=== PATIENT | female | born 1950 ===

== ENCOUNTER 2017-07-12 11:35 | Inpatient (IN) | payer MEDICARE, MEDICAID ==
[2017-07-12 11:55] VITALS: BMI 24.0
--- NOTE | 2017-07-12 11:55 | ED PDOC ---
Arrival/HPI - General Chief Complaint: Psychiatric Evaluation Time Seen by Provider: 07/12/17 11:42 Historian: Family (sister), Healthcare Administrator (staff member) - History of Present Illness Narrative History of Present Illness (Text): 07/12/17 11:53 Pt p/w with catatonic behavior since 4 days ago per pt's sister; pt with similiar behavior in the past when she was in ; pt was committed to psych institution in ~ 2 months ago and she was committed to psych institution ~ few years ago ? [place]; per sister, pt's daily functional activity has been decreasing since 4 days ago, and over the last 1 day has not eating a meal , pt has also been wetting herself and requiring her sister to help her, bath her; NO medical complaints were noted by sister; no pain, no sob, no vomiting, no urinary/bowel changes, no diarrhea, no bleeding; pt was noted to have been hearing a women's voice a few days ago, but pt did not say what the voice says; pt is here for further eval; pt's without other complaints. Time/Duration: < week (4 days ago) Symptom Onset: Sudden Symptom Course: Worsening Severity Level: Severe Activities at Onset: Rest Context: Home Past Medical History - Provider Review Nursing Documentation Reviewed: Yes - Travel History Have you recently traveled outside [place] w/in the past 3 mons?: Yes - Past History Past History: No Previous - Infectious Disease Hx of Infectious Diseases: None - Cardiac Hx Hyperlipemia: Yes Hx Hypertension: Yes - Neurological Hx Alzheimer's Disease: Yes - Endocrine/Metabolic Hx Diabetes Mellitus Type 2: Yes - Psychiatric Hx Psychophysiologic Disorder: Yes Hx Hallucinations: Yes Hx Schizophrenia: Yes Family/Social History - Physician Review Nursing Documentation Reviewed: Yes Family/Social History: No Known Family HX Smoking Status: Never Smoked Hx Alcohol Use: No Hx Substance Use: No Hx Substance Use Treatment: No Allergies/Home Meds Allergies/Adverse Reactions: Allergies No Known Allergies Allergy (Verified 07/12/17 11:55) Home Medications: Home Meds Medication Instructions Recorded Confirmed Atorvastatin [Lipitor] 20 mg PO DAILY 07/12/17 07/12/17 Enalapril Maleate [Vasotec] 2.5 mg PO DAILY 07/12/17 07/12/17 Ergocalciferol (Vitamin D2) 50,000 unit PO QWK 07/12/17 07/12/17 [Vitamin D2] Escitalopram [Lexapro] 20 mg PO DAILY 07/12/17 07/12/17 Insulin Lispro [Humalog (Insulin 10 units SC TID 07/12/17 07/12/17 Lispro)] Sitagliptin Phos/Metformin HCl 1 each PO BID 07/12/17 07/12/17 [Janumet 50-1,000 mg Tablet] Review of Systems - Review of Systems Constitutional: Normal Eyes: Normal ENT: Normal Respiratory: Normal Cardiovascular: Normal Gastrointestinal: Normal Genitourinary Female: Normal Musculoskeletal: Normal Skin: Normal Neurological: Normal Endocrine: Normal Hemo/Lymphatic: Normal Psychiatric: Other ([place]) Physical Exam - Physical Exam Physical Exam Limitations: Altered Mental Status Vital Signs Reviewed: Yes Vital Signs Temp Pulse Resp BP Pulse Ox 07/12/17 13:39 93 H 16 139/88 98 07/12/17 11:50 99.0 F 107 H 22 132/83 99 Temperature: Afebrile Blood Pressure: Normal Pulse: Tachycardic Respiratory Rate: Normal Appearance: Positive for: Well-Appearing, Other (comfortable appearing, resting in bed, appearing alert/awake, NAD, cooperative, catatonic state) Pain Distress: None Mental Status: Positive for: other (pt is in a cataonic state, non-responsive, non-verbal, but awake and staring/blinking) Finger Stick Blood Glucose: 188 - Systems Exam Head: Present: Atraumatic, Normocephalic Pupils: Present: PERRL, Other (no nystagmus, sclera anicteric, no photophobia) Extroacular Muscles: Present: EOMI Conjunctiva: Present: Normal Ears: Present: Normal Mouth: Present: Moist Mucous Membranes, Normal Teeth, Other (no drooling/stridor , midline tongue) Pharnyx: Present: Normal Nose (External): Present: Atraumatic Nose (Internal): Present: Normal Inspection Neck: Present: Normal Range of Motion, Trachea Midline, Other (no step off, no gross deformities noted). No: MIDLINE TENDERNESS Respiratory/Chest: Present: Clear to Auscultation, Good Air Exchange, Other ( CTA b/l, no w/r/r, no tachypenia, no accessory muscle use noted) Cardiovascular: Present: Regular Rate and Rhythm, Normal S1, S2. No: Murmurs Abdomen: Present: Normal Bowel Sounds, Other (well nourished female, no focal tenderness, no masses/rebound/guarding/rigidity, no steinberg's sign, no mcburney' s point tenderness) Back: Present: Normal Inspection, Other (no gross deformities noted). No: Midline Tenderness Upper Extremity: Present: Normal Inspection, NORMAL PULSES, Neurovascularly Intact Lower Extremity: Present: Normal Inspection, NORMAL PULSES, Neurovascularly Intact Neurological: Present: GCS=15, Other (no facial asymmetries noted, no tongue deviations noted) Skin: Present: Warm, Normal Color, Other (cap refill < 1sec, no ulcerations, no petechiae, no rashes noted) Psychiatric: Present: Alert, Other (catatonic state) Medical Decision Making ED Course and Treatment: 07/12/17 11:54 Impression: AMS, catatonia, psych behavior i have consider all the differential diagnosis regarding pt's chief medical complaints/clinical findings, including but are not limited to: AMS, psych evaluation, catatonia A/P: AMS, catatonia, psych behavior - labs - iv - ct - xray - ekg - ua - uds - observe, supportive care 07/12/17 13:[address] Coley, medical service PCP saira, whom has been made aware of patient's medical presentation and agrees with ED mgt/txt rendered. agrees with medical admission, and to consult psych as well. 07/12/2017 13:[address] IMPRESSION: No acute findings. Dictator: Lopez Collier MD 07/12/17 13:36 pt remained in catatonic state pt is not in any medical distress sister whos her guardian is at her bedside, and is made aware of pt's medical results/findings agrees with admission 07/12/17 14:49 Re-evaluation Time: 12:55 Reassessment Condition: Improving,but remains with symptoms - Lab Interpretations Lab Results: 07/12/17 12:15 07/12/17 12:15 Lab Results 07/12/17 12:30: Urine Opiates Screen Negative, Urine Methadone Screen Negative, Ur Barbiturates Screen Negative, Ur Phencyclidine Scrn Negative, Ur Amphetamines Screen Negative, U Benzodiazepines Scrn Negative, U Oth Cocaine Metabols Negative, U Cannabinoids Screen Negative 07/12/17 12:30: Urine Color Yellow, Urine Appearance Clear, Urine pH 7.0, Ur Specific [place] 1.020, Urine Protein Trace H, Urine Glucose (UA) Negative, Urine Ketones Trace H, Urine Blood Negative, Urine Nitrate Negative, Urine Bilirubin Negative, Urine Urobilinogen 0.2, Ur Leukocyte Esterase Negative, Urine RBC 0 - 2, Urine WBC 1 - 3, Ur Epithelial Cells 4 - 5, Amorphous Sediment Small, Urine Bacteria Many, Fine Granular Casts 0 - 2, Urine Other Fiber 07/12/17 12:15: Alcohol, Quantitative < 10 07/12/17 12:15: Salicylates < 1 L, Acetaminophen < 10.0 L 07/12/17 12:15: Sodium 121 L, Potassium 4.7, Chloride 88 L, Carbon Dioxide 15 L , Anion Gap 22 H, BUN 14, Creatinine 0.7, Est GFR ( Amer) > 60, Est GFR ( Non-Af Amer) > 60, Random Glucose 217 H, Calcium 9.3, Total Bilirubin 1.6 H, AST 35, ALT 18, Alkaline Phosphatase 78, Total Protein 7.4, Albumin 4.1, Globulin 3.4, Albumin/Globulin Ratio 1.2 07/12/17 12:15: WBC 12.9 H, RBC 4.18, Hgb 12.3, Hct 35.3 L, MCV 84.4, MCH 29.4, MCHC 34.8, RDW 12.8, Plt Count 340, MPV 10.7, Gran % 85.8 H, Lymph % (Auto) 8.4 L, [place] % (Auto) 5.5, Eos % (Auto) 0.2 L, Baso % (Auto) 0.1, Gran # 11.07 H, Lymph # (Auto) 1.1 L, [place] # (Auto) 0.7 H, Eos # (Auto) 0.0, Baso # (Auto) 0.01 07/12/17 11:49: POC Glucose (mg/dL) 188 H I have reviewed the lab results: Yes Interpretation: Abnormal lab values (decr NA, elevated FS) - RAD Interpretation Narrative RAD Interpretations (Text): 07/12/17 13:23 PROCEDURE: CT HEAD WITHOUT CONTRAST. HISTORY: AMS, psych eval COMPARISON: None available. TECHNIQUE: Axial computed tomography images were obtained through the head/brain without intravenous contrast. Radiation dose: Total exam DLP = 870 mGy-cm. This CT exam was performed using one or more of the following dose reduction techniques: Automated exposure control, adjustment of the mA and/or kV according to patient size, and/or use of iterative reconstruction technique. FINDINGS: HEMORRHAGE: No intracranial hemorrhage. BRAIN: No mass effect or edema. No atrophy or chronic microvascular ischemic changes. VENTRICLES: Unremarkable. No hydrocephalus. CALVARIUM: Unremarkable. PARANASAL SINUSES: Unremarkable as visualized. No significant inflammatory changes. MASTOID AIR CELLS: Unremarkable as visualized. No inflammatory changes. OTHER FINDINGS: None. IMPRESSION: No acute findings 07/12/17 14:48 HISTORY: AMS, psych eval COMPARISON: No prior. FINDINGS: LUNGS: No active pulmonary disease. PLEURA: No significant pleural effusion identified, no pneumothorax apparent. CARDIOVASCULAR: Normal. OSSEOUS STRUCTURES: No significant abnormalities. VISUALIZED UPPER ABDOMEN: Normal. OTHER FINDINGS: None. IMPRESSION: No active disease. Radiology Orders: 07/12/17 11:55 HEAD W/O CONTRAST [CT] Stat 07/12/17 11:56 CHEST PORTABLE [RAD] Stat Umbrella Repairer: Radiologist - EKG Interpretation EKG Interpretation (Text): 07/12/17 13:04 NSR at 90 bpm, normal axis, no ectopy, inverted P wave V1-2, no st changes, ABNL EKG; no old ekg to compare with Interpreted by ED Physician: Yes Type: 12 lead EKG Comparison: No previous EKG avail. - Medication Orders Current Medication Orders: Sodium Chloride (Sodium Chloride 0.9%) 1,000 mls @ 100 mls/hr IV .Q10H MINGO Last Admin: 07/12/17 12:27 Dose: 100 mls/hr eMAR Start Stop Document 07/12/17 12:27 HI (Rec: 07/12/17 12:28 HI [id number]) Intravenous Solution Start Date 07/12/17 Start Time 12:28 Disposition/Present on Arrival - Present on Arrival Any Indicators Present on Arrival: No History of DVT/PE: No History of Uncontrolled Diabetes: No Urinary Catheter: No History of Decub. Ulcer: No - Disposition Have Diagnosis and Disposition been Completed?: Yes Diagnosis: Altered mental status, unspecified, Hyponatremia, Hyperglycemia, Catatonic disorder due to known physiological condition Disposition: HOSPITALIZED Disposition Time: 13:39 Patient Plan: Admission Patient Problems: Current Active Problems Problem Status Onset Altered mental status, unspecified Acute Hyponatremia Acute Hyperglycemia Acute Catatonic disorder due to known physiological condition Acute Condition: STABLE Referrals: Shaik Charles MD [Primary Care Provider] - Follow up with primary Forms: [employer] (Yemeni)
[2017-07-12] MEDS ORDERED: Sodium Chloride 0.9% 1,000 ML IV SCH (12:00)
[2017-07-12 12:47] LABS: BASO # 0.01 K/mm3 (0.0-2.0); BASO % 0.1 % (0.0-3.0); EOS % 0.2 % (1.5-5.0); GRAN # 11.07 (1.4-6.5); GRAN % 85.8 % (50.0-68.0); HEMOGLOBIN 12.3 g/dL (12.0-16.0); LYMPH # 1.1 (1.2-3.4); LYMPH % 8.4 % (22.0-35.0); MEAN CELL VOLUME 84.4 fl (80.0-105.0); MEAN CORPUSCULAR HEMOGLOBIN 29.4 pg (25.0-35.0); MEAN CORPUSCULAR HGB CONC 34.8 g/dl (31.0-37.0); MEAN PLATELET VOLUME 10.7 fl (7.0-11.0); MONO # 0.7 (0.1-0.6); MONO % 5.5 % (1.0-6.0); RBC 4.18 10^6/uL (3.5-6.1); RED CELL DISTRIBUTION WIDTH 12.8 % (11.5-14.5); WHITE BLOOD COUNT 12.9 10^3/ul (4.5-11.0)
[2017-07-12 12:49] LABS: URINE BILIRUBIN NEGATIVE (NEGATIVE); URINE BLOOD NEGATIVE (NEGATIVE); URINE GLUCOSE (UA) NEGATIVE (NEGATIVE); URINE LEUKOCYTE ESTERASE NEGATIVE Leu/uL (NEGATIVE); URINE NITRATE NEGATIVE (NEGATIVE); URINE PROTEIN TRACE mg/dL (<30 mg/dL); URINE UROBILINOGEN 0.2 E.U./dL (<1 E.U./dL)
[2017-07-12 12:52] LABS: URINE APPEARANCE CLEAR (CLEAR); URINE COLOR YELLOW (YELLOW)
[2017-07-12 12:53] LABS: ACETAMINOPHEN < 10.0 ug/ml (10.0-20.0); SALICYLATE < 1 mg/dL (2.0-20.0)
[2017-07-12 12:55] LABS: ALB/GLOB RATIO 1.2 (1.1-1.8); ALBUMIN 4.1 g/dL (3.0-4.8); ALT/SGPT 18 U/L (7-56); AST/SGOT 35 U/L (14-36); BLOOD UREA NITROGEN 14 mg/dL (7-21); CALCIUM 9.3 mg/dL (8.4-10.5); GFR AFRICAN-AMERICAN > 60; GFR NON-AFRICAN AMERICAN > 60
[2017-07-12 12:58] LABS: URINE BACTERIA MANY (NEG); URINE RBC 0 - 2 /hpf (0-2)
[2017-07-12 12:59] LABS: URINE AMORPHOUS SEDIMENT SMALL; URINE FINE GRANULAR CAST 0 - 2 /hpf (0-2)
[2017-07-12 13:12] LABS: BARBITURATES, UR NEGATIVE (NEGATIVE); BENZODIAZEPINES, UR NEGATIVE (NEGATIVE); OPIATES, UR NEGATIVE (NEGATIVE); PHENCYCLIDINE, UR NEGATIVE (NEGATIVE)
--- NOTE | 2017-07-12 13:22 | CT ---
PROCEDURE: CT HEAD WITHOUT CONTRAST. HISTORY: AMS, psych eval COMPARISON: None available. TECHNIQUE: Axial computed tomography images were obtained through the head/brain without intravenous contrast. Radiation dose: Total exam DLP = 870 mGy-cm. This CT exam was performed using one or more of the following dose reduction techniques: Automated exposure control, adjustment of the mA and/or kV according to patient size, and/or use of iterative reconstruction technique. FINDINGS: HEMORRHAGE: No intracranial hemorrhage. BRAIN: No mass effect or edema. No atrophy or chronic microvascular ischemic changes. VENTRICLES: Unremarkable. No hydrocephalus. CALVARIUM: Unremarkable. PARANASAL SINUSES: Unremarkable as visualized. No significant inflammatory changes. MASTOID AIR CELLS: Unremarkable as visualized. No inflammatory changes. OTHER FINDINGS: None. IMPRESSION: No acute findings
--- NOTE | 2017-07-12 14:24 | RAD ---
HISTORY: AMS, psych eval COMPARISON: No prior. FINDINGS: LUNGS: No active pulmonary disease. PLEURA: No significant pleural effusion identified, no pneumothorax apparent. CARDIOVASCULAR: Normal. OSSEOUS STRUCTURES: No significant abnormalities. VISUALIZED UPPER ABDOMEN: Normal. OTHER FINDINGS: None. IMPRESSION: No active disease.
[2017-07-12] MEDS ORDERED: ENALAPRIL MALEATE 2.5 MG PO SCH (16:00)
[2017-07-12] MEDS: Insulin Lispro (humaLOG) MIX 75/25(10 ml) SC SCH (17:16)
[2017-07-12] MEDS: Sodium Chloride 3% 500 ML IV SCH (20:03)
[2017-07-12 20:51] LABS: HDL CHOLESTEROL 80 mg/dL (29-60)
[2017-07-12 21:06] LABS: LDL CHOLESTEROL < 30 mg/dL (0-129)
[2017-07-12] MEDS: Insulin Lispro (humaLOG) MEDIUM Coverage SC SCH (22:45)
[2017-07-12] MEDS: Dextrose 5%/0.9% NS 1,000 ML IV SCH (23:58)
--- NOTE | 2017-07-13 02:42 | HP ---
HISTORY OF PRESENT ILLNESS: Patient is 66 years old with significant psych history, accompanied by her sister, who states that for last few days she is acting strange. She was not herself. According to sister, she was in Psych unit as a public two months ago. She had similar episode a couple of years ago when she was admitted in hospital also. No history of nausea or vomiting. No history of diarrhea. No history of cough or congestion. No fever. No chills. No history of fall. PAST MEDICAL HISTORY: She has significant past medical history of: 1. Hyperlipidemia. 2. Hypertension. 3. History of depression. 4. insulin-dependent diabetes. 5. Early dementia. ALLERGIES: SHE IS NOT ALLERGIC TO ANY MEDICATIONS. MEDICATIONS AT HOME: She is on insulin, Humalog. She is on Janumet twice a day, Lipitor 20 mg daily, enalapril 2.5 mg daily, Lexapro 20 mg daily, vitamin D. SOCIAL HISTORY: She has no history of smoking, drinking of alcohol. REVIEW OF SYSTEMS: Confusion, disoriented. She reported her sister at home that she was hearing voices, but patient currently is not communicative, nonverbal. PHYSICAL EXAMINATION: VITAL SIGNS: She is afebrile, pulse 107, respirations 22, blood pressure 139/88. LUNGS: Bilateral good airflow. No rhonchi or crackle. HEART: S1, S2 audible. ABDOMEN: Soft, nontender. No rebound. No guarding. NEUROLOGIC: She is awake and alert, but not communicative. LABORATORY EXAMINATION: WBC is 12.9, hemoglobin 12.3, hematocrit 35.3, platelet of 340. Chemistry: Sodium 121, potassium 4.7, chloride 88, CO2 of 15, BUN 14, creatinine 0.7, blood sugar of 217, total bili 1.6. Urine tox is negative. Urinalysis is unremarkable. She had an x-ray of the chest done that is unremarkable. CT scan of the head has no acute findings. ASSESSMENT: 1. Altered mental status. 2. History of schizophrenia. 3. Hyponatremia. 4. History of hypertension. 5. Insulin-dependent diabetes. PLAN: We will start patient on IV saline. Monitor her blood sugar, started on 10 mL of hypertonic saline. Patient needs to be admitted in telemetry. Psychiatry consult by Dr. Sade Shaffer has been requested. We will resume her usual medications. Jayla Coley MD
[2017-07-13 07:12] LABS: BASO # 0.01 K/mm3 (0.0-2.0); BASO % 0.1 % (0.0-3.0); EOS % 0.4 % (1.5-5.0); GRAN # 7.06 (1.4-6.5); GRAN % 76.3 % (50.0-68.0); HEMOGLOBIN 12.7 g/dL (12.0-16.0); LYMPH # 1.4 (1.2-3.4); LYMPH % 15.4 % (22.0-35.0); MEAN CELL VOLUME 83.4 fl (80.0-105.0); MEAN CORPUSCULAR HEMOGLOBIN 29.3 pg (25.0-35.0); MEAN CORPUSCULAR HGB CONC 35.2 g/dl (31.0-37.0); MEAN PLATELET VOLUME 10.5 fl (7.0-11.0); MONO # 0.7 (0.1-0.6); MONO % 7.8 % (1.0-6.0); RBC 4.33 10^6/uL (3.5-6.1); RED CELL DISTRIBUTION WIDTH 12.8 % (11.5-14.5); WHITE BLOOD COUNT 9.3 10^3/ul (4.5-11.0)
[2017-07-13 07:24] LABS: ALB/GLOB RATIO 1.1 (1.1-1.8); ALBUMIN 3.7 g/dL (3.0-4.8); ALT/SGPT 26 U/L (7-56); AST/SGOT 23 U/L (14-36); BLOOD UREA NITROGEN 10 mg/dL (7-21); CALCIUM 8.8 mg/dL (8.4-10.5); GFR AFRICAN-AMERICAN > 60; GFR NON-AFRICAN AMERICAN > 60
[2017-07-13 07:35] LABS: FREE T4 1.63 ng/dL (0.78-2.19)
[2017-07-13] MEDS: Insulin Lispro (humaLOG) MEDIUM Coverage SC SCH ×4 (08:38→21:27)
[2017-07-13] MEDS: Dextrose 5%/0.9% NS 1,000 ML IV SCH ×2 (08:39→19:56)
[2017-07-13] MEDS: Insulin Lispro (humaLOG) MIX 75/25(10 ml) SC SCH ×2 (09:17→16:26)
--- NOTE | 2017-07-13 09:36 | CARD ---
APPROVED REPORT EKG Measurement Heart [id number] <Conclusion> Normal sinus rhythm Possible Left atrial enlargement Poor R Progression V1-V2.
--- NOTE | 2017-07-13 15:38 | PN ---
DATE: SUBJECTIVE: Patient is 66 years old, seen and examined. Patient is still in catatonic state. She does not communicate. She is staring, but not answering any questions. PHYSICAL EXAMINATION: VITAL SIGNS: She is afebrile, pulse 70, respirations 20, blood pressure 123/81. LUNGS: Bilateral good airflow. No rhonchi or crackle. HEART: S1, S2 audible. ABDOMEN: Soft, nontender. No rebound. No guarding. NEUROLOGIC: Patient is awake and alert, but not communicative. Does not cooperate to have any motor or sensory check done. LABORATORY DATA: Sodium 126, potassium 4.0, chloride 95, CO2 of 22, BUN 10, creatinine 0.6, blood sugar of 128. Total bili 1.8. Urinalysis is unremarkable. Urine tox is negative. ASSESSMENT: 1. Altered mental status. 2. Catatonic state. 3. Hyponatremia, unknown. 4. History of schizophrenia. 5. Hypertension. 6. Hyperlipidemia. 7. Non-insulin dependent diabetes. PLAN: Currently patient is n.p.o. She is not cooperative to have swallow eval done. We will continue her on IV fluids and monitor her blood sugar. She is on hypertonic saline, we will continue that. We will follow up her CBC and follow up CMP in a.m. Awaiting psychiatric input. Jayla Coley MD
[2017-07-13] MEDS: Sodium Chloride 3% 500 ML IV SCH (16:15)
[2017-07-14] MEDS: Dextrose 5%/0.9% NS 1,000 ML IV SCH ×2 (06:32→11:51)
[2017-07-14] MEDS: Insulin Lispro (humaLOG) MIX 75/25(10 ml) SC SCH ×2 (08:26→18:00)
[2017-07-14 08:27] LABS: ALB/GLOB RATIO 1.1 (1.1-1.8); ALBUMIN 3.8 g/dL (3.0-4.8); ALT/SGPT 15 U/L (7-56); AST/SGOT 23 U/L (14-36); BLOOD UREA NITROGEN 8 mg/dL (7-21); CALCIUM 8.9 mg/dL (8.4-10.5); GFR AFRICAN-AMERICAN > 60; GFR NON-AFRICAN AMERICAN > 60; URIC ACID 1.9 mg/dL (2.5-6.2)
[2017-07-14] MEDS: Insulin Lispro (humaLOG) MEDIUM Coverage SC SCH ×4 (08:28→21:43)
--- NOTE | 2017-07-14 12:24 | PN ---
DATE: SUBJECTIVE: The patient is 66 years old, seen and examined. Seems to be more responsive today. She is trying to have eye contact. She is still not verbal. PHYSICAL EXAMINATION: VITAL SIGNS: She is afebrile, pulse 89, respirations 18, blood pressure 126/86. LUNGS: Bilateral fair airflow. No rhonchi or crackle. HEART: S1 and S2 audible. ABDOMEN: Soft. Nontender. No rebound. No guarding. NEUROLOGIC: She is awake and alert, but not communicative. EXTREMITIES: Bilateral leg, no edema. LABORATORY DATA: Blood cultures are negative. X-ray of the chest is unremarkable. ASSESSMENT: 1. Altered mental status. 2. Hyponatremia. 3. Catatonic state. 4. History of schizophrenia. PLAN: I will cut down her IV fluid. We will monitor the blood sugar. Continue hypertonic saline for another 24 hours, we will discontinue in the a.m. Since the patient's oral intake is better, we will discontinue IV fluid. According to operations associate, she ate 75% of her food. We will request for physical therapy evaluation and TCU consult. Jayla Coley MD
[2017-07-14] MEDS: Sodium Chloride 3% 500 ML IV SCH (18:02)
--- NOTE | 2017-07-14 20:48 | CON ---
DATE: HISTORY OF PRESENT ILLNESS: The patient is a 66-year-old female with a psychiatric history of depression and anxiety and catatonic behavior requiring admissions in the past, who is being followed by Psychiatry on the medical floor for catatonic behavior. I reviewed ER reports, which indicated the patient had similar behaviors in the past while she was in the [facility]. Apparently, she was admitted to psychiatric institutions at [facility] approximately 2 months ago. She is currently being prescribed Lexapro 10 mg daily, Ativan 0.5 mg q. 6 p.r.n. and Risperdal 0.25 mg at bedtime p.r.n., which she received one dose last night. Recent notes indicated the patient continues to be catatonic with a very flat affect and generally if she is to speak regardless it being in Japanese or in Latvian. I did meet with the patient at bedside this morning and again she refused to interact with me despite much encouragement. She would not answer questions regarding months, year, current circumstances, location, her mood or any concerns, she just stares at me a blankly. She will not answer whether she is in any distress or not, though does not appear to be in any distress. Her affect is flat and she is demonstrating prominent negative symptoms. Although she is not responding to internal stimulation, she does look internally preoccupied. I cannot rule out delusions. I cannot rule out paranoia as patient will not verbally communicate or interact with me in other manner. Vital signs and lab work were reviewed by this provider. PSYCHIATRIC MEDICATIONS: Include as mentioned above, Ativan 0.5 mg IV q.6 p.r.n., Risperdal 0.25 mg p.o. at bedtime and Lexapro 10 mg daily. IMPRESSION: Catatonic schizophrenia, rule out schizoaffective disorder, with depression, rule out major depressive disorder with psychotic features likely anxiety component. RECOMMENDATIONS: The patient is demonstrating prominent negative symptoms at this time. It is unclear about the etiology, however, generally when patients present with catatonia, we start Ativan or standing Ativan and a secondary antipsychotic such as Abilify will also help with negative symptoms. Risperdal's formulation is very close to Haldol and is less effective for negative symptoms than Abilify. We will discontinue risperidone for this purpose. In addition, I do not know if Lexapro has been an effective medication for patient; however, I would prefer to start medication that will activate such as Prozac for patient due to her profoundness of her symptoms. However, I will hold on making any additional changes and concentrate on only starting Ativan and Abilify at this time, so as not to confuse her medication regimen and possible responses to it. Psychiatry will continue to follow up with her tomorrow on 07/15/2017 to monitor her mental status and tolerance and reaction to the medications. Bbuba Tripp MD
[2017-07-15] MEDS: Insulin Lispro (humaLOG) MEDIUM Coverage SC SCH ×4 (08:30→21:48)
[2017-07-15] MEDS: Dextrose 5%/0.9% NS 1,000 ML IV SCH (09:47)
[2017-07-15] MEDS: Insulin Lispro (humaLOG) MIX 75/25(10 ml) SC SCH ×2 (10:23→17:08)
--- NOTE | 2017-07-15 15:28 | PN ---
DATE: SUBJECTIVE: The patient is 66 years old, seen and examined. She seems to be more alert, more communicative, able to converse now. PHYSICAL EXAMINATION: VITAL SIGNS: She is afebrile, pulse 81, respirations 20, blood pressure 116/74. LUNGS: Bilateral fair airflow. No rhonchi or crackle. HEART: S1 and S2 audible. ABDOMEN: Soft. Nontender. No rebound. No guarding. NEUROLOGIC: The patient is awake and alert, able to communicate. LABORATORY DATA: Blood sugar is 176. ASSESSMENT: 1. Symptomatic hyponatremia. 2. Status post catatonic state. 3. Mild dementia. 4. History of [id number]-[id number] diabetes. 5. Questionable history of schizophrenia. PLAN: The patient has been started on Abilify, lorazepam as needed. We will monitor blood sugar. Discontinue hypertonic saline and IV fluid since the patient's oral intake is better. Jayla Coley MD
--- NOTE | 2017-07-15 23:10 | CON ---
DATE: HISTORY OF PRESENT ILLNESS: Patient female with a psychiatric history of depression, anxiety and catatonic behaviors, who was required psychiatric admissions in the past. She is being followed by Psychiatry in the medical floor for catatonic behavior. I met with the patient at bedside yesterday as well as this morning. I modified patient's medication regimen so that she will continue taking Lexapro and Ativan 0.5 mg to be given in the a.m. and bedtime. Risperdal 0.25 mg was changed to Abilify 5 mg to aid with negative symptoms. As noted above I met with patient at bedside this morning and she does appear to be more spontaneous and responsive as well as engaged during our interactions. I used a speak and translate lou successfully during my communication with her to aid with manage translation. Patient indicates that she noticed she is in the hospital. She cannot provide the current month or year. However does indicate that she is depressed and anxious; however, denies that she is thinking about or wants to hurt herself. Patient asks for our help in treating her symptoms. Patient appears to understand when I reviewed her medications and what their indications are, with her at bedside this morning and she continues to agree to take them. She denies having any side effects from the medications thus far. Patient denies having hallucinations and she cannot really explain why she has been not overly communicative. Most of our communication is done in simple phrases and yes or no responses. She does stare at me blankly at times, but I do elicit consistent responses from her regarding her mood and willingness for psychiatric intervention to help with her symptoms. and preoccupied, and she is not responding to internal stimuli. I cannot rule out paranoia either. Insight and judgement is improving, has shown some improvement overnight. Vital signs and lab work reviewed by this provider. PSYCHIATRIC MEDICATIONS: Include Abilify 5 mg daily, patient received one dose yesterday, one dose today. Lexapro 10 mg daily, patient received one dose yesterday and one dose today. Ativan 0.5 mg p.o. a.m. and bedtime, patient received 2 doses yesterday and one dose this morning and Ativan 0.5 mg IV q.6 p.r.n. IMPRESSION: Catatonic schizophrenia, rule out schizoaffective disorder depressed type, rule out major depressive disorder with psychotic features. Patient also likely has a prominent anxiety component. RECOMMENDATIONS: 1. Will continue Lexapro 10 mg daily for depression as well as Abilify 5 mg daily for patient's prominent negative symptoms. Abilify will also help with patient's depression and augment Lexapro in this regard. 2. We will increase Ativan to 0.5 mg a.m. and 1 mg at bedtime. This will continue to help with her catatonia as well as help with patient's complaints of insomnia last night. 3. Psychiatry will continue to follow up with patient on a daily basis, specifically Psychiatry will see patient on Sunday07/16/2017. Bubba Tripp MD
[2017-07-16] MEDS: Insulin Lispro (humaLOG) MEDIUM Coverage SC SCH ×3 (08:00→22:02)
[2017-07-16] MEDS: Insulin Lispro (humaLOG) MIX 75/25(10 ml) SC SCH ×2 (08:00→16:59)
--- NOTE | 2017-07-16 08:30 | CON ---
DATE: 07/13/2017 PRESENTATION: The patient is a 66-year-old female, seen at bedside. She is unresponsive except for moving her eyes. Evidently, she has been catatonic for a couple of days. In review of the nurses' note, the documentation from the emergency room and speaking with the nurses, the patient has not been eating and there is some concern that she may not be able to swallow, so they are doing a swallow test on her, for any medication ordered has to be via another route or liquid if she is able to do that once the test is done. As the patient is absolutely unable to give any history, I called her sister whose name is Bailey Delvalle with whom the patient lives. Evidently, the patient primarily at this time wants to live in the [place]; however, she has gotten depressed or sick and is unable to live on her own, so she is staying with her sister. In speaking with her sister, Bailey, the patient has been healthy for most of her life. 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 Never and has no children and was able to live independently. She in the last 2 years has had difficulties. Two years ago, she was diagnosed while in the [facility] [place] with having Alzheimer's as well as schizophrenia. She has no history of suicide attempts, psychiatric contact, psychiatric medication up until that point. She comes to the hospital at this time, just on Lexapro psychiatrically and she is not on any medication for the Alzheimer's. Evidently, under normal circumstances, the patient can live on her own and take care of herself; at this time, she is not, and her sister indicates that she is having a lot of issues with taking care of her. The patient does appear to have confusion. She looks around the apartment for people who are not there. She sundowns, meaning she has difficulty in the evening and sometimes she is up all night wandering around the apartment and she has been here for about 6 months at this time, but getting sick was over the last 2 months. There is no family history of any psychiatric disorders. Her mom at 57 of a pulmonary emboli. Father is 87 and still alive. She has 2 brothers who in their 60s and one brother, who is 85 years old, who is still alive. The patient's sister, Bailey only speaks Montenegrin, so I utilized a psychiatric nurse historical interpreter to speak with the sister. However, she indicates that the patient, Paula is able to speak Hungarian and is fluent in both Montenegrin and Hungarian, but she is not sure when she is this state whether or not she actually understands Hungarian, so I will notify the nursing staff of this. The patient's current vital signs include a temperature of 98.9, pulse rate of 84, blood pressure of 128/80, respiratory rate of 20 and O2 sat of 98%. Laboratory results include as of yesterday white blood cell count of 12.9. Today, it is down to 9.3. Her last glucose level at 11:12 today was 128. MENTAL STATUS EXAM: Unable to be performed. The patient is nonverbal at this point in time. Collateral was collected from sister. DIAGNOSTIC IMPRESSION: Dementia with behavioral changes; mood disorder, unspecified; rule out psychotic disorder, unspecified. PLAN: The patient is nonverbal and is not physically moving at this time. She requires total care and is not responsive verbally. Collateral has been collected from her sister, Bailey Delvalle. Her phone number is [phone]. She is only Montenegrin speaking. The patient does have an IV line in. I put in an order for lorazepam 0.5 mg IV push q. 6 hours as needed for anxiety, Risperdal liquid 0.25 mg one at bedtime. She is on Lexapro 20 mg daily. Due to the fact that Lexapro can cause hyponatremia, I decreased it to 10 mg today in case that is having an effect on the hyponatremia she came in with. We will continue to follow this patient psychiatrically. Dr. Tripp will see and assess the patient in the morning. Thank you for the consult. Echo Juarez APN Sade Shaffer MD G[facility]
--- NOTE | 2017-07-16 15:16 | CON ---
DATE: 07/16/2017 NEUROLOGY CONSULTATION CHIEF COMPLAINT: Catatonia. HISTORY OF PRESENT ILLNESS: This is a 66-year-old woman with history of hypertension, hyperlipidemia, depression, and schizophrenia, who came into the hospital because according to the sister, she was feeling generalized weakness and was very catatonic and found to have hyponatremia, which was symptomatic and Psychiatry had seen the patient for catatonia and recommended to continue on Lexapro for depression as well as Abilify 5 mg for prominent negative symptoms and Ativan 1 mg for underlying catatonic state, which she is being managed by Psychiatry. Her sodium is much better today, initially it was 121, today it is corrected slowly to 130. No acute events overnight. She is sitting up, following simple commands, and is more responsive and communicative today. PAST MEDICAL HISTORY: History of mild dementia, questionable schizophrenic, diabetes, hypertension, dyslipidemia. REVIEW OF SYSTEMS: A 14-point review of systems is negative except per the HPI. FAMILY HISTORY: Noncontributory. ALLERGIES: NO KNOWN DRUG ALLERGIES. MEDICATIONS: Reviewed by nurse per reconciliation sheet. LABORATORY DATA: Sodium 130, potassium 4.5, chloride 99, carbon dioxide 19. BUN of 8, creatinine of 0.6. Random glucose 176. PHYSICAL EXAMINATION: VITAL SIGNS: Temperature 98.4, pulse rate 95, blood pressure 116/75, respiratory rate of 20, oxygen saturation 94% by nasal cannula. GENERAL: The patient is sitting up in the chair, in no acute distress, very flat affect, answers simple questions. HEENT: Head is atraumatic, normocephalic. PERRLA. Extraocular muscles intact. NECK: Supple. No JVD, no adenopathy noted. LUNGS: Clear to auscultation. No adventitious sounds. HEART: S1 and S2. Normal rate and rhythm. No murmurs, rubs, or gallops. ABDOMEN: Soft, nontender, nondistended. Bowel sounds are present. EXTREMITIES: No clubbing. No cyanosis. Peripheral pulses 2+ felt bilaterally. NEUROLOGIC: The patient has a very flat affect. Poor attention span and slow thought process. She responds in short phrases. Stares blankly at times, but elicits consistent responses regarding her mood and willingness. Insight and judgement are improving from seen. Cranial nerves II through XII are intact. Motor exam: Slightly increased tone throughout. Moves all extremities equally. Sensory exam: Light touch, pinprick, proprioception, and vibration intact. DTRs are 2+ throughout and 1 at ankles. Coordination: [id number]-[id number] intact. Gait is deferred for now. 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 At this time, recommend: 1. Monitor electrolytes and correct accordingly. 2. Keep blood pressures between 120s and 130s systolic and diastolic 70s and 80s. 3. Continue with Lexapro 10 mg and Abilify 5 mg for depression. In addition, Ativan 1 mg p.o. at bedtime for insomnia as well as anxiety as well as catatonia. 4. Continue with psychiatric evaluation. Thank you for this consult. William Gardner MD
[2017-07-16 16:19] LABS: COMPLEMENT C4 31.5 mg/dL (14.0-44.0)
[2017-07-16 17:23] LABS: ALB/GLOB RATIO 1.1 (1.1-1.8); ALBUMIN 4.1 g/dL (3.0-4.8); ALT/SGPT 36 U/L (7-56); AST/SGOT 57 U/L (14-36); BLOOD UREA NITROGEN 16 mg/dL (7-21); CALCIUM 9.5 mg/dL (8.4-10.5); GFR AFRICAN-AMERICAN > 60; GFR NON-AFRICAN AMERICAN > 60
--- NOTE | 2017-07-16 18:56 | PN ---
DATE: 07/16/2017 She is being seen today for a followup consultation. PRESENTATION: The patient is a 66-year-old female, seen at bedside. She is sitting up and she is attentive. The patient was admitted to hospital on 07/12/2017, for being catatonic and withdrawn with a psych history. She was admitted medically due to hyponatremia and hypoglycemia. Consultation was ordered for evaluation of catatonia, questioning whether or not she has bipolar disorder. When I initially saw her on Sunday, she was completely other than being able to look at me nonresponsive. I had called her sister for followup information, collateral information, and she had indicated that the patient had some psychiatric problems, but really had had nothing major going on until about 2 years ago she was hospitalized into the [facility] and diagnosed with Alzheimer's and schizophrenia at that time. She was discharged on Lexapro and has been on that since. Her sister had noticed in the past couple of weeks her decompensating. She seemed to be seeing people who were not in apartment. She does sundown rather badly. Sometime, she is up all night with confusion. Today, the patient is sitting up. She stares intently and takes a long time to process, so her appearance is somewhat bizarre. Her sister had told me that she was fluent in both Albanian and Portuguese; however, with whatever mental processes are going on, she is more comfortable in Portuguese. So I used the Portuguese language in order to communicate with the patient and she indicated that her thoughts are clearing and that she is feeling better, but she would feel she needs more psychiatric treatment and is willing to sign into the psychiatric unit, which we will consider once she is medically cleared. The patient denies any current symptoms and is cooperative with the nursing staff. According to nurses' notes, there was an instance this morning of her trying to climb out of bed. The patient indicates me that she had had to go to the bathroom, so I am not quite certain if there was a communication issue or what exactly went on, but the patient is oriented to generally time, place, and person at this point in time. Her latest glucose level, which was at 11:19 this morning was 252. Her white blood cell count is 9.3 today. It has been 12.9 on 07/12/2017, and the patient's urine culture was negative. MENTAL STATUS EXAM: The patient is alert. She is oriented to person and place. Time is difficult because she has been here few days and many times it is difficult for the patients to differentiate exactly what today's date is or the exact date after being in the hospital a few days. Her speech rate and volume are halting very concrete and simplistic. She appears to have a lot of difficulty in processing questions. Her mood is blunted. Her affect is constricted. She denies being suicidal or homicidal. She denies the presence of hallucinations, delusions, or paranoia. Her concentration and focus are poor. Her memory both short and long-term are difficult to assess right now. Her appetite she states is okay and she indicates that she is sleeping at night. DIAGNOSES: Major depression with psychotic features, dementia unspecified. PLAN: The patient denies being suicidal or homicidal, appears in no imminent danger of hurting herself or others. However, she continues to feel depressed and is willing to sign herself into the psychiatric unit for further treatment of her depression. Once she is medically evaluated, we can see how that will work. This will be discussed with Dr. Shaffer. Psychiatry will continue to follow. Thank you for the consult. Echo Juarez APN MTDRamón
--- NOTE | 2017-07-16 21:27 | PN ---
DATE: SUBJECTIVE: The patient is a 66-year-old seen and examined, sitting in chair. Seemed to be more verbal today. Denies any chest pain or shortness of breath. Eating and tolerating. PHYSICAL EXAMINATION: VITAL SIGNS: She has temperature of 99.7, pulse 109, respirations 20, blood pressure 123/85. HEENT: She has butterfly rash on her face with erythema on upper nose, cheeks and forehead that was not obvious on yesterday's exam. Otherwise, head and neck exam is unremarkable. LUNGS: Bilateral fair airflow. No rhonchi or crackle. HEART: S1, S2 audible. ABDOMEN: Soft, nontender. No rebound, no guarding. NEUROLOGIC: She is awake, alert, oriented, able to communicate. LABORATORY DATA: Her ESR is 46. Her chemistry; sodium 127, potassium 4.1, chloride 89, CO2 26, BUN 16, creatinine 0.7. Blood sugar of 224. Complement level is low. Lupus workup has been sent. ASSESSMENT: 1. Hyponatremia. 2. Mild dementia. 3. Hypertension. 4. Dru-[id number]-[id number] diabetes. PLAN: The patient was on hypotonic saline. The patient's sodium was corrected up to 130s since this IV saline, and hypertonic saline was discontinued, her sodium number has dropped. The patient needs further workup including autoimmune workup and to rule out syndrome of inappropriate antidiuretic hormone secretion. Her uric acid level is low. We will get Nephrology input. I have ordered for urine sodium levels. Once the workup is available, we will make further plan. Disposition plan should be to transfer to Psych unit. Jayla Coley MD
[2017-07-17 07:38] LABS: ALBUMIN 3.7 g/dL (3.0-4.8); ALT/SGPT 33 U/L (7-56); AST/SGOT 33 U/L (14-36); BLOOD UREA NITROGEN 16 mg/dL (7-21); CALCIUM 9.5 mg/dL (8.4-10.5); GFR AFRICAN-AMERICAN > 60; GFR NON-AFRICAN AMERICAN > 60
[2017-07-17] MEDS: Insulin Lispro (humaLOG) MEDIUM Coverage SC SCH ×3 (07:42→17:19)
[2017-07-17] MEDS: Insulin Lispro (humaLOG) MIX 75/25(10 ml) SC SCH ×2 (07:44→17:18)
[2017-07-17 08:14] VITALS: RESP 20
[2017-07-17 11:24] LABS: PH,URINE 6.5 (4.7-8.0); URINE BILIRUBIN NEGATIVE (NEGATIVE); URINE BLOOD NEGATIVE (NEGATIVE); URINE GLUCOSE (UA) >=1000 mg/dL (NEGATIVE); URINE LEUKOCYTE ESTERASE NEGATIVE Leu/uL (NEGATIVE); URINE NITRATE NEGATIVE (NEGATIVE); URINE PROTEIN NEGATIVE mg/dL (<30 mg/dL)
[2017-07-17 11:27] LABS: URINE APPEARANCE CLEAR (CLEAR); URINE COLOR YELLOW (YELLOW)
--- NOTE | 2017-07-17 13:58 | PN ---
DATE: SUBJECTIVE: The patient is 66 years old, seen and examined. More awake, alert, oriented, and able to communicate. Not in any distress. Eating and tolerating. OBJECTIVE: VITAL SIGNS: She is afebrile, pulse 96, respirations 20, blood pressure 124/87. LUNGS: Bilateral good airflow. No rhonchi or crackle. HEART: S1 and S2 audible. ABDOMEN: Soft, nontender. No rebound, no guarding. NEUROLOGICAL: The patient is awake and alert, and able to communicate. LABORATORY DATA: Sodium 127, potassium 4.5, chloride 94, CO2 of 25. BUN 16 and creatinine 0.7. Blood sugar of 223. ASSESSMENT: 1. Hyponatremia, probable syndrome of inappropriate antidiuretic hormone. 2. Fxx-glvhgti-njttqvsgj diabetes. 3. Status post catatonia and altered mental status. 4. History of schizophrenia in the past, was not on any medication. PLAN: The patient is currently on Abilify. She is on insulin 50 units before breakfast and dinner, and metformin. Awaiting Nephrology evaluation and then, she can be transferred to psych unit. Jayla Coley MD
--- NOTE | 2017-07-17 14:56 | CP.PCM.CON ---
History of Present Illness - History of Present Illness History of Present Illness: Initial Nephrology Consultation: Assessment: Stable Hyponatremia euvolemic DDx include polydipisa, SIADH due to psych meds, schizophrenia HTN, DM AMS likely due to her psych condition Plan Hypertension control with meds as ordered. Patient on ACEI, will continue with it Monitor Input/Output, daily weights and sodium level Check urine analysis, spot protein/creatinine and albumin/creatinine ratio agree with checking urine Na and urine osmol will also check DNA ab along with JADA oral fluid restriction to 1000 mL/day no need for hypertonic saline at this time. avoid correction in serum na >6-8 meq/24 hr psychiatry and Neuro following she can be transferred to psych unit from renal perspective and followed there Dose meds/antibiotics for normal GFR. Glycemic control Further work up/management as per primary team Thanks for allowing me to participate in care of your patient. Will follow patient with you. Please call if any Qs Dr Huy Walker Office: [phone] Chief Complaint; Unable reason for consult: hyponatremia HPI: Pt is a 66 F with hx of diabetes Mellitus, hypertension, depression, schizophrenia presented with complaints of change in behaviour and catatonia state. she has been managed for hyponatremia with hypertonic saline initially and Na improved from 121 to 130. since she is off saline, Na decreasing again. renal consult for hyponatremia pt unable to provide much hx. ROS: pt unable to provide much hx due to her psych condition. she is not much communicative Physical Examination: General Appearance: Comfortable, in no acute respiratory distress, co-operative . Vitals reviewed and noted as below Head; Atraumatic, normocephalic ENT: no ulcers no thrush. Tongue is midline. Oropharynx: no rash or ulcers. EYES: Pupils are equal, round and reactive to light accommodation. Eye muscles and extraocular movement intact. Sclera is anicteric. Neck; supple no lymphadenopathy, no thyromegaly or bruit Lungs: Normal respiratory rate/effort. Breath sounds bilateral equal and clear Heart: Normal rate. s1s2 normal. No rub or gallop. Extremities: no edema. No varicose veins Neurological: Patient is alert, awake. No focal deficit. Strength bilateral appropriate and equal Skin: Warm and dry. Normal turgor. facial malar rash. Palpitation: Normal elasticity for age Abdomen: Abdomen is soft. Bowel sounds +. There is no abdominal tenderness, no guarding/rigidity no organomegaly Psych: lack insight and has flat affect/mood MSK: no joint tenderness or swelling. Digits and nails normal, no deformity : kidney or bladder not palpable Labs/imaging reviewed. Past medical history, past surgical history, family history, social history, allergy reviewed and noted as below Family hx: no hx of CKD. Rest non-contributory work up: UA initially trace protein and no blood normal complements urine Na 54 TGL 74 TSH 1.0 uric acid 1.9 Past Patient History - Infectious Disease Hx of Infectious Diseases: None - Past Social History Smoking Status: Never Smoked - CARDIAC Hx Hypercholesterolemia: Yes Hx Hypertension: Yes - PULMONARY Hx Respiratory Disorders: No - NEUROLOGICAL Hx Neurological Disorder: Yes Hx Alzheimer's Disease: Yes - HEENT Hx HEENT Problems: No - RENAL Hx Chronic Kidney Disease: No - ENDOCRINE/METABOLIC Hx Diabetes Mellitus Type 1: Yes - HEMATOLOGICAL/ONCOLOGICAL Hx Blood Disorders: No - INTEGUMENTARY Hx Dermatological Problems: No - MUSCULOSKELETAL/RHEUMATOLOGICAL Hx Musculoskeletal Disorders: No Hx Falls: No - GASTROINTESTINAL Hx Gastrointestinal Disorders: No - GENITOURINARY/GYNECOLOGICAL Hx Genitourinary Disorders: No - PSYCHIATRIC Hx Psychophysiologic Disorder: Yes Hx Hallucinations: Yes Hx Schizophrenia: Yes - SURGICAL HISTORY Hx Surgeries: (has old incision on lower mid-abdomen and LLQ) Meds Allergies/Adverse Reactions: Allergies Allergy/AdvReac Type Severity Reaction Status Date / Time No Known Allergies Allergy Verified 07/12/17 11:55 - Medications Medications: Current Medications Aripiprazole (Abilify) 2.5 mg PO AMHS [facility] Last Admin: 07/17/17 09:53 Dose: Not Given Insulin Human Lispro (Humalog Med) 0 units SC ACHS [facility] PRN Reason: Protocol Last Admin: 07/17/17 07:42 Dose: 3 units Insulin Lispro Protam/Lispro Human (Humalog Mix 75/25) 15 units SC ACBD [facility] Last Admin: 07/17/17 07:44 Dose: 15 unit Lisinopril (Zestril) 2.5 mg PO DAILY [facility] Last Admin: 07/17/17 09:32 Dose: 2.5 mg Lorazepam (Ativan) 0.5 mg IVP Q6H PRN; Protocol PRN Reason: Anxiety Lorazepam (Ativan) 1 mg PO HS [facility] PRN Reason: Protocol Last Admin: 07/16/17 21:05 Dose: 1 mg Lorazepam (Ativan) 0.5 mg PO BID MINGO PRN Reason: Protocol Last Admin: 07/17/17 09:53 Dose: Not Given Metformin HCl (Glucophage) 500 mg PO BID MINGO Results - Vital Signs Recent Vital Signs: Last Vital Signs Temp 98.3 F 07/17/17 07:30 Pulse 100 H 07/17/17 09:32 Resp 20 07/17/17 07:30 BP 124/87 07/17/17 09:32 Pulse Ox 96 07/17/17 07:30 - Labs Result Diagrams: 07/13/17 06:00 07/17/17 06:15 Labs: Laboratory Results - last 24 hr 07/16/17 07/16/17 07/16/17 11:19 12:20 12:20 ESR 46 H Sodium Potassium Chloride Carbon Dioxide Anion Gap BUN Creatinine Est GFR ( Amer) Est GFR (Non-Af Amer) POC Glucose (mg/dL) 252 H Random Glucose Calcium Total Bilirubin AST ALT Alkaline Phosphatase C-React Prot High Sens > 15.00 H Total Protein Albumin Globulin Albumin/Globulin Ratio Ur Random Sodium Complement C3 126.0 Complement C4 31.5 07/16/17 07/16/17 07/16/17 16:08 16:58 20:58 ESR Sodium 127 L Potassium 4.1 Chloride 89 L Carbon Dioxide 26 Anion Gap 16 BUN 16 Creatinine 0.7 Est GFR ( Amer) > 60 Est GFR (Non-Af Amer) > 60 POC Glucose (mg/dL) 206 H 249 H Random Glucose 224 H Calcium 9.5 Total Bilirubin 1.1 AST 57 H D ALT 36 Alkaline Phosphatase 86 C-React Prot High Sens Total Protein 7.8 Albumin 4.1 Globulin 3.7 Albumin/Globulin Ratio 1.1 Ur Random Sodium Complement C3 Complement C4 07/17/17 07/17/17 07/17/17 06:15 07:16 09:50 ESR Sodium 127 L Potassium 4.5 Chloride 94 L Carbon Dioxide 25 Anion Gap 14 BUN 16 Creatinine 0.7 Est GFR ( Amer) > 60 Est GFR (Non-Af Amer) > 60 POC Glucose (mg/dL) 223 H Random Glucose 207 H Calcium 9.5 Total Bilirubin 1.0 AST 33 ALT 33 Alkaline Phosphatase 80 C-React Prot High Sens Total Protein 7.3 Albumin 3.7 Globulin 3.6 Albumin/Globulin Ratio 1.0 L Ur Random Sodium 54 Complement C3 Complement C4
[2017-07-17 17:16] VITALS: BP 131/82; PULSE 106; TEMP 98.4; O2SAT 100
[2017-07-17 17:48] LABS: OSMOLALITY,URINE 566 mosm/kg (300-1000)
--- NOTE | 2017-07-17 18:09 | PN ---
DATE: 07/17/2017 She is being seen today for a followup consultation. PRESENTATION: Patient is a 66-year-old female, seen at bedside. She was originally admitted to the hospital on 07/12/2017, for altered mental status, unspecified; hyponatremia, hyperglycemia, and catatonia. Psychiatric consult was ordered due to AMS, catatonia, and bipolar disorder. Patient is sitting at bedside today. She still continues to be attentive and to attend the conversation, which she has a hard time processing and responding. Indicates that she is feeling okay. She is cooperative with taking her medications and unit procedures, and she continues to be willing to sign into the psychiatric unit. I had been notified yesterday afternoon that she was medically cleared and then evidently her blood work had showed that she was hyponatremic with increased glucose, so the medical clearance was rescinded. Patient does not require a one-to-one. There have been no behavioral issues with her. She does have periods of confusion, but evidently is cooperative. She is not combative or climbing out of bed. VITAL SIGNS: Current vital signs include a temperature of 98.3, pulse rate of 96, blood pressure 144/77, respiratory rate 20, and O2 sat of 96% on room air. MENTAL STATUS EXAM: Patient is alert. She is oriented x2. Her eye contact is good. Her behavior is cooperative. Her speech rate and volume are halting. It seems it takes her a long time to process the answer, responds in very few words. She denies being suicidal or homicidal. Denies the presence of hallucinations, delusions, or paranoia. She does indicate that she is depressed when questioned. Her focus and concentration appear to be poor. Her memory both short and photograph mounter are difficult to assess. Her appetite is adequate and she appears to be sleeping at night. DIAGNOSTIC IMPRESSION: Dementia without behavioral disturbance, rule out mood disorder secondary to dementia. PLAN: Patient denies being suicidal or homicidal and does not appear in any imminent danger of hurting herself or others. Patient continues to be voluntary. She would like to come to the psychiatric unit once she is medically cleared. She does not feel stable enough psychiatrically to go home. Her current medications which have been changed again today are Abilify which was 5 mg once a day is 2.5 mg, one in the morning and one at night; Ativan at 0.5 mg q. 6 hours p.r.n. anxiety. She is routinely getting lorazepam 1 mg at bedtime and 0.5 mg one p.o. b.i.d. The Lexapro was discontinued due to the fact that it can cause some hyponatremia and as patient is suffering from this it seems appropriate. Psychiatry will continue to follow and assess this patient on a daily basis. Thank you for the consult. ARSH Garcia MD MTDRamón
== END 2017-07-17 17:45 | DRG 644 ==
LOC: ED 11:35 → ERH 15:21 → 3RSO 20:49 → 5RNO 07-15 15:54
PROVIDERS: ADMIT Internal Medicine; ATTEND Internal Medicine
DX: E22.2 Syndrome of inappropriate secretion of antidiuretic hormone (principal); F20.2 Catatonic schizophrenia; F32.3 Major depressive disorder, single episode, severe with psychotic features; E11.65 Type 2 diabetes mellitus with hyperglycemia; G30.9 Alzheimer's disease, unspecified; F02.80 Dementia in other diseases classified elsewhere, unspecified severity, without behavioral disturbance, psychotic disturbance, mood disturbance, and anxiety; E78.5 Hyperlipidemia, unspecified; I10 Essential (primary) hypertension; G47.00 Insomnia, unspecified; F41.9 Anxiety disorder, unspecified

== ENCOUNTER 2017-07-17 17:45 | Inpatient (IN) | payer MEDICARE, MEDICAID ==
--- NOTE | 2017-07-17 18:38 | PCM.BM ---
<Phong Carnes - Last Filed: 07/17/17 18:35> Treatment Plan Problems - Problems identified on initial assessmt SELFCARE DEFICIT Date Initiated: 07/17/17 Time Initiated: 18:36 Assessment reference: HP, NA, Other Status: Active MEDICATION NONADHERENCE Date Initiated: 07/17/17 Time Initiated: 18:36 Assessment reference: HP, NA, Other Status: Active SOCIAL ISOLATION Date Initiated: 07/17/17 Time Initiated: 18:36 Assessment reference: HP, NA, Other Status: Active Treatment assets and liabiliti Patient Assests: adapts well, cooperative, good support system, negotiates basic needs Patient Liabilities: live alone, language/speech - Milieu Protocol Maintain good personal hygiene: daily Encourage regular showers, daily Remind patient to perform daily oral care, daily Assist patient to perform ADL's Maintain personal safety: daily Educate patient to report safety concerns to staff, daily Monitor environment for contraband/sharps Medication safety: Monitor for expected outcome, potential side effects: daily, Assess barriers to learning: daily, Assess readiness for medication education: daily Discharge/Continuing Care - Education Needs Education Needs: Patient Medication, Patient Diagnosis/Disease Process, Patient Coping Skills, Patient Community resources, Patient Activities of Daily Living, Patient Health Practices/Safety, Patient Personal Hygiene/Grooming - Discharge Discharge Criteria: Tolerates medication w/o severe side effects, Free of agitation, Normal sleep pattern, Ability to care for self <Echo Juarez - Last Filed: 07/18/17 07:36> - 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 Status: Acute Interventions: Psychoeducation Psychopharmacology/adjustment of medications as needed/ monitoring possible side effects Evaluate pt on daily basis Compliance with medications and follow up appointments Suicide and homicide risk assessment and prevention Relapse prevention Reduction of symptoms Improve functional status Family involvement As outpatient: cognitive behavioral therapy 07/18/17 07:37 <Ariel Dent - Last Filed: 07/18/17 09:42> Treatment Plan Problems - Problems identified on initial assessmt MEDICATION NONADHERENCE Date resolved: 07/18/17 SOCIAL ISOLATION Priority: 3 Altered Thought Process Date Initiated: 07/18/17 Time Initiated: 09:42 Assessment reference: BECKY Status: Active Priority: 2 Ineffective Coping Date Initiated: 03/07/18 Time Initiated: 09:42 Status: Active Priority: 1 Treatment assets and liabiliti Patient Assests: ADL independent Patient Liabilities: medical problems, imparied memory, language/speech - Milieu Protocol Maintain good personal hygiene: daily Encourage regular showers, daily Remind patient to perform daily oral care, daily Assist patient to perform ADL's Conduct patient checks and document Observation sheet: Q15 minutes Maintain personal safety: every shift Educate patient to report safety concerns to staff, every shift Monitor environment for contraband/sharps Medication safety: Monitor for expected outcome, potential side effects: every shift, Assess barriers to learning: every shift, Assess readiness for medication education: every shift Discharge/Continuing Care - Education Needs Education Needs: Patient Medication, Patient Diagnosis/Disease Process, Patient Coping Skills - Discharge Discharge Criteria: Tolerates medication w/o severe side effects, Normal sleep pattern, Ability to care for self, Reduction of target symptoms Discharge to:: Home <Madelin Lopez - Last Filed: 07/18/17 13:44> Family Contact Family involvement: Family/SO is involved Family contact: Patient agrees to contact Family contact name: Bailey Delvalle([phone]) sister Family contacted how many times per week?: 2 <Rosario Galeas - Last Filed: 07/19/17 16:27>
[2017-07-17] MEDS: Insulin Lispro (humaLOG) MEDIUM Coverage SC SCH (21:42)
[2017-07-18] MEDS ORDERED: Magnesium Hydroxide Susp 30 ml UD PO PRN (01:02)
[2017-07-18] MEDS ORDERED: Alum-Mag Hydrox-Simethicone Susp (30 mL) PO PRN (01:02)
[2017-07-18 08:25] LABS: GLUCOSE,FASTING 216 mg/dL (65-110); HDL CHOLESTEROL 58 mg/dL (29-60)
[2017-07-18 08:36] LABS: LDL CHOLESTEROL 45 mg/dL (0-129)
[2017-07-18 08:43] LABS: FREE T4 1.36 ng/dL (0.78-2.19)
--- NOTE | 2017-07-18 08:49 | PCM.PSYCH ---
Initial Psychiatric Evaluation - Initial Psychiatric Evaluation Type of Admission: Voluntary Legal Status: Capacity Chief Complaint (in patient's own words): "I need more help" Patient's Reaction to Hospitalization: Patient is a 66 year old female who was admitted to [facility] [place] altered mental status, hyponatremia, hyperglycemia, and catatonia. She was followed on the medical floor by Psychiatry until medically cleared. Admitted voluntarily. History of Present Illness and Precipitating Events: Patient is a 66 year old female who has never been and has no children. She has been living with her sister prior to admission. Patient stares intently and has great difficulty processing information when asked questions. She is a poor historian but not uncooperative. She is no longer catatonic, is able to ambulate independently. History is obtained primarily from her sister. Patient evidently has had no psychiatric problems and has lived independently up until the last 2 years. She had some sort of a "breakdown" similar to her current presentation and was admitted to the hospital in the [facility]. She was diagnosed with schizophrenia and dementia and discharged on Lexapro. She has been unable to live alone since and has been staying with her sister who says she had been getting worse about 2 months Patient prior to admission and was getting confused in the evening sometimes staying up all night or seeing people that were not there. She stopped eating and became catatonic. Patient medically has HTN, and DM. Patient has no history of drug or alcohol abuse according to sister. Patient has no legal issues, no access to guns. Family history for mental illness is denied. Social and Developmental History: Patient grew up in the [facility], it is not clear when she came here or why. Mother at 57 of a pulmonary embolism and father is 87 and still alive. There were 8 siblings with 2 still alive other than the patient. 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 Current Medications: Active Medications Generic Name Dose Route Start Last Admin Trade Name Freq PRN Reason Stop Dose Admin Acetaminophen 650 mg 07/18/17 01:02 Tylenol 325mg Tab PO Q4H PRN Pain, Mild (1-3) Al Hydrox/Mg Hydrox/Simethicone 30 ml 07/18/17 01:02 Maalox Plus 30 Ml PO DAILY PRN Upset Stomach Aripiprazole 2.5 mg 07/17/17 22:00 07/17/17 21:42 Abilify PO 2.5 mg AMHS MINGO Administration Insulin Human Lispro 0 units 07/17/17 22:00 07/17/17 21:42 Humalog Med SC Not Given ACHS MINGO Protocol Insulin Lispro Protam/Lispro Human 15 units 07/18/17 07:30 Humalog Mix 75/25 SC ACBD MINGO Lisinopril 2.5 mg 07/18/17 08:00 Zestril PO DAILY MINGO Lorazepam 0.5 mg 07/18/17 16:00 Ativan PO BID MINGO Protocol Lorazepam 1 mg 07/17/17 22:00 07/17/17 21:42 Ativan PO 1 mg HS MINGO Administration Protocol Magnesium Hydroxide 30 ml 07/18/17 01:02 Milk Of Magnesia PO DAILY PRN Constipation Metformin HCl 500 mg 07/18/17 08:00 Glucophage PO BID [facility] Past Psychiatric History - Past Psychiatric History Previous Treatment History: Inpatient Prior Psychiatric Treatment: Once 2 years ago in [facility] History of Abuse: Unknown History of ETOH/Drug Use: Denied History of Family Illness: Denied Pertinent Medical Hx (Current Medical&Sleep Prob, Allergies): Allergies Allergy/AdvReac Type Severity Reaction Status Date / Time No Known Allergies Allergy Verified 07/18/17 01:02 Atorvastatin [Lipitor] 20 mg PO DAILY 07/12/17 Enalapril Maleate [Vasotec] 2.5 mg PO DAILY 07/12/17 Ergocalciferol (Vitamin D2) [Vitamin D2] 50,000 unit PO QWK 07/12/17 Escitalopram [Lexapro] 20 mg PO DAILY 07/12/17 Insulin Lispro [Humalog (Insulin Lispro)] 10 units SC TID 07/12/17 Sitagliptin Phos/Metformin HCl [Janumet 50-1,000 mg Tablet] 1 each PO BID Review of Systems - Review of Systems Systems not reviewed;Unavailable: Language Barrier - EENT Eyes: As Per HPI Ears: As Per HPI Nose/Mouth/Throat: As Per HPI - Breasts Breasts: As Per HPI - Cardiovascular Cardiovascular: As Per HPI - Respiratory Respiratory: As Per HPI - Gastrointestinal Gastrointestinal: As Per HPI - Genitourinary Genitourinary: As Per HPI - Reproductive: Female Reproductive:Female: As Per HPI - Menstruation Menstruation: As Per HPI - Musculoskeletal Musculoskeletal: As Par HPI - Integumentary Integumentary: As Per HPI - Neurological Neurological: As Per HPI - Psychiatric Psychiatric: As Per HPI - Endocrine Endocrine: As Per HPI - Hematologic/Lymphatic Hematologic: As Per HPI Mental Status Examination - Personal Presentation Personal Presentation: Looks stated age - Affect Affect: Flat - Motor Activity Motor Activity: Psychomotor Retardation - Reliability in Providing Information Reliability in Providing Information: Poor, due to altered mood, Poor, due to cognitve impairment - Speech Additional comments: Slow, concrete, simplistic responses - Mood Mood: Depressed - Formal Thought Process Additional comments: Thought processes are slow, thought blocking - Hallucinations/Delusions Additional comments: Denies hallucinations or delusions, evidently at home was seeing people that are not there. - Obsessions/Compulsions Obsessions: No Compulsions: No - Cognitive Functions Orientation: Person, Place, Situation Sensorium: Alert Attention/Concentration: Attentive Abstract Thinking: [place] Estimate of Intelligence: Average - Risk Risk: Diminished functioning - Strength & Assets Inventory Strength & Assets Inventory: Family support, Employment history - Limitations Limitations: Decreased memory, recent DSM 5 DX - DSM 5 DSM 5 Diagnosis: Dementia with depressed mood - Recommended/Plan of Treatment Treatment Recommendations and Plan of Treatment: Milieu/structure/supportive therapy Medical consult appreciated, see medical team note for more detailed info consultation for discharge plan and social issues Med management Family involvement Follow up on labs Will monitor closely evaluation for d/c planning Pt was educated about risk/benefits and alternatives of medications, coping strategies (safety plan, suicide prevention), relapse prevention, importance of follow up with psychiatrist and therapist, stay away from drugs/alcohol/smoking Medication Rational: Abilify 2.5mg BID for altered sensorium Ativan 0.5mg AM and Ativan 1mg HS for anxiety Lexapro discontinued as it can contribute to hyponatremia, will avoid medications that can also contribute to this. Projected ELOS: 07/23/2017 Prognosis: Fair Discharge Plan and Discharge Criteria: Patient will no longer be depressed, patient will be stable with an appropriate discharge plan - Smoking Cessation Smoking Cessation Initiated: No Reason for not providing: Patient not a smoker
[2017-07-18] MEDS: Insulin Lispro (humaLOG) MEDIUM Coverage SC SCH ×4 (09:17→21:25)
[2017-07-18] MEDS: Insulin Lispro (humaLOG) MIX 75/25(10 ml) SC SCH ×2 (09:18→17:17)
[2017-07-18 11:30] LABS: BLOOD UREA NITROGEN 18 mg/dL (7-21); CALCIUM 9.4 mg/dL (8.4-10.5); GFR AFRICAN-AMERICAN > 60; GFR NON-AFRICAN AMERICAN > 60
--- NOTE | 2017-07-18 12:06 | CP.PCM.CON ---
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 Patient on ACEI, will continue with it. hold if BP <110/50 If serum Na <130 despite fluid restriction then will consider treatment with tolvaptan. Today Na 133 hence will continue with oral fluid restriction to 1000 mL/day no need for hypertonic saline at this time. avoid correction in serum Na >6-8 meq/24 hr Dose meds/antibiotics for normal GFR. Glycemic control Further work up/management as per primary team Thanks for allowing me to participate in care of your patient. Will follow patient with you. Please call if any Qs. d/w team Dr Huy Walker Office: [phone] Chief Complaint; Unable reason for consult: hyponatremia HPI: Pt is a 66 F with hx of diabetes Mellitus, hypertension, depression, schizophrenia presented with complaints of change in behaviour and catatonia state. she has been managed for hyponatremia with hypertonic saline initially and Na improved from 121 to 130. since she was off saline, Na started decreasing again. renal consult for hyponatremia pt unable to provide much hx. ROS: pt unable to provide much hx due to her psych condition. she is not much communicative Physical Examination: General Appearance: Comfortable, in no acute respiratory distress, co-operative . Vitals reviewed and noted as below Head; Atraumatic, normocephalic ENT: no ulcers no thrush. Tongue is midline. Oropharynx: no rash or ulcers. EYES: Pupils are equal, round and reactive to light accommodation. Eye muscles and extraocular movement intact. Sclera is anicteric. Neck; supple no lymphadenopathy, no thyromegaly or bruit Lungs: Normal respiratory rate/effort. Breath sounds bilateral equal and clear Heart: Normal rate. s1s2 normal. No rub or gallop. Extremities: no edema. No varicose veins Neurological: Patient is alert, awake. No focal deficit. Strength bilateral appropriate and equal Skin: Warm and dry. Normal turgor. facial malar rash. Palpitation: Normal elasticity for age Abdomen: Abdomen is soft. Bowel sounds +. There is no abdominal tenderness, no guarding/rigidity no organomegaly Psych: lack insight and has flat affect/mood MSK: no joint tenderness or swelling. Digits and nails normal, no deformity : kidney or bladder not palpable Labs/imaging reviewed. Past medical history, past surgical history, family history, social history, allergy reviewed and noted as below Family hx: no hx of CKD. Rest non-contributory work up: UA initially trace protein and no blood normal complements, JADA neg urine Na 54 urine osmol 566 urine pro/cr 143 mg/gr and microalbumin neg TGL 74 TSH 1.0 uric acid 1.9 Past Patient History - Infectious Disease Hx of Infectious Diseases: None - Past Social History Smoking Status: Never Smoked Past Patient History - Infectious Disease Hx of Infectious Diseases: None - Past Social History Smoking Status: Never Smoked - CARDIAC Hx Hypercholesterolemia: Yes Hx Hypertension: Yes - PULMONARY Hx Respiratory Disorders: No - NEUROLOGICAL Hx Neurological Disorder: Yes Hx Alzheimer's Disease: Yes - HEENT Hx HEENT Problems: No - RENAL Hx Chronic Kidney Disease: No - ENDOCRINE/METABOLIC Hx Diabetes Mellitus Type 1: Yes - HEMATOLOGICAL/ONCOLOGICAL Hx Blood Disorders: No - INTEGUMENTARY Hx Dermatological Problems: No - MUSCULOSKELETAL/RHEUMATOLOGICAL Hx Musculoskeletal Disorders: No Hx Falls: No - GASTROINTESTINAL Hx Gastrointestinal Disorders: No - GENITOURINARY/GYNECOLOGICAL Hx Genitourinary Disorders: No - PSYCHIATRIC Hx Substance Use: No - SURGICAL HISTORY Hx Surgeries: (has old incision on lower mid-abdomen and LLQ) - ANESTHESIA Hx Anesthesia: No Meds Allergies/Adverse Reactions: Allergies Allergy/AdvReac Type Severity Reaction Status Date / Time No Known Allergies Allergy Verified 07/18/17 01:02 - Medications Medications: Current Medications Acetaminophen (Tylenol 325mg Tab) 650 mg PO Q4H PRN PRN Reason: Pain, Mild (1-3) Al Hydrox/Mg Hydrox/Simethicone (Maalox Plus 30 Ml) 30 ml PO DAILY PRN PRN Reason: Upset Stomach Aripiprazole (Abilify) 2.5 mg PO AMHS MINGO Last Admin: 07/18/17 09:14 Dose: 2.5 mg Insulin Human Lispro (Humalog Med) 0 units SC ACHS MINGO PRN Reason: Protocol Last Admin: 07/18/17 09:17 Dose: 1 units Insulin Lispro Protam/Lispro Human (Humalog Mix 75/25) 15 units SC [facility] Last Admin: 07/18/17 09:18 Dose: 15 u Lisinopril (Zestril) 2.5 mg PO DAILY MINGO Lorazepam (Ativan) 0.5 mg PO BID MINGO PRN Reason: Protocol Lorazepam (Ativan) 1 mg PO HS MINGO PRN Reason: Protocol Last Admin: 07/17/17 21:42 Dose: 1 mg Magnesium Hydroxide (Milk Of Magnesia) 30 ml PO DAILY PRN PRN Reason: Constipation Metformin HCl (Glucophage) 500 mg PO BID MINGO Last Admin: 07/18/17 09:16 Dose: 500 mg Results - Vital Signs Recent Vital Signs: Last Vital Signs Temp 98.7 F 07/18/17 07:25 Pulse 95 H 07/18/17 09:14 Resp 20 07/18/17 07:25 BP 97/65 L 07/18/17 09:14 Pulse Ox - Labs Result Diagrams: 07/18/17 11:00 Labs: Laboratory Results - last 24 hr 07/17/17 07/18/17 07/18/17 21:24 06:30 06:30 Sodium Potassium Chloride Carbon Dioxide Anion Gap BUN Creatinine Est GFR ( Amer) Est GFR (Non-Af Amer) POC Glucose (mg/dL) 218 H Random Glucose Fasting Glucose 216 H Calcium Triglycerides 72 Cholesterol 123 L LDL Cholesterol Direct 45 HDL Cholesterol 58 Free T4 1.36 TSH 3rd Generation 0.49 07/18/17 07/18/17 07/18/17 07:32 11:00 11:35 Sodium 133 Potassium 4.8 Chloride 101 Carbon Dioxide 18 L Anion Gap 18 BUN 18 Creatinine 0.7 Est GFR ( Amer) > 60 Est GFR (Non-Af Amer) > 60 POC Glucose (mg/dL) 199 H 299 H Random Glucose 222 H Fasting Glucose Calcium 9.4 Triglycerides Cholesterol LDL Cholesterol Direct HDL Cholesterol Free T4 TSH 3rd Generation
--- NOTE | 2017-07-18 18:14 | CON ---
DATE: HISTORY OF PRESENT ILLNESS: Patient is 66 years old, who was initially admitted on acute care following catatonic state. According to the family, she has been increasingly forgetful and family noticed altered mental status. She was brought to the emergency room and found to have sodium of 121. She was treated with hypertonic saline and IV saline. She was evaluated by psychiatrist and was transferred to Psych unit for management and readjustment of psych medications. PAST MEDICAL HISTORY: Significant for: 1. Hypertension. 2. Jvn-izdghpr-xaaclboap diabetes. 3. Hyperlipidemia. ALLERGIES: SHE IS NOT ALLERGIC TO ANY MEDICATION. MEDICATIONS AT HOME: She is on Humalog and she is taking Janumet twice a day, Lipitor 20 mg daily, enalapril 2.5 mg daily, Lexapro 20 mg daily. SOCIAL HISTORY: She has no history of smoking, drinking, or alcohol use. REVIEW OF SYSTEMS: Patient is not very communicative. She stares and does not answer questions. PHYSICAL EXAMINATION: GENERAL: She is awake and alert. Not very communicative. Answers with yes and no. VITAL SIGNS: She is afebrile, pulse 95, respirations 20, blood pressure 97/65. LUNGS: Bilateral fair airflow. No rhonchi or crackle. HEART: S1 and S2 audible. ABDOMEN: Soft, nontender. No rebound. No guarding. NEUROLOGICAL: She is awake and alert and not very communicative. SKIN: She has butterfly rash; however, initial skin test was negative. LABORATORY DATA: Blood sugar 199, triglyceride 72, total cholesterol 123, LDL is 45, TSH is 0.49. ASSESSMENT: 1. Status post altered mental status. 2. Hyponatremia. 3. Questionable history of schizophrenia. 4. Noninsulin-dependent diabetes. 5. Hypertension. PLAN: We will continue patient on current medication and order for CMP for a.m. Jayla Coley MD
[2017-07-19 08:15] LABS: ALBUMIN 3.5 g/dL (3.0-4.8); ALT/SGPT 33 U/L (7-56); AST/SGOT 21 U/L (14-36); BLOOD UREA NITROGEN 17 mg/dL (7-21); CALCIUM 9.2 mg/dL (8.4-10.5); GFR AFRICAN-AMERICAN > 60; GFR NON-AFRICAN AMERICAN > 60
[2017-07-19] MEDS: Insulin Lispro (humaLOG) MEDIUM Coverage SC SCH ×4 (08:51→21:06)
[2017-07-19] MEDS: Insulin Lispro (humaLOG) MIX 75/25(10 ml) SC SCH ×2 (08:54→17:14)
--- NOTE | 2017-07-19 13:59 | CP.PCM.PN ---
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 Today Na 133 hence will continue with oral fluid restriction to 1000 mL/day no need for hypertonic saline at this time. avoid correction in serum Na >6-8 meq/24 hr Dose meds/antibiotics for normal GFR. Glycemic control Further work up/management as per primary team Thanks for allowing me to participate in care of your patient. Will follow patient with you. Please call if any Qs. Dr Huy Walker Office: [phone] Chief Complaint; Unable reason for consult: hyponatremia HPI: Pt is a 66 F with hx of diabetes Mellitus, hypertension, depression, schizophrenia presented with complaints of change in behaviour and catatonia state. she has been managed for hyponatremia with hypertonic saline initially and Na improved from 121 to 130. since she was off saline, Na started decreasing again. renal consult for hyponatremia pt unable to provide much hx. ROS: pt unable to provide much hx due to her psych condition. she is not much communicative Physical Examination: General Appearance: Comfortable, in no acute respiratory distress, co-operative . Vitals reviewed and noted as below Head; Atraumatic, normocephalic ENT: no ulcers no thrush. Tongue is midline. Oropharynx: no rash or ulcers. EYES: Pupils are equal, round and reactive to light accommodation. Eye muscles and extraocular movement intact. Sclera is anicteric. Neck; supple no lymphadenopathy, no thyromegaly or bruit Lungs: Normal respiratory rate/effort. Breath sounds bilateral equal and clear Heart: Normal rate. s1s2 normal. No rub or gallop. Extremities: no edema. No varicose veins Neurological: Patient is alert, awake. No focal deficit. Strength bilateral appropriate and equal Skin: Warm and dry. Normal turgor. facial malar rash. Palpitation: Normal elasticity for age Abdomen: Abdomen is soft. Bowel sounds +. There is no abdominal tenderness, no guarding/rigidity no organomegaly Psych: lack insight and has flat affect/mood MSK: no joint tenderness or swelling. Digits and nails normal, no deformity : kidney or bladder not palpable Labs/imaging reviewed. Past medical history, past surgical history, family history, social history, allergy reviewed and noted as below Family hx: no hx of CKD. Rest non-contributory work up: UA initially trace protein and no blood normal complements, JADA neg urine Na 54 urine osmol 566 urine pro/cr 143 mg/gr and microalbumin neg TGL 74 TSH 1.0 uric acid 1.9 Objective - Vital Signs/Intake and Output Vital Signs (last 24 hours): Temp Pulse Resp BP Pulse Ox 98.2 F 84 20 99/70 L 07/19/17 07:04 07/19/17 08:56 07/19/17 07:04 07/19/17 08:56 - Medications Medications: Current Medications Acetaminophen (Tylenol 325mg Tab) 650 mg PO Q4H PRN PRN Reason: Pain, Mild (1-3) Al Hydrox/Mg Hydrox/Simethicone (Maalox Plus 30 Ml) 30 ml PO DAILY PRN PRN Reason: Upset Stomach Insulin Human Lispro (Humalog Med) 0 units SC ACHS MINGO PRN Reason: Protocol Last Admin: 07/19/17 08:51 Dose: 1 units Insulin Lispro Protam/Lispro Human (Humalog Mix 75/25) 15 units SC ACBD MINGO Last Admin: 07/19/17 08:54 Dose: 15 u Lorazepam (Ativan) 1 mg PO HS MINGO PRN Reason: Protocol Last Admin: 07/18/17 21:33 Dose: 1 mg Lorazepam (Ativan) 0.5 mg PO BID MINGO PRN Reason: Protocol Magnesium Hydroxide (Milk Of Magnesia) 30 ml PO DAILY PRN PRN Reason: Constipation Metformin HCl (Glucophage) 500 mg PO BID MINGO Last Admin: 07/19/17 08:51 Dose: 500 mg Quetiapine Fumarate (Seroquel) 50 mg PO HS MINGO PRN Reason: Protocol - Labs Labs: 07/19/17 07:00
--- NOTE | 2017-07-19 14:52 | PCM.PYCHPN ---
Psychiatric Progress Note - Psychiatric Progress Note Patient seen today, length of contact: 30 minutes Patient Chief Complaint: "I feel better" Problems Identified/Issues Discussed: Suicide/ homicide prevention, past psychiatric h/o, current psychiatric symptoms , medical problems, risk/benefits and alternatives of medications, medications compliance, coping strategies, substance abuse h/o, relapse prevention, importance of follow up with psychiatrist and therapist, discharge plan. Medical Problems: electrolytes disbalance catatonia Rule out Parkinson's Diagnostic Results: 07/19/17 07:00 Lab Results 07/19/17 11:54: POC Glucose (mg/dL) 232 H 07/19/17 07:15: POC Glucose (mg/dL) 170 H 07/19/17 07:00: Sodium 133, Potassium 4.5, Chloride 100, Carbon Dioxide 25, Anion Gap 13, BUN 17, Creatinine 0.7, Est GFR ( Amer) > 60, Est GFR (Non- Af Amer) > 60, Random Glucose 175 H, Calcium 9.2, Total Bilirubin 0.5, AST 21, ALT 33, Alkaline Phosphatase 68, Total Protein 6.8, Albumin 3.5, Globulin 3.4, Albumin/Globulin Ratio 1.0 L 07/18/17 21:20: POC Glucose (mg/dL) 243 H 07/18/17 16:13: POC Glucose (mg/dL) 145 H 07/18/17 11:35: POC Glucose (mg/dL) 299 H 07/18/17 11:00: Sodium 133, Potassium 4.8, Chloride 101, Carbon Dioxide 18 L, Anion Gap 18, BUN 18, Creatinine 0.7, Est GFR ( Amer) > 60, Est GFR (Non- Af Amer) > 60, Random Glucose 222 H, Calcium 9.4 07/18/17 07:32: POC Glucose (mg/dL) 199 H 07/18/17 06:30: RPR Nonreactive 07/18/17 06:30: Free T4 1.36, TSH 3rd Generation 0.49 07/18/17 06:30: Fasting Glucose 216 H, Triglycerides 72, Cholesterol 123 L, LDL Cholesterol Direct 45, HDL Cholesterol 58 07/17/17 21:24: POC Glucose (mg/dL) 218 H Vital Signs Temp Pulse Resp BP 07/19/17 08:56 84 99/70 L 07/19/17 07:04 98.2 F 84 20 99/70 L 07/18/17 16:00 112 H 112/81 07/18/17 09:14 95 H 97/65 L 07/18/17 07:25 98.7 F 95 H 20 97/65 L DSM 5 Symptoms Update: As per ASSISTANT ELEMENTARY TEACHER assessment: Patient is a 66 year old female who has never been and has no children. 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 patient was followed up by nephrology, medical team Patient was seen today at the treatment team meeting, patient presented with catatonia, no facial expression, patient observed to have resting Tremor in her left upper extremities, patient has "equilibrate rigidity in the upper extremities, ambulates with a slow shuffling gait. Neurology team was contacted , patient will be seen by neurology team tomorrow to rule out Parkinson dementia. Patient also has facial rash, a lot of peeling on the face, as per staff it is getting better. Patient was cleared by medical team, will consider to call for follow-up to rule out autoimmune disease. patient might benefit from discontinuing Abilify, Seroquel was offered then started, risk, benefits, alternatives discussed with the patient. As per staff patient is compliant with the medications, quiet, no behavioral issues. Impression: As per history questionable schizophrenia Catatonia is improving, catatonia most likely related to the medical condition Rule out Parkinson's Medication Change: Yes (Abilify discontinued, Seroquel started 50 mg at the nighttime) Medical Record Reviewed: Yes Consults ordered or reviewed: medical consult will be considered Nephrology consult appreciated neurology team will follow-up on this patient tomorrow, was contacted Mental Status Examination - Cognitive Function Orientation: Person, Place, Situation Memory: Intact Attention: Poor Concentration: Poor Association: Loose Fund of Knowledge: Poor - Mood Mood: Depressed - Affect Affect: Flat - Speech Speech: Appropriate (nderproductive, low volume,) - Formal Thought Process Formal Thought Process: Other (organized thought) - Suicidal Ideation Suicidal Ideation: No - Homicidal Ideation Homicidal Ideation: No Goal/Treatment Plan - Goal/Treatment Plan Need for Continued Stay: Remain at risks for inpatient hospitalization, Severe depression anxiety, Discharge may exacerbated symptoms, Severe functional impairment Progress Toward Problem(s) and Goals/Treatment Plan: Milieu/structure/supportive therapy Medical consult f needed consultation for discharge plan and social issues Med management Abilify was discontinued Seroquel 50 mg at the nighttime for disorganized thoughts and most stabilization ativan 0.5 mg twice a day and 1 mg at the nighttime for catatonia Nephrology to will follow-up on the patient neurology team will follow-up on the patient Family involvement Follow up on labs Will monitor closely Pt was educated about risk/benefits and alternatives of medications, coping strategies (safety plan, suicide prevention), relapse prevention, importance of follow up with psychiatrist and therapist, stay away from drugs/alcohol/smoking Estimated Date of D/C: 07/26/17 (we'll monitor closely)
--- NOTE | 2017-07-19 19:23 | CON ---
DATE: 07/19/2017 NEUROLOGY CONSULTATION CHIEF COMPLAINT: Evaluate for parkinsonism. 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 At that time since she has been on Abilify, she likely had more of parkinsonism type features, where she slow, tremulous as well as rigidity and very shuffling of gait with stooped posture, therefore Abilify has now been stopped. I was called to evaluate. She still answers very simple commands, very withdrawn and has very poor attention and slow thought process, stares blankly at times. PAST MEDICAL HISTORY: Mild dementia, questionable schizophrenia, diabetes, hypertension, dyslipidemia. REVIEW OF SYSTEMS: A 14-point review of systems is negative except per the HPI. FAMILY HISTORY: Noncontributory. SOCIAL HISTORY: No illicit drug use, smoking or ETOH abuse. MEDICATIONS: Reviewed by nurse per reconciliation sheet. LABORATORY DATA: Sodium 132, potassium 4.5, chloride 100, carbon dioxide 25, BUN 17, creatinine 0.7. Random glucose 175. PHYSICAL EXAMINATION: GENERAL: The patient is sitting up in the chair with a masklike facies, very withdrawn. VITAL SIGNS: Temperature of 98.2, pulse rate 84, blood pressure is 99/70, respiratory rate 20. HEENT: Head is atraumatic and normocephalic. PERRLA. Extraocular muscles intact. NECK: Supple. No JVD, no adenopathy noted. LUNGS: Clear to auscultation. No adventitious sounds. HEART: S1, S2. Normal rate and rhythm. No murmurs, rubs or gallops. ABDOMEN: Soft, nontender, and nondistended. Bowel sounds present. EXTREMITIES: No clubbing, no cyanosis. Peripheral pulses 2+ felt bilaterally. NEUROLOGIC: Patient has a very flat affect. Poor attention span and slow thought process. She responds in short phrases. Stares blankly at times, but elicits consistent responses with her mood. Cranial nerves II through XII are intact. Motor: Slightly increased tone throughout, mild cogwheeling, otherwise moves all extremities equally. Very minimal tremor seen mostly when the hand is outstretched, not really pin-rolling. Sensory: Light touch, pinprick, proprioception, and vibration intact. DTRs are 2+ throughout and 1 at both ankles. Coordination and gait deferred for now. ASSESSMENT AND PLAN: This is a 66-year-old woman with history of dementia most likely more of [id number] cognitive impairment, questionable schizophrenia, depression, anxiety, diabetes, hypertension, dyslipidemia, who was recently admitted to the hospital for hyponatremia, which were related to her mental status causing her to be catatonic and is in Psychiatry unit for depression, catatonic schizophrenia, was started on Abilify, which eventually lead to developing more of a parkinsonism type presentation. At this time recommend 1. Hold off Abilify completely and await 2 weeks to see if parkinsonism symptoms resolve, also hyponatremia can cause parkinsonism type of effect as well . 2. We will recommend to wait for 2 weeks until the symptoms start to improve. If not, then we will consider Sinemet 25/100 p.o. b.i.d. 3. Continue with Lexapro for now for depression and continue with Ativan p.r.n. for insomnia and anxiety and continue present psychiatric management. Thank you for this consult. William Gardner MD
--- NOTE | 2017-07-19 22:21 | PN ---
DATE: SUBJECTIVE: The patient is 66-year-old, seen and examined, sitting in chair, seems to be comfortable. Not very communicative. PHYSICAL EXAMINATION: VITAL SIGNS: She is afebrile. Pulse 84, respirations 20, blood pressure 99/70. LUNGS: Bilateral good airflow. No rhonchi or crackle. HEART: S1 and S2 audible. ABDOMEN: Soft, nontender. No rebound. No guarding. NEUROLOGIC: She is awake and alert, answers simple question, but not very communicative. LABORATORY DATA: Sodium 133, potassium 4.5, chloride 100, CO2 of 25, BUN 17, creatinine 0.7, blood sugar of 211. test is negative. ASSESSMENT: 1. Hyponatremia that has resolved. 2. Insulin dependant diabetes. 3. History of hypertension. 4. Status post altered mental status and state of catatonia. Sill the patient is very communicative. PLAN: She is on metformin 500 mg twice a day, we will continue that. We will continue insulin coverage and encourage physical therapy. Psych medications will be adjusted by psychiatrist. Jayla Coley MD
[2017-07-20] MEDS: Insulin Lispro (humaLOG) MEDIUM Coverage SC SCH ×4 (08:01→21:13)
[2017-07-20] MEDS: Insulin Lispro (humaLOG) MIX 75/25(10 ml) SC SCH ×2 (08:03→16:26)
--- NOTE | 2017-07-20 10:22 | PCM.PYCHPN ---
Psychiatric Progress Note - Psychiatric Progress Note Patient seen today, length of contact: 25 minutes Patient Chief Complaint: depressed Problems Identified/Issues Discussed: I reviewed recent notes on the psychiatric unit. Patient is a 66 year old female who was diagnosed with dementia and schizophrenia during her first psychiatric admission two years ago. She was initially admitted and stabilized on the medical side for catatonia, and transferred to psychiatry for continued treatment of depression and disorganization. Patient has been improving only a little on the unit. She is more responsive and spontaneous during our interaction than last weekend. Patient understands Romanian however tapper supervisor, Emma was utilized to ensure optimal communication today. Patient is oriented only to , she believes that it is 1984 and that she is currently in a basement. Patient doesn't know the circumstances of this hospitalization and doesn't recognize me from our interview last weekend. Consistently however, patient endorses depression every time I interview her. She describes anhedonia, poor energy and motivation. Sleep has improved with Seroquel 50 mg at night. Patient reports that she is more hopeful than hopeless. She doesn't want to . Patient has notable negative symptoms. She demonstrates apathy and unemotional responses. There appears to be some difficulty in receptive comprehension. Speech is delayed and reduced in content. Staff notes also confirm that patient is seclusive, withdrawn with no interaction with peers. Patient is preoccupied but not responding to internal stimuli. Patient denies perceptual disturbance. There were no major behavioral issues overnight. Diagnostic Results: R/O schizophrenia R/O Severe depression with catatonia Anxiety Disorder NOS R/O contribution of Pseudo-dementia Catatonia is improving slowly, possibly related to the medical condition (rule out Parkinson's) Medication Change: Yes (Prozac 10 mg po AM started for depression and anxiety) Medical Record Reviewed: Yes Mental Status Examination - Cognitive Function Orientation: Person, Place, Situation Memory: Intact Attention: Poor Concentration: Poor Association: Loose Fund of Knowledge: Poor - Mood Mood: Depressed, Anxious - Affect Affect: Blunted, Flat, Other (apathetic, withdrawn) - Speech Speech: Appropriate (nderproductive, low volume,) - Formal Thought Process Formal Thought Process: Other ( Patient is very poorly oriented) - Suicidal Ideation Suicidal Ideation: No - Homicidal Ideation Homicidal Ideation: No Goal/Treatment Plan - Goal/Treatment Plan Need for Continued Stay: Remain at risks for inpatient hospitalization, Severe depression anxiety, Discharge may exacerbated symptoms, Severe functional impairment Progress Toward Problem(s) and Goals/Treatment Plan: * Group, milieu and supportive tx * Seroquel 50 mg po HS for disorganized thoughts and mood stabilization * ativan 0.5 mg twice a day and 1 mg at the nighttime for catatonia * Prozac 10 mg po qAM for depression. I reviewed indications, dosing, therapeutic latency with patient at bedside on 07/20/17 with help of Serbian Interpretor, Emma. * Appreciate f/u by Nephrology, Dr. Walker on 07/19/17 * Awaiting neurology evaluation for Parkinson * No new floor labs thus far * Vitals reviewed and noted below: 07/19/17 07/20/17 16:00 07:01 Temperature 97.6 F Pulse Rate 114 H 49 L Respiratory 20 Rate Blood Pressure 104/67 113/79 Estimated Date of D/C: 07/26/17 (we'll monitor closely)
--- NOTE | 2017-07-20 15:21 | CP.PCM.PN ---
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 Na 133 hence will continue with oral fluid restriction to 1000 mL/day no need for hypertonic saline at this time. avoid correction in serum Na >6-8 meq/24 hr consider age appropriate cancer screening as outpt Dose meds/antibiotics for normal GFR. Glycemic control Further work up/management as per primary team Thanks for allowing me to participate in care of your patient. Will follow her further on as needed basis. Please call if any Qs. Dr Hyu Walker Office: [phone] Chief Complaint; Unable reason for consult: hyponatremia HPI: Pt is a 66 F with hx of diabetes Mellitus, hypertension, depression, schizophrenia presented with complaints of change in behaviour and catatonia state. she has been managed for hyponatremia with hypertonic saline initially and Na improved from 121 to 130. since she was off saline, Na started decreasing again. renal consult for hyponatremia pt unable to provide much hx. ROS: pt unable to provide much hx due to her psych condition. she is not much communicative Physical Examination: General Appearance: Comfortable, in no acute respiratory distress, co-operative . Vitals reviewed and noted as below Head; Atraumatic, normocephalic ENT: no ulcers no thrush. Tongue is midline. Oropharynx: no rash or ulcers. EYES: Pupils are equal, round and reactive to light accommodation. Eye muscles and extraocular movement intact. Sclera is anicteric. Neck; supple no lymphadenopathy, no thyromegaly or bruit Lungs: Normal respiratory rate/effort. Breath sounds bilateral equal and clear Heart: Normal rate. s1s2 normal. No rub or gallop. Extremities: no edema. No varicose veins Neurological: Patient is alert, awake. No focal deficit. Strength bilateral appropriate and equal Skin: Warm and dry. Normal turgor. facial malar rash. Palpitation: Normal elasticity for age Abdomen: Abdomen is soft. Bowel sounds +. There is no abdominal tenderness, no guarding/rigidity no organomegaly Psych: lack insight and has flat affect/mood MSK: no joint tenderness or swelling. Digits and nails normal, no deformity : kidney or bladder not palpable Labs/imaging reviewed. Past medical history, past surgical history, family history, social history, allergy reviewed and noted as below Family hx: no hx of CKD. Rest non-contributory work up: UA initially trace protein and no blood normal complements, JADA neg urine Na 54 urine osmol 566 urine pro/cr 143 mg/gr and microalbumin neg TGL 74 TSH 1.0 uric acid 1.9 Objective - Vital Signs/Intake and Output Vital Signs (last 24 hours): Temp Pulse Resp BP Pulse Ox 97.6 F 49 L 20 113/79 07/20/17 07:01 07/20/17 07:01 07/20/17 07:01 07/20/17 07:01 - Medications Medications: Current Medications Acetaminophen (Tylenol 325mg Tab) 650 mg PO Q4H PRN PRN Reason: Pain, Mild (1-3) Al Hydrox/Mg Hydrox/Simethicone (Maalox Plus 30 Ml) 30 ml PO DAILY PRN PRN Reason: Upset Stomach Fluoxetine HCl (Prozac) 10 mg PO DAILY [facility] Last Admin: 07/20/17 10:47 Dose: 10 mg Insulin Human Lispro (Humalog Med) 0 units SC ACHS [facility] PRN Reason: Protocol Last Admin: 07/20/17 12:44 Dose: 1 units Insulin Lispro Protam/Lispro Human (Humalog Mix 75/25) 15 units SC ACBD [facility] Last Admin: 07/20/17 08:03 Dose: 15 u Lorazepam (Ativan) 1 mg PO HS [facility] PRN Reason: Protocol Last Admin: 07/19/17 21:17 Dose: 1 mg Lorazepam (Ativan) 0.5 mg PO BID [facility] PRN Reason: Protocol Last Admin: 07/20/17 08:20 Dose: 0.5 mg Magnesium Hydroxide (Milk Of Magnesia) 30 ml PO DAILY PRN PRN Reason: Constipation Metformin HCl (Glucophage) 500 mg PO BID [facility] Last Admin: 07/20/17 08:20 Dose: 500 mg Quetiapine Fumarate (Seroquel) 50 mg PO HS [facility] PRN Reason: Protocol Last Admin: 07/19/17 21:17 Dose: 50 mg - Labs Labs: 07/19/17 07:00
[2017-07-21] MEDS: Insulin Lispro (humaLOG) MEDIUM Coverage SC SCH ×4 (08:46→21:26)
[2017-07-21] MEDS: Insulin Lispro (humaLOG) MIX 75/25(10 ml) SC SCH ×2 (08:47→17:09)
--- NOTE | 2017-07-21 09:32 | PCM.PYCHPN ---
Psychiatric Progress Note - Psychiatric Progress Note Patient seen today, length of contact: 25 minutes Patient Chief Complaint: depressed Problems Identified/Issues Discussed: I reviewed recent notes on the psychiatric unit. Patient is a 66 year old female who was diagnosed with dementia and schizophrenia during her first psychiatric admission two years ago. She was initially admitted and stabilized on the medical side for catatonia, and transferred to psychiatry for continued treatment of depression and disorganization. She is being monitored by neurology due to Parkinsonism symptoms. These may be secondary to prior administration of Abilify and/or hyponatremia. Patient has a superficial understanding about the circumstances of this hospitalization and has shown minimal improvement on unit. She is a little more responsive and spontaneous during our interaction than last weekend but still demonstrates notable negative symptoms. Patient is disengaged during our interviews and responses are apathetic and unemotional. There also appears to be some difficulty in receptive comprehension. Speech is delayed and reduced in content. Staff notes also confirm that patient is seclusive, withdrawn with no interaction with peers. Patient is preoccupied but not responding to internal stimuli. Patient denies perceptual disturbance. Patient continues to be depressed and tolerated first dose of Prozac yesterday. Patient flatly reports that she is more hopeful than hopeless and denies wanting to . Sleep has improved with Seroquel 50 mg and there were no major behavioral issues overnight Diagnostic Results: R/O schizophrenia R/O Severe depression with catatonia Anxiety Disorder NOS R/O contribution of Pseudo-dementia Catatonia is improving slowly, possibly related to the medical condition (rule out Parkinson's) Medication Change: Yes (Prozac increased to 20 mg AM) Medical Record Reviewed: Yes Mental Status Examination - Cognitive Function Orientation: Person, Place, Situation Memory: Intact Attention: Poor Concentration: Poor Association: Loose Fund of Knowledge: Poor - Mood Mood: Depressed, Anxious - Affect Affect: Blunted, Flat, Other (apathetic, withdrawn) - Speech Speech: Appropriate (nderproductive, low volume,) - Formal Thought Process Formal Thought Process: Other ( Patient is poorly oriented) - Suicidal Ideation Suicidal Ideation: No - Homicidal Ideation Homicidal Ideation: No Goal/Treatment Plan - Goal/Treatment Plan Need for Continued Stay: Remain at risks for inpatient hospitalization, Severe depression anxiety, Discharge may exacerbated symptoms, Severe functional impairment Progress Toward Problem(s) and Goals/Treatment Plan: * Group, milieu and supportive tx * Seroquel 50 mg po HS for disorganized thoughts and mood stabilization * ativan 0.5 mg twice a day and 1 mg at the nighttime for catatonia * Prozac increased to 20 mg po qAM for depression and anxiety. I reviewed indications, dosing, therapeutic latency with patient at bedside on 07/20/17 with help of [place] Bottom Maker, Emma. * Appreciate f/u by Nephrology, Dr. Walker on 07/19/17 * Appreciate f/u by Neurology, Dr. Gardner on 07/19/17~Parkinsonism symptoms may be secondary to abilify and/or hyponatremia. Plan to hold off on abilify and monitor for 2 weeks. If symptoms do not improve, consider Sinemet. * No new floor labs thus far * Vitals reviewed and noted below: 07/21/17 06:51 Temperature 97.6 F Pulse Rate 105 H Respiratory 18 Rate Blood Pressure 107/71 Estimated Date of D/C: 07/26/17 (we'll monitor closely)
[2017-07-22] MEDS: Insulin Lispro (humaLOG) MIX 75/25(10 ml) SC SCH ×2 (08:04→17:14)
[2017-07-22] MEDS: Insulin Lispro (humaLOG) MEDIUM Coverage SC SCH ×4 (08:05→22:00)
--- NOTE | 2017-07-22 11:05 | PCM.PYCHPN ---
Psychiatric Progress Note - Psychiatric Progress Note Patient seen today, length of contact: 25 minutes Patient Chief Complaint: depressed Problems Identified/Issues Discussed: I reviewed recent notes on the psychiatric unit. Patient is a 66 year old female who was diagnosed with dementia and schizophrenia during her first psychiatric admission two years ago. She was initially admitted and stabilized on the medical side for catatonia, and transferred to psychiatry for continued treatment of depression and disorganization. She is being monitored by neurology due to Parkinsonism symptoms. These may be secondary to prior administration of Abilify and/or hyponatremia. Patient has a superficial understanding about the circumstances of this hospitalization and has been improving only a little on the unit. She is more responsive and spontaneous during our interaction than last weekend but still demonstrates negative symptoms. Patient is disengaged during our interviews and responses are apathetic and unemotional. There also appears to be some difficulty in receptive comprehension even with the use of translating services. Speech is delayed and reduced in content. Staff notes indicate that patient has been visible on the unit and attends groups. Appears to enjoy watching tv. Patient isn't very interactive with peers however slovenian is her primary language. Patient is preoccupied but not responding to internal stimuli. Patient denies perceptual disturbance Patient continues to be depressed and tolerated increased dose of Prozac yesterday. Patient flatly reports that she is hopeful and that she doesn't want to . Sleep has improved with Seroquel 50 mg and there were no major behavioral issues overnight Diagnostic Results: R/O schizophrenia R/O Severe depression with catatonia Anxiety Disorder NOS R/O contribution of Pseudo-dementia Catatonia is improving slowly, possibly related to the medical condition (rule out Parkinson's) Medication Change: Yes (Prozac increased to 20 mg AM) Medical Record Reviewed: Yes Mental Status Examination - Cognitive Function Orientation: Person, Place, Situation Memory: Intact Attention: Poor Concentration: Poor Association: Loose Fund of Knowledge: Poor - Mood Mood: Depressed, Anxious - Affect Affect: Blunted, Flat, Other (apathetic, withdrawn) - Speech Speech: Appropriate (nderproductive, low volume,) - Formal Thought Process Formal Thought Process: Other ( Patient is poorly oriented) - Suicidal Ideation Suicidal Ideation: No - Homicidal Ideation Homicidal Ideation: No Goal/Treatment Plan - Goal/Treatment Plan Need for Continued Stay: Remain at risks for inpatient hospitalization, Severe depression anxiety, Discharge may exacerbated symptoms, Severe functional impairment Progress Toward Problem(s) and Goals/Treatment Plan: * Group, milieu and supportive tx * Seroquel 50 mg po HS for disorganized thoughts and mood stabilization * ativan 0.5 mg twice a day and 1 mg at the nighttime for catatonia * Prozac increased to 20 mg po qAM for depression and anxiety. I reviewed indications, dosing, therapeutic latency with patient at bedside on 07/20/17 with help of [employer] Logger, Emma. * Appreciate f/u by Nephrology, Dr. Walker on 07/19/17 * Appreciate f/u by Neurology, Dr. Gardner on 07/19/17~Parkinsonism symptoms may be secondary to abilify and/or hyponatremia. Plan to hold off on abilify and monitor for 2 weeks. If symptoms do not improve, consider Sinemet. * No new floor labs thus far * Vitals reviewed and noted below: 07/22/17 07:00 Temperature 98.0 F Pulse Rate 92 H Respiratory 20 Rate Blood Pressure 106/65 Estimated Date of D/C: 07/26/17 (we'll monitor closely)
[2017-07-23] MEDS: Insulin Lispro (humaLOG) MEDIUM Coverage SC SCH ×4 (08:09→21:34)
--- NOTE | 2017-07-23 08:19 | PN ---
The patient is 66 years old, seen and examined, sitting, and just seems to be comfortable, answers very briefly when asked any question in Azeri. PHYSICAL EXAMINATION: VITAL SIGNS: She is afebrile, pulse 49, respirations 20, blood pressure 113/79. LUNGS: Bilateral good air flow. No rhonchi or crackles. HEART: S1 and S2 audible. ABDOMEN: Soft and nontender. No rebound. No guarding. NEUROLOGIC: She is awake and alert, able to communicate. SKIN: She has significant facial rash with some desquamation of the skin. LABORATORY DATA: Blood sugars 188. ASSESSMENT: 1. Status post altered mental status. 2. Questionable catatonia. 3. Questionable Parkinson's. 4. Wyk-fmbsblj-ptrqpohdr diabetes. 5. Hyponatremia, that has resolved. 6. Mild dementia. 7. History of depression and questionable schizophrenia. PLAN: We will continue on current medication. Neuro input noted and appreciated. Recommendation is to hold Abilify and watch her behavior to see if her symptoms of Parkinson's appear, then she might be treated with Sinemet. Jayla Coley MD
[2017-07-23 08:30] LABS: BLOOD UREA NITROGEN 20 mg/dL (7-21); CALCIUM 9.7 mg/dL (8.4-10.5); GFR AFRICAN-AMERICAN > 60; GFR NON-AFRICAN AMERICAN > 60
[2017-07-23] MEDS: Insulin Lispro (humaLOG) MIX 75/25(10 ml) SC SCH ×2 (08:39→17:11)
--- NOTE | 2017-07-23 11:48 | PCM.PYCHPN ---
Psychiatric Progress Note - Psychiatric Progress Note Patient seen today, length of contact: 25 minutes Patient Chief Complaint: a little better Problems Identified/Issues Discussed: I reviewed recent notes on the psychiatric unit. Patient is a 66 year old female who was diagnosed with dementia and schizophrenia during her first psychiatric admission two years ago. She was initially admitted and stabilized on the medical side for catatonia, and transferred to psychiatry for continued treatment of depression and disorganization. She is being monitored by neurology due to Parkinsonism symptoms. These may be secondary to prior administration of Abilify and/or hyponatremia. Patient understands Togolese however rose grower, Emma was utilized to ensure optimal communication again today. Patient has a superficial understanding about the circumstances of this hospitalization and has been improving a little on the unit. She is more responsive and spontaneous during our interaction than last weekend but still demonstrates negative symptoms. Patient is disengaged during our interviews and responses are apathetic and unemotional. I commented on this observation with patient today and patient responded that she is usually not very expressive when she communicates. There also appears to be some improvement in receptive comprehension in Togolese and when using Burkinan translating services. Speech is a little more spontaneous though still reduced in content. Patient is not very talkative. Staff notes indicate that patient has been visible on the unit and attends groups. Appears to enjoy watching tv. Patient still isn't very interactive with peers however nauruan is her primary language. Noticed by staff to appear brighter on the unit recently. Patient herself indicated some improvement in mood and energy, perhaps secondary to recent start of Prozac which can be activating. Sleep remains improved with Seroquel 50 mg and there were no major behavioral issues overnight Diagnostic Results: R/O schizophrenia R/O Severe depression with catatonia Anxiety Disorder NOS R/O contribution of Pseudo-dementia Catatonia is improving slowly, possibly related to the medical condition (rule out Parkinson's) Medication Change: Yes (Prozac increased to 20 mg AM) Medical Record Reviewed: Yes Mental Status Examination - Cognitive Function Orientation: Person, Place, Situation Memory: Intact Attention: Poor Concentration: Poor Association: Loose Fund of Knowledge: Poor - Mood Mood: Depressed (better), Anxious - Affect Affect: Blunted, Flat, Other (apathetic, withdrawn) - Speech Speech: Appropriate (nderproductive, low volume,) - Formal Thought Process Formal Thought Process: Other ( she is preoccupied but a little more organized) - Suicidal Ideation Suicidal Ideation: No - Homicidal Ideation Homicidal Ideation: No Goal/Treatment Plan - Goal/Treatment Plan Need for Continued Stay: Remain at risks for inpatient hospitalization, Severe depression anxiety, Discharge may exacerbated symptoms, Severe functional impairment Progress Toward Problem(s) and Goals/Treatment Plan: * Group, milieu and supportive tx * Seroquel 50 mg po HS for disorganized thoughts and mood stabilization * ativan 0.5 mg twice a day and 1 mg at the nighttime for catatonia * Prozac 20 mg po qAM for depression and anxiety. I reviewed indications, dosing , therapeutic latency with patient at bedside on 07/20/17 with help of Fur Stretcher, Emma. * Appreciate f/u by Nephrology, Dr. Walker on 07/19/17 * Appreciate f/u by Neurology, Dr. Gardner on 07/19/17~Parkinsonism symptoms may be secondary to abilify and/or hyponatremia. Plan to hold off on abilify and monitor for 2 weeks. If symptoms do not improve, consider Sinemet. * New floor labs today: 07/23/17 07/23/17 07:22 07:45 Sodium 135 Potassium 4.4 Chloride 102 Carbon Dioxide 24 Anion Gap 14 BUN 20 Creatinine 0.7 Est GFR (Non-Af Amer) > 60 POC Glucose (mg/dL) 131 H Random Glucose 155 H Calcium 9.7 * Vitals reviewed and noted below: 07/23/17 07:46 Temperature 98.0 F Pulse Rate 91 H Respiratory 20 Rate Blood Pressure 94/61 L Estimated Date of D/C: 07/26/17 (we'll monitor closely)
--- NOTE | 2017-07-23 14:54 | CP.PCM.PN ---
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 Na 133 hence will continue with oral fluid restriction to 1000 mL/day no need for hypertonic saline at this time. avoid correction in serum Na >6-8 meq/24 hr consider age appropriate cancer screening as outpt Dose meds/antibiotics for normal GFR. Glycemic control Further work up/management as per primary team Thanks for allowing me to participate in care of your patient. Will sign off and follow her further on as needed basis. Please call if any Qs. d/w team Dr Huy Walker Office: [phone] Chief Complaint; Unable reason for consult: hyponatremia HPI: Pt is a 66 F with hx of diabetes Mellitus, hypertension, depression, schizophrenia presented with complaints of change in behaviour and catatonia state. she has been managed for hyponatremia with hypertonic saline initially and Na improved from 121 to 130. since she was off saline, Na started decreasing again. renal consult for hyponatremia ROS: pt is not much communicative. denies CP/SOB Physical Examination: General Appearance: Comfortable, in no acute respiratory distress, co-operative . Vitals reviewed and noted as below Head; Atraumatic, normocephalic ENT: no ulcers no thrush. Tongue is midline. Oropharynx: no rash or ulcers. EYES: Pupils are equal, round and reactive to light accommodation. Eye muscles and extraocular movement intact. Sclera is anicteric. Neck; supple no lymphadenopathy, no thyromegaly or bruit Lungs: Normal respiratory rate/effort. Breath sounds bilateral equal and clear Heart: Normal rate. s1s2 normal. No rub or gallop. Extremities: no edema. No varicose veins Neurological: Patient is alert, awake. No focal deficit. Strength bilateral appropriate and equal Skin: Warm and dry. Normal turgor. facial malar rash improved. Palpitation: Normal elasticity for age Abdomen: Abdomen is soft. Bowel sounds +. There is no abdominal tenderness, no guarding/rigidity no organomegaly Psych: lack insight and has flat affect/mood MSK: no joint tenderness or swelling. Digits and nails normal, no deformity : kidney or bladder not palpable Labs/imaging reviewed. Past medical history, past surgical history, family history, social history, allergy reviewed and noted as below Family hx: no hx of CKD. Rest non-contributory work up: UA initially trace protein and no blood normal complements, JADA neg urine Na 54 urine osmol 566 urine pro/cr 143 mg/gr and microalbumin neg TGL 74 TSH 1.0 uric acid 1.9 Objective - Vital Signs/Intake and Output Vital Signs (last 24 hours): Temp Pulse Resp BP Pulse Ox 98.0 F 91 H 20 94/61 L 07/23/17 07:46 07/23/17 07:46 07/23/17 07:46 07/23/17 07:46 - Medications Medications: Current Medications Acetaminophen (Tylenol 325mg Tab) 650 mg PO Q4H PRN PRN Reason: Pain, Mild (1-3) Al Hydrox/Mg Hydrox/Simethicone (Maalox Plus 30 Ml) 30 ml PO DAILY PRN PRN Reason: Upset Stomach Fluoxetine HCl (Prozac) 20 mg PO DAILY [facility] Last Admin: 07/23/17 08:38 Dose: 20 mg Insulin Human Lispro (Humalog Med) 0 units SC ACHS [facility] PRN Reason: Protocol Last Admin: 07/23/17 12:13 Dose: 3 units Insulin Lispro Protam/Lispro Human (Humalog Mix 75/25) 15 units SC ACBD [facility] Last Admin: 07/23/17 08:39 Dose: 15 u Lorazepam (Ativan) 1 mg PO HS [facility] PRN Reason: Protocol Last Admin: 07/22/17 21:34 Dose: 1 mg Lorazepam (Ativan) 0.5 mg PO BID [facility] PRN Reason: Protocol Last Admin: 07/23/17 08:38 Dose: 0.5 mg Magnesium Hydroxide (Milk Of Magnesia) 30 ml PO DAILY PRN PRN Reason: Constipation Metformin HCl (Glucophage) 500 mg PO BID [facility] Last Admin: 07/23/17 08:38 Dose: 500 mg Quetiapine Fumarate (Seroquel) 50 mg PO HS [facility] PRN Reason: Protocol Last Admin: 07/22/17 21:34 Dose: 50 mg - Labs Labs: 07/23/17 07:45
--- NOTE | 2017-07-24 00:41 | PN ---
DATE: SUBJECTIVE: Patient is 66 years old, seen and examined. Doing well. Still not very communicative. OBJECTIVE: VITAL SIGNS: She is afebrile, pulse 91, respirations 20, blood pressure 94/61. LUNGS: Bilateral fair airflow. No rhonchi or crackle. HEART: S1 and S2 audible. ABDOMEN: Soft, nontender. No rebound, no guarding. NEUROLOGICAL: Patient is awake and alert, able to communicate. EXTREMITIES: No leg edema. LABORATORY EXAM: Her sodium is 135, potassium 4.4, chloride 102, CO2 of 24. BUN 20, creatinine 0.7. Blood sugar of 184. ASSESSMENT: 1. Status post altered mental status. 2. Questionable catatonia. 3. Mild dementia. 4. Status post hyponatremia. 5. [id number] diabetes. PLAN: At this point, patient is on metformin. We will monitor blood sugar. She is getting insulin 50 units before breakfast and dinner. She is on Prozac. Psych medication will be adjusted by the psychiatrist. Jayla Coley MD
[2017-07-24] MEDS: Insulin Lispro (humaLOG) MEDIUM Coverage SC SCH ×4 (08:30→22:28)
[2017-07-24] MEDS: Insulin Lispro (humaLOG) MIX 75/25(10 ml) SC SCH ×2 (08:31→17:23)
--- NOTE | 2017-07-24 15:25 | PCM.PYCHPN ---
Psychiatric Progress Note - Psychiatric Progress Note Patient seen today, length of contact: 30min Patient Chief Complaint: "I feel okay" Problems Identified/Issues Discussed: Suicide/ homicide prevention, past psychiatric h/o, current psychiatric symptoms , medical problems, risk/benefits and alternatives of medications, medications compliance, coping strategies, substance abuse h/o, relapse prevention, importance of follow up with psychiatrist and therapist, discharge plan. Medical Problems: electrolytes disbalance catatonia Rule out Parkinson's Diagnostic Results: 07/19/17 07:00 Lab Results 07/19/17 11:54: POC Glucose (mg/dL) 232 H 07/19/17 07:15: POC Glucose (mg/dL) 170 H 07/19/17 07:00: Sodium 133, Potassium 4.5, Chloride 100, Carbon Dioxide 25, Anion Gap 13, BUN 17, Creatinine 0.7, Est GFR ( Amer) > 60, Est GFR (Non- Af Amer) > 60, Random Glucose 175 H, Calcium 9.2, Total Bilirubin 0.5, AST 21, ALT 33, Alkaline Phosphatase 68, Total Protein 6.8, Albumin 3.5, Globulin 3.4, Albumin/Globulin Ratio 1.0 L 07/18/17 21:20: POC Glucose (mg/dL) 243 H 07/18/17 16:13: POC Glucose (mg/dL) 145 H 07/18/17 11:35: POC Glucose (mg/dL) 299 H 07/18/17 11:00: Sodium 133, Potassium 4.8, Chloride 101, Carbon Dioxide 18 L, Anion Gap 18, BUN 18, Creatinine 0.7, Est GFR ( Amer) > 60, Est GFR (Non- Af Amer) > 60, Random Glucose 222 H, Calcium 9.4 07/18/17 07:32: POC Glucose (mg/dL) 199 H 07/18/17 06:30: RPR Nonreactive 07/18/17 06:30: Free T4 1.36, TSH 3rd Generation 0.49 07/18/17 06:30: Fasting Glucose 216 H, Triglycerides 72, Cholesterol 123 L, LDL Cholesterol Direct 45, HDL Cholesterol 58 07/17/17 21:24: POC Glucose (mg/dL) 218 H Vital Signs Temp Pulse Resp BP 07/19/17 08:56 84 99/70 L 07/19/17 07:04 98.2 F 84 20 99/70 L 07/18/17 16:00 112 H 112/81 07/18/17 09:14 95 H 97/65 L 07/18/17 07:25 98.7 F 95 H 20 97/65 L Temp Pulse Resp BP Pulse Ox 98.1 F 110 H 19 113/69 07/24/17 07:04 07/24/17 07:04 07/24/17 07:04 07/24/17 07:04 Laboratory Results - last 24 hr 07/23/17 07/23/17 07/24/17 16:11 21:04 07:45 POC Glucose (mg/dL) 184 H 154 H 152 H 07/24/17 11:25 POC Glucose (mg/dL) 209 H DSM 5 Symptoms Update: Patient is a 66 year old female who has never been and has no children. 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 patient was followed up by nephrology, medical team as well as neurology teams. electrolyte disbalance improved, mental status improving slowly. pt was seen and examined, today, pt presented with improved personal hygiene, was calm and cooperative. agreed to increase medications. parkinson's symptoms improved. Patient also has facial rash,which seems to be improved. patient tolerated Seroquel well, no rigidity, no cogwheel rigidity observed, pt was more spontaneous in regards of speech. risk, benefits, alternatives discussed with the patient. As per staff patient is compliant with the medications, quiet, no behavioral issues. pt tolerated meds well, no side effects observed or reported. Impression: As per history questionable schizophrenia Catatonia is improving, catatonia most likely related to the medical condition Rule out Parkinson's Medication Change: Yes (prozac increased and seroquel increased) Medical Record Reviewed: Yes Consults ordered or reviewed: medical consult will be considered Nephrology consult appreciated neurology team evaluated pt, consult appreciated, neurology team agreed with treatment plan Mental Status Examination - Cognitive Function Orientation: Person, Place, Situation Memory: Intact Attention: Poor (some improvement) Concentration: Poor (some improvement) Association: Loose Fund of Knowledge: Poor - Mood Mood: Depressed (better), Anxious - Affect Affect: Blunted, Flat, Other (apathetic, withdrawn) - Speech Speech: Appropriate (nderproductive, low volume,) - Formal Thought Process Formal Thought Process: Other ( she is preoccupied but a little more organized) - Suicidal Ideation Suicidal Ideation: No - Homicidal Ideation Homicidal Ideation: No Goal/Treatment Plan - Goal/Treatment Plan Need for Continued Stay: Remain at risks for inpatient hospitalization, Severe depression anxiety, Discharge may exacerbated symptoms, Severe functional impairment Progress Toward Problem(s) and Goals/Treatment Plan: Milieu/structure/supportive therapy Medical consult f needed consultation for discharge plan and social issues Med management Abilify was discontinued prozac 30mg po daily for depression and anxiety Seroquel 75 mg at the nighttime for disorganized thoughts and most stabilization ativan 1mg po tid for catatonia Nephrology to will follow-up on the patient neurology team will follow-up on the patient Family involvement Follow up on labs Will monitor closely Pt was educated about risk/benefits and alternatives of medications, coping strategies (safety plan, suicide prevention), relapse prevention, importance of follow up with psychiatrist and therapist, stay away from drugs/alcohol/smoking Estimated Date of D/C: 07/26/17 (we'll monitor closely)
[2017-07-24] MEDS: Hydrocortisone 1% Cream (30 GM) TOP SCH (17:30)
--- NOTE | 2017-07-24 19:59 | PN ---
DATE: SUBJECTIVE: The patient is 66 years old. Seems to be doing a little better, eating and tolerating. PHYSICAL EXAMINATION: VITAL SIGNS: Patient is afebrile, pulse 55, respirations 20, blood pressure 120/80. LUNGS: Bilateral breath sounds. No rhonchi or crackles. HEART: S1, S2 audible. ABDOMEN: Soft, nontender. No rebound, no guarding. NEUROLOGIC: Patient is awake, alert, oriented, able to communicate. LABORATORY DATA: Blood sugar is 274 in the evening and 209 in the morning, calcium is 152. ASSESSMENT: 1. Status post hypernatremia. 2. Altered mental status that has improved. 3. Facial rash, but screening test for lupus is negative. 4. Fra-jzxckzp-qvpvpjqrr diabetes. PLAN: I will increase her insulin coverage from 15 units to 20 before breakfast and dinner. Currently she is on Seroquel and Prozac. Psych medication is being adjusted by psychiatrist. Jayla Coley MD
[2017-07-25 07:43] VITALS: RESP 20
[2017-07-25] MEDS: Hydrocortisone 1% Cream (30 GM) TOP SCH ×2 (08:26→17:23)
[2017-07-25] MEDS: Insulin Lispro (humaLOG) MEDIUM Coverage SC SCH ×4 (08:31→22:40)
[2017-07-25] MEDS: Insulin Lispro (humaLOG) MIX 75/25(10 ml) SC SCH ×2 (08:32→17:24)
--- NOTE | 2017-07-25 11:16 | PCM.BM ---
Treatment Plan Problems - Problems identified on initial assessmt SELFCARE DEFICIT Date Initiated: 07/17/17 (able to take care of herself independently) Time Initiated: 18:36 Date resolved: 07/25/17 Assessment reference: HP, NA, Other Status: Active MEDICATION NONADHERENCE Date Initiated: 07/17/17 Time Initiated: 18:36 Date resolved: 07/18/17 Assessment reference: HP, NA, Other Status: Active SOCIAL ISOLATION Date Initiated: 07/17/17 (attend groups,remain quiet and socializes selectively) Time Initiated: 18:36 Assessment reference: HP, NA, Other Status: Active Priority: 3 Altered Thought Process Date Initiated: 07/18/17 (some thought blocking ,some improvement observed) Time Initiated: 09:42 Assessment reference: NA Status: Active Priority: 2 Ineffective Coping Date Initiated: 07/18/17 (needs more positive encouragement ,slightly improving) Time Initiated: 09:42 Status: Active Priority: 1 Treatment assets and liabiliti Patient Assests: ADL independent Patient Liabilities: medical problems, imparied memory, language/speech - Milieu Protocol Maintain good personal hygiene: daily Encourage regular showers, daily Remind patient to perform daily oral care, daily Assist patient to perform ADL's Conduct patient checks and document Observation sheet: Q15 minutes Maintain personal safety: every shift Educate patient to report safety concerns to staff, every shift Monitor environment for contraband/sharps Medication safety: Monitor for expected outcome, potential side effects: every shift, Assess barriers to learning: every shift, Assess readiness for medication education: every shift Milieu Narrative: Milieu/structure/supportive therapy Medical consult f needed consultation for discharge plan and social issues Med management Abilify was discontinued prozac 30mg po daily for depression and anxiety Seroquel 75 mg at the nighttime for disorganized thoughts and most stabilization ativan 1mg po tid for catatonia Nephrology to will follow-up on the patient neurology team will follow-up on the patient Family involvement Follow up on labs Will monitor closely Pt was educated about risk/benefits and alternatives of medications, coping strategies (safety plan, suicide prevention), relapse prevention, importance of follow up with psychiatrist and therapist, stay away from drugs/alcohol/smoking Family Contact Family involvement: Family/SO is involved Family contact: Patient agrees to contact Family contact name: Bailey Delvalle([phone]) sister Family contacted how many times per week?: 2 Discharge/Continuing Care - Education Needs Education Needs: Patient Medication, Patient Diagnosis/Disease Process, Patient Coping Skills, Patient Community resources, Patient Activities of Daily Living, Patient Health Practices/Safety, Patient Personal Hygiene/Grooming - Discharge Discharge Criteria: Tolerates medication w/o severe side effects, Normal sleep pattern, Ability to care for self, Reduction of target symptoms Discharge to:: Home - Treatment Team Participation Patient/Family/SO Statement: Milieu/structure/supportive therapy Medical consult f needed consultation for discharge plan and social issues Med management Abilify was discontinued prozac 30mg po daily for depression and anxiety Seroquel 75 mg at the nighttime for disorganized thoughts and most stabilization ativan 1mg po tid for catatonia Nephrology to will follow-up on the patient neurology team will follow-up on the patient Family involvement Follow up on labs Will monitor closely Pt was educated about risk/benefits and alternatives of medications, coping strategies (safety plan, suicide prevention), relapse prevention, importance of follow up with psychiatrist and therapist, stay away from drugs/alcohol/smoking Treatment Plan Review - Problem SELFCARE DEFICIT Time Initiated: 18:36 MEDICATION NONADHERENCE Time Initiated: 18:36 SOCIAL ISOLATION Time Initiated: 18:36 Altered Thought Process Time Initiated: :42 Ineffective Coping Time Initiated: :42
--- NOTE | 2017-07-25 14:44 | PCM.PYCHPN ---
Psychiatric Progress Note - Psychiatric Progress Note Patient seen today, length of contact: 30min Patient Chief Complaint: "I feel better, I am not hearing voices, last time was two days ago" Problems Identified/Issues Discussed: Suicide/ homicide prevention, past psychiatric h/o, current psychiatric symptoms , medical problems, risk/benefits and alternatives of medications, medications compliance, coping strategies, substance abuse h/o, relapse prevention, importance of follow up with psychiatrist and therapist, discharge plan. Medical Problems: electrolytes disbalance catatonia Rule out Parkinson's Diagnostic Results: 07/19/17 07:00 Lab Results 07/19/17 11:54: POC Glucose (mg/dL) 232 H 07/19/17 07:15: POC Glucose (mg/dL) 170 H 07/19/17 07:00: Sodium 133, Potassium 4.5, Chloride 100, Carbon Dioxide 25, Anion Gap 13, BUN 17, Creatinine 0.7, Est GFR ( Amer) > 60, Est GFR (Non- Af Amer) > 60, Random Glucose 175 H, Calcium 9.2, Total Bilirubin 0.5, AST 21, ALT 33, Alkaline Phosphatase 68, Total Protein 6.8, Albumin 3.5, Globulin 3.4, Albumin/Globulin Ratio 1.0 L 07/18/17 21:20: POC Glucose (mg/dL) 243 H 07/18/17 16:13: POC Glucose (mg/dL) 145 H 07/18/17 11:35: POC Glucose (mg/dL) 299 H 07/18/17 11:00: Sodium 133, Potassium 4.8, Chloride 101, Carbon Dioxide 18 L, Anion Gap 18, BUN 18, Creatinine 0.7, Est GFR ( Amer) > 60, Est GFR (Non- Af Amer) > 60, Random Glucose 222 H, Calcium 9.4 07/18/17 07:32: POC Glucose (mg/dL) 199 H 07/18/17 06:30: RPR Nonreactive 07/18/17 06:30: Free T4 1.36, TSH 3rd Generation 0.49 07/18/17 06:30: Fasting Glucose 216 H, Triglycerides 72, Cholesterol 123 L, LDL Cholesterol Direct 45, HDL Cholesterol 58 07/17/17 21:24: POC Glucose (mg/dL) 218 H Vital Signs Temp Pulse Resp BP 07/19/17 08:56 84 99/70 L 07/19/17 07:04 98.2 F 84 20 99/70 L 07/18/17 16:00 112 H 112/81 07/18/17 09:14 95 H 97/65 L 07/18/17 07:25 98.7 F 95 H 20 97/65 L Temp Pulse Resp BP Pulse Ox 98.1 F 110 H 19 113/69 07/24/17 07:04 07/24/17 07:04 07/24/17 07:04 07/24/17 07:04 Laboratory Results - last 24 hr 07/23/17 07/23/17 07/24/17 16:11 21:04 07:45 POC Glucose (mg/dL) 184 H 154 H 152 H 07/24/17 11:25 POC Glucose (mg/dL) 209 H DSM 5 Symptoms Update: Patient is a 66 year old female who has never been and has no children. 1 previous psychiatric admission about few years back when patient was diagnosed with dementia as well as schizophrenia?, patient was initially admitted to the medical side for evaluation of catatonia, change in mental status, which was most likely related to medical issues, patient was seen by advanced nurse practitioner as a method consultant, patient was stabilized on the medical side, was transferred to the psychiatric inpatient unit uneventfully, please see initial consultation note for more detailed information. patient was seen today at the treatment team meeting. hygiene is much better, pt is more spontaneous, speech is more productive, but still pt obviously has some psychomotor retardation. 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 pt said before coming to the hospital she was hearing voices male and female, derogatory, command type, pt felt she needed to obey them, pt was educated that she needs to ignore them and never obey any voices even good ones, pt verbalized understanding. pt said last time she heard voices was two days ago, pt reported that she feels "much better", pt still has some cognitive problems, memory and concentration problems. As per staff patient is compliant with the medications, quiet, no behavioral issues. pt tolerated meds well, no side effects observed or reported. rigidity is much better, pt still has shuffling gait. Impression: As per history questionable schizophrenia Catatonia is improving, catatonia most likely related to the medical condition Rule out Parkinson's Medication Change: Yes (prozac increased and seroquel increased) Medical Record Reviewed: Yes Consults ordered or reviewed: medical consult will be considered Nephrology consult appreciated neurology team evaluated pt, consult appreciated, neurology team agreed with treatment plan Mental Status Examination - Cognitive Function Orientation: Person, Place, Situation Memory: Intact Attention: Poor (some improvement) Concentration: Poor (some improvement) Association: Loose Fund of Knowledge: Poor - Mood Mood: Depressed (better), Anxious - Affect Affect: Blunted, Flat, Other (apathetic, withdrawn) - Speech Speech: Appropriate (nderproductive, low volume,) - Formal Thought Process Formal Thought Process: Other (voices) - Suicidal Ideation Suicidal Ideation: No - Homicidal Ideation Homicidal Ideation: No Goal/Treatment Plan - Goal/Treatment Plan Need for Continued Stay: Remain at risks for inpatient hospitalization, Severe depression anxiety, Discharge may exacerbated symptoms, Severe functional impairment Progress Toward Problem(s) and Goals/Treatment Plan: Milieu/structure/supportive therapy Medical consult f needed consultation for discharge plan and social issues Med management Abilify was discontinued prozac 40mg po daily for depression and anxiety Seroquel 100 mg at the nighttime for disorganized thoughts and most stabilization ativan 1mg po tid for catatonia Nephrology to will follow-up on the patient neurology team will follow-up on the patient Family involvement Follow up on labs Will monitor closely Pt was educated about risk/benefits and alternatives of medications, coping strategies (safety plan, suicide prevention), relapse prevention, importance of follow up with psychiatrist and therapist, stay away from drugs/alcohol/smoking Estimated Date of D/C: 07/26/17 (we'll monitor closely)
--- NOTE | 2017-07-25 20:34 | PN ---
DATE: SUBJECTIVE: The patient is 66 years old, seen and examined, lying in bed, seems to be comfortable, more interactive. Facial rash seems to be improving. PHYSICAL EXAMINATION VITAL SIGNS: She is afebrile, pulse 83, respirations 20, blood pressure 103/65. LUNGS: Bilateral good airflow. No rhonchi or crackle. HEART: S1 and S2 audible. ABDOMEN: Soft, nontender. No rebound, no guarding. NEUROLOGICAL: The patient is awake, alert, oriented, communicative. LABORATORY DATA: Blood sugar is 144 at 4 o'clock, 118 at lunchtime. ASSESSMENT: 1. Status post hyponatremia. 2. Status post altered mental status. 3. [id number] diabetes. 4. Hypertension. 5. History of depression. PLAN: So, I had a discussion with the nurse because of the patient's handshake, it is difficult for her to inject insulin. I will try oral hypoglycemic. We will start her on glimepiride, metformin and start her on Januvia and discontinue insulin and monitor blood sugars. Jayla Coley MD
[2017-07-26] MEDS: Insulin Lispro (humaLOG) MEDIUM Coverage SC SCH ×4 (09:30→21:21)
[2017-07-26] MEDS: Hydrocortisone 1% Cream (30 GM) TOP SCH ×2 (09:52→18:10)
--- NOTE | 2017-07-26 14:55 | PCM.PYCHPN ---
Psychiatric Progress Note - Psychiatric Progress Note Patient seen today, length of contact: 30min Patient Chief Complaint: "I feel better Problems Identified/Issues Discussed: Suicide/ homicide prevention, past psychiatric h/o, current psychiatric symptoms , medical problems, risk/benefits and alternatives of medications, medications compliance, coping strategies, substance abuse h/o, relapse prevention, importance of follow up with psychiatrist and therapist, discharge plan. Medical Problems: electrolytes disbalance catatonia Rule out Parkinson's Diagnostic Results: 07/19/17 07:00 Lab Results 07/19/17 11:54: POC Glucose (mg/dL) 232 H 07/19/17 07:15: POC Glucose (mg/dL) 170 H 07/19/17 07:00: Sodium 133, Potassium 4.5, Chloride 100, Carbon Dioxide 25, Anion Gap 13, BUN 17, Creatinine 0.7, Est GFR ( Amer) > 60, Est GFR (Non- Af Amer) > 60, Random Glucose 175 H, Calcium 9.2, Total Bilirubin 0.5, AST 21, ALT 33, Alkaline Phosphatase 68, Total Protein 6.8, Albumin 3.5, Globulin 3.4, Albumin/Globulin Ratio 1.0 L 07/18/17 21:20: POC Glucose (mg/dL) 243 H 07/18/17 16:13: POC Glucose (mg/dL) 145 H 07/18/17 11:35: POC Glucose (mg/dL) 299 H 07/18/17 11:00: Sodium 133, Potassium 4.8, Chloride 101, Carbon Dioxide 18 L, Anion Gap 18, BUN 18, Creatinine 0.7, Est GFR ( Amer) > 60, Est GFR (Non- Af Amer) > 60, Random Glucose 222 H, Calcium 9.4 07/18/17 07:32: POC Glucose (mg/dL) 199 H 07/18/17 06:30: RPR Nonreactive 07/18/17 06:30: Free T4 1.36, TSH 3rd Generation 0.49 07/18/17 06:30: Fasting Glucose 216 H, Triglycerides 72, Cholesterol 123 L, LDL Cholesterol Direct 45, HDL Cholesterol 58 07/17/17 21:24: POC Glucose (mg/dL) 218 H Vital Signs Temp Pulse Resp BP 07/19/17 08:56 84 99/70 L 07/19/17 07:04 98.2 F 84 20 99/70 L 07/18/17 16:00 112 H 112/81 07/18/17 09:14 95 H 97/65 L 07/18/17 07:25 98.7 F 95 H 20 97/65 L Temp Pulse Resp BP Pulse Ox 98.1 F 110 H 19 113/69 07/24/17 07:04 07/24/17 07:04 07/24/17 07:04 07/24/17 07:04 Laboratory Results - last 24 hr 07/23/17 07/23/17 07/24/17 16:11 21:04 07:45 POC Glucose (mg/dL) 184 H 154 H 152 H 07/24/17 11:25 POC Glucose (mg/dL) 209 H Temp Pulse Resp BP Pulse Ox 98.0 F 89 20 90/60 L 07/26/17 07:29 07/26/17 07:29 07/26/17 07:29 07/26/17 07:29 Laboratory Results - last 24 hr 07/25/17 07/25/17 07/26/17 16:07 21:06 07:24 POC Glucose (mg/dL) 144 H 182 H 139 H 07/26/17 11:25 POC Glucose (mg/dL) 263 H DSM 5 Symptoms Update: Patient is a 66 year old female who has never been and has no children. 1 previous psychiatric admission about few years back when patient was diagnosed with dementia as well as schizophrenia?, patient was initially admitted to the medical side for evaluation of catatonia, change in mental status, which was most likely related to medical issues, patient was seen by advanced nurse practitioner as a weight loss consultant, patient was stabilized on the medical side, was transferred to the psychiatric inpatient unit uneventfully, please see initial consultation note for more detailed information. patient was seen today in her room, pt appeared better, pt has more reactive affect, was able to communicate in Vietnamese. hygiene is much better, pt is more spontaneous, speech is more productive, but still pt obviously has some psychomotor retardation. psychosis better, catatonia improving As per staff patient is compliant with the medications, quiet, no behavioral issues. no side effects of meds observed or reported, AIMS 0, no EPS, pt has UE tremor ( not new r/o parkinson) pt tolerated meds well, no side effects observed or reported. rigidity is much better, pt still has shuffling gait. Impression: As per history questionable schizophrenia Catatonia is improving, catatonia most likely related to the medical condition Rule out Parkinson's Medication Change: No (prozac increased and seroquel increased yesterday) Medical Record Reviewed: Yes Consults ordered or reviewed: medical consult will be considered Nephrology consult appreciated neurology team evaluated pt, consult appreciated, neurology team agreed with treatment plan Mental Status Examination - Cognitive Function Orientation: Person, Place, Situation Memory: Intact Attention: Poor (some improvement) Concentration: Poor (some improvement) Association: Loose Fund of Knowledge: Poor - Mood Mood: Depressed (better), Anxious - Affect Affect: Blunted, Flat, Other (apathetic, withdrawn) - Speech Speech: Appropriate (nderproductive, low volume,) - Formal Thought Process Formal Thought Process: Other (voices) - Suicidal Ideation Suicidal Ideation: No - Homicidal Ideation Homicidal Ideation: No Goal/Treatment Plan - Goal/Treatment Plan Need for Continued Stay: Remain at risks for inpatient hospitalization, Severe depression anxiety, Discharge may exacerbated symptoms, Severe functional impairment Progress Toward Problem(s) and Goals/Treatment Plan: Milieu/structure/supportive therapy Medical consult f needed consultation for discharge plan and social issues Med management Abilify was discontinued prozac 40mg po daily for depression and anxiety Seroquel 100 mg at the nighttime for disorganized thoughts and mood stabilization ativan 1mg po tid for catatonia Nephrology to will follow-up on the patient neurology team will follow-up on the patient Family involvement Follow up on labs Will monitor closely Pt was educated about risk/benefits and alternatives of medications, coping strategies (safety plan, suicide prevention), relapse prevention, importance of follow up with psychiatrist and therapist, stay away from drugs/alcohol/smoking Estimated Date of D/C: 07/27/17 (we'll monitor closely)
--- NOTE | 2017-07-26 17:17 | PN ---
DATE: SUBJECTIVE: The patient is 66 years old, seen and examined. Still very quiet, does not talk much. PHYSICAL EXAMINATION: VITAL SIGNS: She is afebrile, pulse 89, respirations 20, blood pressure 119/60. LUNGS: Bilateral good airflow. No rhonchi or crackle. HEART: S1 and S2 audible. ABDOMEN: Soft. Nontender. No rebound. No guarding. NEUROLOGIC: The patient is awake and alert, able to communicate. LABORATORY EXAM: In the afternoon, the patient's blood sugar dropped. ASSESSMENT: 1. Status post altered mental status. 2. Hypertension. 3. History of depression. PLAN: I will cut down Januvia to 50 daily. We will continue on glimepiride, continue on metformin and monitor her blood sugar closely. Jayla Coley MD
[2017-07-27] MEDS: Insulin Lispro (humaLOG) MEDIUM Coverage SC SCH ×4 (08:43→21:25)
[2017-07-27] MEDS: Hydrocortisone 1% Cream (30 GM) TOP SCH ×2 (10:44→16:56)
--- NOTE | 2017-07-27 14:26 | PN ---
DATE: SUBJECTIVE: The patient is 66 years old, seen and examined. Seems to be more alert, more communicative; however, there is language barrier. Her facial rash has improved. PHYSICAL EXAMINATION: VITAL SIGNS: She is afebrile, pulse 98, respirations 20, blood pressure 89/62. LUNGS: Bilateral good airflow. No rhonchi or crackle. HEART: S1 and S2 audible. ABDOMEN: Soft. Nontender. No rebound. No guarding. NEUROLOGIC: The patient is awake, alert, oriented, able to communicate. LABORATORY EXAM: Her blood sugar morning was 142, afternoon is 193. ASSESSMENT: 1. Status post hyponatremia. 2. [id number] diabetes. 3. History of depression. 4. Status post altered mental status. 5. Dementia. PLAN: I spread out her Amaryl to 2 mg before breakfast and dinner. We will continue her on Glucophage. Monitor her blood sugar. Jayla Coley MD
--- NOTE | 2017-07-27 16:59 | PCM.PYCHPN ---
Psychiatric Progress Note - Psychiatric Progress Note Patient seen today, length of contact: 30min Patient Chief Complaint: "I feel better Problems Identified/Issues Discussed: Suicide/ homicide prevention, past psychiatric h/o, current psychiatric symptoms , medical problems, risk/benefits and alternatives of medications, medications compliance, coping strategies, substance abuse h/o, relapse prevention, importance of follow up with psychiatrist and therapist, discharge plan. Medical Problems: electrolytes disbalance catatonia Rule out Parkinson's Diagnostic Results: 07/19/17 07:00 Lab Results 07/19/17 11:54: POC Glucose (mg/dL) 232 H 07/19/17 07:15: POC Glucose (mg/dL) 170 H 07/19/17 07:00: Sodium 133, Potassium 4.5, Chloride 100, Carbon Dioxide 25, Anion Gap 13, BUN 17, Creatinine 0.7, Est GFR ( Amer) > 60, Est GFR (Non- Af Amer) > 60, Random Glucose 175 H, Calcium 9.2, Total Bilirubin 0.5, AST 21, ALT 33, Alkaline Phosphatase 68, Total Protein 6.8, Albumin 3.5, Globulin 3.4, Albumin/Globulin Ratio 1.0 L 07/18/17 21:20: POC Glucose (mg/dL) 243 H 07/18/17 16:13: POC Glucose (mg/dL) 145 H 07/18/17 11:35: POC Glucose (mg/dL) 299 H 07/18/17 11:00: Sodium 133, Potassium 4.8, Chloride 101, Carbon Dioxide 18 L, Anion Gap 18, BUN 18, Creatinine 0.7, Est GFR ( Amer) > 60, Est GFR (Non- Af Amer) > 60, Random Glucose 222 H, Calcium 9.4 07/18/17 07:32: POC Glucose (mg/dL) 199 H 07/18/17 06:30: RPR Nonreactive 07/18/17 06:30: Free T4 1.36, TSH 3rd Generation 0.49 07/18/17 06:30: Fasting Glucose 216 H, Triglycerides 72, Cholesterol 123 L, LDL Cholesterol Direct 45, HDL Cholesterol 58 07/17/17 21:24: POC Glucose (mg/dL) 218 H Vital Signs Temp Pulse Resp BP 07/19/17 08:56 84 99/70 L 07/19/17 07:04 98.2 F 84 20 99/70 L 07/18/17 16:00 112 H 112/81 07/18/17 09:14 95 H 97/65 L 07/18/17 07:25 98.7 F 95 H 20 97/65 L Temp Pulse Resp BP Pulse Ox 98.1 F 110 H 19 113/69 07/24/17 07:04 07/24/17 07:04 07/24/17 07:04 07/24/17 07:04 Laboratory Results - last 24 hr 07/23/17 07/23/17 07/24/17 16:11 21:04 07:45 POC Glucose (mg/dL) 184 H 154 H 152 H 07/24/17 11:25 POC Glucose (mg/dL) 209 H Temp Pulse Resp BP Pulse Ox 98.0 F 89 20 90/60 L 07/26/17 07:29 07/26/17 07:29 07/26/17 07:29 07/26/17 07:29 Laboratory Results - last 24 hr 07/25/17 07/25/17 07/26/17 16:07 21:06 07:24 POC Glucose (mg/dL) 144 H 182 H 139 H 07/26/17 11:25 POC Glucose (mg/dL) 263 H DSM 5 Symptoms Update: Patient is a 66 year old female who has never been and has no children. 1 previous psychiatric admission about few years back when patient was diagnosed with dementia as well as schizophrenia?, patient was initially admitted to the medical side for evaluation of catatonia, change in mental status, which was most likely related to medical issues, patient was seen by advanced nurse practitioner as a sap ppm consultant, patient was stabilized on the medical side, was transferred to the psychiatric inpatient unit uneventfully, please see initial consultation note for more detailed information. patient was seen at the dinning area, pt appeared better, pt has more reactive affect, was able to communicate in Spanish. hygiene is much better, pt is more spontaneous, speech is more productive, but still pt obviously has some psychomotor retardation. psychosis better, catatonia improving. as per sister who was contacted by JAYDEN, pt is not at her baseline even pt is improving. pt denied voices, h/o hearing voices, negative, derogatory. As per staff patient is compliant with the medications, quiet, no behavioral issues. no side effects of meds observed or reported, AIMS 0, no EPS, pt has UE tremor ( not new r/o parkinson) pt tolerated meds well, no side effects observed or reported. rigidity is much better, pt still has shuffling gait. Impression: As per history questionable schizophrenia Catatonia is improving, catatonia most likely related to the medical condition Rule out Parkinson's Medication Change: No (pt is aged female, might be sensitive to high dose of meds) Medical Record Reviewed: Yes Consults ordered or reviewed: medical consult will be considered Nephrology consult appreciated neurology team evaluated pt, consult appreciated, neurology team agreed with treatment plan Mental Status Examination - Cognitive Function Orientation: Person, Place, Situation Memory: Intact Attention: Poor (some improvement) Concentration: Poor (some improvement) Association: Loose (improvement) Fund of Knowledge: Poor (improvement) - Mood Mood: Depressed (better), Anxious - Affect Affect: Blunted, Flat, Other (apathetic, withdrawn) - Speech Speech: Appropriate (nderproductive, low volume,) - Formal Thought Process Formal Thought Process: Other (voices) - Suicidal Ideation Suicidal Ideation: No - Homicidal Ideation Homicidal Ideation: No Goal/Treatment Plan - Goal/Treatment Plan Need for Continued Stay: Remain at risks for inpatient hospitalization, Severe depression anxiety, Discharge may exacerbated symptoms, Severe functional impairment Progress Toward Problem(s) and Goals/Treatment Plan: Milieu/structure/supportive therapy Medical consult f needed consultation for discharge plan and social issues Med management Abilify was discontinued prozac 40mg po daily for depression and anxiety Seroquel 100 mg at the nighttime for disorganized thoughts and mood stabilization ativan 1mg po tid for catatonia Nephrology to will follow-up on the patient neurology team will follow-up on the patient Family involvement Follow up on labs Will monitor closely Pt was educated about risk/benefits and alternatives of medications, coping strategies (safety plan, suicide prevention), relapse prevention, importance of follow up with psychiatrist and therapist, stay away from drugs/alcohol/smoking Estimated Date of D/C: 07/30/17 (as per family pt is not at baseline)
[2017-07-28] MEDS: Insulin Lispro (humaLOG) MEDIUM Coverage SC SCH ×4 (08:52→21:23)
[2017-07-28] MEDS: Hydrocortisone 1% Cream (30 GM) TOP SCH ×2 (08:55→16:52)
--- NOTE | 2017-07-28 11:44 | PCM.PYCHPN ---
Psychiatric Progress Note - Psychiatric Progress Note Patient seen today, length of contact: 25 min Patient Chief Complaint: a little better Problems Identified/Issues Discussed: I reviewed recent notes on the psychiatric unit. Patient is a 66 year old female who was diagnosed with dementia and schizophrenia during her first psychiatric admission two years ago. She was initially admitted and stabilized on the medical side for catatonia, and transferred to psychiatry for continued treatment of depression and disorganization. She was seen by neurology for Parkinsonism symptoms. Patient understands [employer] however college director, Emma was utilized to ensure optimal communication again today. Patient is alert and oriented to month, year and location. She has a superficial understanding about the circumstances of this hospitalization and has been improving on the unit. She is more responsive and speech is more spontaneous though still reduced in content. Her focus and engagement are better. Reactivity shows a little improvement. There also appears to be notable improvement in receptive comprehension and expression in [employer]. Patient denies any new discomfort or pain. Tolerating medications and she slept well last night. Staff notes indicate that patient has been visible on the unit and smiling a little more. She is interacting a little more and still appears to enjoy watching tv. There were no behavioral issues overnight. Diagnostic Results: R/O schizophrenia R/O Severe depression with catatonia Anxiety Disorder NOS R/O contribution of Pseudo-dementia Medication Change: No (pt is aged female, might be sensitive to high dose of meds) Medical Record Reviewed: Yes Mental Status Examination - Cognitive Function Orientation: Person, Place, Situation Memory: Intact Attention: Poor (some improvement) Concentration: Poor (some improvement) Association: Loose (improvement) Fund of Knowledge: Poor (improvement) - Mood Mood: Depressed (better), Anxious - Affect Affect: Blunted, Flat, Other ( a little more reactive) - Speech Speech: Appropriate ( underproductive, more spontaneous) - Formal Thought Process Formal Thought Process: Other (voices) - Suicidal Ideation Suicidal Ideation: No - Homicidal Ideation Homicidal Ideation: No Goal/Treatment Plan - Goal/Treatment Plan Need for Continued Stay: Remain at risks for inpatient hospitalization, Severe depression anxiety, Discharge may exacerbated symptoms, Severe functional impairment Progress Toward Problem(s) and Goals/Treatment Plan: * Group, milieu and supportive tx * Seroquel 100 mg po HS for disorganized thoughts and mood stabilization * ativan 1 mg TID for anxiety * Prozac 40 mg po qAM for depression and anxiety. I reviewed indications, dosing , therapeutic latency with patient at bedside on 07/20/17 with help of [employer] Supervisor, Emma. * No new floor labs today * Vitals reviewed and noted below: 07/28/17 07:37 Temperature 97.9 F Pulse Rate 96 H Respiratory 20 Rate Blood Pressure 99/63 L Estimated Date of D/C: 07/30/17 (as per family pt is not at baseline)
[2017-07-29] MEDS: Insulin Lispro (humaLOG) MEDIUM Coverage SC SCH ×4 (08:55→22:31)
[2017-07-29] MEDS: Hydrocortisone 1% Cream (30 GM) TOP SCH ×2 (08:57→15:55)
--- NOTE | 2017-07-29 10:45 | PCM.PYCHPN ---
Psychiatric Progress Note - Psychiatric Progress Note Patient seen today, length of contact: 25 min Patient Chief Complaint: a little better Problems Identified/Issues Discussed: I reviewed recent notes on the psychiatric unit. Patient is a 66 year old female who was diagnosed with dementia and schizophrenia during her first psychiatric admission two years ago. She was initially admitted and stabilized on the medical side for catatonia, and transferred to psychiatry for continued treatment of depression and disorganization. She was seen by neurology last week for possible diagnosis of Parkinson's. Patient is alert and oriented to month, year and location. She has a superficial understanding about the circumstances of this hospitalization and has been improving on the unit. She is more responsive and speech is more spontaneous though still reduced in content. Her focus and engagement are better. Reactivity shows a little improvement. There also appears to be notable improvement in receptive comprehension and expression in Chinese. Without prompting, she is also socializing with [place]i- speaking staff members. Patient denies any new discomfort or pain. Tolerating medications and she slept well again last night. Staff notes indicate that patient has been visible on the unit and smiling a little more. She is interacting a little more and still appears to enjoy watching tv. There were no behavioral issues over the weekend. Diagnostic Results: R/O schizophrenia R/O Severe depression with catatonia Anxiety Disorder NOS R/O contribution of Pseudo-dementia Medication Change: No (pt is aged female, might be sensitive to high dose of meds) Medical Record Reviewed: Yes Mental Status Examination - Cognitive Function Orientation: Person, Place, Situation Memory: Intact Attention: Poor (some improvement) Concentration: Poor (some improvement) Association: Loose (improvement) Fund of Knowledge: Poor (improvement) - Mood Mood: Depressed (better), Anxious - Affect Affect: Blunted, Flat (improving), Other ( a little more reactive and related) - Speech Speech: Appropriate ( underproductive, more spontaneous) - Formal Thought Process Formal Thought Process: Other (denies) - Suicidal Ideation Suicidal Ideation: No - Homicidal Ideation Homicidal Ideation: No Goal/Treatment Plan - Goal/Treatment Plan Need for Continued Stay: Remain at risks for inpatient hospitalization, Severe depression anxiety, Discharge may exacerbated symptoms, Severe functional impairment Progress Toward Problem(s) and Goals/Treatment Plan: * Group, milieu and supportive tx * Seroquel 100 mg po HS for disorganized thoughts and mood stabilization * ativan 1 mg TID for anxiety * Prozac 40 mg po qAM for depression and anxiety. I reviewed indications, dosing , therapeutic latency with patient at bedside on 07/20/17 with help of Staff Scientist, Emma. * No new floor labs over the weekend * Vitals reviewed and noted below: 07/29/17 07:22 Temperature 97.7 F Pulse Rate 110 H Respiratory 20 Rate Blood Pressure 106/64 Estimated Date of D/C: 07/30/17 (as per family pt is not at baseline)
[2017-07-30] MEDS: Insulin Lispro (humaLOG) MEDIUM Coverage SC SCH ×4 (08:17→21:24)
[2017-07-30] MEDS: Hydrocortisone 1% Cream (30 GM) TOP SCH ×2 (12:29→17:50)
--- NOTE | 2017-07-30 15:43 | PCM.PYCHPN ---
Psychiatric Progress Note - Psychiatric Progress Note Patient seen today, length of contact: 25 min Patient Chief Complaint: "I feel much better" Problems Identified/Issues Discussed: Suicide/ homicide prevention, past psychiatric h/o, current psychiatric symptoms , medical problems, risk/benefits and alternatives of medications, medications compliance, coping strategies, substance abuse h/o, relapse prevention, importance of follow up with psychiatrist and therapist, discharge plan. Medical Problems: electrolytes disbalance catatonia Rule out Parkinson's Diagnostic Results: 07/19/17 07:00 Lab Results 07/19/17 11:54: POC Glucose (mg/dL) 232 H 07/19/17 07:15: POC Glucose (mg/dL) 170 H 07/19/17 07:00: Sodium 133, Potassium 4.5, Chloride 100, Carbon Dioxide 25, Anion Gap 13, BUN 17, Creatinine 0.7, Est GFR ( Amer) > 60, Est GFR (Non- Af Amer) > 60, Random Glucose 175 H, Calcium 9.2, Total Bilirubin 0.5, AST 21, ALT 33, Alkaline Phosphatase 68, Total Protein 6.8, Albumin 3.5, Globulin 3.4, Albumin/Globulin Ratio 1.0 L 07/18/17 21:20: POC Glucose (mg/dL) 243 H 07/18/17 16:13: POC Glucose (mg/dL) 145 H 07/18/17 11:35: POC Glucose (mg/dL) 299 H 07/18/17 11:00: Sodium 133, Potassium 4.8, Chloride 101, Carbon Dioxide 18 L, Anion Gap 18, BUN 18, Creatinine 0.7, Est GFR ( Amer) > 60, Est GFR (Non- Af Amer) > 60, Random Glucose 222 H, Calcium 9.4 07/18/17 07:32: POC Glucose (mg/dL) 199 H 07/18/17 06:30: RPR Nonreactive 07/18/17 06:30: Free T4 1.36, TSH 3rd Generation 0.49 07/18/17 06:30: Fasting Glucose 216 H, Triglycerides 72, Cholesterol 123 L, LDL Cholesterol Direct 45, HDL Cholesterol 58 07/17/17 21:24: POC Glucose (mg/dL) 218 H Vital Signs Temp Pulse Resp BP 07/19/17 08:56 84 99/70 L 07/19/17 07:04 98.2 F 84 20 99/70 L 07/18/17 16:00 112 H 112/81 07/18/17 09:14 95 H 97/65 L 07/18/17 07:25 98.7 F 95 H 20 97/65 L Temp Pulse Resp BP Pulse Ox 98.1 F 110 H 19 113/69 07/24/17 07:04 07/24/17 07:04 07/24/17 07:04 07/24/17 07:04 Laboratory Results - last 24 hr 07/23/17 07/23/17 07/24/17 16:11 21:04 07:45 POC Glucose (mg/dL) 184 H 154 H 152 H 07/24/17 11:25 POC Glucose (mg/dL) 209 H Temp Pulse Resp BP Pulse Ox 98.0 F 89 20 90/60 L 07/26/17 07:29 07/26/17 07:29 07/26/17 07:29 07/26/17 07:29 Laboratory Results - last 24 hr 07/25/17 07/25/17 07/26/17 16:07 21:06 07:24 POC Glucose (mg/dL) 144 H 182 H 139 H 07/26/17 11:25 POC Glucose (mg/dL) 263 H Laboratory Results - last 24 hr 07/29/17 07/29/17 07/30/17 16:49 22:08 07:45 POC Glucose (mg/dL) 186 H 222 H 142 H 07/30/17 11:45 POC Glucose (mg/dL) 150 H DSM 5 Symptoms Update: Patient is a 66 year old female who has never been and has no children. 1 previous psychiatric admission about few years back when patient was diagnosed with dementia as well as schizophrenia?, patient was initially admitted to the medical side for evaluation of catatonia, change in mental status, which was most likely related to medical issues, patient was seen by advanced nurse practitioner as a healthcare consultant, patient was stabilized on the medical side, was transferred to the psychiatric inpatient unit uneventfully, please see initial consultation note for more detailed information. patient was seen at the dinning area, pt appeared better, pt has more reactive affect, was able to communicate in Serbian. hygiene is much better, pt is more spontaneous, speech is more productive, but still pt obviously has some psychomotor retardation. psychosis better, catatonia improving. as per sister who was contacted by , family was in agreement with d/c plan, will take pt back home tomorrow. pt denied voices, h/o hearing voices, negative, derogatory. As per staff patient is compliant with the medications, quiet, no behavioral issues. no side effects of meds observed or reported, AIMS 0, no EPS, pt has UE tremor ( not new r/o parkinson) pt tolerated meds well, no side effects observed or reported. rigidity is much better, pt still has shuffling gait. Impression: As per history questionable schizophrenia Catatonia is improving, catatonia most likely related to the medical condition Rule out Parkinson's Medication Change: No Medical Record Reviewed: Yes Consults ordered or reviewed: medical consult will be considered Nephrology consult appreciated neurology team evaluated pt, consult appreciated, neurology team agreed with treatment plan Mental Status Examination - Cognitive Function Orientation: Person, Place, Situation Memory: Intact Attention: Poor (improvement) Concentration: Poor (improvementimpro) Association: Loose (improvement) Fund of Knowledge: Poor (improvement') - Mood Mood: Depressed (better), Anxious - Affect Affect: Blunted, Flat (improving), Other ( a little more reactive and related) - Speech Speech: Appropriate ( underproductive, more spontaneous) - Formal Thought Process Formal Thought Process: Other (denies) - Suicidal Ideation Suicidal Ideation: No - Homicidal Ideation Homicidal Ideation: No Goal/Treatment Plan - Goal/Treatment Plan Need for Continued Stay: Remain at risks for inpatient hospitalization, Severe depression anxiety, Discharge may exacerbated symptoms, Severe functional impairment Progress Toward Problem(s) and Goals/Treatment Plan: Milieu/structure/supportive therapy Medical consult f needed consultation for discharge plan and social issues Med management Abilify was discontinued prozac 40mg po daily for depression and anxiety Seroquel 100 mg at the nighttime for disorganized thoughts and mood stabilization ativan 1mg po tid for catatonia Nephrology to will follow-up on the patient neurology team will follow-up on the patient Family involvement Follow up on labs Will monitor closely Pt was educated about risk/benefits and alternatives of medications, coping strategies (safety plan, suicide prevention), relapse prevention, importance of follow up with psychiatrist and therapist, stay away from drugs/alcohol/smoking Estimated Date of D/C: 07/31/17 (as per family pt is not at baseline)
[2017-07-31 07:34] VITALS: BP 112/76; PULSE 93; TEMP 97.9
[2017-07-31] MEDS: Insulin Lispro (humaLOG) MEDIUM Coverage SC SCH ×2 (08:34→12:43)
[2017-07-31] MEDS: Hydrocortisone 1% Cream (30 GM) TOP SCH (08:55)
--- NOTE | 2017-07-31 16:12 | PCM.PYCHDC ---
Mental Status Examination - Mental Status Examination Orientation: Person, Place, Situation, Time Memory: Impaired (but improved significantly) Mood: Neutral Affect: Constricted (but reactive and mood congruent) Speech: Appropriate Attention: WNL (improved) Concentration: WNL (improved) Association: WNL Fund of Knowledge: WNL Formal Thought Process: No Impairment Description of patient's judgement and insight: Pt has improved insight into mental and medical illness, pt was compliant with medications and unit rules and regulations, pt was going to groups, was calm, cooperative, socially appropriate, no behavioral incidents, no agitation, no aggression. Psychotic Thoughts and Behaviors: Pt denied v/a/t hallucinations, denied paranoid ideations, pt does not appear to be psychotic, and thought process is goal directed. Suicidal Ideation: No Current Homicidal Ideation?: No Plan: pt adamantly denied thoughts of harming self or others denied intent or plan. Discharge Summary - Discharge Note Reason for Hospitalization: patient was transferred from the medical side for evaluation of psychotic symptoms, catatonia, depressive symptoms Psychiatric History (includes Medical, Family, Personal Hx): espiratory history patient was diagnosed with schizophrenia Laboratory Data: Abnormal Lab Results 07/30/17 07/30/17 07/31/17 16:14 21:21 07:34 POC Glucose (mg/dL) 85 212 H 143 H 07/31/17 11:00 POC Glucose (mg/dL) 223 H 07/23/17 07:45 Lab Results 07/31/17 11:00: POC Glucose (mg/dL) 223 H 07/31/17 07:34: POC Glucose (mg/dL) 143 H 07/30/17 21:21: POC Glucose (mg/dL) 212 H 07/30/17 16:14: POC Glucose (mg/dL) 85 07/30/17 11:45: POC Glucose (mg/dL) 150 H 07/30/17 07:45: POC Glucose (mg/dL) 142 H 07/29/17 22:08: POC Glucose (mg/dL) 222 H 07/29/17 16:49: POC Glucose (mg/dL) 186 H 07/29/17 11:39: POC Glucose (mg/dL) 109 07/29/17 07:39: POC Glucose (mg/dL) 157 H 07/28/17 21:06: POC Glucose (mg/dL) 172 H 07/28/17 16:50: POC Glucose (mg/dL) 150 H 07/28/17 11:32: POC Glucose (mg/dL) 289 H 07/28/17 07:25: POC Glucose (mg/dL) 170 H 07/27/17 21:12: POC Glucose (mg/dL) 166 H 07/27/17 16:30: POC Glucose (mg/dL) 207 H 07/27/17 11:22: POC Glucose (mg/dL) 193 H 07/27/17 07:27: POC Glucose (mg/dL) 142 H 07/26/17 21:08: POC Glucose (mg/dL) 150 H 07/26/17 18:59: POC Glucose (mg/dL) 135 H 07/26/17 18:04: POC Glucose (mg/dL) 56 L 07/26/17 17:04: POC Glucose (mg/dL) 64 L 07/26/17 16:14: POC Glucose (mg/dL) 57 L 07/26/17 11:25: POC Glucose (mg/dL) 263 H 07/26/17 07:24: POC Glucose (mg/dL) 139 H 07/25/17 21:06: POC Glucose (mg/dL) 182 H 07/25/17 16:07: POC Glucose (mg/dL) 144 H 07/25/17 11:13: POC Glucose (mg/dL) 118 H 07/25/17 07:21: POC Glucose (mg/dL) 171 H 07/24/17 21:28: POC Glucose (mg/dL) 148 H 07/24/17 16:31: POC Glucose (mg/dL) 274 H 07/24/17 11:25: POC Glucose (mg/dL) 209 H 07/24/17 07:45: POC Glucose (mg/dL) 152 H 07/23/17 21:04: POC Glucose (mg/dL) 154 H 07/23/17 16:11: POC Glucose (mg/dL) 184 H 07/23/17 11:10: POC Glucose (mg/dL) 225 H 07/23/17 07:45: Sodium 135, Potassium 4.4, Chloride 102, Carbon Dioxide 24, Anion Gap 14, BUN 20, Creatinine 0.7, Est GFR ( Amer) > 60, Est GFR (Non- Af Amer) > 60, Random Glucose 155 H, Calcium 9.7 07/23/17 07:22: POC Glucose (mg/dL) 131 H 07/22/17 21:49: POC Glucose (mg/dL) 177 H 07/22/17 16:48: POC Glucose (mg/dL) 116 H 07/22/17 11:50: POC Glucose (mg/dL) 182 H 07/22/17 07:15: POC Glucose (mg/dL) 165 H 07/21/17 21:03: POC Glucose (mg/dL) 181 H 07/21/17 16:30: POC Glucose (mg/dL) 203 H 07/21/17 11:18: POC Glucose (mg/dL) 218 H 07/21/17 07:32: POC Glucose (mg/dL) 205 H 07/20/17 21:07: POC Glucose (mg/dL) 196 H 07/20/17 16:12: POC Glucose (mg/dL) 184 H 07/20/17 11:21: POC Glucose (mg/dL) 188 H 07/20/17 07:20: POC Glucose (mg/dL) 187 H 07/19/17 21:04: POC Glucose (mg/dL) 136 H 07/19/17 16:06: POC Glucose (mg/dL) 211 H 07/19/17 11:54: POC Glucose (mg/dL) 232 H 07/19/17 07:15: POC Glucose (mg/dL) 170 H 07/19/17 07:00: Sodium 133, Potassium 4.5, Chloride 100, Carbon Dioxide 25, Anion Gap 13, BUN 17, Creatinine 0.7, Est GFR ( Amer) > 60, Est GFR (Non- Af Amer) > 60, Random Glucose 175 H, Calcium 9.2, Total Bilirubin 0.5, AST 21, ALT 33, Alkaline Phosphatase 68, Total Protein 6.8, Albumin 3.5, Globulin 3.4, Albumin/Globulin Ratio 1.0 L 07/18/17 21:20: POC Glucose (mg/dL) 243 H 07/18/17 16:13: POC Glucose (mg/dL) 145 H 07/18/17 11:35: POC Glucose (mg/dL) 299 H 07/18/17 11:00: Sodium 133, Potassium 4.8, Chloride 101, Carbon Dioxide 18 L, Anion Gap 18, BUN 18, Creatinine 0.7, Est GFR ( Amer) > 60, Est GFR (Non- Af Amer) > 60, Random Glucose 222 H, Calcium 9.4 07/18/17 07:32: POC Glucose (mg/dL) 199 H 07/18/17 06:30: RPR Nonreactive 07/18/17 06:30: Free T4 1.36, TSH 3rd Generation 0.49 07/18/17 06:30: Fasting Glucose 216 H, Triglycerides 72, Cholesterol 123 L, LDL Cholesterol Direct 45, HDL Cholesterol 58 07/17/17 21:24: POC Glucose (mg/dL) 218 H Vital Signs Temp Pulse Resp BP 07/31/17 07:33 97.9 F 93 H 20 112/76 07/30/17 07:00 98.2 F 84 20 108/72 07/29/17 07:22 97.7 F 110 H 20 106/64 07/28/17 16:30 94 H 114/79 07/28/17 07:37 97.9 F 96 H 20 99/63 L 07/27/17 16:46 97 H 124/86 07/27/17 07:45 98.1 F 98 H 20 89/62 L 07/26/17 16:30 100 H 119/84 07/26/17 07:29 98.0 F 89 20 90/60 L 07/25/17 16:30 83 103/65 07/25/17 07:43 97.9 F 81 20 97/68 L 07/24/17 16:30 105 H 129/90 07/24/17 07:04 98.1 F 110 H 19 113/69 07/23/17 16:30 55 L 120/80 07/23/17 07:46 98.0 F 91 H 20 94/61 L 07/22/17 16:50 99 H 125/86 07/22/17 07:00 98.0 F 92 H 20 106/65 07/21/17 16:55 133 H 124/89 07/21/17 06:51 97.6 F 105 H 18 107/71 07/20/17 15:00 89 113/81 07/20/17 07:01 97.6 F 49 L 20 113/79 03/08/18 16:00 114 H 104/67 03/08/18 08:56 84 99/70 L 07/19/17 07:04 98.2 F 84 20 99/70 L 07/18/17 16:00 112 H 112/81 07/18/17 09:14 95 H 97/65 L 07/18/17 07:25 98.7 F 95 H 20 97/65 L Consultations:: List each consultation separately and include: 1. Reason for request. 2. Findings. 3. Follow-up Consultations: medical consult will be considered Nephrology consult appreciated neurology team evaluated pt, consult appreciated, neurology team agreed with treatment plan please see notes for more detailed information Summary of Hospital Course include:: 1. Description of specific treatment plan utilized for patients during their course of treatmen. 2. Summarize the time- course for resolution of acute symptoms and/or regressed behaviors. 3. Describe issues identified and worked on during hospitalization. 4. Describe medication utilized. 5. Describe medical problems identified and treated. 6. Reassessment of suicide risk Summary of Hospital Course: Patient is a 66 year old female who has never been and has no children. 1 previous psychiatric admission about few years back when patient was diagnosed with dementia as well as schizophrenia?, patient was initially admitted to the medical side for evaluation of catatonia, change in mental status, which was most likely related to medical issues, patient was seen by advanced nurse practitioner as a integration consultant, patient was stabilized on the medical side, was transferred to the psychiatric inpatient unit uneventfully, please see initial consultation note for more detailed information. at the time of admission pt presented to be in catatonic stage, was moving slowly, was not able to express herself, later on during that admission patient reported that she was hearing voices, and was feeling paranoid. This symptoms could be related to the fact that patient was in delirium stage IV multiple medical issues as well as patient has history of schizophrenia patient was followed up by nephrology, medical team as well as neurology teams. electrolyte disbalance improved, mental status as well. pt presented with improved personal hygiene, was calm and cooperative. parkinson's symptoms improved. Patient also has facial rash,which completely disappeared. patient tolerated Seroquel well, no rigidity, no cogwheel rigidity observed, pt was more spontaneous in regards of speech. Patient was stabilized on the following set all of the medications: prozac 40mg po daily for depression and anxiety Seroquel 100 mg at the nighttime for disorganized thoughts and mood stabilization ativan 1mg po tid for catatonia pt was tried on abilify, but pt was not tolerating it well, pt had tremor. As per staff patient is compliant with the medications, quiet, no behavioral issues. pt tolerated meds well, no side effects observed or reported. aims 0, no EPS. Over the course of this hospitalization pt was attending groups, pt also had medication management, had therapeutic milieu. Overall pt improved significantly, pt's affect became brighter, pt was less depressed, has realistic future oriented plans, pt also does not appear to be psychotic, or anxious, pt was socially appropriate, no behavioral issues, pts insight improved as well and soon pt deemed to be ready for discharge. At the time of the discharge pt denied been depressed, denied thoughts of harming self or others, denied psychotic symptoms, and pt does not appeared to be psychotic, denied been anxious, pt is not in imminent danger to self or others, will be following up at outpatient program at [facility] on August 03, 2017 at 10am for intake appointment. information about follow up appointment, time and address provided to the pt, it is patient responsibility to follow up with outpatient clinic, PMD as well as specialists ( see SW note for more detailed information). In case pt will need to obtain results of studies pending at discharge pt was provided with contact information of Psychiatric Inpatient unit [phone] as well as Medical Record Department [phone]. pt is not smoking, not using drugs. 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 information about follow up appointment, time and address provided to the pt, it is patient responsibility to follow up with outpatient clinic, PMD as well as specialists ( see SW note for more detailed information). In case pt will need to obtain results of studies pending at discharge pt was provided with contact information of Psychiatric Inpatient unit [phone] as well as Medical Record Department [phone]. pt is not smoking, not using drugs. pt needs to be followed up by neurologist as outpatient pt was provided with prescriptions for all of medications (please see medication reconciliation form) Pt was educated about safety plan in case of worsening of symptoms or in case of suicidal or homicidal ideation call 911 or go to the nearest ER, also was educated to take meds as prescribed and stay away from drugs, pt verbalized understanding Prescriptions/Medication Reconciliation: Atorvastatin [Lipitor] 20 mg PO DAILY #7 tab Fluoxetine HCl [Prozac] 40 mg PO DAILY #14 capsule Glimepiride [amaRYL] 2 mg PO ACBD #14 tab LORazepam [Ativan] 1 mg PO TID #45 tab metFORMIN [glucOPHAGE] 500 mg PO BID #14 tab Quetiapine Fumarate [Seroquel] 100 mg PO HS #14 tab SITagliptin [Januvia] 50 mg PO DAILY #7 tab - Smoking Cessation Smoking Cessation Medication prescribed: No Reason for not providing: pt denies smoking - Antipsychotic Medications Pt discharged on 2 or more routine antipsychotic medications: No
--- NOTE | 2017-08-01 03:06 | PN ---
DATE: SUBJECTIVE: The patient is 66 years old, seen and examined. Seems to be doing well. Eating and tolerating. Blood sugar is running well on oral hypoglycemic. PHYSICAL EXAMINATION: GENERAL: She is awake and alert, communicative. VITAL SIGNS: She is afebrile, pulse 93, respirations 20, blood pressure 112/76. LUNGS: Bilateral good airflow. No rhonchi or crackle. HEART: S1 and S2 audible. ABDOMEN: Soft. Nontender. No rebound. No guarding. NEUROLOGIC: She is awake, alert, oriented, communicative. LABORATORY EXAMINATION: Blood sugar is 223. ASSESSMENT: 1. Status post catatonia. 2. Hyponatremia, resolved. 3. Mgx-hxkyzvv-mhfrufaoa diabetes. 4. Hypertension. 5. History of depression. PLAN: The patient is being discharged home on Janumet twice a day, enalapril 2.5 daily, glimepiride 2 mg twice a day and atorvastatin 20 mg daily and psychiatrist will adjust psych medication. Jayla Coley MD
== END 2017-07-31 15:23 | disposition home or self-care (01) | DRG 885 ==
LOC: PSYC 17:45 → 5RNO 07-30 17:09 → PSYC 07-30 17:11
PROVIDERS: ADMIT Psychiatry & Neurology Psychiatry; ATTEND Psychiatry & Neurology Psychiatry
DX: F20.2 Catatonic schizophrenia (principal); E22.2 Syndrome of inappropriate secretion of antidiuretic hormone; E11.9 Type 2 diabetes mellitus without complications; G30.9 Alzheimer's disease, unspecified; F02.80 Dementia in other diseases classified elsewhere, unspecified severity, without behavioral disturbance, psychotic disturbance, mood disturbance, and anxiety; F06.1 Catatonic disorder due to known physiological condition; I10 Essential (primary) hypertension; R21 Rash and other nonspecific skin eruption; E78.5 Hyperlipidemia, unspecified; F41.9 Anxiety disorder, unspecified; F32.9 Major depressive disorder, single episode, unspecified; Z79.4 Long term (current) use of insulin

== ENCOUNTER 2017-10-19 21:23 | Inpatient (IN) | payer MEDICARE, OTHER ==
[2017-10-19 21:23] VITALS: BMI 24.0
--- NOTE | 2017-10-19 22:01 | ED PDOC ---
Arrival/HPI - General Chief Complaint: Psychiatric Evaluation Time Seen by Provider: 10/19/17 21:29 Historian: Patient, EMS - History of Present Illness Narrative History of Present Illness (Text): 10/19/17 22:04 A 66 year old female, whose past medical history includes asthma, HTN, Hypercholesterolemia, Depression and Schizophrenia, is brought into the emergency department via EMS for complaints of auditory hallucination. Patient' s HPI/ROS limited due to patient's limited response. Patient answers to some questions. PMD: Dr. Holguin Time/Duration: Prior to Arrival Symptom Onset: Sudden Symptom Course: Unchanged Activities at Onset: Rest, Light Context: Home Past Medical History - Provider Review Nursing Documentation Reviewed: Yes - Past History Past History: No Previous - Infectious Disease Hx of Infectious Diseases: None - Cardiac Hx Hypertension: Yes - Pulmonary Hx Respiratory Disorders: Yes - Neurological Hx Neurological Disorder: No - HEENT Hx HEENT Disorder: No - Renal Hx Renal Disorder: No - Endocrine/Metabolic Hx Diabetes Mellitus Type 1: Yes - Hematological/Oncological Hx Blood Disorders: No - Integumentary Hx Dermatological Disorder: No - Musculoskeletal/Rheumatological Hx Musculoskeletal Disorders: No Hx Falls: No - Gastrointestinal Hx Gastrointestinal Disorders: No - Genitourinary/Gynecological Hx Genitourinary Disorders: No - Psychiatric Hx Depression: Yes Hx Schizophrenia: Yes Hx Substance Use: No - Surgical History Other/Comment: colonoscopy - Anesthesia Hx Anesthesia: No Family/Social History - Physician Review Nursing Documentation Reviewed: Yes Family/Social History: No Known Family HX Smoking Status: Never Smoked Hx Alcohol Use: No Hx Substance Use: No Hx Substance Use Treatment: No Allergies/Home Meds Allergies/Adverse Reactions: Allergies No Known Allergies Allergy (Verified 07/18/17 01:02) Home Medications: Home Meds Medication Instructions Recorded Confirmed Cholecalciferol (Vitamin D3) 1 tab PO DAILY 07/01/15 10/19/17 [Vitamin D3] Enalapril Maleate 2.5 mg PO DAILY 07/01/15 10/19/17 Escitalopram [Lexapro] 20 mg PO DAILY 07/01/15 10/19/17 GlipiZIDE [Glucotrol] 5 mg PO BID 07/01/15 10/19/17 Olanzapine [Zyprexa] 20 mg PO HS 07/01/15 10/19/17 Rivaroxaban [Xarelto] 20 mg PO DAILY 07/01/15 10/19/17 Rosuvastatin Calcium [Crestor] 10 mg PO DAILY 07/01/15 10/19/17 Sennosides/Docusate Sodium [Senna 1 tab PO DAILY 07/01/15 10/19/17 Laxative Tablet] metFORMIN [glucOPHAGE] 500 mg PO BID 07/01/15 10/19/17 Ergocalciferol (Vitamin D2) 50,000 unit PO QWK 07/12/17 10/19/17 [Vitamin D2] Insulin Lispro [Humalog (Insulin 10 units SC TID 07/12/17 10/19/17 Lispro)] Sitagliptin Phos/Metformin HCl 1 each PO BID 07/12/17 10/19/17 [Janumet 50-1,000 mg Tablet] Review of Systems - Physician Review All systems were reviewed & negative as marked: Yes - Review of Systems Constitutional: absent: Fevers, Night Sweats Respiratory: absent: SOB, Cough Cardiovascular: absent: Chest Pain, SHIELDS Gastrointestinal: absent: Abdominal Pain, Diarrhea, Nausea, Vomiting Genitourinary Female: absent: Urine Output Changes Musculoskeletal: absent: Back Pain, Neck Pain Neurological: absent: Headache, Dizziness Psychiatric: Other (Auditory Hallucination) Physical Exam Vital Signs Reviewed: Yes Vital Signs Temp Pulse Resp BP Pulse Ox 10/20/17 09:38 98 F 85 19 123/65 99 10/20/17 07:24 99.1 F 75 20 120/72 98 10/20/17 05:23 82 16 121/74 99 10/20/17 03:23 88 16 124/78 99 10/20/17 01:23 82 16 126/76 100 10/19/17 23:23 86 18 136/74 99 10/19/17 21:23 99.1 F 98 H 18 129/78 97 Temperature: Afebrile Blood Pressure: Normal Pulse: Tachycardic Respiratory Rate: Normal Appearance: Positive for: Non-Toxic, Comfortable Pain Distress: None Mental Status: Positive for: Alert and Oriented X 3 - Systems Exam Head: Present: Atraumatic, Normocephalic Pupils: Present: PERRL Extroacular Muscles: Present: EOMI Conjunctiva: Present: Normal Mouth: Present: Moist Mucous Membranes Neck: Present: Normal Range of Motion Respiratory/Chest: Present: Clear to Auscultation, Good Air Exchange. No: Respiratory Distress, Accessory Muscle Use Cardiovascular: Present: Regular Rate and Rhythm, Normal S1, S2. No: Murmurs Abdomen: No: Tenderness, Distention, Peritoneal Signs Back: Present: Normal Inspection Upper Extremity: Present: Normal Inspection. No: Cyanosis, Edema Lower Extremity: Present: Normal Inspection. No: Edema Neurological: Present: GCS=15, CN II-XII Intact, Speech Normal Skin: Present: Warm, Dry, Normal Color. No: Rashes Psychiatric: Present: Alert, Oriented x 3, Normal Insight, Normal Concentration , Other (Patient appears to have paranoid behavior) Medical Decision Making ED Course and Treatment: 10/19/17 22:09 Impression: A 66 year old female is brought into the emergency department via EMS for a complaint of auditory hallucination. Plan: -- Urinalysis -- Labs -- Reassess and disposition Progress Notes: 10/20/17 03:26: Patient has been evaluated by PES. Awaiting [id number]-[id number] evaluation in the morning. 10/20/17 04:20: Patient was evaluated by PES. Pending evaluation by Dr. Hector 10/20/17 06:51 endorsed to day shift pending face to face, and Urinalysis results - Lab Interpretations Lab Results: 10/19/17 23:16 10/19/17 23:16 Lab Results 10/20/17 08:30: Urine Opiates Screen Negative, Urine Methadone Screen Negative, Ur Barbiturates Screen Negative, Ur Phencyclidine Scrn Negative, Ur Amphetamines Screen Negative, U Benzodiazepines Scrn Negative, U Oth Cocaine Metabols Negative, U Cannabinoids Screen Negative 10/20/17 08:30: Urine Color Light yellow, Urine Appearance Clear, Urine pH 6.0, Ur Specific [place] 1.015, Urine Protein Negative, Urine Glucose (UA) >=1000, Urine Ketones Negative, Urine Blood Negative, Urine Nitrate Negative, Urine Bilirubin Negative, Urine Urobilinogen 0.2, Ur Leukocyte Esterase Negative 10/20/17 07:42: POC Glucose (mg/dL) 249 H 10/20/17 03:37: POC Glucose (mg/dL) 223 H 10/19/17 23:16: Alcohol, Quantitative < 10 10/19/17 23:16: Salicylates < 1 L, Acetaminophen < 10.0 L 10/19/17 23:16: Sodium 131 L, Potassium 4.6, Chloride 93 L, Carbon Dioxide 25, Anion Gap 17, BUN 17, Creatinine 0.7, Est GFR ( Amer) > 60, Est GFR (Non- Af Amer) > 60, Random Glucose 444 H* D, Calcium 9.1, Magnesium 2.0, Total Bilirubin 0.9, AST 18, ALT 20, Alkaline Phosphatase 72, Total Protein 7.2, Albumin 3.8, Globulin 3.4, Albumin/Globulin Ratio 1.1 10/19/17 23:16: WBC 7.7, RBC 4.44, Hgb 12.9, Hct 36.3, MCV 81.8, MCH 29.1, MCHC 35.5, RDW 13.5, Plt Count 331, MPV 10.1, Gran % 60.8, Lymph % (Auto) 32.4, Page % (Auto) 6.1 H, Eos % (Auto) 0.4 L, Baso % (Auto) 0.3, Gran # 4.71, Lymph # ( Auto) 2.5, Page # (Auto) 0.5, Eos # (Auto) 0.0, Baso # (Auto) 0.02 I have reviewed the lab results: Yes - Medication Orders Current Medication Orders: Fluoxetine HCl (Prozac) 20 mg PO DAILY MINGO Insulin Human Lispro (Humalog) 10 units SC AC MINGO Lorazepam (Ativan) 1 mg PO AMHS MINGO PRN Reason: Protocol Quetiapine Fumarate (Seroquel) 50 mg PO HS MINGO PRN Reason: Protocol Discontinued Medications Insulin Human Regular (Humulin R) 5 units SC STAT STA Stop: 10/19/17 23:45 Last Admin: 10/20/17 00:31 Dose: 5 units MAR Blood Glucose Document 10/20/17 00:31 TITA (Rec: 10/20/17 00:33 TITA [id number]) Blood Glucose Finger Stick Blood Glucose (70-120) 444 Subcutaneous Administrations Document 10/20/17 00:31 TITA (Rec: 10/20/17 00:33 TITA [id number]) Injection Site MAR Injection Site Left Arm Charges for Administration # of Subcutaneous Administrations 1 - Scribe Statement The provider has reviewed the documentation as recorded by the Edmundo Caban Provider Scribe Attestation: All medical record entries made by the Scribe were at my direction and personally dictated by me. I have reviewed the chart and agree that the record accurately reflects my personal performance of the history, physical exam, medical decision making, and the department course for this patient. I have also personally directed, reviewed, and agree with the discharge instructions and disposition. Disposition/Present on Arrival - Present on Arrival Any Indicators Present on Arrival: No History of DVT/PE: No History of Uncontrolled Diabetes: No Urinary Catheter: No History of Decub. Ulcer: No History Surgical Site Infection Following: None - Disposition Have Diagnosis and Disposition been Completed?: Yes Diagnosis: Schizophrenia, Medical clearance for psychiatric admission Disposition: HOSPITALIZED Disposition Time: 07:00 Patient Problems: Current Active Problems Problem Status Onset Medical clearance for psychiatric admission Acute Schizophrenia Acute Condition: STABLE
[2017-10-19 23:30] LABS: BASO # 0.02 K/mm3 (0.0-2.0); BASO % 0.3 % (0.0-3.0); EOS % 0.4 % (1.5-5.0); GRAN # 4.71 (1.4-6.5); GRAN % 60.8 % (50.0-68.0); HEMOGLOBIN 12.9 g/dL (12.0-16.0); LYMPH # 2.5 (1.2-3.4); LYMPH % 32.4 % (22.0-35.0); MEAN CELL VOLUME 81.8 fl (80.0-105.0); MEAN CORPUSCULAR HEMOGLOBIN 29.1 pg (25.0-35.0); MEAN CORPUSCULAR HGB CONC 35.5 g/dl (31.0-37.0); MEAN PLATELET VOLUME 10.1 fl (7.0-11.0); MONO # 0.5 (0.1-0.6); MONO % 6.1 % (1.0-6.0); RBC 4.44 10^6/uL (3.5-6.1); RED CELL DISTRIBUTION WIDTH 13.5 % (11.5-14.5); WHITE BLOOD COUNT 7.7 10^3/ul (4.5-11.0)
[2017-10-19 23:31] LABS: ACETAMINOPHEN < 10.0 ug/ml (10.0-20.0); SALICYLATE < 1 mg/dL (2.0-20.0)
[2017-10-19 23:43] LABS: ALB/GLOB RATIO 1.1 (1.1-1.8); ALBUMIN 3.8 g/dL (3.0-4.8); ALT/SGPT 20 U/L (7-56); AST/SGOT 18 U/L (14-36); BLOOD UREA NITROGEN 17 mg/dL (7-21); CALCIUM 9.1 mg/dL (8.4-10.5); GFR AFRICAN-AMERICAN > 60; GFR NON-AFRICAN AMERICAN > 60
[2017-10-19] MEDS ORDERED: Insulin Regular 1 UNITS/0.01 ML ML SC STA (23:44)
--- NOTE | 2017-10-20 07:16 | ED PDOC ---
Physical Exam - Physical Exam Narrative Physical Exam (Text): General: alert/awake, pt is not speaking much, resting in bed, + comfortable, cooperative; NAD Head: NC/AT EYE: PERRLA, EOMI, sclera anicteric, no nystagmus, no photophobia Facial: WNL Oral: uvula/tongue are midline, no exudate/lesions, no drooling/stridor, no dysphonia; intact dentitions NECK: intact ROM, no midline tenderness, no nuchal rigidity, no meningeal signs ; no step off Chest: CTA b/l, no w/r/r; no tachypenia, no accessory muscle use noted Chest Wall: no crepitus, no lesions, no gross deformities, no focal tenderness Cardiac: +S1, +S2, no m/r/r, no tachycardia Abdominal: +BS, soft/nd/nt, well nourished patient; no masses/rebound/guarding/ rigidity; no steinberg's sign, no mcburney's point tenderness Extremities: intact ROM, strength 5/5 grossly intact in all limbs, neurovasc intact b/l; + ambulatory; reflex +2/2 BACK: no step off, no midline tenderness, NO crepitus, no gross deformities noted; Intact ROM SKIN: cap refill < 1 sec, no ulcerations, no petechiae, no rashes NEURO: CNII-XII WNL, no facial asymmetries Psych: flat/near catatonic affect Vital Signs Reviewed: Yes Vital Signs Temp Pulse Resp BP Pulse Ox 10/20/17 07:24 99.1 F 75 20 120/72 98 10/20/17 05:23 82 16 121/74 99 10/20/17 03:23 88 16 124/78 99 10/20/17 01:23 82 16 126/76 100 10/19/17 23:23 86 18 136/74 99 10/19/17 21:23 99.1 F 98 H 18 129/78 97 Temperature: Afebrile Blood Pressure: Normal Pulse: Regular Respiratory Rate: Normal Appearance: Positive for: Well-Appearing, Non-Toxic, Uncomfortable Pain Distress: None Finger Stick Blood Glucose: 444 - Systems Exam Head: Present: Atraumatic, Normocephalic Pupils: Present: PERRL Extroacular Muscles: Present: EOMI Conjunctiva: Present: Normal Mouth: Present: Moist Mucous Membranes Neck: Present: Normal Range of Motion Respiratory/Chest: Present: Clear to Auscultation, Good Air Exchange. No: Respiratory Distress, Accessory Muscle Use Cardiovascular: Present: Regular Rate and Rhythm, Normal S1, S2. No: Murmurs Abdomen: No: Tenderness, Distention, Peritoneal Signs Back: Present: Normal Inspection Upper Extremity: Present: Normal Inspection. No: Cyanosis, Edema Lower Extremity: Present: Normal Inspection. No: Edema Neurological: Present: GCS=15, CN II-XII Intact, Speech Normal Skin: Present: Warm, Dry, Normal Color. No: Rashes Psychiatric: Present: Alert, Other (paranoid behavior) Medical Decision Making ED Course and Treatment: 10/20/17 07:17 Impression: 66 year old female presents to the Emergency department for auditory hallucination. Plan: -- Psych evaluation -- Reassess and disposition Progress Notes: 10/20/17 07:10 Case endorsed to me by Dr. Beltran, pt is cleared and awaiting/pending psychiatric evaluation and final disposition. pt was MEDICALLY CLEARED FOR PSYCH eval by previous attending overnight Pt is currently resting in bed, stable, and has no complaints vital signs remained stable 10/20/17 0800 pt is awaiting PES/crisis re-evaluation 10/20/17 09:28 PES/crisis counselor is at bedside, evaluated patient, offered patient for admission; pt is agreeable to stay admitted here at [facility] pt will be admitted to psych pt is made aware of her medical results agrees with admission Re-evaluation Time: 09:00 Reassessment Condition: Unchanged - Lab Interpretations Lab Results: 10/19/17 23:16 10/19/17 23:16 Lab Results 10/20/17 08:30: Urine Opiates Screen Negative, Urine Methadone Screen Negative, Ur Barbiturates Screen Negative, Ur Phencyclidine Scrn Negative, Ur Amphetamines Screen Negative, U Benzodiazepines Scrn Negative, U Oth Cocaine Metabols Negative, U Cannabinoids Screen Negative 10/20/17 08:30: Urine Color Light yellow, Urine Appearance Clear, Urine pH 6.0, Ur Specific [place] 1.015, Urine Protein Negative, Urine Glucose (UA) >=1000, Urine Ketones Negative, Urine Blood Negative, Urine Nitrate Negative, Urine Bilirubin Negative, Urine Urobilinogen 0.2, Ur Leukocyte Esterase Negative 10/20/17 07:42: POC Glucose (mg/dL) 249 H 10/20/17 03:37: POC Glucose (mg/dL) 223 H 10/19/17 23:16: Alcohol, Quantitative < 10 10/19/17 23:16: Salicylates < 1 L, Acetaminophen < 10.0 L 10/19/17 23:16: Sodium 131 L, Potassium 4.6, Chloride 93 L, Carbon Dioxide 25, Anion Gap 17, BUN 17, Creatinine 0.7, Est GFR ( Amer) > 60, Est GFR (Non- Af Amer) > 60, Random Glucose 444 H* D, Calcium 9.1, Magnesium 2.0, Total Bilirubin 0.9, AST 18, ALT 20, Alkaline Phosphatase 72, Total Protein 7.2, Albumin 3.8, Globulin 3.4, Albumin/Globulin Ratio 1.1 10/19/17 23:16: WBC 7.7, RBC 4.44, Hgb 12.9, Hct 36.3, MCV 81.8, MCH 29.1, MCHC 35.5, RDW 13.5, Plt Count 331, MPV 10.1, Gran % 60.8, Lymph % (Auto) 32.4, [place] % (Auto) 6.1 H, Eos % (Auto) 0.4 L, Baso % (Auto) 0.3, Gran # 4.71, Lymph # ( Auto) 2.5, [place] # (Auto) 0.5, Eos # (Auto) 0.0, Baso # (Auto) 0.02 I have reviewed the lab results: Yes Interpretation: Abnormal lab values (elevated GLUC) - Medication Orders Current Medication Orders: Discontinued Medications Insulin Human Regular (Humulin R) 5 units SC STAT STA Stop: 10/19/17 23:45 Last Admin: 10/20/17 00:31 Dose: 5 units MAR Blood Glucose Document 10/20/17 00:31 TITA (Rec: 10/20/17 00:33 TITA [id number]) Blood Glucose Finger Stick Blood Glucose (70-120) 444 Subcutaneous Administrations Document 10/20/17 00:31 TITA (Rec: 10/20/17 00:33 TITA [id number]) Injection Site MAR Injection Site Left Arm Charges for Administration # of Subcutaneous Administrations 1 - Scribe Statement The provider has reviewed the documentation as recorded by the Scribe Katarina Her. All medical record entries made by the Scribe were at my direction and personally dictated by me. I have reviewed the chart and agree that the record accurately reflects my personal performance of the history, physical exam, medical decision making, and the department course for this patient. I have also personally directed, reviewed, and agree with the discharge instructions and disposition. Disposition/Present on Arrival - Present on Arrival Any Indicators Present on Arrival: No History of DVT/PE: No History of Uncontrolled Diabetes: No Urinary Catheter: No History of Decub. Ulcer: No History Surgical Site Infection Following: None - Disposition Have Diagnosis and Disposition been Completed?: Yes Diagnosis: Schizophrenia, Medical clearance for psychiatric admission Disposition: HOSPITALIZED Disposition Time: 09:30 Patient Plan: Admission Condition: STABLE Print Language: BULGARIAN Forms: [employer] (Thai)
[2017-10-20 08:48] LABS: URINE BILIRUBIN NEGATIVE (NEGATIVE); URINE BLOOD NEGATIVE (NEGATIVE); URINE GLUCOSE (UA) >=1000 mg/dL (NEGATIVE); URINE LEUKOCYTE ESTERASE NEGATIVE Leu/uL (NEGATIVE); URINE PROTEIN NEGATIVE mg/dL (<30 mg/dL); URINE UROBILINOGEN 0.2 E.U./dL (<1 E.U./dL)
[2017-10-20 08:50] LABS: URINE APPEARANCE CLEAR (CLEAR); URINE COLOR LIGHT YELLOW (YELLOW)
[2017-10-20 09:15] LABS: BARBITURATES, UR NEGATIVE (NEGATIVE); BENZODIAZEPINES, UR NEGATIVE (NEGATIVE); OPIATES, UR NEGATIVE (NEGATIVE); PHENCYCLIDINE, UR NEGATIVE (NEGATIVE)
[2017-10-20] MEDS ORDERED: Insulin Lispro 1 UNITS/0.01 ML SC STA (21:29)
[2017-10-20 22:22] LABS: BLOOD UREA NITROGEN 24 mg/dL (7-21); CALCIUM 9.6 mg/dL (8.4-10.5); GFR AFRICAN-AMERICAN > 60; GFR NON-AFRICAN AMERICAN > 60
--- NOTE | 2017-10-21 05:42 | PCM.BM ---
<Siva Martinez - Last Filed: 10/21/17 05:39> Treatment Plan Problems - Problems identified on initial assessmt Impaired Communication Date Initiated: 10/20/17 Time Initiated: :30 Assessment reference: NA Status: Active Priority: 1 Altered Thought Process Date Initiated: 10/20/17 Time Initiated: :30 Assessment reference: NA Status: Active Priority: 2 Ineffectve Coping Date Initiated: 10/20/17 Time Initiated: :30 Assessment reference: NA Status: Active Priority: 3 Treatment assets and liabiliti Patient Assests: ADL independent Patient Liabilities: imparied memory - Milieu Protocol Maintain good personal hygiene: daily Encourage regular showers, every shift Remind patient to perform daily oral care, every shift Assist patient to perform ADL's Maintain personal safety: every shift Educate patient to report safety concerns to staff, every shift Monitor environment for contraband/sharps Medication safety: Monitor for expected outcome, potential side effects: every shift, Assess barriers to learning: every shift, Assess readiness for medication education: every shift Milieu Narrative: * group, milieu and supportive tx * Prozac for depression and anxiety * Ativan 1 mg TID for anxiety/catatonia * Seroquel 100 mg HS for disorganization * Awaiting medical consult * Vitals reviewed and noted below: ER LABS AND STUDIES 10/20/17 11:06 EKG: NSR at 75 bpm, normal axis, no ectopy, qs in leads V1-2, inverted T In leads V1, no st changes, ABNL EKG; unchanged compare with old ekg 07/201710/20/17 08:30: Urine Opiates Screen Negative, Urine Methadone Screen Negative, Ur Barbiturates Screen Negative, Ur Phencyclidine Scrn Negative, Ur Amphetamines Screen Negative, U Benzodiazepines Scrn Negative, U Oth Cocaine Metabols Negative, U Cannabinoids Screen Negative 10/20/17 08:30: Urine Color Light yellow, Urine Appearance Clear, Urine pH 6.0, Ur Specific [place] 1.015, Urine Protein Negative, Urine Glucose (UA) >=1000, Urine Ketones Negative, Urine Blood Negative, Urine Nitrate Negative, Urine Bilirubin Negative, Urine Urobilinogen 0.2, Ur Leukocyte Esterase Negative 10/20/17 07:42: POC Glucose (mg/dL) 249 H 10/20/17 03:37: POC Glucose (mg/dL) 223 H 10/19/17 23:16: Alcohol, Quantitative < 10 10/19/17 23:16: Salicylates < 1 L, Acetaminophen < 10.0 L 10/19/17 23:16: Sodium 131 L, Potassium 4.6, Chloride 93 L, Carbon Dioxide 25, Anion Gap 17, BUN 17, Creatinine 0.7, Est GFR ( Amer) > 60, Est GFR (Non- Af Amer) > 60, Random Glucose 444 H* D, Calcium 9.1, Magnesium 2.0, Total Bilirubin 0.9, AST 18, ALT 20, Alkaline Phosphatase 72, Total Protein 7.2, Albumin 3.8, Globulin 3.4, Albumin/Globulin Ratio 1.1 10/19/17 23:16: WBC 7.7, RBC 4.44, Hgb 12.9, Hct 36.3, MCV 81.8, MCH 29.1, MCHC 35.5, RDW 13.5, Plt Count 331, MPV 10.1, Gran % 60.8, Lymph % (Auto) 32.4, [place] % (Auto) 6.1 H, Eos % (Auto) 0.4 L, Baso % (Auto) 0.3, Gran # 4.71, Lymph # ( Auto) 2.5, [place] # (Auto) 0.5, Eos # (Auto) 0.0, Baso # (Auto) 0.02 Discharge/Continuing Care - Education Needs Education Needs: Patient Medication, Patient Diagnosis/Disease Process, Patient Coping Skills, Patient Anger Management skills, Patient Placement options, Patient Community resources, Patient Activities of Daily Living, Patient Pain, Patient Nutrition, Patient Uses of Medical Equipment, Patient Health Practices/ Safety, Patient Personal Hygiene/Grooming, Patient Aftercare Safety Plan - Discharge Discharge Criteria: Tolerates medication w/o severe side effects, Free of agitation - Treatment Team Participation Patient/Family/SO Statement: * group, milieu and supportive tx * Prozac for depression and anxiety * Ativan 1 mg TID for anxiety/catatonia * Seroquel 100 mg HS for disorganization * Awaiting medical consult * Vitals reviewed and noted below: ER LABS AND STUDIES 10/20/17 11:06 EKG: NSR at 75 bpm, normal axis, no ectopy, qs in leads V1-2, inverted T In leads V1, no st changes, ABNL EKG; unchanged compare with old ekg 07/201710/20/17 08:30: Urine Opiates Screen Negative, Urine Methadone Screen Negative, Ur Barbiturates Screen Negative, Ur Phencyclidine Scrn Negative, Ur Amphetamines Screen Negative, U Benzodiazepines Scrn Negative, U Oth Cocaine Metabols Negative, U Cannabinoids Screen Negative 10/20/17 08:30: Urine Color Light yellow, Urine Appearance Clear, Urine pH 6.0, Ur Specific [place] 1.015, Urine Protein Negative, Urine Glucose (UA) >=1000, Urine Ketones Negative, Urine Blood Negative, Urine Nitrate Negative, Urine Bilirubin Negative, Urine Urobilinogen 0.2, Ur Leukocyte Esterase Negative 10/20/17 07:42: POC Glucose (mg/dL) 249 H 10/20/17 03:37: POC Glucose (mg/dL) 223 H 10/19/17 23:16: Alcohol, Quantitative < 10 10/19/17 23:16: Salicylates < 1 L, Acetaminophen < 10.0 L 10/19/17 23:16: Sodium 131 L, Potassium 4.6, Chloride 93 L, Carbon Dioxide 25, Anion Gap 17, BUN 17, Creatinine 0.7, Est GFR ( Amer) > 60, Est GFR (Non- Af Amer) > 60, Random Glucose 444 H* D, Calcium 9.1, Magnesium 2.0, Total Bilirubin 0.9, AST 18, ALT 20, Alkaline Phosphatase 72, Total Protein 7.2, Albumin 3.8, Globulin 3.4, Albumin/Globulin Ratio 1.1 10/19/17 23:16: WBC 7.7, RBC 4.44, Hgb 12.9, Hct 36.3, MCV 81.8, MCH 29.1, MCHC 35.5, RDW 13.5, Plt Count 331, MPV 10.1, Gran % 60.8, Lymph % (Auto) 32.4, [place] % (Auto) 6.1 H, Eos % (Auto) 0.4 L, Baso % (Auto) 0.3, Gran # 4.71, Lymph # ( Auto) 2.5, [place] # (Auto) 0.5, Eos # (Auto) 0.0, Baso # (Auto) 0.02 <Bubba Tripp - Last Filed: 10/21/17 16:18> - Diagnosis (1) Schizoaffective disorder Status: Acute Interventions: group, milieu and supportive tx Prozac for depression and anxiety Ativan 1 mg TID for anxiety/catatonia Seroquel 100 mg HS for disorganization 10/21/17 16:19 <Madelin Lopez - Last Filed: 10/22/17 17:13> Family Contact Family involvement: Family/SO is involved Family contact: Patient agrees to contact Family contact name: Bailey Delvalle(sister) Family contacted how many times per week?: 2
[2017-10-21] MEDS: Insulin Lispro 1 UNITS/0.01 ML SC SCH ×3 (09:03→16:59)
--- NOTE | 2017-10-21 10:28 | CARD ---
APPROVED REPORT EKG Measurement Heart [id number] <Conclusion> Normal sinus rhythm Septal infarct, old No change
--- NOTE | 2017-10-21 16:18 | PCM.PSYCH ---
Initial Psychiatric Evaluation - Initial Psychiatric Evaluation Type of Admission: Voluntary Legal Status: Capacity History of Present Illness and Precipitating Events: Patient is a 66 year old single female with history of one prior admission to 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 It is difficult to have a meaningful interview because of her negative symptoms. These symptoms include speech latency, thought blocking and receptive delay in comprehension. Patient presented with similar symptoms during her admission in July 2017. At that time her catatonia was considered to be secondary to delirium however this doesn't appear to be contributing factor at this time (though she still needs to be seen by medicine consult). Thus far she has been good behavior control though obviously withdrawn, disengaged and internally preoccupied on the unit. I agree with staff assessment that patient selectively responds to some questions. These responses are very brief, inconsistent and not credible. For example, patient indicates that she has been compliant with medications and denies any mood or psychotic symptoms. However, yesterday patient endorsed depression while in the ER and told staff that she was not taking her medications prior to admission. Regardless she has consistently denied having any having any thoughts to harm herself or others. She is agreeable to current treatment plan of restarting discharge medications and has been compliant with medications thus far PSYCHIATRIC HISTORY Patient was stabilized on the following set of medications during her admission to [facility] in July 2017: Prozac 40mg po daily for depression and anxiety Seroquel 100 mg po HS for disorganized thoughts and mood stabilization Ativan 1mg po tid for catatonia Patient reported during our interview that her medication regimen was not changed after her discharge from this unit. Of note: *pt was tried on abilify, but pt was not tolerating it well due to tremor. *pt has also taken lexapro in the past, with unclear benefit. Patient was scheduled to f/u at [facility] on August 03, 2017. It is unclear if patient showed up to this intake. Prior records indicate the patient has no history of suicide attempts. SOCIAL HISTORY Born and raised in [facility]. Single and never . Patient has no children. Patient resides with her sister Bailey Delvalle (though patient indicated her preference to return to the [place]). Patients sister provided collateral during patients prior admission. 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 Her overall functioning declined in the last few years and she was diagnosed with dementia and schizophrenia while in the [place] x 2 years ago. Current Medications: Active Medications Generic Name Dose Route Start Last Admin Trade Name Freq PRN Reason Stop Dose Admin Fluoxetine HCl 20 mg 10/21/17 08:00 Prozac PO DAILY MINGO Insulin Human Lispro 10 units 10/21/17 07:30 Humalog SC AC MINGO Lorazepam 1 mg 10/20/17 22:00 10/20/17 21:54 Ativan PO 1 mg AMHS MINGO Administration Protocol Quetiapine Fumarate 50 mg 10/20/17 22:00 10/20/17 21:55 Seroquel PO 50 mg HS MINGO Administration Protocol Past Psychiatric History - Past Psychiatric History Pertinent Medical Hx (Current Medical&Sleep Prob, Allergies): Allergies Allergy/AdvReac Type Severity Reaction Status Date / Time No Known Allergies Allergy Verified 07/18/17 01:02 Cholecalciferol (Vitamin D3) [Vitamin D3] 1 tab PO DAILY 07/01/15 Enalapril Maleate 2.5 mg PO DAILY 07/01/15 Escitalopram [Lexapro] 20 mg PO DAILY 07/01/15 GlipiZIDE [Glucotrol] 5 mg PO BID 07/01/15 Olanzapine [Zyprexa] 20 mg PO HS 07/01/15 Rivaroxaban [Xarelto] 20 mg PO DAILY 07/01/15 Rosuvastatin Calcium [Crestor] 10 mg PO DAILY 07/01/15 Sennosides/Docusate Sodium [Senna Laxative Tablet] 1 tab PO DAILY 07/01/15 metFORMIN [glucOPHAGE] 500 mg PO BID 07/01/15 LORazepam [Ativan] 0.5 mg PO Q8H PRN #0 tab 07/04/15 Ergocalciferol (Vitamin D2) [Vitamin D2] 50,000 unit PO QWK 07/12/17 Insulin Lispro [Humalog (Insulin Lispro)] 10 units SC TID 07/12/17 Sitagliptin Phos/Metformin HCl [Janumet 50-1,000 mg Tablet] 1 each PO BID Atorvastatin [Lipitor] 20 mg PO DAILY #7 tab 07/30/17 Fluoxetine HCl [Prozac] 40 mg PO DAILY #14 capsule 07/30/17 Glimepiride [amaRYL] 2 mg PO ACBD #14 tab 07/30/17 Quetiapine Fumarate [Seroquel] 100 mg PO HS #14 tab 07/30/17 metFORMIN [glucOPHAGE] 500 mg PO BID #14 tab 07/30/17 Mental Status Examination - Personal Presentation Personal Presentation: Looks stated age - Affect Affect: Constricted, Blunted, Other (catatonic) - Motor Activity Motor Activity: Calm - Reliability in Providing Information Reliability in Providing Information: Poor, due to alteration in thoughts - Speech Speech: Disorganized - Mood Mood: Depressed, Anxious - Formal Thought Process Formal Thought Process: Hallucinations, Loosening of associations - Obsessions/Compulsions Obsessions: No Compulsions: No - Cognitive Functions Orientation: Person Sensorium: Other (preoccupied, unfocused) Attention/Concentration: Easily distracted Estimate of Intelligence: Average Judgement: Imparied, as evidence by: Poor judgement, Imparied, as evidence by: Lack of insight into illness Memory: Recent impaired, as evidence by: Inability to recall events of the day, Remote impaired as evidenced by: Inability to recall sig life events - Risk Risk: Diminished functioning DSM 5 DX - DSM 5 DSM 5 Diagnosis: Schizoaffective disorder with catatonia Anxiety NOS - Recommended/Plan of Treatment Treatment Recommendations and Plan of Treatment: * group, milieu and supportive tx * Prozac 40 mg po daily for depression and anxiety * Ativan 1 mg BID & HS for anxiety/catatonia * Seroquel 100 mg HS for disorganization * Awaiting medical consult * Vitals reviewed and noted below: Selected Entries 10/20/17 10/20/17 10/21/17 12:25 16:30 07:23 Temperature 98 F 97.8 F Pulse Rate 85 110 H 110 H Respiratory 19 19 Rate Blood Pressure 125/82 138/96 H 131/82 ER LABS AND STUDIES 10/20/17 11:06 EKG: NSR at 75 bpm, normal axis, no ectopy, qs in leads V1-2, inverted T In leads V1, no st changes, ABNL EKG; unchanged compare with old ekg 07/201710/20/17 08:30: Urine Opiates Screen Negative, Urine Methadone Screen Negative, Ur Barbiturates Screen Negative, Ur Phencyclidine Scrn Negative, Ur Amphetamines Screen Negative, U Benzodiazepines Scrn Negative, U Oth Cocaine Metabols Negative, U Cannabinoids Screen Negative 10/20/17 08:30: Urine Color Light yellow, Urine Appearance Clear, Urine pH 6.0, Ur Specific [place] 1.015, Urine Protein Negative, Urine Glucose (UA) >=1000, Urine Ketones Negative, Urine Blood Negative, Urine Nitrate Negative, Urine Bilirubin Negative, Urine Urobilinogen 0.2, Ur Leukocyte Esterase Negative 10/20/17 07:42: POC Glucose (mg/dL) 249 H 10/20/17 03:37: POC Glucose (mg/dL) 223 H 10/19/17 23:16: Alcohol, Quantitative < 10 10/19/17 23:16: Salicylates < 1 L, Acetaminophen < 10.0 L 10/19/17 23:16: Sodium 131 L, Potassium 4.6, Chloride 93 L, Carbon Dioxide 25, Anion Gap 17, BUN 17, Creatinine 0.7, Est GFR ( Amer) > 60, Est GFR (Non- Af Amer) > 60, Random Glucose 444 H* D, Calcium 9.1, Magnesium 2.0, Total Bilirubin 0.9, AST 18, ALT 20, Alkaline Phosphatase 72, Total Protein 7.2, Albumin 3.8, Globulin 3.4, Albumin/Globulin Ratio 1.1 10/19/17 23:16: WBC 7.7, RBC 4.44, Hgb 12.9, Hct 36.3, MCV 81.8, MCH 29.1, MCHC 35.5, RDW 13.5, Plt Count 331, MPV 10.1, Gran % 60.8, Lymph % (Auto) 32.4, [place] % (Auto) 6.1 H, Eos % (Auto) 0.4 L, Baso % (Auto) 0.3, Gran # 4.71, Lymph # ( Auto) 2.5, [place] # (Auto) 0.5, Eos # (Auto) 0.0, Baso # (Auto) 0.02
[2017-10-21] MEDS: Insulin Detemir 100 units/ml Vial (Levemir) SC SCH (22:00)
--- NOTE | 2017-10-21 22:57 | CON ---
DATE: 10/21/2017 HISTORY OF PRESENT ILLNESS: The patient is 66 years old, known to me from previous admission. The patient was admitted because of a change in her behavior. The patient is not a good historian. Does not answer much questions. Apparently, was brought by the family because of change in her behavior. PAST MEDICAL HISTORY: She carries a diagnosis of paranoid schizophrenia; however, she has history of, 1. History of hypertension. 2. Hyperlipidemia. 3. Gll-vlgroxr-bgrvhzqxq diabetes. 4. History of depression and dementia. ALLERGIES: SHE IS NOT ALLERGIC TO ANY MEDICATION. MEDICATIONS AT HOME: She is on metformin 500 twice a day. She is on Janumet, Crestor 10 mg daily, Xarelto because of previous stroke as per family. She is on Seroquel 100 mg at bedtime, Zyprexa 20 mg at bedtime, lorazepam 0.5 every 8. She is on insulin 10 units before each meal, glipizide 5 mg twice a day and Prozac 40 mg daily, Lexapro 20 mg daily, enalapril 2.5 daily and atorvastatin 20 mg daily. SOCIAL HISTORY: She lives with her family. No history is available that she was a smoker or drink alcohol. PHYSICAL EXAMINATION: GENERAL: She is awake and alert. Does not talk much. Ambulatory. VITAL SIGNS: She is afebrile, pulse 110, respirations 19, blood pressure 131/82. LUNGS: Bilateral good airflow. No rhonchi or crackle. HEART: S1 and S2 audible. ABDOMEN: Soft. Nontender. No rebound. No guarding. NEUROLOGICAL: The patient is awake and alert, able to communicate, but not very informative. I cannot have meaningful conversation with her. LABORATORY EXAM: WBC 7.7, hemoglobin 12.9, hematocrit 36, platelet 331. Chemistry: Sodium 131, potassium 5.1, chloride 95, CO2 of 21, BUN 24, creatinine 0.9. Blood sugar of 569 on admission, followup 300 today. Urine is unremarkable. Urine tox is negative. ASSESSMENT: 1. Paranoid schizophrenia. 2. History of hypertension. 3. History of cerebrovascular accident in the past. 4. Dementia. 5. Fae-mmythhg-pynlhzpxl diabetes. PLAN: We will start the patient on fingerstick. We will monitor her blood sugar. Start her on oral hypoglycemic. Thanks for consult. We will follow up with you. Jayla Coley MD
[2017-10-22] MEDS: Insulin Lispro 1 UNITS/0.01 ML SC SCH ×2 (08:31→12:49)
--- NOTE | 2017-10-22 16:54 | PCM.PYCHPN ---
Psychiatric Progress Note - Psychiatric Progress Note Patient seen today, length of contact: 30 minutes Patient Chief Complaint: "I was hearing male and female voice" Problems Identified/Issues Discussed: Suicide/ homicide prevention, past psychiatric h/o, current psychiatric symptoms , medical problems, risk/benefits and alternatives of medications, medications compliance, coping strategies, substance abuse h/o, relapse prevention, importance of follow up with psychiatrist and therapist, discharge plan. Medical Problems: Parkinson's disease diabetes Diagnostic Results: 10/19/17 23:16 10/20/17 21:53 Lab Results 10/22/17 16:03: POC Glucose (mg/dL) 224 H 10/22/17 12:44: POC Glucose (mg/dL) 155 H 10/22/17 07:42: POC Glucose (mg/dL) 182 H 10/21/17 21:49: POC Glucose (mg/dL) 247 H 10/21/17 16:41: POC Glucose (mg/dL) 300 H 10/21/17 11:05: POC Glucose (mg/dL) 309 H 10/21/17 07:20: POC Glucose (mg/dL) 251 H 10/21/17 02:07: POC Glucose (mg/dL) 270 H 10/21/17 00:02: POC Glucose (mg/dL) 357 H 10/20/17 21:53: Sodium 131 L, Potassium 5.1 H, Chloride 95 L, Carbon Dioxide 21 , Anion Gap 20, BUN 24 H, Creatinine 0.9, Est GFR ( Amer) > 60, Est GFR ( Non-Af Amer) > 60, Random Glucose 569 H* D, Calcium 9.6 10/20/17 21:11: POC Glucose (mg/dL) 420 H* 10/20/17 16:26: POC Glucose (mg/dL) 333 H 10/20/17 12:19: POC Glucose (mg/dL) 260 H 10/20/17 08:30: Urine Opiates Screen Negative, Urine Methadone Screen Negative, Ur Barbiturates Screen Negative, Ur Phencyclidine Scrn Negative, Ur Amphetamines Screen Negative, U Benzodiazepines Scrn Negative, U Oth Cocaine Metabols Negative, U Cannabinoids Screen Negative 10/20/17 08:30: Urine Color Light yellow, Urine Appearance Clear, Urine pH 6.0, Ur Specific [place] 1.015, Urine Protein Negative, Urine Glucose (UA) >=1000, Urine Ketones Negative, Urine Blood Negative, Urine Nitrate Negative, Urine Bilirubin Negative, Urine Urobilinogen 0.2, Ur Leukocyte Esterase Negative 10/20/17 07:42: POC Glucose (mg/dL) 249 H 10/20/17 03:37: POC Glucose (mg/dL) 223 H 10/19/17 23:16: Alcohol, Quantitative < 10 10/19/17 23:16: Salicylates < 1 L, Acetaminophen < 10.0 L 10/19/17 23:16: Sodium 131 L, Potassium 4.6, Chloride 93 L, Carbon Dioxide 25, Anion Gap 17, BUN 17, Creatinine 0.7, Est GFR ( Amer) > 60, Est GFR (Non- Af Amer) > 60, Random Glucose 444 H* D, Calcium 9.1, Magnesium 2.0, Total Bilirubin 0.9, AST 18, ALT 20, Alkaline Phosphatase 72, Total Protein 7.2, Albumin 3.8, Globulin 3.4, Albumin/Globulin Ratio 1.1 10/19/17 23:16: WBC 7.7, RBC 4.44, Hgb 12.9, Hct 36.3, MCV 81.8, MCH 29.1, MCHC 35.5, RDW 13.5, Plt Count 331, MPV 10.1, Gran % 60.8, Lymph % (Auto) 32.4, [place] % (Auto) 6.1 H, Eos % (Auto) 0.4 L, Baso % (Auto) 0.3, Gran # 4.71, Lymph # ( Auto) 2.5, [place] # (Auto) 0.5, Eos # (Auto) 0.0, Baso # (Auto) 0.02 Vital Signs Temp Pulse Resp BP Pulse Ox 10/22/17 16:22 135 H 127/80 10/22/17 06:46 97.5 F L 90 20 132/92 H 10/21/17 16:30 115 H 127/86 10/21/17 07:23 97.8 F 110 H 19 131/82 10/20/17 16:30 110 H 138/96 H 10/20/17 12:25 98 F 85 19 125/82 98 10/20/17 09:38 98 F 85 19 123/65 99 10/20/17 07:24 99.1 F 75 20 120/72 98 10/20/17 05:23 82 16 121/74 99 10/20/17 03:23 88 16 124/78 99 10/20/17 01:23 82 16 126/76 100 10/19/17 23:23 86 18 136/74 99 10/19/17 21:23 99.1 F 98 H 18 129/78 97 DSM 5 Symptoms Update: Patient is a 66 year old single female with history of one prior admission to [facility] in July 2017 where she was given the diagnosis of Schizophrenia spectrum disorder with psychotic disorder type NOS as well as 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 These symptoms include speech latency, thought blocking and receptive delay in comprehension. as per nursing and 's report pt has been good behavior control though obviously withdrawn, disengaged and internally preoccupied on the unit. I agree with staff assessment that patient selectively responds to some questions. at ED patient endorsed depression while in the ER and told staff that she was not taking her medications prior to admission. pt also was confused, when was asked to sign tx plan pt put numbers but not her signature Of note: *pt was tried on abilify, but pt was not tolerating it well due to tremor. *pt has also taken lexapro in the past, with unclear benefit. Patient was scheduled to f/u at [facility] on August 03, 2017. It is unclear if patient showed up to this intake. Prior records indicate the patient has no history of suicide attempts. Impression: r/o schizophrenia Medication Change: Yes (resumed meds, lexapro d/c) Medical Record Reviewed: Yes Consults ordered or reviewed: medical consult appreciated Mental Status Examination - Cognitive Function Orientation: Person Memory: Impaired Attention: Poor Concentration: Poor Association: Loose Fund of Knowledge: Poor - Mood Mood: Depressed, Anxious - Affect Affect: Constricted, Blunted, Other (catatonic) - Formal Thought Process Formal Thought Process: Hallucinations, Loosening of associations Psychotic Thoughts and Behaviors: pt also was confused, when was asked to sign tx plan pt put numbers but not her signature - Suicidal Ideation Suicidal Ideation: No - Homicidal Ideation Homicidal Ideation: No Goal/Treatment Plan - Goal/Treatment Plan Need for Continued Stay: Remain at risks for inpatient hospitalization, Severe depression anxiety, Discharge may exacerbated symptoms, Failed transitioning, Severe functional impairment Progress Toward Problem(s) and Goals/Treatment Plan: Milieu/structure/supportive therapy Medical consult appreciated, see medical team note for more detailed info SW consultation for discharge plan and social issues Med management prozac and seroquel resumed Family involvement Follow up on labs Will monitor closely Pt was educated about risk/benefits and alternatives of medications, coping strategies (safety plan, suicide prevention), relapse prevention, importance of follow up with psychiatrist and therapist, stay away from drugs/alcohol/smoking Estimated Date of D/C: 11/02/17
--- NOTE | 2017-10-22 20:31 | PN ---
DATE: 10/22/2017 SUBJECTIVE: The patient is a 66-year-old, who is ambulatory, was admitted because of altered behavior. Eating well. No nausea, vomiting or diarrhea. PHYSICAL EXAMINATION: VITAL SIGNS: She is afebrile, pulse 90, respirations 20, blood pressure 132/92. LUNGS: Bilateral fair airflow. No rhonchi or crackle. HEART: S1, S2 audible. ABDOMEN: Soft, nontender. No rebound. No guarding. NEUROLOGICAL: Patient is awake, alert, oriented, communicative, ambulatory. ASSESSMENT: 1. Mcj-pumyycf-uispfcpli diabetes. 2. History of psychotic behavior. 3. Hypertension. 4. Hyperlipidemia. PLAN: Currently patient is on her blood sugar seems to be improving. We will continue her on metformin 500 twice a day. She is on Levemir 25 units at bedtime and we will continue to monitor blood sugar and adjust her medication. Jayla Coley MD
[2017-10-22] MEDS: Insulin Detemir 100 units/ml Vial (Levemir) SC SCH (22:15)
--- NOTE | 2017-10-23 16:22 | PN ---
DATE: 10/23/2017 SUBJECTIVE: The patient is 66 years old, ambulatory, communicative, does not talk much though, eating fair. OBJECTIVE: VITAL SIGNS: She is afebrile, pulse 105, respirations 20, and blood pressure 105/72. LUNGS: Bilateral fair airflow. No rhonchi or crackle. HEART: S1 and S2 audible. ABDOMEN: Soft, nontender. No rebound. No guarding. NEUROLOGIC: She is awake and alert, ambulatory. LABORATORY DATA: Blood sugar is 144, 213. ASSESSMENT: 1. Non-insulin dependent diabetes. 2. History of psychosis. 3. Hyperlipidemia. 4. History of cerebrovascular accident in the past, currently on anticoagulant. PLAN: Currently, the patient is on glimepiride. She is on metformin. She is on Levemir 25 units at bedtime. I will add Januvia to improve her sugar control. Jayla Coley MD
--- NOTE | 2017-10-23 16:27 | PCM.PYCHPN ---
Psychiatric Progress Note - Psychiatric Progress Note Patient seen today, length of contact: 30 minutes Patient Chief Complaint: "I was hearing male and female voice" Problems Identified/Issues Discussed: Suicide/ homicide prevention, past psychiatric h/o, current psychiatric symptoms , medical problems, risk/benefits and alternatives of medications, medications compliance, coping strategies, substance abuse h/o, relapse prevention, importance of follow up with psychiatrist and therapist, discharge plan. Medical Problems: Parkinson's disease diabetes Diagnostic Results: 10/19/17 23:16 10/20/17 21:53 Lab Results 10/22/17 16:03: POC Glucose (mg/dL) 224 H 10/22/17 12:44: POC Glucose (mg/dL) 155 H 10/22/17 07:42: POC Glucose (mg/dL) 182 H 10/21/17 21:49: POC Glucose (mg/dL) 247 H 10/21/17 16:41: POC Glucose (mg/dL) 300 H 10/21/17 11:05: POC Glucose (mg/dL) 309 H 10/21/17 07:20: POC Glucose (mg/dL) 251 H 10/21/17 02:07: POC Glucose (mg/dL) 270 H 10/21/17 00:02: POC Glucose (mg/dL) 357 H 10/20/17 21:53: Sodium 131 L, Potassium 5.1 H, Chloride 95 L, Carbon Dioxide 21 , Anion Gap 20, BUN 24 H, Creatinine 0.9, Est GFR ( Amer) > 60, Est GFR ( Non-Af Amer) > 60, Random Glucose 569 H* D, Calcium 9.6 10/20/17 21:11: POC Glucose (mg/dL) 420 H* 10/20/17 16:26: POC Glucose (mg/dL) 333 H 10/20/17 12:19: POC Glucose (mg/dL) 260 H 10/20/17 08:30: Urine Opiates Screen Negative, Urine Methadone Screen Negative, Ur Barbiturates Screen Negative, Ur Phencyclidine Scrn Negative, Ur Amphetamines Screen Negative, U Benzodiazepines Scrn Negative, U Oth Cocaine Metabols Negative, U Cannabinoids Screen Negative 10/20/17 08:30: Urine Color Light yellow, Urine Appearance Clear, Urine pH 6.0, Ur Specific [place] 1.015, Urine Protein Negative, Urine Glucose (UA) >=1000, Urine Ketones Negative, Urine Blood Negative, Urine Nitrate Negative, Urine Bilirubin Negative, Urine Urobilinogen 0.2, Ur Leukocyte Esterase Negative 10/20/17 07:42: POC Glucose (mg/dL) 249 H 10/20/17 03:37: POC Glucose (mg/dL) 223 H 10/19/17 23:16: Alcohol, Quantitative < 10 10/19/17 23:16: Salicylates < 1 L, Acetaminophen < 10.0 L 10/19/17 23:16: Sodium 131 L, Potassium 4.6, Chloride 93 L, Carbon Dioxide 25, Anion Gap 17, BUN 17, Creatinine 0.7, Est GFR ( Amer) > 60, Est GFR (Non- Af Amer) > 60, Random Glucose 444 H* D, Calcium 9.1, Magnesium 2.0, Total Bilirubin 0.9, AST 18, ALT 20, Alkaline Phosphatase 72, Total Protein 7.2, Albumin 3.8, Globulin 3.4, Albumin/Globulin Ratio 1.1 10/19/17 23:16: WBC 7.7, RBC 4.44, Hgb 12.9, Hct 36.3, MCV 81.8, MCH 29.1, MCHC 35.5, RDW 13.5, Plt Count 331, MPV 10.1, Gran % 60.8, Lymph % (Auto) 32.4, [place] % (Auto) 6.1 H, Eos % (Auto) 0.4 L, Baso % (Auto) 0.3, Gran # 4.71, Lymph # ( Auto) 2.5, [place] # (Auto) 0.5, Eos # (Auto) 0.0, Baso # (Auto) 0.02 Vital Signs Temp Pulse Resp BP Pulse Ox 10/22/17 16:22 135 H 127/80 10/22/17 06:46 97.5 F L 90 20 132/92 H 10/21/17 16:30 115 H 127/86 10/21/17 07:23 97.8 F 110 H 19 131/82 10/20/17 16:30 110 H 138/96 H 10/20/17 12:25 98 F 85 19 125/82 98 10/20/17 09:38 98 F 85 19 123/65 99 10/20/17 07:24 99.1 F 75 20 120/72 98 10/20/17 05:23 82 16 121/74 99 10/20/17 03:23 88 16 124/78 99 10/20/17 01:23 82 16 126/76 100 10/19/17 23:23 86 18 136/74 99 10/19/17 21:23 99.1 F 98 H 18 129/78 97 DSM 5 Symptoms Update: Patient is a 66 year old single female with history of one prior admission to 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 These symptoms include speech latency, thought blocking and receptive delay in comprehension. patient reported that she hears voices female and male and there are "negative." as per pharmacy report pt was not taking psychotropic meds. [facility] seroquel was prescribed on July 2017 as per nursing report pt has been good behavior control though obviously withdrawn, disengaged and internally preoccupied on the unit. I agree with staff assessment that patient selectively responds to some questions. pt has UE tremor, no rigidity. so far patient tolerates medications well, no side effects observed or reported , aims 0, no EPS. Impression: r/o schizophrenia Medication Change: Yes (ativan increased) Medical Record Reviewed: Yes Mental Status Examination - Cognitive Function Orientation: Person Memory: Impaired Attention: Poor Concentration: Poor Association: Loose Fund of Knowledge: Poor - Mood Mood: Depressed, Anxious - Affect Affect: Constricted, Blunted, Other (catatonic) - Formal Thought Process Formal Thought Process: Hallucinations, Loosening of associations Psychotic Thoughts and Behaviors: pt also was confused, when was asked to sign tx plan pt put numbers but not her signature - Suicidal Ideation Suicidal Ideation: No - Homicidal Ideation Homicidal Ideation: No Goal/Treatment Plan - Goal/Treatment Plan Need for Continued Stay: Remain at risks for inpatient hospitalization, Severe depression anxiety, Discharge may exacerbated symptoms, Failed transitioning, Severe functional impairment Progress Toward Problem(s) and Goals/Treatment Plan: Milieu/structure/supportive therapy Medical consult appreciated, see medical team note for more detailed info SW consultation for discharge plan and social issues Med management prozac and seroquel resumed ativan increased 1mg po bid and 2mg hs for catatonia Family involvement Follow up on labs Will monitor closely Pt was educated about risk/benefits and alternatives of medications, coping strategies (safety plan, suicide prevention), relapse prevention, importance of follow up with psychiatrist and therapist, stay away from drugs/alcohol/smoking Estimated Date of D/C: 11/02/17
[2017-10-23] MEDS: Insulin Detemir 100 units/ml Vial (Levemir) SC SCH (22:16)
--- NOTE | 2017-10-24 16:14 | PCM.PYCHPN ---
Psychiatric Progress Note - Psychiatric Progress Note Patient seen today, length of contact: 30 minutes Patient Chief Complaint: "I am better" Problems Identified/Issues Discussed: Suicide/ homicide prevention, past psychiatric h/o, current psychiatric symptoms , medical problems, risk/benefits and alternatives of medications, medications compliance, coping strategies, substance abuse h/o, relapse prevention, importance of follow up with psychiatrist and therapist, discharge plan. Medical Problems: Parkinson's disease diabetes Diagnostic Results: 10/19/17 23:16 10/20/17 21:53 Lab Results 10/22/17 16:03: POC Glucose (mg/dL) 224 H 10/22/17 12:44: POC Glucose (mg/dL) 155 H 10/22/17 07:42: POC Glucose (mg/dL) 182 H 10/21/17 21:49: POC Glucose (mg/dL) 247 H 10/21/17 16:41: POC Glucose (mg/dL) 300 H 10/21/17 11:05: POC Glucose (mg/dL) 309 H 10/21/17 07:20: POC Glucose (mg/dL) 251 H 10/21/17 02:07: POC Glucose (mg/dL) 270 H 10/21/17 00:02: POC Glucose (mg/dL) 357 H 10/20/17 21:53: Sodium 131 L, Potassium 5.1 H, Chloride 95 L, Carbon Dioxide 21 , Anion Gap 20, BUN 24 H, Creatinine 0.9, Est GFR ( Amer) > 60, Est GFR ( Non-Af Amer) > 60, Random Glucose 569 H* D, Calcium 9.6 10/20/17 21:11: POC Glucose (mg/dL) 420 H* 10/20/17 16:26: POC Glucose (mg/dL) 333 H 10/20/17 12:19: POC Glucose (mg/dL) 260 H 10/20/17 08:30: Urine Opiates Screen Negative, Urine Methadone Screen Negative, Ur Barbiturates Screen Negative, Ur Phencyclidine Scrn Negative, Ur Amphetamines Screen Negative, U Benzodiazepines Scrn Negative, U Oth Cocaine Metabols Negative, U Cannabinoids Screen Negative 10/20/17 08:30: Urine Color Light yellow, Urine Appearance Clear, Urine pH 6.0, Ur Specific [place] 1.015, Urine Protein Negative, Urine Glucose (UA) >=1000, Urine Ketones Negative, Urine Blood Negative, Urine Nitrate Negative, Urine Bilirubin Negative, Urine Urobilinogen 0.2, Ur Leukocyte Esterase Negative 10/20/17 07:42: POC Glucose (mg/dL) 249 H 10/20/17 03:37: POC Glucose (mg/dL) 223 H 10/19/17 23:16: Alcohol, Quantitative < 10 10/19/17 23:16: Salicylates < 1 L, Acetaminophen < 10.0 L 10/19/17 23:16: Sodium 131 L, Potassium 4.6, Chloride 93 L, Carbon Dioxide 25, Anion Gap 17, BUN 17, Creatinine 0.7, Est GFR ( Amer) > 60, Est GFR (Non- Af Amer) > 60, Random Glucose 444 H* D, Calcium 9.1, Magnesium 2.0, Total Bilirubin 0.9, AST 18, ALT 20, Alkaline Phosphatase 72, Total Protein 7.2, Albumin 3.8, Globulin 3.4, Albumin/Globulin Ratio 1.1 10/19/17 23:16: WBC 7.7, RBC 4.44, Hgb 12.9, Hct 36.3, MCV 81.8, MCH 29.1, MCHC 35.5, RDW 13.5, Plt Count 331, MPV 10.1, Gran % 60.8, Lymph % (Auto) 32.4, [place] % (Auto) 6.1 H, Eos % (Auto) 0.4 L, Baso % (Auto) 0.3, Gran # 4.71, Lymph # ( Auto) 2.5, [place] # (Auto) 0.5, Eos # (Auto) 0.0, Baso # (Auto) 0.02 Vital Signs Temp Pulse Resp BP Pulse Ox 10/22/17 16:22 135 H 127/80 10/22/17 06:46 97.5 F L 90 20 132/92 H 10/21/17 16:30 115 H 127/86 10/21/17 07:23 97.8 F 110 H 19 131/82 10/20/17 16:30 110 H 138/96 H 10/20/17 12:25 98 F 85 19 125/82 98 10/20/17 09:38 98 F 85 19 123/65 99 10/20/17 07:24 99.1 F 75 20 120/72 98 10/20/17 05:23 82 16 121/74 99 10/20/17 03:23 88 16 124/78 99 10/20/17 01:23 82 16 126/76 100 10/19/17 23:23 86 18 136/74 99 10/19/17 21:23 99.1 F 98 H 18 129/78 97 DSM 5 Symptoms Update: Patient is a 66 year old single female with history of one prior admission to [facility] in July 2017 where she was given the diagnosis of Schizophrenia spectrum disorder with psychotic disorder type NOS as well as 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 pt said that she was not taking medications because she "run short, it was no pills left", speech latency, thought blocking and receptive delay in comprehension. patient reported that she hears voices female and male earlier today. as per pharmacy report pt was not taking psychotropic meds. [facility] pharmacy seroquel was prescribed on July 2017 as per nursing report pt has been good behavior control though obviously withdrawn, disengaged and internally preoccupied on the unit. pt has UE tremor, no rigidity. so far patient tolerates medications well, no side effects observed or reported , aims 0, no EPS. Impression: r/o schizophrenia Medication Change: Yes (ativan increased) Medical Record Reviewed: Yes Mental Status Examination - Cognitive Function Orientation: Person Memory: Impaired Attention: Poor Concentration: Poor Association: Loose Fund of Knowledge: Poor - Mood Mood: Depressed, Anxious - Affect Affect: Constricted, Blunted, Other (catatonic) - Formal Thought Process Formal Thought Process: Hallucinations, Loosening of associations Psychotic Thoughts and Behaviors: pt also was confused, when was asked to sign tx plan pt put numbers but not her signature - Suicidal Ideation Suicidal Ideation: No - Homicidal Ideation Homicidal Ideation: No Goal/Treatment Plan - Goal/Treatment Plan Need for Continued Stay: Remain at risks for inpatient hospitalization, Severe depression anxiety, Discharge may exacerbated symptoms, Failed transitioning, Severe functional impairment Progress Toward Problem(s) and Goals/Treatment Plan: Milieu/structure/supportive therapy Medical consult appreciated, see medical team note for more detailed info SW consultation for discharge plan and social issues Med management prozac 40mg po daily for depression and anxiety seroquel 200mg po hs for psychosis ativan increased 1mg po bid and 2mg hs for catatonia Family involvement Follow up on labs Will monitor closely Pt was educated about risk/benefits and alternatives of medications, coping strategies (safety plan, suicide prevention), relapse prevention, importance of follow up with psychiatrist and therapist, stay away from drugs/alcohol/smoking Estimated Date of D/C: 11/02/17
[2017-10-24] MEDS: Insulin Detemir 100 units/ml Vial (Levemir) SC SCH (22:31)
--- NOTE | 2017-10-25 02:21 | PN ---
DATE: 10/24/2017 SUBJECTIVE: Patient is 66 years old, seen and examined. Ambulatory, not very communicative. Upon asking questions, stared back and answering minimally. PHYSICAL EXAMINATION: VITAL SIGNS: She is afebrile, pulse 86, respirations 19, blood pressure 114/74. LUNGS: Bilateral fair airflow. No rhonchi or crackle. HEART: S1 and S2 audible. ABDOMEN: Soft and nontender. No rebound. No guarding. NEUROLOGIC: She is awake and alert, ambulatory. LABORATORY EXAM: Blood sugar is 159. ASSESSMENT: 1. Nif-dxulpvc-vzzcqjgzy diabetes. 2. Anxiety disorder with psychotic feature. 3. Hyperlipidemia. 4. History of depression. PLAN: At this point, patient's blood sugar seems to be fairly controlled. We will continue on Amaryl twice a day. She is on metformin 500 twice a day and Januvia 100 daily. We will monitor blood sugar closely. Jayla Coley MD
[2017-10-25 16:19] LABS: BASO # 0.02 K/mm3 (0.0-2.0); BASO % 0.2 % (0.0-3.0); EOS # 0.1 (0.0-0.7); EOS % 1.7 % (1.5-5.0); GRAN # 5.1 (1.4-6.5); GRAN % 63.8 % (50.0-68.0); HEMOGLOBIN 14.3 g/dL (12.0-16.0); LYMPH # 2.3 (1.2-3.4); LYMPH % 28.8 % (22.0-35.0); MEAN CELL VOLUME 85.4 fl (80.0-105.0); MEAN CORPUSCULAR HEMOGLOBIN 29.4 pg (25.0-35.0); MEAN CORPUSCULAR HGB CONC 34.5 g/dl (31.0-37.0); MEAN PLATELET VOLUME 10.4 fl (7.0-11.0); MONO # 0.4 (0.1-0.6); MONO % 5.5 % (1.0-6.0); RBC 4.86 10^6/uL (3.5-6.1)
[2017-10-25 16:45] LABS: ALB/GLOB RATIO 1.2 (1.1-1.8); ALBUMIN 4.4 g/dL (3.0-4.8); ALT/SGPT 27 U/L (7-56); AST/SGOT 28 U/L (14-36); B-TYPE NATRIURETIC PEPTIDE 13.1 pg/mL (0-450); BLOOD UREA NITROGEN 21 mg/dL (7-21); CALCIUM 9.4 mg/dL (8.4-10.5); GFR AFRICAN-AMERICAN > 60; GFR NON-AFRICAN AMERICAN > 60; HDL CHOLESTEROL 69 mg/dL (29-60); LDL CHOLESTEROL 30 mg/dL (0-129); URIC ACID 4.7 mg/dL (2.5-6.2)
--- NOTE | 2017-10-25 16:51 | PCM.PYCHPN ---
Psychiatric Progress Note - Psychiatric Progress Note Patient seen today, length of contact: 30 minutes Patient Chief Complaint: "...." pt was starring at this news writer. Problems Identified/Issues Discussed: Suicide/ homicide prevention, past psychiatric h/o, current psychiatric symptoms , medical problems, risk/benefits and alternatives of medications, medications compliance, coping strategies, substance abuse h/o, relapse prevention, importance of follow up with psychiatrist and therapist, discharge plan. Medical Problems: Parkinson's disease diabetes Diagnostic Results: 10/19/17 23:16 10/20/17 21:53 Lab Results 10/22/17 16:03: POC Glucose (mg/dL) 224 H 10/22/17 12:44: POC Glucose (mg/dL) 155 H 10/22/17 07:42: POC Glucose (mg/dL) 182 H 10/21/17 21:49: POC Glucose (mg/dL) 247 H 10/21/17 16:41: POC Glucose (mg/dL) 300 H 10/21/17 11:05: POC Glucose (mg/dL) 309 H 10/21/17 07:20: POC Glucose (mg/dL) 251 H 10/21/17 02:07: POC Glucose (mg/dL) 270 H 10/21/17 00:02: POC Glucose (mg/dL) 357 H 10/20/17 21:53: Sodium 131 L, Potassium 5.1 H, Chloride 95 L, Carbon Dioxide 21 , Anion Gap 20, BUN 24 H, Creatinine 0.9, Est GFR ( Amer) > 60, Est GFR ( Non-Af Amer) > 60, Random Glucose 569 H* D, Calcium 9.6 10/20/17 21:11: POC Glucose (mg/dL) 420 H* 10/20/17 16:26: POC Glucose (mg/dL) 333 H 10/20/17 12:19: POC Glucose (mg/dL) 260 H 10/20/17 08:30: Urine Opiates Screen Negative, Urine Methadone Screen Negative, Ur Barbiturates Screen Negative, Ur Phencyclidine Scrn Negative, Ur Amphetamines Screen Negative, U Benzodiazepines Scrn Negative, U Oth Cocaine Metabols Negative, U Cannabinoids Screen Negative 10/20/17 08:30: Urine Color Light yellow, Urine Appearance Clear, Urine pH 6.0, Ur Specific [place] 1.015, Urine Protein Negative, Urine Glucose (UA) >=1000, Urine Ketones Negative, Urine Blood Negative, Urine Nitrate Negative, Urine Bilirubin Negative, Urine Urobilinogen 0.2, Ur Leukocyte Esterase Negative 10/20/17 07:42: POC Glucose (mg/dL) 249 H 10/20/17 03:37: POC Glucose (mg/dL) 223 H 10/19/17 23:16: Alcohol, Quantitative < 10 10/19/17 23:16: Salicylates < 1 L, Acetaminophen < 10.0 L 10/19/17 23:16: Sodium 131 L, Potassium 4.6, Chloride 93 L, Carbon Dioxide 25, Anion Gap 17, BUN 17, Creatinine 0.7, Est GFR ( Amer) > 60, Est GFR (Non- Af Amer) > 60, Random Glucose 444 H* D, Calcium 9.1, Magnesium 2.0, Total Bilirubin 0.9, AST 18, ALT 20, Alkaline Phosphatase 72, Total Protein 7.2, Albumin 3.8, Globulin 3.4, Albumin/Globulin Ratio 1.1 10/19/17 23:16: WBC 7.7, RBC 4.44, Hgb 12.9, Hct 36.3, MCV 81.8, MCH 29.1, MCHC 35.5, RDW 13.5, Plt Count 331, MPV 10.1, Gran % 60.8, Lymph % (Auto) 32.4, [place] % (Auto) 6.1 H, Eos % (Auto) 0.4 L, Baso % (Auto) 0.3, Gran # 4.71, Lymph # ( Auto) 2.5, [place] # (Auto) 0.5, Eos # (Auto) 0.0, Baso # (Auto) 0.02 Vital Signs Temp Pulse Resp BP Pulse Ox 10/22/17 16:22 135 H 127/80 10/22/17 06:46 97.5 F L 90 20 132/92 H 10/21/17 16:30 115 H 127/86 10/21/17 07:23 97.8 F 110 H 19 131/82 10/20/17 16:30 110 H 138/96 H 10/20/17 12:25 98 F 85 19 125/82 98 10/20/17 09:38 98 F 85 19 123/65 99 06/09/18 07:24 99.1 F 75 20 120/72 98 10/20/17 05:23 82 16 121/74 99 10/20/17 03:23 88 16 124/78 99 10/20/17 01:23 82 16 126/76 100 10/19/17 23:23 86 18 136/74 99 10/19/17 21:23 99.1 F 98 H 18 129/78 97 DSM 5 Symptoms Update: Patient is a 66 year old single female with history of one prior admission to [facility] in July 2017 where she was given the diagnosis of Schizophrenia spectrum disorder with psychotic disorder type NOS as well as 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 labs repeated, pt had electrolytes abnormality, CKD, travel accommodation inspector was contacted. pt still disorganized, psychotic, said that she hears voices, pt had difficulties to express herself. as per nursing report pt has been good behavior control though obviously withdrawn, disengaged and internally preoccupied on the unit. pt has UE tremor, no rigidity. pt wonders in the unit, at times going to other pt's rooms, needs constant redirection. so far patient tolerates medications well, no side effects observed or reported , aims 0, no EPS. Impression: r/o schizophrenia Medication Change: Yes (ativan increased, seroquel increased) Medical Record Reviewed: Yes Mental Status Examination - Cognitive Function Orientation: Person Memory: Impaired Attention: Poor Concentration: Poor Association: Loose Fund of Knowledge: Poor - Mood Mood: Depressed, Anxious - Affect Affect: Constricted, Blunted, Other (catatonic) - Formal Thought Process Formal Thought Process: Hallucinations, Loosening of associations Psychotic Thoughts and Behaviors: pt also was confused, when was asked to sign tx plan pt put numbers but not her signature - Suicidal Ideation Suicidal Ideation: No - Homicidal Ideation Homicidal Ideation: No Goal/Treatment Plan - Goal/Treatment Plan Need for Continued Stay: Remain at risks for inpatient hospitalization, Severe depression anxiety, Discharge may exacerbated symptoms, Failed transitioning, Severe functional impairment Progress Toward Problem(s) and Goals/Treatment Plan: Milieu/structure/supportive therapy Medical consult appreciated, see medical team note for more detailed info SW consultation for discharge plan and social issues Med management prozac 40mg po daily for depression and anxiety seroquel 200mg po hs for psychosis ativan increased 2mg po bid and 2mg hs for catatonia nephrology consult was called Family involvement Follow up on labs Will monitor closely Pt was educated about risk/benefits and alternatives of medications, coping strategies (safety plan, suicide prevention), relapse prevention, importance of follow up with psychiatrist and therapist, stay away from drugs/alcohol/smoking Estimated Date of D/C: 11/02/17
--- NOTE | 2017-10-25 20:41 | PN ---
DATE: 10/25/2017 SUBJECTIVE: Patient is 66 years old, seen and examined, sitting in chair, seems to be comfortable. Does not offer much complaints. Eating and tolerating, ambulating. PHYSICAL EXAMINATION: VITAL SIGNS: She is afebrile. Pulse 96, respirations 20, blood pressure 117/78. LUNGS: Bilateral fair airflow. No rhonchi or crackle. HEART: S1 and S2 audible. ABDOMEN: Soft and nontender. No rebound. No guarding. NEUROLOGIC: She is awake, alert, oriented. Not very much communicative, stares back when question is asked. Answers by "yes" or "no". LABORATORY DATA: WBC is 8, hemoglobin 14, hematocrit 41, platelets of 345. Chemistry: Sodium 137, potassium 4.6, chloride 99, CO2 26, BUN 21, creatinine 0.8, blood sugar of 199. Urinalysis is unremarkable. Urine tox is negative. ASSESSMENT: 1. Non-insulin dependant diabetes. 2. History of depression with history of schizophrenia. 3. Anxiety disorder. 4. Hyperlipidemia. PLAN: At this point, blood sugar is running decent. We will continue current regimen. We will follow up in a.m. Jayla Coley MD
[2017-10-25] MEDS: Insulin Detemir 100 units/ml Vial (Levemir) SC SCH (22:27)
--- NOTE | 2017-10-26 15:38 | CP.PCM.CON ---
History of Present Illness - History of Present Illness History of Present Illness: Nephrology Consultation note: Assessment: Stable Hyponatremia likely due to hyperglycemia which has resolved now HTN, uncontrolled DM with hyperglycemia AMS/catatonia likely due to her psych condition Plan BP was tightly control with meds as ordered, no proteinuria or albuminuria hence stopped ACEI, can resume it if BP >140/90 persistently glycemic control as per medical team hyponatremai resolved Dose meds/antibiotics for normal GFR. Glycemic control Further work up/management as per primary team Thanks for allowing me to participate in care of your patient. Will sign off and follow her further on as needed basis. Please call if any Qs. d/w team Dr Huy Walker Office: [phone] Chief Complaint; Unable reason for consult: hyponatremia HPI: Pt is a 66 F with hx of diabetes Mellitus, hypertension, depression, schizophrenia presented with complaints of change in behaviour and catatonia state. renal consult for hyponatremia. pt unable to provide much hx. she had hyponatremia during previous admission which was likely SIADH due to psych meds , schizophrenia ROS: pt is not much communicative. denies CP/SOB Physical Examination: General Appearance: Comfortable, in no acute respiratory distress, co-operative . Vitals reviewed and noted as below Head; Atraumatic, normocephalic ENT: no ulcers no thrush. Tongue is midline. Oropharynx: no rash or ulcers. EYES: Pupils are equal, round and reactive to light accommodation. Eye muscles and extraocular movement intact. Sclera is anicteric. Neck; supple no lymphadenopathy, no thyromegaly or bruit Lungs: Normal respiratory rate/effort. Breath sounds bilateral equal and clear Heart: Normal rate. s1s2 normal. No rub or gallop. Extremities: no edema. No varicose veins Neurological: Patient is alert, awake. very slow to respond. Skin: Warm and dry. Normal turgor. facial malar rash +. Palpitation: Normal elasticity for age Abdomen: Abdomen is soft. Bowel sounds +. There is no abdominal tenderness, no guarding/rigidity no organomegaly Psych: lack insight and has flat affect/mood MSK: no joint tenderness or swelling. Digits and nails normal, no deformity : kidney or bladder not palpable Labs/imaging reviewed. Past medical history, past surgical history, family history, social history, allergy reviewed and noted as below Family hx: no hx of CKD. Rest non-contributory work up:normal complements, JADA neg TSH, cortisol WNL. Past Patient History - Infectious Disease Hx of Infectious Diseases: None - Past Social History Smoking Status: Never Smoked - CARDIAC Hx Hypertension: Yes - PULMONARY Hx Respiratory Disorders: Yes - NEUROLOGICAL Hx Neurological Disorder: No - HEENT Hx HEENT Problems: No - RENAL Hx Chronic Kidney Disease: No - ENDOCRINE/METABOLIC Hx Diabetes Mellitus Type 1: Yes - HEMATOLOGICAL/ONCOLOGICAL Hx Blood Disorders: No - INTEGUMENTARY Hx Dermatological Problems: No - MUSCULOSKELETAL/RHEUMATOLOGICAL Hx Musculoskeletal Disorders: No Hx Falls: No - GASTROINTESTINAL Hx Gastrointestinal Disorders: No - GENITOURINARY/GYNECOLOGICAL Hx Genitourinary Disorders: No - PSYCHIATRIC Hx Substance Use: No - SURGICAL HISTORY Other/Comment: colonoscopy - ANESTHESIA Hx Anesthesia: No Meds Allergies/Adverse Reactions: Allergies Allergy/AdvReac Type Severity Reaction Status Date / Time No Known Allergies Allergy Verified 07/18/17 01:02 - Medications Medications: Current Medications Atorvastatin Calcium (Lipitor) 20 mg PO DAILY [facility] Last Admin: 10/26/17 09:04 Dose: 20 mg Fluoxetine HCl (Prozac) 40 mg PO DAILY [facility] Last Admin: 10/26/17 09:03 Dose: 40 mg Glimepiride (Amaryl) 2 mg PO ACBD [facility] Last Admin: 10/26/17 09:04 Dose: 2 mg Insulin Detemir (Levemir) 25 unit SC HS [facility] Last Admin: 10/25/17 22:27 Dose: 25 units Lisinopril (Zestril) 2.5 mg PO DAILY [facility] Last Admin: 10/26/17 09:05 Dose: 2.5 mg Lorazepam (Ativan) 2 mg PO HS [facility] PRN Reason: Protocol Last Admin: 10/25/17 22:28 Dose: 2 mg Lorazepam (Ativan) 2 mg PO BID [facility] PRN Reason: Protocol Last Admin: 10/26/17 09:04 Dose: 2 mg Metformin HCl (Glucophage) 500 mg PO BID [facility] Last Admin: 10/26/17 09:04 Dose: 500 mg Quetiapine Fumarate (Seroquel) 200 mg PO HS [facility] PRN Reason: Protocol Last Admin: 10/25/17 22:29 Dose: 200 mg Rivaroxaban (Xarelto) 20 mg PO DAILY [facility] PRN Reason: Protocol Last Admin: 10/26/17 09:03 Dose: 20 mg Sitagliptin Phosphate (Januvia) 100 mg PO DAILY [facility] Last Admin: 10/26/17 09:05 Dose: 100 mg Results - Vital Signs Recent Vital Signs: Last Vital Signs Temp 97.8 F 10/26/17 07:18 Pulse 82 10/26/17 09:05 Resp 20 10/26/17 07:18 BP 92/59 L 10/26/17 09:05 Pulse Ox 98 10/20/17 12:25 - Labs Result Diagrams: 10/25/17 16:15 10/25/17 16:15 Labs: Laboratory Results - last 24 hr 10/25/17 10/25/17 10/25/17 16:15 16:15 16:34 WBC 8.0 RBC 4.86 Hgb 14.3 Hct 41.5 MCV 85.4 D MCH 29.4 MCHC 34.5 RDW 14.0 Plt Count 345 MPV 10.4 Gran % 63.8 Lymph % (Auto) 28.8 [place] % (Auto) 5.5 Eos % (Auto) 1.7 Baso % (Auto) 0.2 Gran # 5.10 Lymph # (Auto) 2.3 [place] # (Auto) 0.4 Eos # (Auto) 0.1 Baso # (Auto) 0.02 Sodium 137 Potassium 4.6 Chloride 99 Carbon Dioxide 26 Anion Gap 16 BUN 21 Creatinine 0.8 Est GFR ( Amer) > 60 Est GFR (Non-Af Amer) > 60 POC Glucose (mg/dL) 169 H Random Glucose 199 H Hemoglobin A1c Serum Osmolality Uric Acid 4.7 Calcium 9.4 Total Bilirubin 0.9 AST 28 ALT 27 Alkaline Phosphatase 76 NT-Pro-B Natriuret Pep 13.1 Total Protein 8.0 Albumin 4.4 Globulin 3.6 Albumin/Globulin Ratio 1.2 Triglycerides 118 Cholesterol 120 L LDL Cholesterol Direct 30 HDL Cholesterol 69 H TSH 3rd Generation Plasma Cortisol PM 10/25/17 10/25/17 10/25/17 17:33 17:33 21:02 WBC RBC Hgb Hct MCV MCH MCHC RDW Plt Count MPV Gran % Lymph % (Auto) [place] % (Auto) Eos % (Auto) Baso % (Auto) Gran # Lymph # (Auto) [place] # (Auto) Eos # (Auto) Baso # (Auto) Sodium Potassium Chloride Carbon Dioxide Anion Gap BUN Creatinine Est GFR ( Amer) Est GFR (Non-Af Amer) POC Glucose (mg/dL) 202 H Random Glucose Hemoglobin A1c 10.3 H D Serum Osmolality Uric Acid Calcium Total Bilirubin AST ALT Alkaline Phosphatase NT-Pro-B Natriuret Pep Total Protein Albumin Globulin Albumin/Globulin Ratio Triglycerides Cholesterol LDL Cholesterol Direct HDL Cholesterol TSH 3rd Generation Plasma Cortisol PM 10.0 10/26/17 10/26/17 10/26/17 07:00 07:18 11:47 WBC RBC Hgb Hct MCV MCH MCHC RDW Plt Count MPV Gran % Lymph % (Auto) [place] % (Auto) Eos % (Auto) Baso % (Auto) Gran # Lymph # (Auto) [place] # (Auto) Eos # (Auto) Baso # (Auto) Sodium Potassium Chloride Carbon Dioxide Anion Gap BUN Creatinine Est GFR ( Amer) Est GFR (Non-Af Amer) POC Glucose (mg/dL) 103 149 H Random Glucose Hemoglobin A1c Serum Osmolality 285 Uric Acid Calcium Total Bilirubin AST ALT Alkaline Phosphatase NT-Pro-B Natriuret Pep Total Protein Albumin Globulin Albumin/Globulin Ratio Triglycerides Cholesterol LDL Cholesterol Direct HDL Cholesterol TSH 3rd Generation 0.69 Plasma Cortisol PM
--- NOTE | 2017-10-26 16:13 | PCM.PYCHPN ---
Psychiatric Progress Note - Psychiatric Progress Note Patient seen today, length of contact: 30 minutes Patient Chief Complaint: "...." pt was starring at this consumer loan underwriter. Problems Identified/Issues Discussed: Suicide/ homicide prevention, past psychiatric h/o, current psychiatric symptoms , medical problems, risk/benefits and alternatives of medications, medications compliance, coping strategies, substance abuse h/o, relapse prevention, importance of follow up with psychiatrist and therapist, discharge plan. Medical Problems: Parkinson's disease diabetes Diagnostic Results: 10/19/17 23:16 10/20/17 21:53 Lab Results 10/22/17 16:03: POC Glucose (mg/dL) 224 H 10/22/17 12:44: POC Glucose (mg/dL) 155 H 10/22/17 07:42: POC Glucose (mg/dL) 182 H 10/21/17 21:49: POC Glucose (mg/dL) 247 H 10/21/17 16:41: POC Glucose (mg/dL) 300 H 10/21/17 11:05: POC Glucose (mg/dL) 309 H 10/21/17 07:20: POC Glucose (mg/dL) 251 H 10/21/17 02:07: POC Glucose (mg/dL) 270 H 10/21/17 00:02: POC Glucose (mg/dL) 357 H 10/20/17 21:53: Sodium 131 L, Potassium 5.1 H, Chloride 95 L, Carbon Dioxide 21 , Anion Gap 20, BUN 24 H, Creatinine 0.9, Est GFR ( Amer) > 60, Est GFR ( Non-Af Amer) > 60, Random Glucose 569 H* D, Calcium 9.6 10/20/17 21:11: POC Glucose (mg/dL) 420 H* 10/20/17 16:26: POC Glucose (mg/dL) 333 H 10/20/17 12:19: POC Glucose (mg/dL) 260 H 10/20/17 08:30: Urine Opiates Screen Negative, Urine Methadone Screen Negative, Ur Barbiturates Screen Negative, Ur Phencyclidine Scrn Negative, Ur Amphetamines Screen Negative, U Benzodiazepines Scrn Negative, U Oth Cocaine Metabols Negative, U Cannabinoids Screen Negative 10/20/17 08:30: Urine Color Light yellow, Urine Appearance Clear, Urine pH 6.0, Ur Specific [place] 1.015, Urine Protein Negative, Urine Glucose (UA) >=1000, Urine Ketones Negative, Urine Blood Negative, Urine Nitrate Negative, Urine Bilirubin Negative, Urine Urobilinogen 0.2, Ur Leukocyte Esterase Negative 10/20/17 07:42: POC Glucose (mg/dL) 249 H 10/20/17 03:37: POC Glucose (mg/dL) 223 H 10/19/17 23:16: Alcohol, Quantitative < 10 10/19/17 23:16: Salicylates < 1 L, Acetaminophen < 10.0 L 10/19/17 23:16: Sodium 131 L, Potassium 4.6, Chloride 93 L, Carbon Dioxide 25, Anion Gap 17, BUN 17, Creatinine 0.7, Est GFR ( Amer) > 60, Est GFR (Non- Af Amer) > 60, Random Glucose 444 H* D, Calcium 9.1, Magnesium 2.0, Total Bilirubin 0.9, AST 18, ALT 20, Alkaline Phosphatase 72, Total Protein 7.2, Albumin 3.8, Globulin 3.4, Albumin/Globulin Ratio 1.1 10/19/17 23:16: WBC 7.7, RBC 4.44, Hgb 12.9, Hct 36.3, MCV 81.8, MCH 29.1, MCHC 35.5, RDW 13.5, Plt Count 331, MPV 10.1, Gran % 60.8, Lymph % (Auto) 32.4, [place] % (Auto) 6.1 H, Eos % (Auto) 0.4 L, Baso % (Auto) 0.3, Gran # 4.71, Lymph # ( Auto) 2.5, [place] # (Auto) 0.5, Eos # (Auto) 0.0, Baso # (Auto) 0.02 Vital Signs Temp Pulse Resp BP Pulse Ox 10/22/17 16:22 135 H 127/80 10/22/17 06:46 97.5 F L 90 20 132/92 H 10/21/17 16:30 115 H 127/86 10/21/17 07:23 97.8 F 110 H 19 131/82 10/20/17 16:30 110 H 138/96 H 10/20/17 12:25 98 F 85 19 125/82 98 10/20/17 09:38 98 F 85 19 123/65 99 06/09/18 07:24 99.1 F 75 20 120/72 98 10/20/17 05:23 82 16 121/74 99 10/20/17 03:23 88 16 124/78 99 10/20/17 01:23 82 16 126/76 100 10/19/17 23:23 86 18 136/74 99 10/19/17 21:23 99.1 F 98 H 18 129/78 97 DSM 5 Symptoms Update: Patient is a 66 year old single female with history of one prior admission to [facility] in July 2017 where she was given the diagnosis of Schizophrenia spectrum disorder with psychotic disorder type NOS as well as 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 labs repeated, came back WNL, pt had electrolytes abnormality, CKD, pin pusher was contacted, consult appreciated. pt still disorganized, psychotic, said that she hears voices, pt had difficulties to express herself. as per nursing report pt has been good behavior control though obviously withdrawn, disengaged and internally preoccupied on the unit. pt has UE tremor, no rigidity. pt wonders in the unit, at times going to other pt's rooms, needs constant redirection. so far patient tolerates medications well, no side effects observed or reported , aims 0, no EPS. Impression: r/o schizophrenia at the time of admission pt has poorly controlled FS, now it is better controlled, electrolytes better, hope that pt's catatonia which might be related to the medical issues will be resolved soon. Medication Change: Yes (Ativan increased) Medical Record Reviewed: Yes Consults ordered or reviewed: medical consult appreciated nephrology consult appreciated Mental Status Examination - Cognitive Function Orientation: Person Memory: Impaired Attention: Poor Concentration: Poor Association: Loose Fund of Knowledge: Poor - Mood Mood: Depressed, Anxious - Affect Affect: Constricted, Blunted, Other (catatonic) - Formal Thought Process Formal Thought Process: Hallucinations, Loosening of associations Psychotic Thoughts and Behaviors: pt also was confused, when was asked to sign tx plan pt put numbers but not her signature - Suicidal Ideation Suicidal Ideation: No - Homicidal Ideation Homicidal Ideation: No Goal/Treatment Plan - Goal/Treatment Plan Need for Continued Stay: Remain at risks for inpatient hospitalization, Severe depression anxiety, Discharge may exacerbated symptoms, Failed transitioning, Severe functional impairment Progress Toward Problem(s) and Goals/Treatment Plan: Milieu/structure/supportive therapy Medical consult appreciated, see medical team note for more detailed info SW consultation for discharge plan and social issues Med management prozac 40mg po daily for depression and anxiety seroquel 200mg po hs for psychosis ativan increased 2mg po bid and 3mg hs for catatonia nephrology consult was called Family involvement Follow up on labs Will monitor closely Pt was educated about risk/benefits and alternatives of medications, coping strategies (safety plan, suicide prevention), relapse prevention, importance of follow up with psychiatrist and therapist, stay away from drugs/alcohol/smoking Estimated Date of D/C: 11/02/17
--- NOTE | 2017-10-26 22:55 | PN ---
DATE: 10/26/2017 SUBJECTIVE: The patient is 66-year-old, seen and examined. Sitting in chair. Seems to be comfortable, not in any distress. Not very communicative. Offers no complaint. PHYSICAL EXAMINATION: VITAL SIGNS: She is afebrile, pulse 82, respirations 20, blood pressure 91/52. LUNGS: Bilateral fair airflow. No rhonchi or crackle. HEART: S1 and S2 audible. ABDOMEN: Soft and nontender. No rebound. No guarding. NEUROLOGIC: She is awake and alert, able to ambulate. LABORATORY EXAM: Blood sugar is 116. ASSESSMENT: 1. History of anxiety and depression. 2. Non-insulin dependent diabetes. 3. . 4. History of psychosis. 5. Hyperlipidemia. PLAN: Currently, patient is stable on current medications. We will continue that. We will follow up as needed. Jayla Coley MD
[2017-10-26] MEDS: Insulin Detemir 100 units/ml Vial (Levemir) SC SCH (23:44)
--- NOTE | 2017-10-27 10:07 | PCM.PYCHPN ---
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 Patient was ultimately admitted to the psychiatric unit due to recurrence of catatonic behaviors. I reviewed recent notes and met with patient at bedside. She remains withdrawn, disengaged and flatly regards me during my questioning. Appearance is unkempt. It is appears very difficult for her to initiate responses. This provider questions her comprehension not because of language barrier but because of thought disorganization. At baseline patient is more spontaneous, coherent and fluent. It remains difficult to have a meaningful interview at this time as her negative symptoms persist. There has been minimal improvement in her functioning since my interview with her last weekend. Staff notes indicate that she has been disorganized and has endorsed auditory hallucinations on the unit. She has been visible on the unit but makes almost no attempt to engage with others (though responded "thank you" at some point to staff member, this is encouraging!). She remains compliant with her medications and there have been no behavioral issues. Diagnostic Results: r/o schizoaffective disorder Medication Change: Yes (Ativan increased) Medical Record Reviewed: Yes Mental Status Examination - Cognitive Function Orientation: Person Memory: Impaired Attention: Poor Concentration: Poor Association: Loose Fund of Knowledge: Poor - Mood Mood: Depressed, Anxious - Affect Affect: Constricted, Blunted, Other (catatonic) - Formal Thought Process Formal Thought Process: Hallucinations, Loosening of associations - Suicidal Ideation Suicidal Ideation: No - Homicidal Ideation Homicidal Ideation: No Goal/Treatment Plan - Goal/Treatment Plan Need for Continued Stay: Remain at risks for inpatient hospitalization, Severe depression anxiety, Discharge may exacerbated symptoms, Failed transitioning, Severe functional impairment Progress Toward Problem(s) and Goals/Treatment Plan: * c/w current tx and plan * No new weekend labs thus far * Vitals reviewed and noted below: 10/27/17 06:53 Temperature 97.5 F L Pulse Rate 87 Respiratory 18 Rate Blood Pressure 94/55 L Estimated Date of D/C: 11/02/17
[2017-10-27] MEDS: Insulin Detemir 100 units/ml Vial (Levemir) SC SCH (22:10)
--- NOTE | 2017-10-28 11:33 | PCM.PYCHPN ---
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 Patient was ultimately admitted to the psychiatric unit due to recurrence of catatonic behaviors. I reviewed recent notes and met with patient at bedside again. Patient understands Japanese however a staff member, Corky Adler assisted me with Kiswahili translation to optimize communication due to the severity of her negative symptoms. She remains withdrawn, disengaged and flatly regards me during my questioning. Appearance is unkempt almost disheveled. It is appears very difficult for her to initiate responses but I agree with staff notes, she seems a little more verbal today. Patient also seems like she is comprehending more but she still demonstrates selective responses with notable blocking and speech latency. Patient admits to depression, her thoughts remain disorganized. At baseline patient is more spontaneous, coherent and fluent. It remains difficult to have a meaningful interview at this time as her negative symptoms persist. There has been minimal improvement in her functioning since my interview with her last weekend. Staff notes indicate that she has been disorganized and has endorsed auditory hallucinations on the unit. She has been visible on the unit but makes almost no attempt to engage with others (though responded "thank you" at some point to staff member, this is encouraging!). She remains compliant with her medications and there have been no behavioral issues. Diagnostic Results: r/o schizoaffective disorder Medication Change: Yes (Ativan increased) Medical Record Reviewed: Yes Mental Status Examination - Cognitive Function Orientation: Person Memory: Impaired Attention: Poor Concentration: Poor Association: Loose Fund of Knowledge: Poor - Mood Mood: Depressed, Anxious - Affect Affect: Constricted, Blunted, Other (catatonic) - Formal Thought Process Formal Thought Process: Hallucinations (denied today), Loosening of associations - Suicidal Ideation Suicidal Ideation: No - Homicidal Ideation Homicidal Ideation: No Goal/Treatment Plan - Goal/Treatment Plan Need for Continued Stay: Remain at risks for inpatient hospitalization, Severe depression anxiety, Discharge may exacerbated symptoms, Failed transitioning, Severe functional impairment Progress Toward Problem(s) and Goals/Treatment Plan: * c/w current tx and plan * No new weekend labs * Vitals reviewed and noted below: Selected Entries 10/27/17 10/28/17 21:56 07:30 Temperature 97.5 F L 97.8 F Pulse Rate 87 96 H Respiratory 18 20 Rate Blood Pressure 94/55 L 82/54 L Estimated Date of D/C: 11/02/17
[2017-10-28] MEDS ORDERED: Magnesium Citrate Oral SOL (300 ml) PO ONE (12:09)
[2017-10-28] MEDS: Insulin Detemir 100 units/ml Vial (Levemir) SC SCH (21:32)
--- NOTE | 2017-10-29 09:07 | PCM.FALL ---
Post Fall Progress Note - Post Fall Fall Date: 10/29/17 Fall Time: 08:43 Description of Fall: Pt found on the floor. - Post Fall Exam Vital Sign: Temp Pulse Resp BP Pulse Ox 98.5 F 97 H 20 96/57 L 98 10/29/17 07:29 10/29/17 07:29 10/29/17 07:29 10/29/17 07:29 10/20/17 12:25 Skull Exam: Negative for: Scalp wound, Scalp hematoma, Scalp depression Eye Exam: Positive for: Pupils equal, Pupils reactive Ear Exam: Negative for: Discharge, Bleeding Nose Exam: Negative for: Discharge, Bleeding Skin Exam: Negative for: Colour, Lacerations, Grazes, Bruising Mouth Exam: Negative for: Tongue bitten, Teeth dislodge Neck Exam: Negative for: Tingling, Weakness Spinal Exam: Negative for: Tenderness Chest Exam: Negative for: Difficulty breathing, Tenderness in collar bones, Tenderness in ribs Abdomen Exam: Negative for: Tenderness Pelvic Exam: Negative for: Tenderness, Hematuria Arm Exam: Negative for: Deformity, Alteration in range of movement Leg Exam: Negative for: Deformity, Alteration in range of movement Impression/Plan: 66 year old female with PMH DM, HTN, psych disorder, was found on the floor by psych nurse s/p fall? Pt is catatonic, admitted to psych unit. Pt states that she felt dizzy and fell: -BG 131 -vitals stale BP 104/65, HR 109 -Pt complains of right shoulder pain. states that she may have hit her head. Report given to Dr Gomez - possibly obtain head CT, neck x ray and right shoulder x ray. orthostatics. Gemma Jacinto, PGY1
[2017-10-29] MEDS: POLYETHYLENE GLYCOL 3350 17 GM/Dose PACKET PO SCH (16:11)
--- NOTE | 2017-10-29 16:40 | PN ---
DATE: 10/29/2017 SUBJECTIVE: The patient is a 66-year-old. This morning's event noted. Her roommate found her on the floor. Rapid response was called. The patient was evaluated by house doctor and was sent to ER for evaluation and transferred back to the psych unit. PHYSICAL EXAMINATION: GENERAL: She is awake and alert, does not communicate much. VITAL SIGNS: She is afebrile, pulse 97, respirations 20, blood pressure 96/57. LUNGS: Bilateral fair airflow. No rhonchi or crackles. HEART: S1, S2 audible. ABDOMEN: Soft, nontender. No rebound, no guarding. NEUROLOGICAL: She is awake, alert, oriented, and able to communicative. LABORATORY DATA: Blood sugar is 131. Urinalysis is unremarkable. ASSESSMENT: 1. Status post fall with no obvious injury. 2. History of psychosis. 3. Hypertension. 4. Kod-qtyocaf-ovkqvyyvm diabetes. 5. Electrolyte imbalance. 6. History of cerebrovascular accident in the past. PLAN: We will continue the patient on current medication. The patient has episode of constipation. She was given magnesium citrate and being maintained on MiraLax, we will continue. Jayla Coley MD
--- NOTE | 2017-10-29 17:17 | PCM.PYCHPN ---
Psychiatric Progress Note - Psychiatric Progress Note Patient seen today, length of contact: 25 minutes Patient Chief Complaint: "I feel little better". Problems Identified/Issues Discussed: Suicide/ homicide prevention, past psychiatric h/o, current psychiatric symptoms , medical problems, risk/benefits and alternatives of medications, medications compliance, coping strategies, substance abuse h/o, relapse prevention, importance of follow up with psychiatrist and therapist, discharge plan. Medical Problems: Parkinson's disease? diabetes Diagnostic Results: 10/19/17 23:16 10/20/17 21:53 Lab Results 10/22/17 16:03: POC Glucose (mg/dL) 224 H 10/22/17 12:44: POC Glucose (mg/dL) 155 H 10/22/17 07:42: POC Glucose (mg/dL) 182 H 10/21/17 21:49: POC Glucose (mg/dL) 247 H 10/21/17 16:41: POC Glucose (mg/dL) 300 H 10/21/17 11:05: POC Glucose (mg/dL) 309 H 10/21/17 07:20: POC Glucose (mg/dL) 251 H 10/21/17 02:07: POC Glucose (mg/dL) 270 H 10/21/17 00:02: POC Glucose (mg/dL) 357 H 10/20/17 21:53: Sodium 131 L, Potassium 5.1 H, Chloride 95 L, Carbon Dioxide 21 , Anion Gap 20, BUN 24 H, Creatinine 0.9, Est GFR ( Amer) > 60, Est GFR ( Non-Af Amer) > 60, Random Glucose 569 H* D, Calcium 9.6 10/20/17 21:11: POC Glucose (mg/dL) 420 H* 10/20/17 16:26: POC Glucose (mg/dL) 333 H 10/20/17 12:19: POC Glucose (mg/dL) 260 H 10/20/17 08:30: Urine Opiates Screen Negative, Urine Methadone Screen Negative, Ur Barbiturates Screen Negative, Ur Phencyclidine Scrn Negative, Ur Amphetamines Screen Negative, U Benzodiazepines Scrn Negative, U Oth Cocaine Metabols Negative, U Cannabinoids Screen Negative 10/20/17 08:30: Urine Color Light yellow, Urine Appearance Clear, Urine pH 6.0, Ur Specific [place] 1.015, Urine Protein Negative, Urine Glucose (UA) >=1000, Urine Ketones Negative, Urine Blood Negative, Urine Nitrate Negative, Urine Bilirubin Negative, Urine Urobilinogen 0.2, Ur Leukocyte Esterase Negative 10/20/17 07:42: POC Glucose (mg/dL) 249 H 10/20/17 03:37: POC Glucose (mg/dL) 223 H 10/19/17 23:16: Alcohol, Quantitative < 10 10/19/17 23:16: Salicylates < 1 L, Acetaminophen < 10.0 L 10/19/17 23:16: Sodium 131 L, Potassium 4.6, Chloride 93 L, Carbon Dioxide 25, Anion Gap 17, BUN 17, Creatinine 0.7, Est GFR ( Amer) > 60, Est GFR (Non- Af Amer) > 60, Random Glucose 444 H* D, Calcium 9.1, Magnesium 2.0, Total Bilirubin 0.9, AST 18, ALT 20, Alkaline Phosphatase 72, Total Protein 7.2, Albumin 3.8, Globulin 3.4, Albumin/Globulin Ratio 1.1 10/19/17 23:16: WBC 7.7, RBC 4.44, Hgb 12.9, Hct 36.3, MCV 81.8, MCH 29.1, MCHC 35.5, RDW 13.5, Plt Count 331, MPV 10.1, Gran % 60.8, Lymph % (Auto) 32.4, [place] % (Auto) 6.1 H, Eos % (Auto) 0.4 L, Baso % (Auto) 0.3, Gran # 4.71, Lymph # ( Auto) 2.5, [place] # (Auto) 0.5, Eos # (Auto) 0.0, Baso # (Auto) 0.02 Vital Signs Temp Pulse Resp BP Pulse Ox 10/22/17 16:22 135 H 127/80 10/22/17 06:46 97.5 F L 90 20 132/92 H 10/21/17 16:30 115 H 127/86 10/21/17 07:23 97.8 F 110 H 19 131/82 10/20/17 16:30 110 H 138/96 H 10/20/17 12:25 98 F 85 19 125/82 98 10/20/17 09:38 98 F 85 19 123/65 99 10/20/17 07:24 99.1 F 75 20 120/72 98 10/20/17 05:23 82 16 121/74 99 10/20/17 03:23 88 16 124/78 99 10/20/17 01:23 82 16 126/76 100 10/19/17 23:23 86 18 136/74 99 10/19/17 21:23 99.1 F 98 H 18 129/78 97 Laboratory Results - last 24 hr 10/28/17 10/29/17 10/29/17 21:25 07:13 08:47 POC Glucose (mg/dL) 248 H 132 H 131 H 10/29/17 14:00 POC Glucose (mg/dL) 101 Temp Pulse Resp BP Pulse Ox 97.2 F L 84 17 100/65 98 10/29/17 13:30 10/29/17 13:30 10/29/17 13:30 10/29/17 13:30 10/20/17 12:25 DSM 5 Symptoms Update: Patient is a 66 year old single female with history of one prior admission to [facility] in July 2017 where she was given the diagnosis of Schizophrenia spectrum disorder with psychotic disorder type NOS as well as 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, reportedly compliant with outpatient f/u (per patient) and discharge medications of Prozac 40 mg daily Ativan 1 mg POTID and Seroquel 100 mg HS (per patient) who was bib EMS to our ER with complaints of auditory hallucinations, patient was seen at the dining area, patient still has catatonia but was faster with her responses, patient reported that she feels little better, reported she heard voices 3 days ago, earlier today at the morning time patient feel, patient reported that she was feeling TV, patient was sent to the emergency room , will f/u on labs and reports, patient was seen by medical team, pt is on 1:1, will increase Ativan for catatonia, pt was on the same dose of ativan and it is unlikely that pt fell due to meds. As per nursing report patient has good appetite, and eats well. so far patient tolerates medications well, no side effects observed or reported , aims 0, no EPS. Impression: r/o schizophrenia at the time of admission pt has poorly controlled FS, now it is better controlled, electrolytes better, hope that pt's catatonia which might be related to the medical issues will be resolved soon. Medication Change: Yes (Ativan increased for catatonia) Medical Record Reviewed: Yes Consults ordered or reviewed: medical consult appreciated nephrology consult appreciated Mental Status Examination - Cognitive Function Orientation: Person Memory: Impaired Attention: Poor Concentration: Poor Association: Loose Fund of Knowledge: Poor - Mood Mood: Depressed, Anxious - Affect Affect: Constricted, Blunted, Other (catatonic) - Formal Thought Process Formal Thought Process: Hallucinations (denied today), Loosening of associations - Suicidal Ideation Suicidal Ideation: No - Homicidal Ideation Homicidal Ideation: No Goal/Treatment Plan - Goal/Treatment Plan Need for Continued Stay: Remain at risks for inpatient hospitalization, Severe depression anxiety, Discharge may exacerbated symptoms, Failed transitioning, Severe functional impairment Progress Toward Problem(s) and Goals/Treatment Plan: Milieu/structure/supportive therapy Medical consult appreciated, see medical team note for more detailed info SW consultation for discharge plan and social issues Med management prozac 40mg po daily for depression and anxiety seroquel 200mg po hs for psychosis ativan increased 3mg po bid and 3mg hs for catatonia nephrology consult was called Family involvement Follow up on labs Will monitor closely Pt was educated about risk/benefits and alternatives of medications, coping strategies (safety plan, suicide prevention), relapse prevention, importance of follow up with psychiatrist and therapist, stay away from drugs/alcohol/smoking Estimated Date of D/C: 11/02/17
[2017-10-29] MEDS ORDERED: Magnesium Citrate Oral SOL (300 ml) PO ONE ×2 (19:06→22:15)
[2017-10-29] MEDS: Insulin Detemir 100 units/ml Vial (Levemir) SC SCH (22:12)
[2017-10-30] MEDS: POLYETHYLENE GLYCOL 3350 17 GM/Dose PACKET PO SCH (09:06)
--- NOTE | 2017-10-30 16:29 | PCM.PYCHPN ---
Psychiatric Progress Note - Psychiatric Progress Note Patient seen today, length of contact: 25 minutes Patient Chief Complaint: "I feel little better". Problems Identified/Issues Discussed: Suicide/ homicide prevention, past psychiatric h/o, current psychiatric symptoms , medical problems, risk/benefits and alternatives of medications, medications compliance, coping strategies, substance abuse h/o, relapse prevention, importance of follow up with psychiatrist and therapist, discharge plan. Medical Problems: Parkinson's disease? diabetes Diagnostic Results: 10/19/17 23:16 10/20/17 21:53 Lab Results 10/22/17 16:03: POC Glucose (mg/dL) 224 H 10/22/17 12:44: POC Glucose (mg/dL) 155 H 10/22/17 07:42: POC Glucose (mg/dL) 182 H 10/21/17 21:49: POC Glucose (mg/dL) 247 H 10/21/17 16:41: POC Glucose (mg/dL) 300 H 10/21/17 11:05: POC Glucose (mg/dL) 309 H 10/21/17 07:20: POC Glucose (mg/dL) 251 H 10/21/17 02:07: POC Glucose (mg/dL) 270 H 10/21/17 00:02: POC Glucose (mg/dL) 357 H 10/20/17 21:53: Sodium 131 L, Potassium 5.1 H, Chloride 95 L, Carbon Dioxide 21 , Anion Gap 20, BUN 24 H, Creatinine 0.9, Est GFR ( Amer) > 60, Est GFR ( Non-Af Amer) > 60, Random Glucose 569 H* D, Calcium 9.6 10/20/17 21:11: POC Glucose (mg/dL) 420 H* 10/20/17 16:26: POC Glucose (mg/dL) 333 H 10/20/17 12:19: POC Glucose (mg/dL) 260 H 10/20/17 08:30: Urine Opiates Screen Negative, Urine Methadone Screen Negative, Ur Barbiturates Screen Negative, Ur Phencyclidine Scrn Negative, Ur Amphetamines Screen Negative, U Benzodiazepines Scrn Negative, U Oth Cocaine Metabols Negative, U Cannabinoids Screen Negative 10/20/17 08:30: Urine Color Light yellow, Urine Appearance Clear, Urine pH 6.0, Ur Specific [place] 1.015, Urine Protein Negative, Urine Glucose (UA) >=1000, Urine Ketones Negative, Urine Blood Negative, Urine Nitrate Negative, Urine Bilirubin Negative, Urine Urobilinogen 0.2, Ur Leukocyte Esterase Negative 10/20/17 07:42: POC Glucose (mg/dL) 249 H 10/20/17 03:37: POC Glucose (mg/dL) 223 H 10/19/17 23:16: Alcohol, Quantitative < 10 10/19/17 23:16: Salicylates < 1 L, Acetaminophen < 10.0 L 10/19/17 23:16: Sodium 131 L, Potassium 4.6, Chloride 93 L, Carbon Dioxide 25, Anion Gap 17, BUN 17, Creatinine 0.7, Est GFR ( Amer) > 60, Est GFR (Non- Af Amer) > 60, Random Glucose 444 H* D, Calcium 9.1, Magnesium 2.0, Total Bilirubin 0.9, AST 18, ALT 20, Alkaline Phosphatase 72, Total Protein 7.2, Albumin 3.8, Globulin 3.4, Albumin/Globulin Ratio 1.1 10/19/17 23:16: WBC 7.7, RBC 4.44, Hgb 12.9, Hct 36.3, MCV 81.8, MCH 29.1, MCHC 35.5, RDW 13.5, Plt Count 331, MPV 10.1, Gran % 60.8, Lymph % (Auto) 32.4, [place] % (Auto) 6.1 H, Eos % (Auto) 0.4 L, Baso % (Auto) 0.3, Gran # 4.71, Lymph # ( Auto) 2.5, [place] # (Auto) 0.5, Eos # (Auto) 0.0, Baso # (Auto) 0.02 Vital Signs Temp Pulse Resp BP Pulse Ox 10/22/17 16:22 135 H 127/80 10/22/17 06:46 97.5 F L 90 20 132/92 H 10/21/17 16:30 115 H 127/86 10/21/17 07:23 97.8 F 110 H 19 131/82 10/20/17 16:30 110 H 138/96 H 10/20/17 12:25 98 F 85 19 125/82 98 10/20/17 09:38 98 F 85 19 123/65 99 10/20/17 07:24 99.1 F 75 20 120/72 98 10/20/17 05:23 82 16 121/74 99 10/20/17 03:23 88 16 124/78 99 10/20/17 01:23 82 16 126/76 100 10/19/17 23:23 86 18 136/74 99 10/19/17 21:23 99.1 F 98 H 18 129/78 97 Laboratory Results - last 24 hr 10/28/17 10/29/17 10/29/17 21:25 07:13 08:47 POC Glucose (mg/dL) 248 H 132 H 131 H 10/29/17 14:00 POC Glucose (mg/dL) 101 Temp Pulse Resp BP Pulse Ox 97.2 F L 84 17 100/65 98 10/29/17 13:30 10/29/17 13:30 10/29/17 13:30 10/29/17 13:30 10/20/17 12:25 Temp Pulse Resp BP Pulse Ox 97.8 F 92 H 18 95/63 L 98 10/30/17 07:18 10/30/17 07:18 10/30/17 07:18 10/30/17 07:18 10/20/17 12:25 DSM 5 Symptoms Update: Patient is a 66 year old single female with history of one prior admission to [facility] in July 2017 where she was given the diagnosis of Schizophrenia spectrum disorder with psychotic disorder type NOS as well as 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 pt is not sure if she has h/o parkinson's, will call Neurology team for eval. PT evaluation also requested. As per nursing report patient has good appetite, and eats well. so far patient tolerates medications well, no side effects observed or reported , aims 0, no EPS. Impression: r/o schizophrenia at the time of admission pt has poorly controlled FS, now it is better controlled, electrolytes better, hope that pt's catatonia which might be related to the medical issues will be resolved soon. Medication Change: No (Ativan increased for catatonia yesterday) Medical Record Reviewed: Yes Mental Status Examination - Cognitive Function Orientation: Person Memory: Impaired Attention: Poor (some improvement) Concentration: Poor (some improvement) Association: Loose Fund of Knowledge: Poor - Mood Mood: Depressed, Anxious - Affect Affect: Constricted (but more reactive) - Speech Speech: Soft - Formal Thought Process Formal Thought Process: Hallucinations (denied today), Loosening of associations - Suicidal Ideation Suicidal Ideation: No - Homicidal Ideation Homicidal Ideation: No Goal/Treatment Plan - Goal/Treatment Plan Need for Continued Stay: Remain at risks for inpatient hospitalization, Severe depression anxiety, Discharge may exacerbated symptoms, Failed transitioning, Severe functional impairment Progress Toward Problem(s) and Goals/Treatment Plan: Milieu/structure/supportive therapy Medical consult appreciated, see medical team note for more detailed info SW consultation for discharge plan and social issues Med management prozac 40mg po daily for depression and anxiety seroquel 200mg po hs for psychosis ativan 3mg po bid and 3mg hs for catatonia nephrology consult was called neurology consult was called to r/o Parkinson's and gait dysfunction Family involvement Follow up on labs Will monitor closely Pt was educated about risk/benefits and alternatives of medications, coping strategies (safety plan, suicide prevention), relapse prevention, importance of follow up with psychiatrist and therapist, stay away from drugs/alcohol/smoking Estimated Date of D/C: 11/02/17
--- NOTE | 2017-10-30 21:13 | PN ---
DATE: 10/30/2017 SUBJECTIVE: The patient is 66 years old, offered no complaint. Eating and tolerating. PHYSICAL EXAMINATION: VITAL SIGNS: She is afebrile, pulse 92, respirations 18, blood pressure 95/63. LUNGS: Bilateral fair airflow. No rhonchi or crackle. HEART: S1 and S2 audible. ABDOMEN: Soft. Nontender. No rebound. No guarding. NEUROLOGICAL: The patient is awake and alert, able to communicate. EXTREMITIES: No leg edema. LABORATORY EXAM: Blood sugar is 101. She had CT scan of the head done yesterday that is unremarkable. ASSESSMENT: 1. Status post fall, but no trauma noted. CT of the head is negative for intracranial bleed. 2. Ibd-hiklcel-[id number] diabetes. 3. Hypertension. 4. Tachycardia. 5. History of stroke in the past. PLAN: I will start the patient on atenolol since she has been tachycardic according to her vital sign pattern. We will monitor her blood sugar and follow her vital signs. Jayla Coley MD
[2017-10-30] MEDS: Insulin Detemir 100 units/ml Vial (Levemir) SC SCH (22:47)
[2017-10-31] MEDS: POLYETHYLENE GLYCOL 3350 17 GM/Dose PACKET PO SCH (09:31)
--- NOTE | 2017-10-31 15:13 | PCM.PYCHPN ---
Psychiatric Progress Note - Psychiatric Progress Note Patient seen today, length of contact: 30min Patient Chief Complaint: "I feel little better". Problems Identified/Issues Discussed: Suicide/ homicide prevention, past psychiatric h/o, current psychiatric symptoms , medical problems, risk/benefits and alternatives of medications, medications compliance, coping strategies, substance abuse h/o, relapse prevention, importance of follow up with psychiatrist and therapist, discharge plan. Medical Problems: Parkinson's disease? diabetes Diagnostic Results: 10/19/17 23:16 10/20/17 21:53 Lab Results 10/22/17 16:03: POC Glucose (mg/dL) 224 H 10/22/17 12:44: POC Glucose (mg/dL) 155 H 10/22/17 07:42: POC Glucose (mg/dL) 182 H 10/21/17 21:49: POC Glucose (mg/dL) 247 H 10/21/17 16:41: POC Glucose (mg/dL) 300 H 10/21/17 11:05: POC Glucose (mg/dL) 309 H 10/21/17 07:20: POC Glucose (mg/dL) 251 H 10/21/17 02:07: POC Glucose (mg/dL) 270 H 10/21/17 00:02: POC Glucose (mg/dL) 357 H 10/20/17 21:53: Sodium 131 L, Potassium 5.1 H, Chloride 95 L, Carbon Dioxide 21 , Anion Gap 20, BUN 24 H, Creatinine 0.9, Est GFR ( Amer) > 60, Est GFR ( Non-Af Amer) > 60, Random Glucose 569 H* D, Calcium 9.6 10/20/17 21:11: POC Glucose (mg/dL) 420 H* 10/20/17 16:26: POC Glucose (mg/dL) 333 H 10/20/17 12:19: POC Glucose (mg/dL) 260 H 10/20/17 08:30: Urine Opiates Screen Negative, Urine Methadone Screen Negative, Ur Barbiturates Screen Negative, Ur Phencyclidine Scrn Negative, Ur Amphetamines Screen Negative, U Benzodiazepines Scrn Negative, U Oth Cocaine Metabols Negative, U Cannabinoids Screen Negative 10/20/17 08:30: Urine Color Light yellow, Urine Appearance Clear, Urine pH 6.0, Ur Specific [place] 1.015, Urine Protein Negative, Urine Glucose (UA) >=1000, Urine Ketones Negative, Urine Blood Negative, Urine Nitrate Negative, Urine Bilirubin Negative, Urine Urobilinogen 0.2, Ur Leukocyte Esterase Negative 10/20/17 07:42: POC Glucose (mg/dL) 249 H 10/20/17 03:37: POC Glucose (mg/dL) 223 H 10/19/17 23:16: Alcohol, Quantitative < 10 10/19/17 23:16: Salicylates < 1 L, Acetaminophen < 10.0 L 10/19/17 23:16: Sodium 131 L, Potassium 4.6, Chloride 93 L, Carbon Dioxide 25, Anion Gap 17, BUN 17, Creatinine 0.7, Est GFR ( Amer) > 60, Est GFR (Non- Af Amer) > 60, Random Glucose 444 H* D, Calcium 9.1, Magnesium 2.0, Total Bilirubin 0.9, AST 18, ALT 20, Alkaline Phosphatase 72, Total Protein 7.2, Albumin 3.8, Globulin 3.4, Albumin/Globulin Ratio 1.1 10/19/17 23:16: WBC 7.7, RBC 4.44, Hgb 12.9, Hct 36.3, MCV 81.8, MCH 29.1, MCHC 35.5, RDW 13.5, Plt Count 331, MPV 10.1, Gran % 60.8, Lymph % (Auto) 32.4, [place] % (Auto) 6.1 H, Eos % (Auto) 0.4 L, Baso % (Auto) 0.3, Gran # 4.71, Lymph # ( Auto) 2.5, [place] # (Auto) 0.5, Eos # (Auto) 0.0, Baso # (Auto) 0.02 Vital Signs Temp Pulse Resp BP Pulse Ox 10/22/17 16:22 135 H 127/80 10/22/17 06:46 97.5 F L 90 20 132/92 H 10/21/17 16:30 115 H 127/86 10/21/17 07:23 97.8 F 110 H 19 131/82 10/20/17 16:30 110 H 138/96 H 10/20/17 12:25 98 F 85 19 125/82 98 10/20/17 09:38 98 F 85 19 123/65 99 10/20/17 07:24 99.1 F 75 20 120/72 98 10/20/17 05:23 82 16 121/74 99 10/20/17 03:23 88 16 124/78 99 10/20/17 01:23 82 16 126/76 100 10/19/17 23:23 86 18 136/74 99 10/19/17 21:23 99.1 F 98 H 18 129/78 97 Laboratory Results - last 24 hr 10/28/17 10/29/17 10/29/17 21:25 07:13 08:47 POC Glucose (mg/dL) 248 H 132 H 131 H 10/29/17 14:00 POC Glucose (mg/dL) 101 Temp Pulse Resp BP Pulse Ox 97.2 F L 84 17 100/65 98 10/29/17 13:30 10/29/17 13:30 10/29/17 13:30 10/29/17 13:30 10/20/17 12:25 Temp Pulse Resp BP Pulse Ox 97.8 F 92 H 18 95/63 L 98 10/30/17 07:18 10/30/17 07:18 10/30/17 07:18 10/30/17 07:18 10/20/17 12:25 Temp Pulse Resp BP Pulse Ox 99.2 F 93 H 20 88/55 L 98 10/31/17 07:24 10/31/17 07:24 10/31/17 07:24 10/31/17 07:24 10/20/17 12:25 DSM 5 Symptoms Update: Patient is a 66 year old single female with history of one prior admission to [facility] in July 2017 where she was given the diagnosis of Schizophrenia spectrum disorder with psychotic disorder type NOS as well as 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 pt is on 1:1 observation, as per report when pt ambulates pt leaning to the right site. Neurology will see pt tomorrow. as per RN PT evaluation was done today, awaiting for official consult. As per nursing report patient has good appetite, and eats well. so far patient tolerates medications well, no side effects observed or reported , aims 0, no EPS. Impression: r/o schizophrenia at the time of admission pt has poorly controlled FS, now it is better controlled, electrolytes better, hope that pt's catatonia which might be related to the medical issues will be resolved soon. Medication Change: No Medical Record Reviewed: Yes Mental Status Examination - Cognitive Function Orientation: Person Memory: Impaired Attention: Poor (some improvement) Concentration: Poor (some improvement) Association: Loose Fund of Knowledge: Poor - Mood Mood: Depressed, Anxious - Affect Affect: Constricted (but more reactive) - Speech Speech: Soft - Formal Thought Process Formal Thought Process: Hallucinations (denied today), Loosening of associations - Suicidal Ideation Suicidal Ideation: No - Homicidal Ideation Homicidal Ideation: No Goal/Treatment Plan - Goal/Treatment Plan Need for Continued Stay: Remain at risks for inpatient hospitalization, Severe depression anxiety, Discharge may exacerbated symptoms, Failed transitioning, Severe functional impairment Progress Toward Problem(s) and Goals/Treatment Plan: Milieu/structure/supportive therapy Medical consult appreciated, see medical team note for more detailed info SW consultation for discharge plan and social issues Med management prozac 40mg po daily for depression and anxiety seroquel 200mg po hs for psychosis ativan 3mg po bid and 3mg hs for catatonia nephrology consult was called neurology consult was called to r/o Parkinson's and gait dysfunction Family involvement Follow up on labs Will monitor closely Pt was educated about risk/benefits and alternatives of medications, coping strategies (safety plan, suicide prevention), relapse prevention, importance of follow up with psychiatrist and therapist, stay away from drugs/alcohol/smoking Estimated Date of D/C: 11/02/17
[2017-10-31] MEDS: Insulin Detemir 100 units/ml Vial (Levemir) SC SCH (21:36)
--- NOTE | 2017-10-31 23:41 | PN ---
DATE: 10/31/2017 SUBJECTIVE: The patient is 66-year-old, not much communicative, eating fair, ambulates without any restriction. PHYSICAL EXAMINATION: VITAL SIGNS: She has temperature 99.2, pulse 93, respirations 20, blood pressure 103/71. LUNGS: Bilateral fair airflow. No rhonchi or crackle. HEART: S1 and S2 audible. ABDOMEN: Soft, nontender. No rebound. No guarding. NEUROLOGIC: She is awake and alert. ASSESSMENT: 1. Non-insulin dependent diabetes. 2. History of schizophrenia. 3. Facial dermatitis. PLAN: Patient's blood sugar seems to be running fair. We will continue the same dosages, however, her blood pressure seems to be running on the low side and she is on atenolol, we will continue that for now and will reevaluate in a.m. Jayla Coley MD
[2017-11-01] MEDS: POLYETHYLENE GLYCOL 3350 17 GM/Dose PACKET PO SCH (09:52)
--- NOTE | 2017-11-01 14:56 | PN ---
DATE: 11/01/2017 SUBJECTIVE: The patient is 66 years old, seen and examined. Seems to be more interactive. Difficulty walking, but walks with minimal assist. Eating well. PHYSICAL EXAMINATION: VITAL SIGNS: The patient is afebrile, pulse 88, respirations 20, blood pressure 104/67. LUNGS: Bilateral fair airflow. No rhonchi or crackle. HEART: S1 and S2 audible. ABDOMEN: Soft. Nontender. No rebound. No guarding. NEUROLOGICAL: The patient is awake and alert, able to communicate. Ambulates with minimal help since she a gait tendency to fall because of unstable gait. ASSESSMENT: 1. [id number]-nhsgtbtvq diabetes. 2. History of schizophrenia. 3. Anxiety disorder. 4. Hypertension. 5. Hyperlipidemia. PLAN: We will continue the patient on current medications. Monitor blood sugar. Encourage physical therapy. We will follow up the patient in the a.m. Jayla Coley MD
--- NOTE | 2017-11-01 15:30 | PCM.PYCHPN ---
Psychiatric Progress Note - Psychiatric Progress Note Patient seen today, length of contact: 30min Patient Chief Complaint: "I feel little better". Problems Identified/Issues Discussed: Suicide/ homicide prevention, past psychiatric h/o, current psychiatric symptoms , medical problems, risk/benefits and alternatives of medications, medications compliance, coping strategies, substance abuse h/o, relapse prevention, importance of follow up with psychiatrist and therapist, discharge plan. Medical Problems: Parkinson's disease? diabetes Diagnostic Results: 10/19/17 23:16 10/20/17 21:53 Lab Results 10/22/17 16:03: POC Glucose (mg/dL) 224 H 10/22/17 12:44: POC Glucose (mg/dL) 155 H 10/22/17 07:42: POC Glucose (mg/dL) 182 H 10/21/17 21:49: POC Glucose (mg/dL) 247 H 10/21/17 16:41: POC Glucose (mg/dL) 300 H 10/21/17 11:05: POC Glucose (mg/dL) 309 H 10/21/17 07:20: POC Glucose (mg/dL) 251 H 10/21/17 02:07: POC Glucose (mg/dL) 270 H 10/21/17 00:02: POC Glucose (mg/dL) 357 H 10/20/17 21:53: Sodium 131 L, Potassium 5.1 H, Chloride 95 L, Carbon Dioxide 21 , Anion Gap 20, BUN 24 H, Creatinine 0.9, Est GFR ( Amer) > 60, Est GFR ( Non-Af Amer) > 60, Random Glucose 569 H* D, Calcium 9.6 10/20/17 21:11: POC Glucose (mg/dL) 420 H* 10/20/17 16:26: POC Glucose (mg/dL) 333 H 10/20/17 12:19: POC Glucose (mg/dL) 260 H 10/20/17 08:30: Urine Opiates Screen Negative, Urine Methadone Screen Negative, Ur Barbiturates Screen Negative, Ur Phencyclidine Scrn Negative, Ur Amphetamines Screen Negative, U Benzodiazepines Scrn Negative, U Oth Cocaine Metabols Negative, U Cannabinoids Screen Negative 10/20/17 08:30: Urine Color Light yellow, Urine Appearance Clear, Urine pH 6.0, Ur Specific [place] 1.015, Urine Protein Negative, Urine Glucose (UA) >=1000, Urine Ketones Negative, Urine Blood Negative, Urine Nitrate Negative, Urine Bilirubin Negative, Urine Urobilinogen 0.2, Ur Leukocyte Esterase Negative 10/20/17 07:42: POC Glucose (mg/dL) 249 H 10/20/17 03:37: POC Glucose (mg/dL) 223 H 10/19/17 23:16: Alcohol, Quantitative < 10 10/19/17 23:16: Salicylates < 1 L, Acetaminophen < 10.0 L 10/19/17 23:16: Sodium 131 L, Potassium 4.6, Chloride 93 L, Carbon Dioxide 25, Anion Gap 17, BUN 17, Creatinine 0.7, Est GFR ( Amer) > 60, Est GFR (Non- Af Amer) > 60, Random Glucose 444 H* D, Calcium 9.1, Magnesium 2.0, Total Bilirubin 0.9, AST 18, ALT 20, Alkaline Phosphatase 72, Total Protein 7.2, Albumin 3.8, Globulin 3.4, Albumin/Globulin Ratio 1.1 10/19/17 23:16: WBC 7.7, RBC 4.44, Hgb 12.9, Hct 36.3, MCV 81.8, MCH 29.1, MCHC 35.5, RDW 13.5, Plt Count 331, MPV 10.1, Gran % 60.8, Lymph % (Auto) 32.4, [place] % (Auto) 6.1 H, Eos % (Auto) 0.4 L, Baso % (Auto) 0.3, Gran # 4.71, Lymph # ( Auto) 2.5, [place] # (Auto) 0.5, Eos # (Auto) 0.0, Baso # (Auto) 0.02 Vital Signs Temp Pulse Resp BP Pulse Ox 10/22/17 16:22 135 H 127/80 10/22/17 06:46 97.5 F L 90 20 132/92 H 10/21/17 16:30 115 H 127/86 10/21/17 07:23 97.8 F 110 H 19 131/82 10/20/17 16:30 110 H 138/96 H 10/20/17 12:25 98 F 85 19 125/82 98 10/20/17 09:38 98 F 85 19 123/65 99 10/20/17 07:24 99.1 F 75 20 120/72 98 10/20/17 05:23 82 16 121/74 99 10/20/17 03:23 88 16 124/78 99 10/20/17 01:23 82 16 126/76 100 10/19/17 23:23 86 18 136/74 99 10/19/17 21:23 99.1 F 98 H 18 129/78 97 Laboratory Results - last 24 hr 10/28/17 10/29/17 10/29/17 21:25 07:13 08:47 POC Glucose (mg/dL) 248 H 132 H 131 H 10/29/17 14:00 POC Glucose (mg/dL) 101 Temp Pulse Resp BP Pulse Ox 97.2 F L 84 17 100/65 98 10/29/17 13:30 10/29/17 13:30 10/29/17 13:30 10/29/17 13:30 10/20/17 12:25 Temp Pulse Resp BP Pulse Ox 97.8 F 92 H 18 95/63 L 98 10/30/17 07:18 10/30/17 07:18 10/30/17 07:18 10/30/17 07:18 10/20/17 12:25 Temp Pulse Resp BP Pulse Ox 99.2 F 93 H 20 88/55 L 98 10/31/17 07:24 10/31/17 07:24 10/31/17 07:24 10/31/17 07:24 10/20/17 12:25 DSM 5 Symptoms Update: Patient is a 66 year old single female with history of one prior admission to [facility] in July 2017 where she was given the diagnosis of Schizophrenia spectrum disorder with psychotic disorder type NOS as well as 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 pt is on 1:1 observation, as per report when pt ambulates pt leaning to the right site. expecting urology consult today, as per PT evaluation appreciated, recommended physical therapy 3 times a week. As per staff patient walked yesterday and dependence. As per nursing report patient has good appetite, and eats well. so far patient tolerates medications well, no side effects observed or reported , aims 0, no EPS. Impression: r/o schizophrenia at the time of admission pt has poorly controlled FS, now it is better controlled, electrolytes better, hope that pt's catatonia which might be related to the medical issues will be resolved soon. Medication Change: No Medical Record Reviewed: Yes Mental Status Examination - Cognitive Function Orientation: Person Memory: Impaired Attention: Poor (some improvement) Concentration: Poor (some improvement) Association: Loose Fund of Knowledge: Poor - Mood Mood: Depressed, Anxious - Affect Affect: Constricted (but more reactive) - Speech Speech: Soft - Formal Thought Process Formal Thought Process: Hallucinations (denied today), Loosening of associations - Suicidal Ideation Suicidal Ideation: No - Homicidal Ideation Homicidal Ideation: No Goal/Treatment Plan - Goal/Treatment Plan Need for Continued Stay: Remain at risks for inpatient hospitalization, Severe depression anxiety, Discharge may exacerbated symptoms, Failed transitioning, Severe functional impairment Progress Toward Problem(s) and Goals/Treatment Plan: Milieu/structure/supportive therapy Medical consult appreciated, see medical team note for more detailed info SW consultation for discharge plan and social issues Med management prozac 40mg po daily for depression and anxiety seroquel 200mg po hs for psychosis ativan 3mg po bid and 3mg hs for catatonia nephrology consult was called neurology consult was called to r/o Parkinson's and gait dysfunction Family involvement Follow up on labs Will monitor closely Pt was educated about risk/benefits and alternatives of medications, coping strategies (safety plan, suicide prevention), relapse prevention, importance of follow up with psychiatrist and therapist, stay away from drugs/alcohol/smoking Estimated Date of D/C: 11/02/17
[2017-11-01] MEDS: Insulin Detemir 100 units/ml Vial (Levemir) SC SCH (21:52)
[2017-11-01 22:22] LABS: URINE BILIRUBIN NEGATIVE (NEGATIVE); URINE BLOOD NEGATIVE (NEGATIVE); URINE GLUCOSE (UA) >=1000 mg/dL (NEGATIVE); URINE LEUKOCYTE ESTERASE NEGATIVE Leu/uL (NEGATIVE); URINE PROTEIN NEGATIVE mg/dL (<30 mg/dL)
[2017-11-01 22:27] LABS: URINE APPEARANCE CLEAR (CLEAR); URINE COLOR YELLOW (YELLOW)
[2017-11-02] MEDS: POLYETHYLENE GLYCOL 3350 17 GM/Dose PACKET PO SCH (08:55)
--- NOTE | 2017-11-02 13:18 | CP.PCM.CON ---
History of Present Illness - History of Present Illness History of Present Illness: 66 yr old woman who is here for schizophrenia, and is being evaluated for possible parkinsons disease. Miss Joaquin has some prominent parkinsonian symptoms: She has masked like facies, cogwheel rigidity, tremor, shuffling gait , and has severe postural instability, with no falls. PMH/PSH: FH/SH: All: On exam: Masked like facies. PERRl. EOMI. Cn 2-12 normal. Speech fluent. MOtor: tone normal. strength: 5/5 normal. +cogwheeling rigidity. +tremor left hand more than right. Shuffling gait, severe postural instability. Past Patient History - Infectious Disease Hx of Infectious Diseases: None - Past Social History Smoking Status: Never Smoked - CARDIAC Hx Hypertension: Yes - PULMONARY Hx Respiratory Disorders: Yes - NEUROLOGICAL Hx Neurological Disorder: No - HEENT Hx HEENT Problems: No - RENAL Hx Chronic Kidney Disease: No - ENDOCRINE/METABOLIC Hx Diabetes Mellitus Type 2: Yes - HEMATOLOGICAL/ONCOLOGICAL Hx Blood Disorders: No - INTEGUMENTARY Hx Dermatological Problems: No - MUSCULOSKELETAL/RHEUMATOLOGICAL Hx Musculoskeletal Disorders: No Hx Falls: No - GASTROINTESTINAL Hx Gastrointestinal Disorders: No - GENITOURINARY/GYNECOLOGICAL Hx Genitourinary Disorders: No - PSYCHIATRIC Hx Substance Use: No - SURGICAL HISTORY Other/Comment: colonoscopy - ANESTHESIA Hx Anesthesia: No Meds Allergies/Adverse Reactions: Allergies Allergy/AdvReac Type Severity Reaction Status Date / Time No Known Allergies Allergy Verified 10/29/17 09:11 - Medications Medications: Current Medications Atenolol (Tenormin) 25 mg PO DAILY [facility] Last Admin: 11/02/17 11:25 Dose: Not Given Atorvastatin Calcium (Lipitor) 20 mg PO DAILY [facility] Last Admin: 11/02/17 08:54 Dose: 20 mg Fluocinonide (Lidex 0.05% Cream) 0 gm TOP BID [facility] Last Admin: 11/02/17 09:09 Dose: 1 applic Fluoxetine HCl (Prozac) 40 mg PO DAILY [facility] Last Admin: 11/02/17 08:54 Dose: 40 mg Glimepiride (Amaryl) 2 mg PO ACBD [facility] Last Admin: 11/02/17 08:54 Dose: 2 mg Insulin Detemir (Levemir) 25 unit SC HS [facility] Last Admin: 11/01/17 21:52 Dose: 25 units Lorazepam (Ativan) 3 mg PO HS [facility] PRN Reason: Protocol Last Admin: 11/01/17 21:51 Dose: 3 mg Lorazepam (Ativan) 3 mg PO BID [facility] PRN Reason: Protocol Last Admin: 11/02/17 08:53 Dose: 3 mg Metformin HCl (Glucophage) 500 mg PO BID [facility] Last Admin: 11/02/17 08:54 Dose: 500 mg Polyethylene Glycol (Miralax) 17 gm PO DAILY [facility] Last Admin: 11/02/17 08:55 Dose: 17 gm Quetiapine Fumarate (Seroquel) 200 mg PO HS [facility] PRN Reason: Protocol Last Admin: 11/01/17 21:51 Dose: 200 mg Rivaroxaban (Xarelto) 20 mg PO DAILY [facility] PRN Reason: Protocol Last Admin: 11/02/17 08:55 Dose: 20 mg Sitagliptin Phosphate (Januvia) 100 mg PO DAILY [facility] Last Admin: 11/02/17 08:54 Dose: 100 mg Results - Vital Signs Recent Vital Signs: Last Vital Signs Temp 99.0 F 11/02/17 07:32 Pulse 82 11/02/17 11:25 Resp 20 11/02/17 07:32 BP 94/62 L 11/02/17 11:25 Pulse Ox 98 10/20/17 12:25 - Labs Result Diagrams: 10/25/17 16:15 10/25/17 16:15 Labs: Laboratory Results - last 24 hr 11/01/17 11/01/17 16:25 22:16 POC Glucose (mg/dL) 240 H Urine Color Yellow Urine Appearance Clear Urine pH 7.0 Ur Specific [place] 1.020 Urine Protein Negative Urine Glucose (UA) >=1000 Urine Ketones Trace H Urine Blood Negative Urine Nitrate Negative Urine Bilirubin Negative Urine Urobilinogen 1.0 H Ur Leukocyte Esterase Negative Assessment & Plan - Assessment and Plan (Free Text) Assessment: 66 yr old woman with most likely Parkinsons Disease, who may improve with sinemet. PLan: 1. Sinemet 25/100 mg tid at 7 am, 12 noon, 4 pm. [address] Dr[address] dueñas
--- NOTE | 2017-11-02 15:53 | PCM.PYCHPN ---
Psychiatric Progress Note - Psychiatric Progress Note Patient seen today, length of contact: 30min Patient Chief Complaint: "I feel much better" Problems Identified/Issues Discussed: Suicide/ homicide prevention, past psychiatric h/o, current psychiatric symptoms , medical problems, risk/benefits and alternatives of medications, medications compliance, coping strategies, substance abuse h/o, relapse prevention, importance of follow up with psychiatrist and therapist, discharge plan. Medical Problems: Parkinson's disease? diabetes pt was dx Parkinsons Diagnostic Results: 10/19/17 23:16 10/20/17 21:53 Lab Results 10/22/17 16:03: POC Glucose (mg/dL) 224 H 10/22/17 12:44: POC Glucose (mg/dL) 155 H 10/22/17 07:42: POC Glucose (mg/dL) 182 H 10/21/17 21:49: POC Glucose (mg/dL) 247 H 10/21/17 16:41: POC Glucose (mg/dL) 300 H 10/21/17 11:05: POC Glucose (mg/dL) 309 H 10/21/17 07:20: POC Glucose (mg/dL) 251 H 10/21/17 02:07: POC Glucose (mg/dL) 270 H 10/21/17 00:02: POC Glucose (mg/dL) 357 H 10/20/17 21:53: Sodium 131 L, Potassium 5.1 H, Chloride 95 L, Carbon Dioxide 21 , Anion Gap 20, BUN 24 H, Creatinine 0.9, Est GFR ( Amer) > 60, Est GFR ( Non-Af Amer) > 60, Random Glucose 569 H* D, Calcium 9.6 10/20/17 21:11: POC Glucose (mg/dL) 420 H* 10/20/17 16:26: POC Glucose (mg/dL) 333 H 10/20/17 12:19: POC Glucose (mg/dL) 260 H 10/20/17 08:30: Urine Opiates Screen Negative, Urine Methadone Screen Negative, Ur Barbiturates Screen Negative, Ur Phencyclidine Scrn Negative, Ur Amphetamines Screen Negative, U Benzodiazepines Scrn Negative, U Oth Cocaine Metabols Negative, U Cannabinoids Screen Negative 10/20/17 08:30: Urine Color Light yellow, Urine Appearance Clear, Urine pH 6.0, Ur Specific [place] 1.015, Urine Protein Negative, Urine Glucose (UA) >=1000, Urine Ketones Negative, Urine Blood Negative, Urine Nitrate Negative, Urine Bilirubin Negative, Urine Urobilinogen 0.2, Ur Leukocyte Esterase Negative 10/20/17 07:42: POC Glucose (mg/dL) 249 H 10/20/17 03:37: POC Glucose (mg/dL) 223 H 10/19/17 23:16: Alcohol, Quantitative < 10 10/19/17 23:16: Salicylates < 1 L, Acetaminophen < 10.0 L 10/19/17 23:16: Sodium 131 L, Potassium 4.6, Chloride 93 L, Carbon Dioxide 25, Anion Gap 17, BUN 17, Creatinine 0.7, Est GFR ( Amer) > 60, Est GFR (Non- Af Amer) > 60, Random Glucose 444 H* D, Calcium 9.1, Magnesium 2.0, Total Bilirubin 0.9, AST 18, ALT 20, Alkaline Phosphatase 72, Total Protein 7.2, Albumin 3.8, Globulin 3.4, Albumin/Globulin Ratio 1.1 10/19/17 23:16: WBC 7.7, RBC 4.44, Hgb 12.9, Hct 36.3, MCV 81.8, MCH 29.1, MCHC 35.5, RDW 13.5, Plt Count 331, MPV 10.1, Gran % 60.8, Lymph % (Auto) 32.4, [place] % (Auto) 6.1 H, Eos % (Auto) 0.4 L, Baso % (Auto) 0.3, Gran # 4.71, Lymph # ( Auto) 2.5, [place] # (Auto) 0.5, Eos # (Auto) 0.0, Baso # (Auto) 0.02 Vital Signs Temp Pulse Resp BP Pulse Ox 10/22/17 16:22 135 H 127/80 10/22/17 06:46 97.5 F L 90 20 132/92 H 10/21/17 16:30 115 H 127/86 10/21/17 07:23 97.8 F 110 H 19 131/82 10/20/17 16:30 110 H 138/96 H 10/20/17 12:25 98 F 85 19 125/82 98 10/20/17 09:38 98 F 85 19 123/65 99 10/20/17 07:24 99.1 F 75 20 120/72 98 10/20/17 05:23 82 16 121/74 99 10/20/17 03:23 88 16 124/78 99 10/20/17 01:23 82 16 126/76 100 10/19/17 23:23 86 18 136/74 99 10/19/17 21:23 99.1 F 98 H 18 129/78 97 Laboratory Results - last 24 hr 10/28/17 10/29/17 10/29/17 21:25 07:13 08:47 POC Glucose (mg/dL) 248 H 132 H 131 H 10/29/17 14:00 POC Glucose (mg/dL) 101 Temp Pulse Resp BP Pulse Ox 97.2 F L 84 17 100/65 98 10/29/17 13:30 10/29/17 13:30 10/29/17 13:30 10/29/17 13:30 10/20/17 12:25 Temp Pulse Resp BP Pulse Ox 97.8 F 92 H 18 95/63 L 98 10/30/17 07:18 10/30/17 07:18 10/30/17 07:18 10/30/17 07:18 10/20/17 12:25 Temp Pulse Resp BP Pulse Ox 99.2 F 93 H 20 88/55 L 98 10/31/17 07:24 10/31/17 07:24 10/31/17 07:24 10/31/17 07:24 10/20/17 12:25 DSM 5 Symptoms Update: Patient is a 66 year old single female with history of one prior admission to [facility] in July 2017 where she was given the diagnosis of 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 pt was dx with Parkinson's.Sinement was started. patient was seen at the treatment team meeting room for a family meeting with pt 's sister, SW, this automobile service writer and pt herself. pt and sister were educated about neurological assessment and pt was dx with Parkinson's disease and was stared on Sinemet pt and sister were educated that pt needs to continue meds, see psychiatrist and neurologist in the community pt and sister were educated about ECT in the future sister said that pt is "much better, I am confident that she will be okay". trip to [place] was canceled. Pt's gait little better, but pt still ambulates with unsteady gait. will observe pt because of possible worsening of psychosis on Sinemet. As per nursing report patient has good appetite, and eats well. so far patient tolerates medications well, no side effects observed or reported , aims 0, no EPS. Impression: r/o schizophrenia Medication Change: No Medical Record Reviewed: Yes Consults ordered or reviewed: medical consult appreciated nephrology consult appreciated neurology consult appreciated Mental Status Examination - Cognitive Function Orientation: Person Memory: Impaired Attention: Poor (some improvement) Concentration: Poor (some improvement) Association: Loose Fund of Knowledge: Poor - Mood Mood: Depressed, Anxious - Affect Affect: Constricted (but more reactive) - Speech Speech: Soft - Formal Thought Process Formal Thought Process: Hallucinations (denied today), Loosening of associations - Suicidal Ideation Suicidal Ideation: No - Homicidal Ideation Homicidal Ideation: No Goal/Treatment Plan - Goal/Treatment Plan Need for Continued Stay: Remain at risks for inpatient hospitalization, Severe depression anxiety, Discharge may exacerbated symptoms, Failed transitioning, Severe functional impairment Progress Toward Problem(s) and Goals/Treatment Plan: Milieu/structure/supportive therapy Medical consult appreciated, see medical team note for more detailed info SW consultation for discharge plan and social issues Med management prozac 40mg po daily for depression and anxiety seroquel 200mg po hs for psychosis ativan 3mg po bid and 3mg hs for catatonia nephrology consult was called neurology consult was called, pt was dx Parkinson's disease Family involvement Follow up on labs Will monitor closely Pt was educated about risk/benefits and alternatives of medications, coping strategies (safety plan, suicide prevention), relapse prevention, importance of follow up with psychiatrist and therapist, stay away from drugs/alcohol/smoking Estimated Date of D/C: 11/06/17
[2017-11-02] MEDS: Insulin Detemir 100 units/ml Vial (Levemir) SC SCH (21:31)
--- NOTE | 2017-11-02 21:40 | PN ---
DATE: 11/02/2017 SUBJECTIVE: The patient is a 66-year-old, seems to be doing well, more interactive. Able to answer simple questions. Eating and tolerating. PHYSICAL EXAMINATION: VITAL SIGNS: The patient is afebrile, pulse 65, respirations 18, blood pressure 115/79. LUNGS: Bilateral fair airflow. No rhonchi or crackle. HEART: S1 and S2 audible. No murmur. ABDOMEN: Soft. Nontender. No rebound. No guarding. NEUROLOGICAL: The patient is awake, alert, oriented, able to communicate. LABORATORY DATA: WBC is 8, hemoglobin 14, hematocrit 41.5, platelets 345. Blood sugar is 240. ASSESSMENT: 1. Bipolar disorder with history of schizophrenia. 2. Fuz-urglyhp-cdmhxwnuy diabetes. 3. History of cerebrovascular accident, on anticoagulant. PLAN: Currently, the patient is on metformin 500 twice a day. She is on Januvia 100 daily. She is on Levemir 25 at bedtime, and she is on fluocinonide for her facial lesion. We will continue all other medications. Psych medication is being adjusted by psychiatrist. Jayla Coley MD
[2017-11-03] MEDS: POLYETHYLENE GLYCOL 3350 17 GM/Dose PACKET PO SCH (10:04)
--- NOTE | 2017-11-03 10:47 | PCM.PYCHPN ---
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 Patient was ultimately admitted to the psychiatric unit due to recurrence of catatonic behaviors. I reviewed recent notes and met with patient at bedside. Patient understands Gambian however a staff member, Emma assisted me with Solomon Islander translation to optimize communication to optimize communication. Patient has a superficial understanding about the circumstances of this hospitalization and has been improving a little on the unit. She is more responsive and speech is more spontaneous though still reduced in content. Her focus and engagement are better. Reactivity shows a little improvement. There also appears to be some improvement in receptive comprehension and expression in Gambian. She is socializing more with Solomon Islander-speaking individuals Patient denies any new discomfort, pain or side effects. Patient denies perceptual disturbance though her thought process is still disorganized. She cannot provide correct month or year. Regarding location, patient indicates that she is "downstairs". Staff notes indicate that patient has been visible on the unit and smiling a little more. She is interacting a little more and went to group. There were no behavioral issues overnight. Diagnostic Results: r/o schizoaffective disorder Medication Change: No Medical Record Reviewed: Yes Mental Status Examination - Cognitive Function Orientation: Person Memory: Impaired Attention: Poor (some improvement) Concentration: Poor (some improvement) Association: Loose Fund of Knowledge: Poor - Mood Mood: Depressed, Anxious - Affect Affect: Constricted (but more reactive) - Speech Speech: Soft - Formal Thought Process Formal Thought Process: Hallucinations (denied today), Loosening of associations - Suicidal Ideation Suicidal Ideation: No - Homicidal Ideation Homicidal Ideation: No Goal/Treatment Plan - Goal/Treatment Plan Need for Continued Stay: Remain at risks for inpatient hospitalization, Severe depression anxiety, Discharge may exacerbated symptoms, Failed transitioning, Severe functional impairment Progress Toward Problem(s) and Goals/Treatment Plan: * c/w current tx and plan * c/w Ativan * c/w Prozac 40 mg po AM * c/w Seroquel 200 mg HS * No new weekend labs thus far * Vitals reviewed and noted below: Selected Entries 11/02/17 11/02/17 11/02/17 07:32 11:25 16:50 Temperature 99.0 F 97.3 F L Pulse Rate 82 82 65 Respiratory 20 18 Rate Blood Pressure 94/62 L 94/62 L 115/79 Estimated Date of D/C: 11/06/17
--- NOTE | 2017-11-03 12:21 | PN ---
DATE: 11/03/2017 SUBJECTIVE: The patient is 66 years old, doing well, more interactive, still gets into catatonic status once in a while. Oral intake is well. PHYSICAL EXAMINATION: VITAL SIGNS: She is afebrile, pulse 95, respirations 18, blood pressure 102/67. LUNGS: Bilateral fair airflow. No rhonchi or crackle. HEART: S1 and S2 audible. ABDOMEN: Soft. Nontender. No rebound. No guarding. NEUROLOGIC: She is awake, alert, oriented, able to communicate. LABORATORY EXAM: Blood sugar is 276. ASSESSMENT: 1. History of schizophrenia. 2. Bipolar disorder. 3. History of depression. 4. History of cerebrovascular disease. 5. Hypertension. 6. Nsr-owbrdng-fomdicvgm diabetes. PLAN: Currently, the patient is on glimepiride. She is on metformin and Januvia. She is getting Levemir, I will increase it by 30 units. Monitor her blood sugar. Encourage ambulation. Psych medications per psychiatrist. We will follow up with you. Jayla Coley MD
[2017-11-03] MEDS: Insulin Detemir 100 units/ml Vial (Levemir) SC SCH (21:45)
[2017-11-04] MEDS: POLYETHYLENE GLYCOL 3350 17 GM/Dose PACKET PO SCH (08:39)
--- NOTE | 2017-11-04 10:25 | PCM.PYCHPN ---
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 Patient was ultimately admitted to the psychiatric unit due to recurrence of catatonic behaviors. I reviewed recent notes and met with patient at bedside. Patient understands Micronesian however a staff member, Emma assisted me with Tajik translation again to optimize communication. Patient still demonstrates only a superficial understanding about the circumstances of this hospitalization. There has been some improvement, she is more responsive and speech is more spontaneous though reduced in content. Her focus and engagement are better with greater reactivity. There also appears to be some improvement in receptive comprehension and expression in Micronesian. She is socializing more with Tajik-speaking individuals Patient denies any new discomfort, pain or side effects. Patient denies perceptual disturbance though her thought process is still disorganized. She cannot provide correct month or year, reported it was September 1984. Patient is aware of being in a hospital. Staff notes indicate that patient has been visible on the unit and smiling a little more. She is interacting a little more and went to group. There were no behavioral issues overnight. Diagnostic Results: r/o schizoaffective disorder Medication Change: No Medical Record Reviewed: Yes Mental Status Examination - Cognitive Function Orientation: Person Memory: Impaired Attention: Poor (some improvement) Concentration: Poor (some improvement) Association: Loose Fund of Knowledge: Poor - Mood Mood: Depressed, Anxious - Affect Affect: Constricted (but more reactive), Flat - Speech Speech: Soft - Formal Thought Process Formal Thought Process: Hallucinations (denied all weekend), Loosening of associations - Suicidal Ideation Suicidal Ideation: No - Homicidal Ideation Homicidal Ideation: No Goal/Treatment Plan - Goal/Treatment Plan Need for Continued Stay: Remain at risks for inpatient hospitalization, Severe depression anxiety, Discharge may exacerbated symptoms, Failed transitioning, Severe functional impairment Progress Toward Problem(s) and Goals/Treatment Plan: * c/w current tx and plan * Appreciate f/u by Dr. Coley on 11/03/17~will continue to follow, no new recommendations * c/w Ativan * c/w Prozac 40 mg po AM * c/w Seroquel 200 mg HS * No new weekend labs * Vitals reviewed and noted below: Selected Entries 11/03/17 11/03/17 11/03/17 07:30 10:00 10:02 Temperature 98.5 F Pulse Rate 95 H 93 H 93 H Respiratory 18 Rate Blood Pressure 91/49 L 102/67 102/67 11/03/17 16:30 Temperature Pulse Rate 80 Respiratory Rate Blood Pressure 111/72 Estimated Date of D/C: 11/06/17
[2017-11-04] MEDS: Insulin Detemir 100 units/ml Vial (Levemir) SC SCH (22:16)
[2017-11-05] MEDS: POLYETHYLENE GLYCOL 3350 17 GM/Dose PACKET PO SCH (09:11)
--- NOTE | 2017-11-05 17:25 | PCM.PYCHPN ---
Psychiatric Progress Note - Psychiatric Progress Note Patient seen today, length of contact: 30 min Patient Chief Complaint: "I am not that good" Problems Identified/Issues Discussed: Suicide/ homicide prevention, past psychiatric h/o, current psychiatric symptoms , medical problems, risk/benefits and alternatives of medications, medications compliance, coping strategies, substance abuse h/o, relapse prevention, importance of follow up with psychiatrist and therapist, discharge plan. Medical Problems: Parkinson's disease? diabetes pt was dx Parkinsons Diagnostic Results: 10/19/17 23:16 10/20/17 21:53 Lab Results 10/22/17 16:03: POC Glucose (mg/dL) 224 H 10/22/17 12:44: POC Glucose (mg/dL) 155 H 10/22/17 07:42: POC Glucose (mg/dL) 182 H 10/21/17 21:49: POC Glucose (mg/dL) 247 H 10/21/17 16:41: POC Glucose (mg/dL) 300 H 10/21/17 11:05: POC Glucose (mg/dL) 309 H 10/21/17 07:20: POC Glucose (mg/dL) 251 H 10/21/17 02:07: POC Glucose (mg/dL) 270 H 10/21/17 00:02: POC Glucose (mg/dL) 357 H 10/20/17 21:53: Sodium 131 L, Potassium 5.1 H, Chloride 95 L, Carbon Dioxide 21 , Anion Gap 20, BUN 24 H, Creatinine 0.9, Est GFR ( Amer) > 60, Est GFR ( Non-Af Amer) > 60, Random Glucose 569 H* D, Calcium 9.6 10/20/17 21:11: POC Glucose (mg/dL) 420 H* 10/20/17 16:26: POC Glucose (mg/dL) 333 H 10/20/17 12:19: POC Glucose (mg/dL) 260 H 10/20/17 08:30: Urine Opiates Screen Negative, Urine Methadone Screen Negative, Ur Barbiturates Screen Negative, Ur Phencyclidine Scrn Negative, Ur Amphetamines Screen Negative, U Benzodiazepines Scrn Negative, U Oth Cocaine Metabols Negative, U Cannabinoids Screen Negative 10/20/17 08:30: Urine Color Light yellow, Urine Appearance Clear, Urine pH 6.0, Ur Specific [place] 1.015, Urine Protein Negative, Urine Glucose (UA) >=1000, Urine Ketones Negative, Urine Blood Negative, Urine Nitrate Negative, Urine Bilirubin Negative, Urine Urobilinogen 0.2, Ur Leukocyte Esterase Negative 10/20/17 07:42: POC Glucose (mg/dL) 249 H 10/20/17 03:37: POC Glucose (mg/dL) 223 H 10/19/17 23:16: Alcohol, Quantitative < 10 10/19/17 23:16: Salicylates < 1 L, Acetaminophen < 10.0 L 10/19/17 23:16: Sodium 131 L, Potassium 4.6, Chloride 93 L, Carbon Dioxide 25, Anion Gap 17, BUN 17, Creatinine 0.7, Est GFR ( Amer) > 60, Est GFR (Non- Af Amer) > 60, Random Glucose 444 H* D, Calcium 9.1, Magnesium 2.0, Total Bilirubin 0.9, AST 18, ALT 20, Alkaline Phosphatase 72, Total Protein 7.2, Albumin 3.8, Globulin 3.4, Albumin/Globulin Ratio 1.1 10/19/17 23:16: WBC 7.7, RBC 4.44, Hgb 12.9, Hct 36.3, MCV 81.8, MCH 29.1, MCHC 35.5, RDW 13.5, Plt Count 331, MPV 10.1, Gran % 60.8, Lymph % (Auto) 32.4, [place] % (Auto) 6.1 H, Eos % (Auto) 0.4 L, Baso % (Auto) 0.3, Gran # 4.71, Lymph # ( Auto) 2.5, [place] # (Auto) 0.5, Eos # (Auto) 0.0, Baso # (Auto) 0.02 Vital Signs Temp Pulse Resp BP Pulse Ox 10/22/17 16:22 135 H 127/80 10/22/17 06:46 97.5 F L 90 20 132/92 H 10/21/17 16:30 115 H 127/86 10/21/17 07:23 97.8 F 110 H 19 131/82 10/20/17 16:30 110 H 138/96 H 10/20/17 12:25 98 F 85 19 125/82 98 10/20/17 09:38 98 F 85 19 123/65 99 10/20/17 07:24 99.1 F 75 20 120/72 98 10/20/17 05:23 82 16 121/74 99 10/20/17 03:23 88 16 124/78 99 10/20/17 01:23 82 16 126/76 100 10/19/17 23:23 86 18 136/74 99 10/19/17 21:23 99.1 F 98 H 18 129/78 97 Laboratory Results - last 24 hr 10/28/17 10/29/17 10/29/17 21:25 07:13 08:47 POC Glucose (mg/dL) 248 H 132 H 131 H 10/29/17 14:00 POC Glucose (mg/dL) 101 Temp Pulse Resp BP Pulse Ox 97.2 F L 84 17 100/65 98 10/29/17 13:30 10/29/17 13:30 10/29/17 13:30 10/29/17 13:30 10/20/17 12:25 Temp Pulse Resp BP Pulse Ox 97.8 F 92 H 18 95/63 L 98 10/30/17 07:18 10/30/17 07:18 10/30/17 07:18 10/30/17 07:18 10/20/17 12:25 Temp Pulse Resp BP Pulse Ox 99.2 F 93 H 20 88/55 L 98 10/31/17 07:24 10/31/17 07:24 10/31/17 07:24 10/31/17 07:24 10/20/17 12:25 Temp Pulse Resp BP Pulse Ox 97.4 F L 96 H 18 103/71 98 11/04/17 07:19 11/04/17 15:00 11/04/17 07:19 11/04/17 15:00 10/20/17 12:25 DSM 5 Symptoms Update: Patient is a 66 year old single female with history of one prior admission to [facility] in July 2017 where she was given the diagnosis of Schizophrenia spectrum disorder with psychotic disorder type NOS as well as 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 pt still has unsteady gait, was walking with assistance of 1:1. pt said she feels "not that great today". will observe pt because of possible worsening of psychosis on Sinemet. As per nursing report patient has good appetite, and eats well. so far patient tolerates medications well, no side effects observed or reported , aims 0, no EPS. Impression: r/o schizophrenia Medication Change: Yes (sinemet was started) Medical Record Reviewed: Yes Mental Status Examination - Cognitive Function Orientation: Person Memory: Impaired Attention: Poor (some improvement) Concentration: Poor (some improvement) Association: Loose Fund of Knowledge: Poor - Mood Mood: Depressed, Anxious - Affect Affect: Constricted (but more reactive), Flat - Speech Speech: Soft - Formal Thought Process Formal Thought Process: Hallucinations (denied all weekend), Loosening of associations - Suicidal Ideation Suicidal Ideation: No - Homicidal Ideation Homicidal Ideation: No Goal/Treatment Plan - Goal/Treatment Plan Need for Continued Stay: Remain at risks for inpatient hospitalization, Severe depression anxiety, Discharge may exacerbated symptoms, Failed transitioning, Severe functional impairment Progress Toward Problem(s) and Goals/Treatment Plan: Milieu/structure/supportive therapy Medical consult appreciated, see medical team note for more detailed info SW consultation for discharge plan and social issues Med management prozac 40mg po daily for depression and anxiety seroquel 200mg po hs for psychosis ativan 3mg po bid and 3mg hs for catatonia nephrology consult was called neurology consult was called, pt was dx Parkinson's disease, sinemet was started Family involvement Follow up on labs Will monitor closely Pt was educated about risk/benefits and alternatives of medications, coping strategies (safety plan, suicide prevention), relapse prevention, importance of follow up with psychiatrist and therapist, stay away from drugs/alcohol/smoking Estimated Date of D/C: 11/09/17
[2017-11-05] MEDS: Insulin Detemir 100 units/ml Vial (Levemir) SC SCH (21:43)
--- NOTE | 2017-11-06 01:42 | PN ---
DATE: 11/05/2017 SUBJECTIVE: The patient is 67-year-old, seems to be participating more in activity, seems to be more interactive. Eating fair. PHYSICAL EXAMINATION: VITAL SIGNS: She is afebrile, pulse 65, respirations 18, blood pressure 105/77. LUNGS: Bilateral fair airflow. No rhonchi or crackle. HEART: S1 and S2 audible. ABDOMEN: Soft, nontender. No rebound. No guarding. NEUROLOGICAL: She is awake and alert. Able to communicate. She does not talk much and goes into that catatonic state and stares at you if you ask questions. LABORATORY DATA: Blood sugar was 42 this morning and later on was 69 after she was given juice. ASSESSMENT: 1. Owu-wheravw-tqegufsya diabetes. 2. History of hypertension. 3. History of cerebrovascular accident. 4. History of schizophrenia. PLAN: We will continue patient on current medications. Her blood sugar seemed to drop today. I will discuss with the nurses, probably her poor oral intake . Jayla Coley MD
[2017-11-06] MEDS: POLYETHYLENE GLYCOL 3350 17 GM/Dose PACKET PO SCH (09:38)
--- NOTE | 2017-11-06 13:11 | PN ---
DATE: 11/06/2017 SUBJECTIVE: Patient is 66 years old, seen and examined, seems to be more interactive. Eating and tolerating, ambulating. PHYSICAL EXAMINATION: GENERAL: She is afebrile, pulse 70, respirations 20, blood pressure 106/61. LUNGS: Bilateral fair airflow. No rhonchi or crackle. HEART: S1 and S2 audible. ABDOMEN: Soft, nontender. No rebound, no guarding. NEUROLOGICAL: Patient is awake, alert, oriented, communicative, although she has blank stare at times, but has improved a lot since admission. ASSESSMENT AND PLAN: 1. History of anxiety. 2. History of schizophrenia. 3. Insulin-dependent diabetes. 4. History of cerebrovascular accident. 5. History of constipation. PLAN: Patient is currently comfortable from medical point of view. Continue current medications. We will follow up with you. Jayla Coley MD
--- NOTE | 2017-11-06 15:48 | PCM.PYCHPN ---
Psychiatric Progress Note - Psychiatric Progress Note Patient seen today, length of contact: 30 min Patient Chief Complaint: "I feel better today" Problems Identified/Issues Discussed: Suicide/ homicide prevention, past psychiatric h/o, current psychiatric symptoms , medical problems, risk/benefits and alternatives of medications, medications compliance, coping strategies, substance abuse h/o, relapse prevention, importance of follow up with psychiatrist and therapist, discharge plan. Medical Problems: Parkinson's disease? diabetes pt was dx Parkinsons Diagnostic Results: 10/19/17 23:16 10/20/17 21:53 Lab Results 10/22/17 16:03: POC Glucose (mg/dL) 224 H 10/22/17 12:44: POC Glucose (mg/dL) 155 H 10/22/17 07:42: POC Glucose (mg/dL) 182 H 10/21/17 21:49: POC Glucose (mg/dL) 247 H 10/21/17 16:41: POC Glucose (mg/dL) 300 H 10/21/17 11:05: POC Glucose (mg/dL) 309 H 10/21/17 07:20: POC Glucose (mg/dL) 251 H 10/21/17 02:07: POC Glucose (mg/dL) 270 H 10/21/17 00:02: POC Glucose (mg/dL) 357 H 10/20/17 21:53: Sodium 131 L, Potassium 5.1 H, Chloride 95 L, Carbon Dioxide 21 , Anion Gap 20, BUN 24 H, Creatinine 0.9, Est GFR ( Amer) > 60, Est GFR ( Non-Af Amer) > 60, Random Glucose 569 H* D, Calcium 9.6 10/20/17 21:11: POC Glucose (mg/dL) 420 H* 10/20/17 16:26: POC Glucose (mg/dL) 333 H 10/20/17 12:19: POC Glucose (mg/dL) 260 H 10/20/17 08:30: Urine Opiates Screen Negative, Urine Methadone Screen Negative, Ur Barbiturates Screen Negative, Ur Phencyclidine Scrn Negative, Ur Amphetamines Screen Negative, U Benzodiazepines Scrn Negative, U Oth Cocaine Metabols Negative, U Cannabinoids Screen Negative 10/20/17 08:30: Urine Color Light yellow, Urine Appearance Clear, Urine pH 6.0, Ur Specific [place] 1.015, Urine Protein Negative, Urine Glucose (UA) >=1000, Urine Ketones Negative, Urine Blood Negative, Urine Nitrate Negative, Urine Bilirubin Negative, Urine Urobilinogen 0.2, Ur Leukocyte Esterase Negative 10/20/17 07:42: POC Glucose (mg/dL) 249 H 10/20/17 03:37: POC Glucose (mg/dL) 223 H 10/19/17 23:16: Alcohol, Quantitative < 10 10/19/17 23:16: Salicylates < 1 L, Acetaminophen < 10.0 L 10/19/17 23:16: Sodium 131 L, Potassium 4.6, Chloride 93 L, Carbon Dioxide 25, Anion Gap 17, BUN 17, Creatinine 0.7, Est GFR ( Amer) > 60, Est GFR (Non- Af Amer) > 60, Random Glucose 444 H* D, Calcium 9.1, Magnesium 2.0, Total Bilirubin 0.9, AST 18, ALT 20, Alkaline Phosphatase 72, Total Protein 7.2, Albumin 3.8, Globulin 3.4, Albumin/Globulin Ratio 1.1 10/19/17 23:16: WBC 7.7, RBC 4.44, Hgb 12.9, Hct 36.3, MCV 81.8, MCH 29.1, MCHC 35.5, RDW 13.5, Plt Count 331, MPV 10.1, Gran % 60.8, Lymph % (Auto) 32.4, [place] % (Auto) 6.1 H, Eos % (Auto) 0.4 L, Baso % (Auto) 0.3, Gran # 4.71, Lymph # ( Auto) 2.5, [place] # (Auto) 0.5, Eos # (Auto) 0.0, Baso # (Auto) 0.02 Vital Signs Temp Pulse Resp BP Pulse Ox 10/22/17 16:22 135 H 127/80 10/22/17 06:46 97.5 F L 90 20 132/92 H 10/21/17 16:30 115 H 127/86 10/21/17 07:23 97.8 F 110 H 19 131/82 10/20/17 16:30 110 H 138/96 H 10/20/17 12:25 98 F 85 19 125/82 98 10/20/17 09:38 98 F 85 19 123/65 99 10/20/17 07:24 99.1 F 75 20 120/72 98 10/20/17 05:23 82 16 121/74 99 10/20/17 03:23 88 16 124/78 99 10/20/17 01:23 82 16 126/76 100 10/19/17 23:23 86 18 136/74 99 10/19/17 21:23 99.1 F 98 H 18 129/78 97 Laboratory Results - last 24 hr 10/28/17 10/29/17 10/29/17 21:25 07:13 08:47 POC Glucose (mg/dL) 248 H 132 H 131 H 10/29/17 14:00 POC Glucose (mg/dL) 101 Temp Pulse Resp BP Pulse Ox 97.2 F L 84 17 100/65 98 10/29/17 13:30 10/29/17 13:30 10/29/17 13:30 10/29/17 13:30 10/20/17 12:25 Temp Pulse Resp BP Pulse Ox 97.8 F 92 H 18 95/63 L 98 10/30/17 07:18 10/30/17 07:18 10/30/17 07:18 10/30/17 07:18 10/20/17 12:25 Temp Pulse Resp BP Pulse Ox 99.2 F 93 H 20 88/55 L 98 10/31/17 07:24 10/31/17 07:24 10/31/17 07:24 10/31/17 07:24 10/20/17 12:25 Temp Pulse Resp BP Pulse Ox 97.4 F L 96 H 18 103/71 98 11/04/17 07:19 11/04/17 15:00 11/04/17 07:19 11/04/17 15:00 10/20/17 12:25 DSM 5 Symptoms Update: Patient is a 66 year old single female with history of one prior admission to [facility] in July 2017 where she was given the diagnosis of Schizophrenia spectrum disorder with psychotic disorder type NOS as well as 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 Sinemet was started 11/05/17, tolerated well, more reactive, pt was ambulating with more steady gait. as per , will f/u on the pt and give advise about increasing meds. will call for f/u. pt appeared brighter, less depressed, more talkative. As per nursing report patient has good appetite, and eats well. so far patient tolerates medications well, no side effects observed or reported , aims 0, no EPS. Impression: r/o schizophrenia Medication Change: Yes (sinemet was started) Medical Record Reviewed: Yes Mental Status Examination - Cognitive Function Orientation: Person Memory: Impaired Attention: Poor (some improvement) Concentration: Poor (some improvement) Association: Loose Fund of Knowledge: Poor - Mood Mood: Depressed, Anxious - Affect Affect: Constricted (but more reactive), Flat - Speech Speech: Soft - Formal Thought Process Formal Thought Process: Hallucinations (denied all weekend), Loosening of associations - Suicidal Ideation Suicidal Ideation: No - Homicidal Ideation Homicidal Ideation: No Goal/Treatment Plan - Goal/Treatment Plan Need for Continued Stay: Remain at risks for inpatient hospitalization, Severe depression anxiety, Discharge may exacerbated symptoms, Failed transitioning, Severe functional impairment Progress Toward Problem(s) and Goals/Treatment Plan: Milieu/structure/supportive therapy Medical consult appreciated, see medical team note for more detailed info SW consultation for discharge plan and social issues Med management prozac 40mg po daily for depression and anxiety seroquel 200mg po hs for psychosis ativan 3mg po bid and 3mg hs for catatonia nephrology consult appreciated pt was dx Parkinson's disease, sinemet was started Family involvement Follow up on labs Will monitor closely Pt was educated about risk/benefits and alternatives of medications, coping strategies (safety plan, suicide prevention), relapse prevention, importance of follow up with psychiatrist and therapist, stay away from drugs/alcohol/smoking Estimated Date of D/C: 11/09/17
[2017-11-06] MEDS: Insulin Detemir 100 units/ml Vial (Levemir) SC SCH (21:43)
[2017-11-07] MEDS: POLYETHYLENE GLYCOL 3350 17 GM/Dose PACKET PO SCH (08:19)
--- NOTE | 2017-11-07 15:20 | PCM.PYCHPN ---
Psychiatric Progress Note - Psychiatric Progress Note Patient seen today, length of contact: 30 min Patient Chief Complaint: "I feel better but voices are bothering me..." Problems Identified/Issues Discussed: Suicide/ homicide prevention, past psychiatric h/o, current psychiatric symptoms , medical problems, risk/benefits and alternatives of medications, medications compliance, coping strategies, substance abuse h/o, relapse prevention, importance of follow up with psychiatrist and therapist, discharge plan. Medical Problems: Parkinson's disease? diabetes pt was dx Parkinsons Diagnostic Results: 10/19/17 23:16 10/20/17 21:53 Lab Results 10/22/17 16:03: POC Glucose (mg/dL) 224 H 10/22/17 12:44: POC Glucose (mg/dL) 155 H 10/22/17 07:42: POC Glucose (mg/dL) 182 H 10/21/17 21:49: POC Glucose (mg/dL) 247 H 10/21/17 16:41: POC Glucose (mg/dL) 300 H 10/21/17 11:05: POC Glucose (mg/dL) 309 H 10/21/17 07:20: POC Glucose (mg/dL) 251 H 10/21/17 02:07: POC Glucose (mg/dL) 270 H 10/21/17 00:02: POC Glucose (mg/dL) 357 H 10/20/17 21:53: Sodium 131 L, Potassium 5.1 H, Chloride 95 L, Carbon Dioxide 21 , Anion Gap 20, BUN 24 H, Creatinine 0.9, Est GFR ( Amer) > 60, Est GFR ( Non-Af Amer) > 60, Random Glucose 569 H* D, Calcium 9.6 10/20/17 21:11: POC Glucose (mg/dL) 420 H* 10/20/17 16:26: POC Glucose (mg/dL) 333 H 10/20/17 12:19: POC Glucose (mg/dL) 260 H 10/20/17 08:30: Urine Opiates Screen Negative, Urine Methadone Screen Negative, Ur Barbiturates Screen Negative, Ur Phencyclidine Scrn Negative, Ur Amphetamines Screen Negative, U Benzodiazepines Scrn Negative, U Oth Cocaine Metabols Negative, U Cannabinoids Screen Negative 10/20/17 08:30: Urine Color Light yellow, Urine Appearance Clear, Urine pH 6.0, Ur Specific [place] 1.015, Urine Protein Negative, Urine Glucose (UA) >=1000, Urine Ketones Negative, Urine Blood Negative, Urine Nitrate Negative, Urine Bilirubin Negative, Urine Urobilinogen 0.2, Ur Leukocyte Esterase Negative 10/20/17 07:42: POC Glucose (mg/dL) 249 H 10/20/17 03:37: POC Glucose (mg/dL) 223 H 10/19/17 23:16: Alcohol, Quantitative < 10 10/19/17 23:16: Salicylates < 1 L, Acetaminophen < 10.0 L 10/19/17 23:16: Sodium 131 L, Potassium 4.6, Chloride 93 L, Carbon Dioxide 25, Anion Gap 17, BUN 17, Creatinine 0.7, Est GFR ( Amer) > 60, Est GFR (Non- Af Amer) > 60, Random Glucose 444 H* D, Calcium 9.1, Magnesium 2.0, Total Bilirubin 0.9, AST 18, ALT 20, Alkaline Phosphatase 72, Total Protein 7.2, Albumin 3.8, Globulin 3.4, Albumin/Globulin Ratio 1.1 10/19/17 23:16: WBC 7.7, RBC 4.44, Hgb 12.9, Hct 36.3, MCV 81.8, MCH 29.1, MCHC 35.5, RDW 13.5, Plt Count 331, MPV 10.1, Gran % 60.8, Lymph % (Auto) 32.4, [place] % (Auto) 6.1 H, Eos % (Auto) 0.4 L, Baso % (Auto) 0.3, Gran # 4.71, Lymph # ( Auto) 2.5, [place] # (Auto) 0.5, Eos # (Auto) 0.0, Baso # (Auto) 0.02 Vital Signs Temp Pulse Resp BP Pulse Ox 10/22/17 16:22 135 H 127/80 10/22/17 06:46 97.5 F L 90 20 132/92 H 10/21/17 16:30 115 H 127/86 10/21/17 07:23 97.8 F 110 H 19 131/82 10/20/17 16:30 110 H 138/96 H 10/20/17 12:25 98 F 85 19 125/82 98 10/20/17 09:38 98 F 85 19 123/65 99 10/20/17 07:24 99.1 F 75 20 120/72 98 10/20/17 05:23 82 16 121/74 99 10/20/17 03:23 88 16 124/78 99 10/20/17 01:23 82 16 126/76 100 10/19/17 23:23 86 18 136/74 99 10/19/17 21:23 99.1 F 98 H 18 129/78 97 Laboratory Results - last 24 hr 10/28/17 10/29/17 10/29/17 21:25 07:13 08:47 POC Glucose (mg/dL) 248 H 132 H 131 H 10/29/17 14:00 POC Glucose (mg/dL) 101 Temp Pulse Resp BP Pulse Ox 97.2 F L 84 17 100/65 98 10/29/17 13:30 10/29/17 13:30 10/29/17 13:30 10/29/17 13:30 10/20/17 12:25 Temp Pulse Resp BP Pulse Ox 97.8 F 92 H 18 95/63 L 98 10/30/17 07:18 10/30/17 07:18 10/30/17 07:18 10/30/17 07:18 10/20/17 12:25 Temp Pulse Resp BP Pulse Ox 99.2 F 93 H 20 88/55 L 98 10/31/17 07:24 10/31/17 07:24 10/31/17 07:24 10/31/17 07:24 10/20/17 12:25 Temp Pulse Resp BP Pulse Ox 97.4 F L 96 H 18 103/71 98 11/04/17 07:19 11/04/17 15:00 11/04/17 07:19 11/04/17 15:00 10/20/17 12:25 DSM 5 Symptoms Update: Patient is a 66 year old single female with history of one prior admission to [facility] in July 2017 where she was given the diagnosis of Schizophrenia spectrum disorder with psychotic disorder type NOS as well as 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 Sinemet was started 11/05/17, tolerated well, more reactive, pt was ambulating with more steady gait. was contacted by staff 11/06/17, by this clinical writer today 11/07/17, will f/u on the pt and give advise about increasing meds. pt appeared brighter, less depressed, more talkative, complaint of the voices. As per nursing report patient has good appetite, and eats well. so far patient tolerates medications well, no side effects observed or reported , aims 0, no EPS. Impression: r/o schizophrenia Medication Change: Yes (seroquel increased, ativan decreased) Medical Record Reviewed: Yes Mental Status Examination - Cognitive Function Orientation: Person Memory: Impaired Attention: Poor (some improvement) Concentration: Poor (some improvement) Association: Loose Fund of Knowledge: Poor - Mood Mood: Depressed, Anxious - Affect Affect: Constricted (but more reactive), Flat - Speech Speech: Soft - Formal Thought Process Formal Thought Process: Hallucinations ("voces are bothering me") - Suicidal Ideation Suicidal Ideation: No - Homicidal Ideation Homicidal Ideation: No Goal/Treatment Plan - Goal/Treatment Plan Need for Continued Stay: Remain at risks for inpatient hospitalization, Severe depression anxiety, Discharge may exacerbated symptoms, Failed transitioning, Severe functional impairment Progress Toward Problem(s) and Goals/Treatment Plan: Milieu/structure/supportive therapy Medical consult appreciated, see medical team note for more detailed info SW consultation for discharge plan and social issues Med management prozac 40mg po daily for depression and anxiety seroquel 250mg po hs for psychosis ativan 2mg po bid and 3mg hs for catatonia neurology consult appreciated pt was dx Parkinson's disease, sinemet was started requested f/u by neuro Family involvement Follow up on labs Will monitor closely Pt was educated about risk/benefits and alternatives of medications, coping strategies (safety plan, suicide prevention), relapse prevention, importance of follow up with psychiatrist and therapist, stay away from drugs/alcohol/smoking Estimated Date of D/C: 11/09/17
--- NOTE | 2017-11-07 16:27 | CP.PCM.PN ---
Subjective - Date & Time of Evaluation Date of Evaluation: 11/07/17 Time of Evaluation: 15:00 - Subjective Subjective: Mrs. Delvalle was seen and examined today while she sat in her wheelchair. She had no complaints. According to psychiatry, the patient has improved significantly with regard to her rigidity and gait, but she may be having increased hallucinations. We discussed a plan for increasing Seroquel at night and increasing frequency, but not dose of Sinemet. Objective - Vital Signs/Intake and Output Vital Signs (last 24 hours): Temp Pulse Resp BP Pulse Ox 97.9 F 78 20 152/84 H 98 11/07/17 07:00 11/07/17 08:21 11/07/17 07:00 11/07/17 08:21 10/20/17 12:25 - Medications Medications: Current Medications Atenolol (Tenormin) 25 mg PO DAILY [facility] Last Admin: 11/07/17 08:21 Dose: 25 mg Atorvastatin Calcium (Lipitor) 20 mg PO DAILY [facility] Last Admin: 11/07/17 08:24 Dose: 20 mg Carbidopa/Levodopa (Sinemet) 1 tab PO QID [facility] Fluocinonide (Lidex 0.05% Cream) 0 gm TOP BID [facility] Last Admin: 11/07/17 08:25 Dose: 1 applic Fluoxetine HCl (Prozac) 40 mg PO DAILY [facility] Last Admin: 11/07/17 08:23 Dose: 40 mg Glimepiride (Amaryl) 2 mg PO ACBD [facility] Last Admin: 11/07/17 08:24 Dose: 2 mg Insulin Detemir (Levemir) 30 unit SC HS [facility] Last Admin: 11/06/17 21:43 Dose: 30 u Lorazepam (Ativan) 3 mg PO HS [facility] PRN Reason: Protocol Last Admin: 11/06/17 21:42 Dose: 3 mg Lorazepam (Ativan) 2 mg PO BID [facility] PRN Reason: Protocol Metformin HCl (Glucophage) 500 mg PO BID [facility] Last Admin: 11/07/17 08:24 Dose: 500 mg Polyethylene Glycol (Miralax) 17 gm PO DAILY [facility] Last Admin: 11/07/17 08:19 Dose: 17 gm Quetiapine Fumarate (Seroquel) 250 mg PO HS [facility] PRN Reason: Protocol Rivaroxaban (Xarelto) 20 mg PO DAILY [facility] PRN Reason: Protocol Last Admin: 11/07/17 08:24 Dose: 20 mg Sitagliptin Phosphate (Januvia) 100 mg PO DAILY [facility] Last Admin: 11/07/17 08:23 Dose: 100 mg - Labs Labs: 10/25/17 16:15 11/05/17 07:48 - Neurological Exam Neurological Exam: Abnormal Gait, Altered, CN II-XII Intact, Reflexes Normal Neuro motor strength exam: Left Upper Extremity: 4, Right Upper Extremity: 4, Left Lower Extremity: 4, Right Lower Extremity: 4 Additional comments: Slight bradykinesia, but no cogwheeling or rigidity noted. Continues to have flat facies, but improved. Gait is shuffling, but able to stand up without much assistance. Assessment and Plan (1) Parkinsonism Assessment & Plan: Will increase frequency of Sinemet to 4 times daily and follow for effect. Status: Acute
[2017-11-07] MEDS: Insulin Detemir 100 units/ml Vial (Levemir) SC SCH (21:07)
--- NOTE | 2017-11-08 00:19 | PN ---
DATE: 11/07/2017 SUBJECTIVE: The patient is 67 years old, who seems to be doing same, little more interactive. Has difficulty walking. Newly diagnosed with Parkinson disease, has been started on Sinemet. PHYSICAL EXAMINATION: VITAL SIGNS: She is afebrile, pulse 84, respirations 20, blood pressure 106/70. LUNGS: Bilateral fair airflow. No rhonchi or crackle. HEART: S1, S2 audible. ABDOMEN: Soft, nontender. No rebound. No guarding. NEUROLOGICAL: Patient is awake, alert, oriented, able to communicate, but still has movements of catatonia. LABORATORY EXAM: Blood sugar is 165 this morning and blood sugar has been elevated was 148, 126, 124. ASSESSMENT: 1. Newly diagnosed Parkinson disease. 2. History of schizophrenia. 3. Anxiety disorder. 4. Jwc-pjjijqv-wnmowmjck diabetes. 5. Hypertension. PLAN: Currently patient is on glimepiride, metformin 500 twice a day. She is on Januvia. Blood sugar seems to be running decent, we will continue that. Spoke to Dr. Stuart. Patient is currently on Xarelto because of her previous CVA, we will continue that and psych medication is being adjusted by psychiatrist. Jayla Coley MD
[2017-11-08] MEDS: POLYETHYLENE GLYCOL 3350 17 GM/Dose PACKET PO SCH (08:51)
--- NOTE | 2017-11-08 09:56 | CT ---
PROCEDURE: CT HEAD WITHOUT CONTRAST. HISTORY: R/O neurological deficit COMPARISON: None available. TECHNIQUE: Axial computed tomography images were obtained through the head/brain without intravenous contrast. Radiation dose: Total exam DLP = mGy-cm. This CT exam was performed using one or more of the following dose reduction techniques: Automated exposure control, adjustment of the mA and/or kV according to patient size, and/or use of iterative reconstruction technique. FINDINGS: HEMORRHAGE: No intracranial hemorrhage. BRAIN: No mass effect or edema. No atrophy or chronic microvascular ischemic changes. VENTRICLES: Unremarkable. No hydrocephalus. CALVARIUM: Unremarkable. PARANASAL SINUSES: Unremarkable as visualized. No significant inflammatory changes. MASTOID AIR CELLS: Unremarkable as visualized. No inflammatory changes. OTHER FINDINGS: None. IMPRESSION: Normal CT of the Head.
--- NOTE | 2017-11-08 14:21 | PN ---
DATE: 11/08/2017 SUBJECTIVE: The patient is 67 years old, sitting in chair, seems to be comfortable, able to communicate. As per caretakers, she ate fair. She walks with assistance. PHYSICAL EXAMINATION: VITAL SIGNS: She is afebrile, pulse 63, respirations 19, blood pressure 102/65. LUNGS: Bilateral fair airflow. No rhonchi or crackle. HEART: S1 and S2 audible. ABDOMEN: Soft. Nontender. No rebound. No guarding. NEUROLOGICAL: The patient is awake, alert, slow to respond, difficulty walking. LABORATORY EXAM: Her blood sugar this morning was 180. ASSESSMENT: 1. Newly diagnosed Parkinson's disease. 2. History of hypertension. 3. History of cerebrovascular accident. 4. Uhe-ertdmvh-nhgvxqzjw diabetes. PLAN: We will continue on current medical management. Psych medication is being adjusted by Psychiatry. Jayla Coley MD
--- NOTE | 2017-11-08 17:21 | PCM.PYCHPN ---
Psychiatric Progress Note - Psychiatric Progress Note Patient seen today, length of contact: 30 min Patient Chief Complaint: "I feel much better" Problems Identified/Issues Discussed: Suicide/ homicide prevention, past psychiatric h/o, current psychiatric symptoms , medical problems, risk/benefits and alternatives of medications, medications compliance, coping strategies, substance abuse h/o, relapse prevention, importance of follow up with psychiatrist and therapist, discharge plan. Medical Problems: Parkinson's disease? diabetes pt was dx Parkinsons Diagnostic Results: 10/19/17 23:16 10/20/17 21:53 Lab Results 10/22/17 16:03: POC Glucose (mg/dL) 224 H 10/22/17 12:44: POC Glucose (mg/dL) 155 H 10/22/17 07:42: POC Glucose (mg/dL) 182 H 10/21/17 21:49: POC Glucose (mg/dL) 247 H 10/21/17 16:41: POC Glucose (mg/dL) 300 H 10/21/17 11:05: POC Glucose (mg/dL) 309 H 10/21/17 07:20: POC Glucose (mg/dL) 251 H 10/21/17 02:07: POC Glucose (mg/dL) 270 H 10/21/17 00:02: POC Glucose (mg/dL) 357 H 10/20/17 21:53: Sodium 131 L, Potassium 5.1 H, Chloride 95 L, Carbon Dioxide 21 , Anion Gap 20, BUN 24 H, Creatinine 0.9, Est GFR ( Amer) > 60, Est GFR ( Non-Af Amer) > 60, Random Glucose 569 H* D, Calcium 9.6 10/20/17 21:11: POC Glucose (mg/dL) 420 H* 10/20/17 16:26: POC Glucose (mg/dL) 333 H 10/20/17 12:19: POC Glucose (mg/dL) 260 H 10/20/17 08:30: Urine Opiates Screen Negative, Urine Methadone Screen Negative, Ur Barbiturates Screen Negative, Ur Phencyclidine Scrn Negative, Ur Amphetamines Screen Negative, U Benzodiazepines Scrn Negative, U Oth Cocaine Metabols Negative, U Cannabinoids Screen Negative 10/20/17 08:30: Urine Color Light yellow, Urine Appearance Clear, Urine pH 6.0, Ur Specific [place] 1.015, Urine Protein Negative, Urine Glucose (UA) >=1000, Urine Ketones Negative, Urine Blood Negative, Urine Nitrate Negative, Urine Bilirubin Negative, Urine Urobilinogen 0.2, Ur Leukocyte Esterase Negative 10/20/17 07:42: POC Glucose (mg/dL) 249 H 10/20/17 03:37: POC Glucose (mg/dL) 223 H 10/19/17 23:16: Alcohol, Quantitative < 10 10/19/17 23:16: Salicylates < 1 L, Acetaminophen < 10.0 L 10/19/17 23:16: Sodium 131 L, Potassium 4.6, Chloride 93 L, Carbon Dioxide 25, Anion Gap 17, BUN 17, Creatinine 0.7, Est GFR ( Amer) > 60, Est GFR (Non- Af Amer) > 60, Random Glucose 444 H* D, Calcium 9.1, Magnesium 2.0, Total Bilirubin 0.9, AST 18, ALT 20, Alkaline Phosphatase 72, Total Protein 7.2, Albumin 3.8, Globulin 3.4, Albumin/Globulin Ratio 1.1 10/19/17 23:16: WBC 7.7, RBC 4.44, Hgb 12.9, Hct 36.3, MCV 81.8, MCH 29.1, MCHC 35.5, RDW 13.5, Plt Count 331, MPV 10.1, Gran % 60.8, Lymph % (Auto) 32.4, [place] % (Auto) 6.1 H, Eos % (Auto) 0.4 L, Baso % (Auto) 0.3, Gran # 4.71, Lymph # ( Auto) 2.5, [place] # (Auto) 0.5, Eos # (Auto) 0.0, Baso # (Auto) 0.02 Vital Signs Temp Pulse Resp BP Pulse Ox 10/22/17 16:22 135 H 127/80 10/22/17 06:46 97.5 F L 90 20 132/92 H 10/21/17 16:30 115 H 127/86 10/21/17 07:23 97.8 F 110 H 19 131/82 10/20/17 16:30 110 H 138/96 H 10/20/17 12:25 98 F 85 19 125/82 98 10/20/17 09:38 98 F 85 19 123/65 99 10/20/17 07:24 99.1 F 75 20 120/72 98 10/20/17 05:23 82 16 121/74 99 10/20/17 03:23 88 16 124/78 99 10/20/17 01:23 82 16 126/76 100 10/19/17 23:23 86 18 136/74 99 10/19/17 21:23 99.1 F 98 H 18 129/78 97 Laboratory Results - last 24 hr 10/28/17 10/29/17 10/29/17 21:25 07:13 08:47 POC Glucose (mg/dL) 248 H 132 H 131 H 10/29/17 14:00 POC Glucose (mg/dL) 101 Temp Pulse Resp BP Pulse Ox 97.2 F L 84 17 100/65 98 10/29/17 13:30 10/29/17 13:30 10/29/17 13:30 10/29/17 13:30 10/20/17 12:25 Temp Pulse Resp BP Pulse Ox 97.8 F 92 H 18 95/63 L 98 10/30/17 07:18 10/30/17 07:18 10/30/17 07:18 10/30/17 07:18 10/20/17 12:25 Temp Pulse Resp BP Pulse Ox 99.2 F 93 H 20 88/55 L 98 10/31/17 07:24 10/31/17 07:24 10/31/17 07:24 10/31/17 07:24 10/20/17 12:25 Temp Pulse Resp BP Pulse Ox 97.4 F L 96 H 18 103/71 98 11/04/17 07:19 11/04/17 15:00 11/04/17 07:19 11/04/17 15:00 10/20/17 12:25 DSM 5 Symptoms Update: Patient is a 66 year old single female with history of one prior admission to [facility] in July 2017 where she was given the diagnosis of 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 Sinemet was started 11/05/17, tolerated well, more reactive, pt was ambulating with more steady gait. was contacted by staff 11/06/17, by this tech writer had discussion 11/07/17, plan to increase sinemet in frequency pt appeared brighter, less depressed, more talkative, denied voices. pt was seen today, pt leaning to the right side. pt said she is feeling "much better". pt recommended PT home. As per nursing report patient has good appetite, and eats well. so far patient tolerates medications well, no side effects observed or reported , aims 0, no EPS. Impression: r/o schizophrenia Medication Change: Yes (seroquel increased, ativan decreased) Medical Record Reviewed: Yes Mental Status Examination - Cognitive Function Orientation: Person Memory: Impaired Attention: Poor (some improvement) Concentration: Poor (some improvement) Association: Loose Fund of Knowledge: Poor - Mood Mood: Depressed, Anxious - Affect Affect: Constricted (but more reactive), Flat - Speech Speech: Soft - Formal Thought Process Formal Thought Process: Hallucinations ("voces are bothering me") - Suicidal Ideation Suicidal Ideation: No - Homicidal Ideation Homicidal Ideation: No Goal/Treatment Plan - Goal/Treatment Plan Need for Continued Stay: Remain at risks for inpatient hospitalization, Severe depression anxiety, Discharge may exacerbated symptoms, Failed transitioning, Severe functional impairment Progress Toward Problem(s) and Goals/Treatment Plan: Milieu/structure/supportive therapy Medical consult appreciated, see medical team note for more detailed info SW consultation for discharge plan and social issues Med management prozac 40mg po daily for depression and anxiety seroquel 250mg po hs for psychosis ativan 2mg po bid and 2mg hs for catatonia neurology consult appreciated pt was dx Parkinson's disease, sinemet was started requested f/u by neuro Family involvement Follow up on labs Will monitor closely Pt was educated about risk/benefits and alternatives of medications, coping strategies (safety plan, suicide prevention), relapse prevention, importance of follow up with psychiatrist and therapist, stay away from drugs/alcohol/smoking Estimated Date of D/C: 11/09/17
[2017-11-08] MEDS: Insulin Detemir 100 units/ml Vial (Levemir) SC SCH (21:04)
[2017-11-09] MEDS: POLYETHYLENE GLYCOL 3350 17 GM/Dose PACKET PO SCH (08:30)
--- NOTE | 2017-11-09 14:30 | PCM.PYCHPN ---
Psychiatric Progress Note - Psychiatric Progress Note Patient seen today, length of contact: 30 min Patient Chief Complaint: "I feel much better" Problems Identified/Issues Discussed: Suicide/ homicide prevention, past psychiatric h/o, current psychiatric symptoms , medical problems, risk/benefits and alternatives of medications, medications compliance, coping strategies, substance abuse h/o, relapse prevention, importance of follow up with psychiatrist and therapist, discharge plan. Medical Problems: Parkinson's disease? diabetes pt was dx Parkinsons Diagnostic Results: 10/19/17 23:16 10/20/17 21:53 Lab Results 10/22/17 16:03: POC Glucose (mg/dL) 224 H 10/22/17 12:44: POC Glucose (mg/dL) 155 H 10/22/17 07:42: POC Glucose (mg/dL) 182 H 10/21/17 21:49: POC Glucose (mg/dL) 247 H 10/21/17 16:41: POC Glucose (mg/dL) 300 H 10/21/17 11:05: POC Glucose (mg/dL) 309 H 10/21/17 07:20: POC Glucose (mg/dL) 251 H 10/21/17 02:07: POC Glucose (mg/dL) 270 H 10/21/17 00:02: POC Glucose (mg/dL) 357 H 10/20/17 21:53: Sodium 131 L, Potassium 5.1 H, Chloride 95 L, Carbon Dioxide 21 , Anion Gap 20, BUN 24 H, Creatinine 0.9, Est GFR ( Amer) > 60, Est GFR ( Non-Af Amer) > 60, Random Glucose 569 H* D, Calcium 9.6 10/20/17 21:11: POC Glucose (mg/dL) 420 H* 10/20/17 16:26: POC Glucose (mg/dL) 333 H 10/20/17 12:19: POC Glucose (mg/dL) 260 H 10/20/17 08:30: Urine Opiates Screen Negative, Urine Methadone Screen Negative, Ur Barbiturates Screen Negative, Ur Phencyclidine Scrn Negative, Ur Amphetamines Screen Negative, U Benzodiazepines Scrn Negative, U Oth Cocaine Metabols Negative, U Cannabinoids Screen Negative 10/20/17 08:30: Urine Color Light yellow, Urine Appearance Clear, Urine pH 6.0, Ur Specific [place] 1.015, Urine Protein Negative, Urine Glucose (UA) >=1000, Urine Ketones Negative, Urine Blood Negative, Urine Nitrate Negative, Urine Bilirubin Negative, Urine Urobilinogen 0.2, Ur Leukocyte Esterase Negative 10/20/17 07:42: POC Glucose (mg/dL) 249 H 10/20/17 03:37: POC Glucose (mg/dL) 223 H 10/19/17 23:16: Alcohol, Quantitative < 10 10/19/17 23:16: Salicylates < 1 L, Acetaminophen < 10.0 L 10/19/17 23:16: Sodium 131 L, Potassium 4.6, Chloride 93 L, Carbon Dioxide 25, Anion Gap 17, BUN 17, Creatinine 0.7, Est GFR ( Amer) > 60, Est GFR (Non- Af Amer) > 60, Random Glucose 444 H* D, Calcium 9.1, Magnesium 2.0, Total Bilirubin 0.9, AST 18, ALT 20, Alkaline Phosphatase 72, Total Protein 7.2, Albumin 3.8, Globulin 3.4, Albumin/Globulin Ratio 1.1 10/19/17 23:16: WBC 7.7, RBC 4.44, Hgb 12.9, Hct 36.3, MCV 81.8, MCH 29.1, MCHC 35.5, RDW 13.5, Plt Count 331, MPV 10.1, Gran % 60.8, Lymph % (Auto) 32.4, [place] % (Auto) 6.1 H, Eos % (Auto) 0.4 L, Baso % (Auto) 0.3, Gran # 4.71, Lymph # ( Auto) 2.5, [place] # (Auto) 0.5, Eos # (Auto) 0.0, Baso # (Auto) 0.02 Vital Signs Temp Pulse Resp BP Pulse Ox 10/22/17 16:22 135 H 127/80 10/22/17 06:46 97.5 F L 90 20 132/92 H 10/21/17 16:30 115 H 127/86 10/21/17 07:23 97.8 F 110 H 19 131/82 10/20/17 16:30 110 H 138/96 H 10/20/17 12:25 98 F 85 19 125/82 98 10/20/17 09:38 98 F 85 19 123/65 99 10/20/17 07:24 99.1 F 75 20 120/72 98 10/20/17 05:23 82 16 121/74 99 10/20/17 03:23 88 16 124/78 99 10/20/17 01:23 82 16 126/76 100 10/19/17 23:23 86 18 136/74 99 10/19/17 21:23 99.1 F 98 H 18 129/78 97 Laboratory Results - last 24 hr 10/28/17 10/29/17 10/29/17 21:25 07:13 08:47 POC Glucose (mg/dL) 248 H 132 H 131 H 10/29/17 14:00 POC Glucose (mg/dL) 101 Temp Pulse Resp BP Pulse Ox 97.2 F L 84 17 100/65 98 10/29/17 13:30 10/29/17 13:30 10/29/17 13:30 10/29/17 13:30 10/20/17 12:25 Temp Pulse Resp BP Pulse Ox 97.8 F 92 H 18 95/63 L 98 10/30/17 07:18 10/30/17 07:18 10/30/17 07:18 10/30/17 07:18 10/20/17 12:25 Temp Pulse Resp BP Pulse Ox 99.2 F 93 H 20 88/55 L 98 10/31/17 07:24 10/31/17 07:24 10/31/17 07:24 10/31/17 07:24 10/20/17 12:25 Temp Pulse Resp BP Pulse Ox 97.4 F L 96 H 18 103/71 98 11/04/17 07:19 11/04/17 15:00 11/04/17 07:19 11/04/17 15:00 10/20/17 12:25 DSM 5 Symptoms Update: Patient is a 66 year old single female with history of one prior admission to [facility] in July 2017 where she was given the diagnosis of 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 Sinemet was started 11/05/17, tolerated well, more reactive, pt was ambulating with more steady gait. was contacted by staff 11/06/17, by this sign writer letterer or painter had discussion 11/07/17, plan to increase sinemet in frequency pt appeared brighter, less depressed, more talkative, denied voices. pt said she is feeling "much better". pt was seen today, was sitting in a wheelchair, as per report pt almost fell at am, poor balance. PT reevaluation recommended, d/w PT today, awaiting for recommendations As per nursing report patient has good appetite, and eats well. so far patient tolerates medications well, no side effects observed or reported , aims 0, no EPS. Impression: r/o schizophrenia Medication Change: Yes (seroquel increased, ativan decreased) Medical Record Reviewed: Yes Mental Status Examination - Cognitive Function Orientation: Person Memory: Impaired Attention: Poor (some improvement) Concentration: Poor (some improvement) Association: Loose Fund of Knowledge: Poor - Mood Mood: Depressed, Anxious - Affect Affect: Constricted (but more reactive), Flat - Speech Speech: Soft - Formal Thought Process Formal Thought Process: Hallucinations ("voces are bothering me") - Suicidal Ideation Suicidal Ideation: No - Homicidal Ideation Homicidal Ideation: No Goal/Treatment Plan - Goal/Treatment Plan Need for Continued Stay: Remain at risks for inpatient hospitalization, Severe depression anxiety, Discharge may exacerbated symptoms, Failed transitioning, Severe functional impairment Progress Toward Problem(s) and Goals/Treatment Plan: Milieu/structure/supportive therapy Medical consult appreciated, see medical team note for more detailed info SW consultation for discharge plan and social issues Med management prozac 40mg po daily for depression and anxiety seroquel 250mg po hs for psychosis ativan 2mg po bid and 2mg hs for catatonia neurology consult appreciated pt was dx Parkinson's disease, sinemet was started PT follow up requested Family involvement Follow up on labs Will monitor closely Pt was educated about risk/benefits and alternatives of medications, coping strategies (safety plan, suicide prevention), relapse prevention, importance of follow up with psychiatrist and therapist, stay away from drugs/alcohol/smoking Estimated Date of D/C: 11/13/17 (pt almost fell, poor balance, PT eval)
[2017-11-09] MEDS: Insulin Detemir 100 units/ml Vial (Levemir) SC SCH (21:40)
--- NOTE | 2017-11-10 01:25 | PN ---
DATE: 11/09/2017 SUBJECTIVE: The patient is 67-year-old, sitting in chair, seems to be comfortable. According to PCP, she is eating well, has difficulty ambulating without assistance. PHYSICAL EXAMINATION: VITAL SIGNS: She is afebrile, pulse 72, respirations 19, blood pressure . LUNGS: Bilateral good airflow. No rhonchi or crackle. HEART: S1 and S2 audible. ABDOMEN: Soft, nontender. No rebound. No guarding. NEUROLOGIC: Patient is awake, alert, oriented, communicative. LABORATORY DATA: Blood sugar 165, today and last night was 160. ASSESSMENT: 1. History of depression. 2. Intermittent episode of catatonia. 3. Parkinson disease. 4. Qhk-uklmsyr-ivquxtxab diabetes. 5. History of cerebrovascular accident in the past. PLAN: Medically, patient is stable. Blood sugar and blood pressure seems to be in decent range. Psych medication is being monitored by the psychiatrist. Jayla Coley MD
[2017-11-10] MEDS: POLYETHYLENE GLYCOL 3350 17 GM/Dose PACKET PO SCH (08:35)
--- NOTE | 2017-11-10 12:38 | PCM.PYCHPN ---
Psychiatric Progress Note - Psychiatric Progress Note Patient seen today, length of contact: 30 min Patient Chief Complaint: "I feel much better" Problems Identified/Issues Discussed: Suicide/ homicide prevention, past psychiatric h/o, current psychiatric symptoms , medical problems, risk/benefits and alternatives of medications, medications compliance, coping strategies, substance abuse h/o, relapse prevention, importance of follow up with psychiatrist and therapist, discharge plan. Medical Problems: Parkinson's disease? diabetes pt was dx Parkinsons Diagnostic Results: 10/19/17 23:16 10/20/17 21:53 Lab Results 10/22/17 16:03: POC Glucose (mg/dL) 224 H 10/22/17 12:44: POC Glucose (mg/dL) 155 H 10/22/17 07:42: POC Glucose (mg/dL) 182 H 10/21/17 21:49: POC Glucose (mg/dL) 247 H 10/21/17 16:41: POC Glucose (mg/dL) 300 H 10/21/17 11:05: POC Glucose (mg/dL) 309 H 10/21/17 07:20: POC Glucose (mg/dL) 251 H 10/21/17 02:07: POC Glucose (mg/dL) 270 H 10/21/17 00:02: POC Glucose (mg/dL) 357 H 10/20/17 21:53: Sodium 131 L, Potassium 5.1 H, Chloride 95 L, Carbon Dioxide 21 , Anion Gap 20, BUN 24 H, Creatinine 0.9, Est GFR ( Amer) > 60, Est GFR ( Non-Af Amer) > 60, Random Glucose 569 H* D, Calcium 9.6 10/20/17 21:11: POC Glucose (mg/dL) 420 H* 10/20/17 16:26: POC Glucose (mg/dL) 333 H 10/20/17 12:19: POC Glucose (mg/dL) 260 H 10/20/17 08:30: Urine Opiates Screen Negative, Urine Methadone Screen Negative, Ur Barbiturates Screen Negative, Ur Phencyclidine Scrn Negative, Ur Amphetamines Screen Negative, U Benzodiazepines Scrn Negative, U Oth Cocaine Metabols Negative, U Cannabinoids Screen Negative 10/20/17 08:30: Urine Color Light yellow, Urine Appearance Clear, Urine pH 6.0, Ur Specific [place] 1.015, Urine Protein Negative, Urine Glucose (UA) >=1000, Urine Ketones Negative, Urine Blood Negative, Urine Nitrate Negative, Urine Bilirubin Negative, Urine Urobilinogen 0.2, Ur Leukocyte Esterase Negative 10/20/17 07:42: POC Glucose (mg/dL) 249 H 10/20/17 03:37: POC Glucose (mg/dL) 223 H 10/19/17 23:16: Alcohol, Quantitative < 10 10/19/17 23:16: Salicylates < 1 L, Acetaminophen < 10.0 L 10/19/17 23:16: Sodium 131 L, Potassium 4.6, Chloride 93 L, Carbon Dioxide 25, Anion Gap 17, BUN 17, Creatinine 0.7, Est GFR ( Amer) > 60, Est GFR (Non- Af Amer) > 60, Random Glucose 444 H* D, Calcium 9.1, Magnesium 2.0, Total Bilirubin 0.9, AST 18, ALT 20, Alkaline Phosphatase 72, Total Protein 7.2, Albumin 3.8, Globulin 3.4, Albumin/Globulin Ratio 1.1 10/19/17 23:16: WBC 7.7, RBC 4.44, Hgb 12.9, Hct 36.3, MCV 81.8, MCH 29.1, MCHC 35.5, RDW 13.5, Plt Count 331, MPV 10.1, Gran % 60.8, Lymph % (Auto) 32.4, [place] % (Auto) 6.1 H, Eos % (Auto) 0.4 L, Baso % (Auto) 0.3, Gran # 4.71, Lymph # ( Auto) 2.5, [place] # (Auto) 0.5, Eos # (Auto) 0.0, Baso # (Auto) 0.02 Vital Signs Temp Pulse Resp BP Pulse Ox 10/22/17 16:22 135 H 127/80 10/22/17 06:46 97.5 F L 90 20 132/92 H 10/21/17 16:30 115 H 127/86 10/21/17 07:23 97.8 F 110 H 19 131/82 10/20/17 16:30 110 H 138/96 H 10/20/17 12:25 98 F 85 19 125/82 98 10/20/17 09:38 98 F 85 19 123/65 99 10/20/17 07:24 99.1 F 75 20 120/72 98 10/20/17 05:23 82 16 121/74 99 10/20/17 03:23 88 16 124/78 99 10/20/17 01:23 82 16 126/76 100 10/19/17 23:23 86 18 136/74 99 10/19/17 21:23 99.1 F 98 H 18 129/78 97 Laboratory Results - last 24 hr 10/28/17 10/29/17 10/29/17 21:25 07:13 08:47 POC Glucose (mg/dL) 248 H 132 H 131 H 10/29/17 14:00 POC Glucose (mg/dL) 101 Temp Pulse Resp BP Pulse Ox 97.2 F L 84 17 100/65 98 10/29/17 13:30 10/29/17 13:30 10/29/17 13:30 10/29/17 13:30 10/20/17 12:25 Temp Pulse Resp BP Pulse Ox 97.8 F 92 H 18 95/63 L 98 10/30/17 07:18 10/30/17 07:18 10/30/17 07:18 10/30/17 07:18 10/20/17 12:25 Temp Pulse Resp BP Pulse Ox 99.2 F 93 H 20 88/55 L 98 10/31/17 07:24 10/31/17 07:24 10/31/17 07:24 10/31/17 07:24 10/20/17 12:25 Temp Pulse Resp BP Pulse Ox 97.4 F L 96 H 18 103/71 98 11/04/17 07:19 11/04/17 15:00 11/04/17 07:19 11/04/17 15:00 10/20/17 12:25 DSM 5 Symptoms Update: Patient is a 66 year old single female with history of one prior admission to [facility] in July 2017 where she was given the diagnosis of Schizophrenia spectrum disorder with psychotic disorder type NOS as well as 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 Sinemet was started 11/05/17, tolerated well, more reactive, pt was ambulating with more steady gait. evaluated pt 11/07/17, increase sinemet in frequency pt appeared brighter, less depressed, more talkative, denied voices. pt said she is feeling "much better". 11/09/17 PT reevaluation appreciated, pt was recommended RADHA, d/w SW. As per nursing report patient has good appetite, and eats well. so far patient tolerates medications well, no side effects observed or reported , aims 0, no EPS. Impression: r/o schizophrenia Medication Change: Yes (seroquel increased, ativan decreased) Medical Record Reviewed: Yes Mental Status Examination - Cognitive Function Orientation: Person Memory: Impaired Attention: Poor (some improvement) Concentration: Poor (some improvement) Association: Loose Fund of Knowledge: Poor - Mood Mood: Depressed ("I feel better") - Affect Affect: Constricted (but more reactive), Flat - Speech Speech: Soft - Formal Thought Process Formal Thought Process: Hallucinations ("I don't hear any voices") - Suicidal Ideation Suicidal Ideation: No - Homicidal Ideation Homicidal Ideation: No Goal/Treatment Plan - Goal/Treatment Plan Need for Continued Stay: Remain at risks for inpatient hospitalization, Severe depression anxiety, Discharge may exacerbated symptoms, Failed transitioning, Severe functional impairment Progress Toward Problem(s) and Goals/Treatment Plan: Milieu/structure/supportive therapy Medical consult appreciated, see medical team note for more detailed info consultation for discharge plan and social issues Med management prozac 40mg po daily for depression and anxiety seroquel 250mg po hs for psychosis ativan 1mg po bid and 2mg hs for catatonia neurology consult appreciated pt was dx Parkinson's disease, sinemet was started PT follow up requested Family involvement Follow up on labs Will monitor closely Pt was educated about risk/benefits and alternatives of medications, coping strategies (safety plan, suicide prevention), relapse prevention, importance of follow up with psychiatrist and therapist, stay away from drugs/alcohol/smoking Estimated Date of D/C: 11/13/17 (pt almost fell, poor balance, PT eval)
[2017-11-10] MEDS: Insulin Detemir 100 units/ml Vial (Levemir) SC SCH (23:31)
--- NOTE | 2017-11-11 01:15 | PN ---
DATE: 11/10/2017 SUBJECTIVE: Patient is 67 years old, no change in her physical exam, seems to be doing a little better than before and does have episodes of catatonia, , but seems to be much more interactive as compared to before. PHYSICAL EXAMINATION: GENERAL: She is afebrile. Pulse 84, respirations 18, blood pressure 110/72. LUNGS: Bilateral fair airflow. No rhonchi or crackles. HEART: S1 and S2 audible. ABDOMEN: Soft, nontender. No rebound, no guarding. NEUROLOGICAL: Patient is awake and alert, able to communicate, ambulate with minimal assistance. LABORATORY EXAM: Her blood sugar this morning was 94, afternoon was 52, and at the 4 o'clock was 77. ASSESSMENT: 1. Avq-fktqapv-qbrwfuivu diabetes. 2. Hypertension. 3. History of cerebrovascular accident. 4. Parkinson disease. 5. History of schizophrenia. PLAN: As patient's afternoon blood sugar is running low, I will decrease her glimepiride to 2 mg before breakfast only and monitor her blood sugar and make further recommendations. Jayla Coley MD
[2017-11-11 07:03] VITALS: O2SAT 99
[2017-11-11] MEDS: POLYETHYLENE GLYCOL 3350 17 GM/Dose PACKET PO SCH (08:27)
--- NOTE | 2017-11-11 17:45 | PN ---
DATE: 11/11/2017 SUBJECTIVE: The patient is 67 years old, seen and examined. No nausea or vomiting. No diarrhea. Eating and tolerating. OBJECTIVE: VITAL SIGNS: The patient is afebrile, pulse 85, respirations 18, and blood pressure 107/72. LUNGS: Bilateral fair airflow. No rhonchi or crackle. HEART: S1 and S2 audible. ABDOMEN: Soft and nontender. No rebound. No guarding. NEUROLOGIC: She is awake, alert, and oriented. Able to ambulate with minimal assistance. LABORATORY EXAM: Her blood sugar since morning is 78 in the morning, not available yet. ASSESSMENT: 1. History of schizophrenia. 2. History of anxiety disorder. 3. Insulin-dependent diabetes. 4. Hypertension. PLAN: We will continue on current medication, monitor blood sugar, and make appropriate adjustment according to her blood sugar. Jayla Coley MD
[2017-11-11] MEDS: Insulin Detemir 100 units/ml Vial (Levemir) SC SCH (21:34)
[2017-11-12] MEDS: POLYETHYLENE GLYCOL 3350 17 GM/Dose PACKET PO SCH (10:07)
--- NOTE | 2017-11-12 16:30 | PCM.PYCHPN ---
Psychiatric Progress Note - Psychiatric Progress Note Patient seen today, length of contact: 30 min Patient Chief Complaint: "I feel much better" Problems Identified/Issues Discussed: Suicide/ homicide prevention, past psychiatric h/o, current psychiatric symptoms , medical problems, risk/benefits and alternatives of medications, medications compliance, coping strategies, substance abuse h/o, relapse prevention, importance of follow up with psychiatrist and therapist, discharge plan. Medical Problems: Parkinson's disease? diabetes pt was dx Parkinsons Diagnostic Results: 10/19/17 23:16 10/20/17 21:53 Lab Results 10/22/17 16:03: POC Glucose (mg/dL) 224 H 10/22/17 12:44: POC Glucose (mg/dL) 155 H 10/22/17 07:42: POC Glucose (mg/dL) 182 H 10/21/17 21:49: POC Glucose (mg/dL) 247 H 10/21/17 16:41: POC Glucose (mg/dL) 300 H 10/21/17 11:05: POC Glucose (mg/dL) 309 H 10/21/17 07:20: POC Glucose (mg/dL) 251 H 10/21/17 02:07: POC Glucose (mg/dL) 270 H 10/21/17 00:02: POC Glucose (mg/dL) 357 H 10/20/17 21:53: Sodium 131 L, Potassium 5.1 H, Chloride 95 L, Carbon Dioxide 21 , Anion Gap 20, BUN 24 H, Creatinine 0.9, Est GFR ( Amer) > 60, Est GFR ( Non-Af Amer) > 60, Random Glucose 569 H* D, Calcium 9.6 10/20/17 21:11: POC Glucose (mg/dL) 420 H* 10/20/17 16:26: POC Glucose (mg/dL) 333 H 10/20/17 12:19: POC Glucose (mg/dL) 260 H 10/20/17 08:30: Urine Opiates Screen Negative, Urine Methadone Screen Negative, Ur Barbiturates Screen Negative, Ur Phencyclidine Scrn Negative, Ur Amphetamines Screen Negative, U Benzodiazepines Scrn Negative, U Oth Cocaine Metabols Negative, U Cannabinoids Screen Negative 10/20/17 08:30: Urine Color Light yellow, Urine Appearance Clear, Urine pH 6.0, Ur Specific [place] 1.015, Urine Protein Negative, Urine Glucose (UA) >=1000, Urine Ketones Negative, Urine Blood Negative, Urine Nitrate Negative, Urine Bilirubin Negative, Urine Urobilinogen 0.2, Ur Leukocyte Esterase Negative 10/20/17 07:42: POC Glucose (mg/dL) 249 H 10/20/17 03:37: POC Glucose (mg/dL) 223 H 10/19/17 23:16: Alcohol, Quantitative < 10 10/19/17 23:16: Salicylates < 1 L, Acetaminophen < 10.0 L 10/19/17 23:16: Sodium 131 L, Potassium 4.6, Chloride 93 L, Carbon Dioxide 25, Anion Gap 17, BUN 17, Creatinine 0.7, Est GFR ( Amer) > 60, Est GFR (Non- Af Amer) > 60, Random Glucose 444 H* D, Calcium 9.1, Magnesium 2.0, Total Bilirubin 0.9, AST 18, ALT 20, Alkaline Phosphatase 72, Total Protein 7.2, Albumin 3.8, Globulin 3.4, Albumin/Globulin Ratio 1.1 10/19/17 23:16: WBC 7.7, RBC 4.44, Hgb 12.9, Hct 36.3, MCV 81.8, MCH 29.1, MCHC 35.5, RDW 13.5, Plt Count 331, MPV 10.1, Gran % 60.8, Lymph % (Auto) 32.4, [place] % (Auto) 6.1 H, Eos % (Auto) 0.4 L, Baso % (Auto) 0.3, Gran # 4.71, Lymph # ( Auto) 2.5, [place] # (Auto) 0.5, Eos # (Auto) 0.0, Baso # (Auto) 0.02 Vital Signs Temp Pulse Resp BP Pulse Ox 10/22/17 16:22 135 H 127/80 10/22/17 06:46 97.5 F L 90 20 132/92 H 10/21/17 16:30 115 H 127/86 10/21/17 07:23 97.8 F 110 H 19 131/82 10/20/17 16:30 110 H 138/96 H 10/20/17 12:25 98 F 85 19 125/82 98 10/20/17 09:38 98 F 85 19 123/65 99 10/20/17 07:24 99.1 F 75 20 120/72 98 10/20/17 05:23 82 16 121/74 99 10/20/17 03:23 88 16 124/78 99 10/20/17 01:23 82 16 126/76 100 10/19/17 23:23 86 18 136/74 99 10/19/17 21:23 99.1 F 98 H 18 129/78 97 Laboratory Results - last 24 hr 10/28/17 10/29/17 10/29/17 21:25 07:13 08:47 POC Glucose (mg/dL) 248 H 132 H 131 H 10/29/17 14:00 POC Glucose (mg/dL) 101 Temp Pulse Resp BP Pulse Ox 97.2 F L 84 17 100/65 98 10/29/17 13:30 10/29/17 13:30 10/29/17 13:30 10/29/17 13:30 10/20/17 12:25 Temp Pulse Resp BP Pulse Ox 97.8 F 92 H 18 95/63 L 98 10/30/17 07:18 10/30/17 07:18 10/30/17 07:18 10/30/17 07:18 10/20/17 12:25 Temp Pulse Resp BP Pulse Ox 99.2 F 93 H 20 88/55 L 98 10/31/17 07:24 10/31/17 07:24 10/31/17 07:24 10/31/17 07:24 10/20/17 12:25 Temp Pulse Resp BP Pulse Ox 97.4 F L 96 H 18 103/71 98 11/04/17 07:19 11/04/17 15:00 11/04/17 07:19 11/04/17 15:00 10/20/17 12:25 DSM 5 Symptoms Update: Patient is a 66 year old single female with history of one prior admission to [facility] in July 2017 where she was given the diagnosis of Schizophrenia spectrum disorder with psychotic disorder type NOS as well as 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 Sinemet was started 11/05/17, tolerated well, more reactive, pt was ambulating with more steady gait. evaluated pt 11/07/17, increase sinemet in frequency pt appeared brighter, less depressed, more talkative, denied voices. pt said she is feeling "much better". 11/09/17 PT reevaluation appreciated, pt was recommended RADHA, d/w SW. As per nursing report patient has good appetite, and eats well. so far patient tolerates medications well, no side effects observed or reported , aims 0, no EPS. Impression: r/o schizophrenia Medication Change: Yes (lorazepam decreased) Medical Record Reviewed: Yes Mental Status Examination - Cognitive Function Orientation: Person Memory: Impaired Attention: Poor (some improvement) Concentration: Poor (some improvement) Association: Loose Fund of Knowledge: Poor - Mood Mood: Depressed ("I feel better") - Affect Affect: Constricted (but more reactive), Flat - Speech Speech: Soft - Formal Thought Process Formal Thought Process: Hallucinations ("I don't hear any voices") - Suicidal Ideation Suicidal Ideation: No - Homicidal Ideation Homicidal Ideation: No Goal/Treatment Plan - Goal/Treatment Plan Need for Continued Stay: Remain at risks for inpatient hospitalization, Severe depression anxiety, Discharge may exacerbated symptoms, Failed transitioning, Severe functional impairment Progress Toward Problem(s) and Goals/Treatment Plan: Milieu/structure/supportive therapy Medical consult appreciated, see medical team note for more detailed info consultation for discharge plan and social issues Med management prozac 40mg po daily for depression and anxiety seroquel 250mg po hs for psychosis ativan 0.5mg po bid and 1mg hs for catatonia neurology consult appreciated pt was dx Parkinson's disease, sinemet was started PT follow up requested Family involvement Follow up on labs Will monitor closely Pt was educated about risk/benefits and alternatives of medications, coping strategies (safety plan, suicide prevention), relapse prevention, importance of follow up with psychiatrist and therapist, stay away from drugs/alcohol/smoking Estimated Date of D/C: 11/15/17 (pt almost fell, poor balance, PT eval)
[2017-11-12 19:27] VITALS: PULSE 86
[2017-11-12] MEDS: Insulin Detemir 100 units/ml Vial (Levemir) SC SCH (22:16)
--- NOTE | 2017-11-13 04:26 | PN ---
DATE: 11/12/2017 SUBJECTIVE: The patient is 67-year-old, doing well. Eating and tolerating. No nausea, vomiting. Gait seems to be improving very slowly. As per nurse, eating fair, but had difficulty walking independently. PHYSICAL EXAMINATION: VITAL SIGNS: She is afebrile, pulse 86, respirations 21, blood pressure 106/70. LUNGS: Bilateral fair airflow. No rhonchi or crackle. HEART: S1 and S2 audible. ABDOMEN: Soft. Nontender. No rebound. No guarding. NEUROLOGICAL: She is able to communicate. LABORATORY DATA: Blood sugar this morning was 138, in the afternoon 169, 04:30, it was 195 and at 10:00, . ASSESSMENT: 1. Anxiety disorder with catatonia. 2. Parkinson disease. 3. Deconditioning and difficulty walking. 4. Hypertension. 5. History of cerebrovascular accident in the past. PLAN: We will continue patient on current medications. Monitor blood sugar. Continue supportive care. Jayla Coley MD
[2017-11-13 07:05] VITALS: BP 98/61; RESP 15; TEMP 98.1
[2017-11-13] MEDS: POLYETHYLENE GLYCOL 3350 17 GM/Dose PACKET PO SCH (13:20)
--- NOTE | 2017-11-13 18:02 | PCM.PYCHDC ---
Mental Status Examination - Mental Status Examination Orientation: Person, Place, Situation, Time Memory: Intact Mood: Neutral Affect: Constricted (but reactive and mood congruent) Speech: Soft (much improved since time of admission) Attention: Poor (improve significantly) Concentration: Poor (improve significantly) Association: WNL Fund of Knowledge: WNL Formal Thought Process: No Impairment (patient denied visual or distorted tactile hallucinations presented much better) Description of patient's judgement and insight: Pt has improved insight into mental and medical illness, pt was compliant with medications and unit rules and regulations, pt was going to groups, was calm, cooperative, socially appropriate, no behavioral incidents, no agitation, no aggression. Psychotic Thoughts and Behaviors: Pt denied v/a/t hallucinations, denied paranoid ideations, pt does not appear to be psychotic, and thought process is better organized and goal directed Suicidal Ideation: No Current Homicidal Ideation?: No Plan: pt adamantly denied thoughts of harming self or others denied intent or plan. Discharge Summary - Discharge Note Reason for Hospitalization: disorganized thoughts and behavior, depression, catatonia, inability to take care of herself Psychiatric History (includes Medical, Family, Personal Hx): multiple psych admissions in the past history of catatonia Laboratory Data: 10/25/17 16:15 11/05/17 07:48 Lab Results 11/06/17 16:26: POC Glucose (mg/dL) 165 H 11/05/17 07:48: Random Glucose 69 L 11/05/17 07:21: POC Glucose (mg/dL) 42 L 11/03/17 21:35: POC Glucose (mg/dL) 214 H 11/02/17 21:04: POC Glucose (mg/dL) 276 H 11/01/17 22:16: Urine Color Yellow, Urine Appearance Clear, Urine pH 7.0, Ur Specific [place] 1.020, Urine Protein Negative, Urine Glucose (UA) >=1000, Urine Ketones Trace H, Urine Blood Negative, Urine Nitrate Negative, Urine Bilirubin Negative, Urine Urobilinogen 1.0 H, Ur Leukocyte Esterase Negative 11/01/17 16:25: POC Glucose (mg/dL) 240 H 10/29/17 14:00: POC Glucose (mg/dL) 101 10/29/17 08:47: POC Glucose (mg/dL) 131 H 10/29/17 07:13: POC Glucose (mg/dL) 132 H 10/28/17 21:25: POC Glucose (mg/dL) 248 H 10/28/17 16:15: POC Glucose (mg/dL) 129 H 10/28/17 11:30: POC Glucose (mg/dL) 184 H 10/28/17 07:15: POC Glucose (mg/dL) 192 H 10/27/17 21:59: POC Glucose (mg/dL) 179 H 10/27/17 16:11: POC Glucose (mg/dL) 180 H 10/27/17 11:04: POC Glucose (mg/dL) 234 H 10/27/17 07:32: POC Glucose (mg/dL) 145 H 10/26/17 21:57: POC Glucose (mg/dL) 151 H 10/26/17 16:12: POC Glucose (mg/dL) 116 H 10/26/17 11:47: POC Glucose (mg/dL) 149 H 10/26/17 07:18: POC Glucose (mg/dL) 103 10/26/17 07:00: Serum Osmolality 285, TSH 3rd Generation 0.69 10/25/17 21:02: POC Glucose (mg/dL) 202 H 10/25/17 17:33: Plasma Cortisol PM 10.0 10/25/17 17:33: Hemoglobin A1c 10.3 H D 10/25/17 16:34: POC Glucose (mg/dL) 169 H 10/25/17 16:15: Sodium 137, Potassium 4.6, Chloride 99, Carbon Dioxide 26, Anion Gap 16, BUN 21, Creatinine 0.8, Est GFR ( Amer) > 60, Est GFR (Non- Af Amer) > 60, Random Glucose 199 H, Uric Acid 4.7, Calcium 9.4, Total Bilirubin 0.9, AST 28, ALT 27, Alkaline Phosphatase 76, NT-Pro-B Natriuret Pep 13.1, Total Protein 8.0, Albumin 4.4, Globulin 3.6, Albumin/Globulin Ratio 1.2, Triglycerides 118, Cholesterol 120 L, LDL Cholesterol Direct 30, HDL Cholesterol 69 H 10/25/17 16:15: WBC 8.0, RBC 4.86, Hgb 14.3, Hct 41.5, MCV 85.4 D, MCH 29.4, MCHC 34.5, RDW 14.0, Plt Count 345, MPV 10.4, Gran % 63.8, Lymph % (Auto) 28.8, [place] % (Auto) 5.5, Eos % (Auto) 1.7, Baso % (Auto) 0.2, Gran # 5.10, Lymph # ( Auto) 2.3, [place] # (Auto) 0.4, Eos # (Auto) 0.1, Baso # (Auto) 0.02 10/25/17 11:12: POC Glucose (mg/dL) 264 H 10/25/17 07:29: POC Glucose (mg/dL) 60 L 10/24/17 21:21: POC Glucose (mg/dL) 213 H 10/24/17 16:09: POC Glucose (mg/dL) 159 H 10/24/17 11:01: POC Glucose (mg/dL) 205 H 10/24/17 08:08: POC Glucose (mg/dL) 72 10/23/17 21:27: POC Glucose (mg/dL) 252 H 10/23/17 11:35: POC Glucose (mg/dL) 213 H 10/23/17 07:11: POC Glucose (mg/dL) 144 H 10/22/17 21:01: POC Glucose (mg/dL) 287 H 10/22/17 16:03: POC Glucose (mg/dL) 224 H 10/22/17 12:44: POC Glucose (mg/dL) 155 H 10/22/17 07:42: POC Glucose (mg/dL) 182 H 10/21/17 21:49: POC Glucose (mg/dL) 247 H 10/21/17 16:41: POC Glucose (mg/dL) 300 H 10/21/17 11:05: POC Glucose (mg/dL) 309 H 10/21/17 07:20: POC Glucose (mg/dL) 251 H 10/21/17 02:07: POC Glucose (mg/dL) 270 H 10/21/17 00:02: POC Glucose (mg/dL) 357 H 10/20/17 21:53: Sodium 131 L, Potassium 5.1 H, Chloride 95 L, Carbon Dioxide 21 , Anion Gap 20, BUN 24 H, Creatinine 0.9, Est GFR ( Amer) > 60, Est GFR ( Non-Af Amer) > 60, Random Glucose 569 H* D, Calcium 9.6 10/20/17 21:11: POC Glucose (mg/dL) 420 H* 10/20/17 16:26: POC Glucose (mg/dL) 333 H 10/20/17 12:19: POC Glucose (mg/dL) 260 H 10/20/17 08:30: Urine Opiates Screen Negative, Urine Methadone Screen Negative, Ur Barbiturates Screen Negative, Ur Phencyclidine Scrn Negative, Ur Amphetamines Screen Negative, U Benzodiazepines Scrn Negative, U Oth Cocaine Metabols Negative, U Cannabinoids Screen Negative 10/20/17 08:30: Urine Color Light yellow, Urine Appearance Clear, Urine pH 6.0, Ur Specific [place] 1.015, Urine Protein Negative, Urine Glucose (UA) >=1000, Urine Ketones Negative, Urine Blood Negative, Urine Nitrate Negative, Urine Bilirubin Negative, Urine Urobilinogen 0.2, Ur Leukocyte Esterase Negative 10/20/17 07:42: POC Glucose (mg/dL) 249 H 10/20/17 03:37: POC Glucose (mg/dL) 223 H 10/19/17 23:16: Alcohol, Quantitative < 10 10/19/17 23:16: Salicylates < 1 L, Acetaminophen < 10.0 L 10/19/17 23:16: Sodium 131 L, Potassium 4.6, Chloride 93 L, Carbon Dioxide 25, Anion Gap 17, BUN 17, Creatinine 0.7, Est GFR ( Amer) > 60, Est GFR (Non- Af Amer) > 60, Random Glucose 444 H* D, Calcium 9.1, Magnesium 2.0, Total Bilirubin 0.9, AST 18, ALT 20, Alkaline Phosphatase 72, Total Protein 7.2, Albumin 3.8, Globulin 3.4, Albumin/Globulin Ratio 1.1 10/19/17 23:16: WBC 7.7, RBC 4.44, Hgb 12.9, Hct 36.3, MCV 81.8, MCH 29.1, MCHC 35.5, RDW 13.5, Plt Count 331, MPV 10.1, Gran % 60.8, Lymph % (Auto) 32.4, [place] % (Auto) 6.1 H, Eos % (Auto) 0.4 L, Baso % (Auto) 0.3, Gran # 4.71, Lymph # ( Auto) 2.5, [place] # (Auto) 0.5, Eos # (Auto) 0.0, Baso # (Auto) 0.02 Vital Signs Temp Pulse Resp BP Pulse Ox 11/13/17 09:03 86 98/61 L 11/13/17 07:00 98.1 F 86 15 98/61 L 11/12/17 16:00 86 106/70 11/12/17 10:15 89 129/96 H 11/12/17 10:03 96 H 129/96 H 11/12/17 07:38 98.8 F 74 21 84/54 L 11/11/17 08:27 85 107/72 11/11/17 07:00 97.7 F 85 18 107/72 99 11/10/17 16:02 84 110/72 11/10/17 08:34 72 102/65 11/10/17 06:33 97.8 F 84 18 92/58 L 11/09/17 16:30 79 108/79 11/09/17 08:30 72 107/68 11/09/17 06:54 97.9 F 19 99/64 L 11/08/17 16:00 75 124/84 11/08/17 08:51 68 102/65 11/08/17 07:00 98.1 F 68 19 102/65 11/07/17 15:00 84 106/70 11/07/17 08:21 78 152/84 H 11/07/17 07:00 97.9 F 78 20 84/52 L 11/06/17 15:00 80 20 114/80 11/06/17 09:38 70 106/61 11/06/17 07:27 97.1 F L 70 20 106/65 11/05/17 15:00 86 105/77 11/04/17 15:00 96 H 103/71 11/04/17 07:19 97.4 F L 65 18 101/59 L 11/03/17 16:30 80 111/72 11/03/17 10:02 93 H 102/67 11/03/17 10:00 93 H 102/67 11/03/17 07:30 98.5 F 95 H 18 91/49 L 11/02/17 16:50 97.3 F L 65 18 115/79 11/02/17 11:25 82 94/62 L 11/02/17 07:32 99.0 F 82 20 94/62 L 11/01/17 16:30 90 112/73 11/01/17 09:57 90 104/67 11/01/17 07:25 98.3 F 88 20 97/55 L 10/31/17 16:00 89 103/71 10/31/17 07:24 99.2 F 93 H 20 88/55 L 10/30/17 15:00 101 H 105/68 10/30/17 07:18 97.8 F 92 H 18 95/63 L 10/29/17 16:00 101 H 105/68 10/29/17 13:30 97.2 F L 84 17 100/65 10/29/17 07:29 98.5 F 97 H 20 96/57 L 10/28/17 16:06 104 H 104/74 10/28/17 07:30 97.8 F 96 H 20 82/54 L 10/27/17 21:56 97.5 F L 87 18 94/55 L 10/27/17 06:53 97.5 F L 87 18 94/55 L 10/26/17 16:30 92 H 91/52 L 10/26/17 09:05 82 92/59 L 10/26/17 07:18 97.8 F 82 20 92/59 L 10/25/17 16:00 105 H 111/81 10/25/17 09:39 113 H 117/78 10/25/17 09:28 96 H 96/62 L 10/25/17 07:15 97.9 F 96 H 20 96/62 L 10/24/17 16:00 60 117/76 10/24/17 07:00 97.8 F 86 19 114/74 10/24/17 06:50 97.8 F 86 19 114/74 10/23/17 08:53 105 H 105/72 10/23/17 07:05 97.3 F L 105 H 20 105/72 10/22/17 16:22 135 H 127/80 10/22/17 06:46 97.5 F L 90 20 132/92 H 10/21/17 16:30 115 H 127/86 10/21/17 07:23 97.8 F 110 H 19 131/82 10/20/17 16:30 110 H 138/96 H 10/20/17 12:25 98 F 85 19 125/82 98 10/20/17 09:38 98 F 85 19 123/65 99 10/20/17 07:24 99.1 F 75 20 120/72 98 10/20/17 05:23 82 16 121/74 99 10/20/17 03:23 88 16 124/78 99 10/20/17 01:23 82 16 126/76 100 10/19/17 23:23 86 18 136/74 99 10/19/17 21:23 99.1 F 98 H 18 129/[address] scan of the had was within normal limits place [facility] in [facility] Consultations:: List each consultation separately and include: 1. Reason for request. 2. Findings. 3. Follow-up Consultations: medical consult appreciated nephrology consult appreciated neurology consult appreciated, patient was diagnosed with Parkinson's Summary of Hospital Course include:: 1. Description of specific treatment plan utilized for patients during their course of treatmen. 2. Summarize the time- course for resolution of acute symptoms and/or regressed behaviors. 3. Describe issues identified and worked on during hospitalization. 4. Describe medication utilized. 5. Describe medical problems identified and treated. 6. 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 These symptoms include speech latency, thought blocking and receptive delay in comprehension. as per nursing and 's report pt has been good behavior control though obviously withdrawn, disengaged and internally preoccupied on the unit. I agree with staff assessment that patient selectively responds to some questions. at ED patient endorsed depression while in the ER and told staff that she was not taking her medications prior to admission. pt also was confused, when was asked to sign tx plan pt put numbers but not her signature Of note: *pt was tried on abilify, but pt was not tolerating it well due to tremor. *pt has also taken lexapro in the past, with unclear benefit. Patient was scheduled to f/u at [facility] on August 03, 2017. It is unclear if patient showed up to this intake. Prior records indicate the patient has no history of suicide attempts. patient was seen by neurology team, patient was officially diagnosed with Parkinson's disease, Sinemet was started, then increased in frequency. patient's medications were slowly titrated to the following doses: prozac 40mg po daily for depression and anxiety seroquel 250mg po hs for psychosis ativan 0.5mg po bid and 0.5mg hs for catatonia (pt was on 3mg tid, but was weaned off) neurology consult appreciated pt was dx Parkinson's disease, sinemet was started and increased in frequency patient tolerated medications well, no side effects observed or reported, aims 0 , no EPS. pt was seen by PT, was recommended [facility] family meeting took place with pt's sister See notes for more detailed information Over the course of this hospitalization pt was attending groups, pt also had medication management, had therapeutic milieu. Overall pt improved significantly, pt's affect became brighter, pt was less depressed, has realistic future oriented plans, pt also does not appear to be psychotic, or anxious, pt was socially appropriate, no behavioral issues, pts insight improved as well and soon pt deemed to be ready for discharge. At the time of the discharge pt denied been depressed, denied thoughts of harming self or others, denied psychotic symptoms, and pt does not appeared to be psychotic, denied been anxious, pt is not in imminent danger to self or others, will be following up with psychiatrist and neurologist at the [facility], pt needs to be seen within 72hrs of discharge, pt also needs to be f/u with PMD as well as specialists. pt was educated to take meds as prescribed and see psychiatrist and neurologist and PMD as outpatient, pt was advised to obtain medical record and bring it with her in case pt wants to go to [place], sister was educated about it as well at the family meeting. In case pt will need to obtain results of studies pending at discharge pt was provided with contact information of Psychiatric Inpatient unit [phone] as well as Medical Record Department [phone]. Pt was educated about safety plan in case of worsening of symptoms or in case of suicidal or homicidal ideation call 911 or go to the nearest ER, also was educated to take meds as prescribed and stay away from drugs, pt verbalized understanding. 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 Status: Acute Priority: High (2) Schizophrenia spectrum disorder with psychotic disorder type not yet determined Status: Chronic Priority: Medium - Final Diagnosis (DSM 5) Condition upon Discharge: IMPROVED Disposition: TRANSF TO SNF Follow-up Treatment Plan: At the time of the discharge pt denied been depressed, denied thoughts of harming self or others, denied psychotic symptoms, and pt does not appeared to be psychotic, denied been anxious, pt is not in imminent danger to self or others, will be following up with psychiatrist and neurologist at the [facility], pt needs to be seen within 72hrs of discharge, pt also needs to be f/u with PMD as well as specialists. pt was educated to take meds as prescribed and see psychiatrist and neurologist and PMD as outpatient, pt was advised to obtain medical record and bring it with her in case pt wants to go to [place], sister was educated about it as well at the family meeting. In case pt will need to obtain results of studies pending at discharge pt was provided with contact information of Psychiatric Inpatient unit [phone] as well as Medical Record Department [phone]. Pt was educated about safety plan in case of worsening of symptoms or in case of suicidal or homicidal ideation call 911 or go to the nearest ER, also was educated to take meds as prescribed and stay away from drugs, pt verbalized understanding. Prescriptions/Medication Reconciliation: Atenolol [Tenormin] 25 mg PO CONT #1 tab Carbidopa/Levodopa [Sinemet Cr 25-100 Tablet] 1 each PO QID #1 tablet.er Insulin Detemir [Levemir] 30 unit SC HS #1 unit Polyethylene Glycol 3350 [Miralax] 17 unit PO DAILY #1 ml Quetiapine Fumarate [Seroquel] 250 mg PO HS #1 tab Rivaroxaban [Xarelto] 20 mg PO DAILY #1 tab SITagliptin [Januvia] 100 mg PO DAILY #1 tab - Smoking Cessation Smoking Cessation Medication prescribed: No Reason for not providing: pt does not smoke - Antipsychotic Medications Pt discharged on 2 or more routine antipsychotic medications: No
--- NOTE | 2017-11-15 08:42 | PN ---
DATE: 11/13/2017 SUBJECTIVE: Patient is 67 years old, seems to be doing a little better, more interactive, still feels depressed, has flat affect at times. Eating fair. PHYSICAL EXAMINATION: VITAL SIGNS: She is afebrile. Pulse 86, respirations 15, blood pressure 98/61. LUNGS: Bilateral fair airflow. No rhonchi or crackle. HEART: S1 and S2 audible. ABDOMEN: Soft. Nontender. No rebound. No guarding. NEUROLOGICAL: Patient is awake and alert, but not very communicative. Ambulates with assistance. ASSESSMENT: 1. Mood disorder with constrictive affect. 2. Hypertension. 3. History of seizures. 4. Dik-aemkrom-[id number] diabetes. 5. Parkinson disease. PLAN: Patient was discharged on metformin 500 twice a day, glimepiride 2 mg daily. She is discharged on Prozac 40 mg daily, atorvastatin 20 mg daily, Januvia 100 mg daily, Xarelto 20 mg daily, Seroquel 250 at bedtime, Miralax as needed, Ativan 0.5 t.i.d. p.r.n., Levemir 30 units at bedtime, carbidopa 25/50 one tablet 4 times a day, atenolol 25 mg daily. Patient will be following with PMD. Patient will follow up with psychiatrist. DISCHARGE DIAGNOSES: 1. Newly diagnosed Parkinson disease. 2. Depression. 3. Bipolar disorder. 4. History of psychosis with catatonia at times. 5. Non-insulin dependant diabetes. 6. Hypertension. 7. History of cerebrovascular accident in the past. Jayla Coley MD
== END 2017-11-13 15:29 | DRG 885 ==
LOC: ED 21:23 → ERH 10-20 09:33 → PSYC 10-20 11:34
PROVIDERS: ADMIT Psychiatry & Neurology Psychiatry; ATTEND Psychiatry & Neurology Psychiatry
PROC: GZ3ZZZZ Medication Management (ICD-10-PCS; principal; 2017-10-20)
DX: F20.2 Catatonic schizophrenia (principal); E87.1 Hypo-osmolality and hyponatremia; F31.9 Bipolar disorder, unspecified; G20 Parkinson's disease; F02.80 Dementia in other diseases classified elsewhere, unspecified severity, without behavioral disturbance, psychotic disturbance, mood disturbance, and anxiety; E78.00 Pure hypercholesterolemia, unspecified; E11.22 Type 2 diabetes mellitus with diabetic chronic kidney disease; E11.65 Type 2 diabetes mellitus with hyperglycemia; I12.9 Hypertensive chronic kidney disease with stage 1 through stage 4 chronic kidney disease, or unspecified chronic kidney disease; N18.9 Chronic kidney disease, unspecified; R26.2 Difficulty in walking, not elsewhere classified; K59.00 Constipation, unspecified; J45.909 Unspecified asthma, uncomplicated; Z86.73 Personal history of transient ischemic attack (TIA), and cerebral infarction without residual deficits; Z79.01 Long term (current) use of anticoagulants

== ENCOUNTER 2017-10-29 09:00 | Emergency (ER) | payer MEDICARE, OTHER ==
[2017-10-29 09:09] VITALS: BMI 23.3
--- NOTE | 2017-10-29 09:17 | ED PDOC ---
Arrival/HPI - General Chief Complaint: Trauma Time Seen by Provider: 10/29/17 09:12 Historian: Patient - History of Present Illness Narrative History of Present Illness (Text): 10/29/17 09:13 66yo female with pmhx of hypertension, IDDM, Depression and Schizophrenia brought to ED from inpatient mental health for evaluation s/p trauma. Patient states she tripped over something on the floor and fell. Notes she hit the back of her head. She however denies LOC, nausea, vomiting, neck pain, back pain, dizziness, nausea, vomiting, focal weakness, paresthesia, visual changes, any other complaint at this time. Past Medical History - Provider Review Nursing Documentation Reviewed: Yes - Past History Past History: No Previous - Infectious Disease Hx of Infectious Diseases: None - Cardiac Hx Hypertension: Yes - Pulmonary Hx Respiratory Disorders: No - Neurological Hx Neurological Disorder: No - HEENT Hx HEENT Disorder: No - Renal Hx Renal Disorder: No - Endocrine/Metabolic Hx Diabetes Mellitus Type 1: Yes - Hematological/Oncological Hx Blood Disorders: No - Integumentary Hx Dermatological Disorder: No - Musculoskeletal/Rheumatological Hx Musculoskeletal Disorders: No Hx Falls: No - Gastrointestinal Hx Gastrointestinal Disorders: No - Genitourinary/Gynecological Hx Genitourinary Disorders: No - Psychiatric Hx Depression: Yes Hx Schizophrenia: Yes Hx Substance Use: No - Surgical History Other/Comment: colonoscopy - Anesthesia Hx Anesthesia: No Family/Social History - Physician Review Nursing Documentation Reviewed: Yes Family/Social History: Unknown Family HX Smoking Status: Never Smoked Hx Alcohol Use: No Hx Substance Use: No Hx Substance Use Treatment: No Allergies/Home Meds Allergies/Adverse Reactions: Allergies No Known Allergies Allergy (Verified 10/29/17 09:11) Home Medications: Home Meds Medication Instructions Recorded Confirmed Cholecalciferol (Vitamin D3) 1 tab PO DAILY 07/01/15 10/29/17 [Vitamin D3] Enalapril Maleate 2.5 mg PO DAILY 07/01/15 10/29/17 Escitalopram [Lexapro] 20 mg PO DAILY 07/01/15 10/29/17 Ergocalciferol (Vitamin D2) 50,000 unit PO QWK 07/12/17 10/29/17 [Vitamin D2] Atorvastatin Calcium [Atorvastatin 20 mg PO DAILY 10/29/17 10/29/17 Calcium] Fluocinonide 0.05% Cream [Lidex 1 appl TOP BID 10/29/17 10/29/17 0.05% Cream] Fluoxetine HCl [Prozac] 1 tab PO DAILY 10/29/17 10/29/17 LORazepam [Ativan] 2 mg PO BID 10/29/17 10/29/17 Review of Systems - Physician Review All systems were reviewed & negative as marked: Yes - Review of Systems Constitutional: Normal Eyes: Normal ENT: Normal Respiratory: Normal Cardiovascular: Normal Gastrointestinal: Normal Genitourinary Female: Normal Musculoskeletal: Normal Skin: Normal Neurological: absent: Headache (Head injury) Endocrine: Normal Hemo/Lymphatic: Normal Psychiatric: Normal Physical Exam Vital Signs Reviewed: Yes Vital Signs Temp Pulse Resp BP Pulse Ox 10/29/17 09:07 98.8 F 100 H 19 102/59 L 96 Temperature: Afebrile Blood Pressure: Normal Pulse: Regular Respiratory Rate: Normal Appearance: Positive for: Well-Appearing, Non-Toxic, Comfortable Pain Distress: None Mental Status: Positive for: Alert and Oriented X 3 - Systems Exam Head: Present: Atraumatic, Normocephalic Pupils: Present: PERRL Extroacular Muscles: Present: EOMI Conjunctiva: Present: Normal Mouth: Present: Moist Mucous Membranes Neck: Present: Normal Range of Motion Respiratory/Chest: Present: Clear to Auscultation, Good Air Exchange. No: Respiratory Distress, Accessory Muscle Use Cardiovascular: Present: Regular Rate and Rhythm, Normal S1, S2. No: Murmurs Abdomen: No: Tenderness, Distention, Peritoneal Signs Back: Present: Normal Inspection Upper Extremity: Present: Normal Inspection. No: Cyanosis, Edema Lower Extremity: Present: Normal Inspection. No: Edema Neurological: Present: GCS=15, CN II-XII Intact, Speech Normal Skin: Present: Warm, Dry, Normal Color. No: Rashes Psychiatric: Present: Alert, Oriented x 3, Normal Insight, Normal Concentration Medical Decision Making ED Course and Treatment: 10/29/17 09:26 66yo female from inpatient mental health, brought to ED for evaluation s/p trauma. PT was AAO x3 in ED. she does appear to be a little slow, but it looks like patient's baseline. Connie Briggs interpreted. She was neurologically intact in ED and denied any somatic complaint. she noted that her trauma was mechanical, secondary to tripping over an object in the bathroom. She denied dizziness as the cause of her trauma. Denies focal weakness, nausea, visual changes, pain, any other complaint. Head CT was ordered and pending. Will reassess pt. 10/29/17 10:05 PT remain neurologically intact in ED. She continue to deny pain in ED Head CT - Negative PT will be cleared to go back to inpatient mental health. - RAD Interpretation Radiology Orders: 10/29/17 09:12 HEAD W/O CONTRAST [CT] Stat Disposition/Present on Arrival - Present on Arrival Any Indicators Present on Arrival: No History of DVT/PE: No History of Uncontrolled Diabetes: No Urinary Catheter: No History of Decub. Ulcer: No History Surgical Site Infection Following: None - Disposition Have Diagnosis and Disposition been Completed?: Yes Diagnosis: Head injury, Catatonic disorder due to known physiological condition Disposition: HOSPITALIZED Disposition Time: 10:25 Patient Plan: Admission Patient Problems: Current Active Problems Problem Status Onset Head injury Acute Medical clearance for psychiatric admission Acute Schizoaffective disorder Acute Schizophrenia Acute Condition: FAIR Forms: Parachute (Tuvaluan)
--- NOTE | 2017-10-29 09:46 | CT ---
PROCEDURE: CT HEAD WITHOUT CONTRAST. HISTORY: s/p head injury COMPARISON: None available. TECHNIQUE: Axial computed tomography images were obtained through the head/brain without intravenous contrast. Radiation dose: Total exam DLP = 759 mGy-cm. This CT exam was performed using one or more of the following dose reduction techniques: Automated exposure control, adjustment of the mA and/or kV according to patient size, and/or use of iterative reconstruction technique. FINDINGS: HEMORRHAGE: No intracranial hemorrhage. BRAIN: No mass effect or edema. No atrophy or chronic microvascular ischemic changes. VENTRICLES: Unremarkable. No hydrocephalus. CALVARIUM: Unremarkable. PARANASAL SINUSES: Unremarkable as visualized. No significant inflammatory changes. MASTOID AIR CELLS: Unremarkable as visualized. No inflammatory changes. OTHER FINDINGS: None. IMPRESSION: Normal CT of the Head.
[2017-10-29 13:27] VITALS: BP 104/69; PULSE 88; RESP 18; TEMP 98; O2SAT 99
== END 2017-10-29 14:16 | disposition short-term general hospital (02) ==
LOC: ED 09:00
DX: S09.90XA Unspecified injury of head, initial encounter (principal); W01.0XXA Fall on same level from slipping, tripping and stumbling without subsequent striking against object, initial encounter; Y92.238 Other place in hospital as the place of occurrence of the external cause; F06.1 Catatonic disorder due to known physiological condition; E11.9 Type 2 diabetes mellitus without complications

== ENCOUNTER 2017-11-22 19:14 | Inpatient (IN) | payer MEDICARE, OTHER ==
[2017-11-22 19:41] VITALS: BMI 24.7
--- NOTE | 2017-11-22 20:12 | ED PDOC ---
Arrival/HPI - General EM Caveat: Uncooperative <Devin Caceres - Last Filed: 11/24/17 16:51> <Alfie Hawthorne - Last Filed: 11/26/17 15:37> - General Chief Complaint: Psychiatric Evaluation Time Seen by Provider: 11/22/17 19:58 - History of Present Illness Narrative History of Present Illness (Text): 67 year old Female with PMH of schizophrenia with catatonic symptoms presents with a withdrawn affect. Reportedly, she has had episodes like these before. At baseline, patient minimally talks but follows directions. Yesterday, she stopped talking and stopped following directions completely. These symptoms have continued into today. She was given ativan 1mg that did not improve her symptoms. Her CPK level was found to be 239. On presentation today, she was withdrawn, did not reciprocate eye contact, did not respond when I spoke to her , and was not cooperative with exam. 11/22/17 20:09 (Devin Caceres) Past Medical History - Provider Review Nursing Documentation Reviewed: Yes - Past History Past History: No Previous - Infectious Disease Hx of Infectious Diseases: None - Cardiac Hx Cardiac Disorders: Yes Hx Hypertension: Yes - Pulmonary Hx Respiratory Disorders: No - Neurological Hx Neurological Disorder: No - HEENT Hx HEENT Disorder: No - Renal Hx Renal Disorder: No - Endocrine/Metabolic Hx Endocrine Disorders: Yes Hx Diabetes Mellitus Type 2: Yes - Hematological/Oncological Hx Blood Disorders: No - Integumentary Hx Dermatological Disorder: No - Musculoskeletal/Rheumatological Hx Musculoskeletal Disorders: No - Gastrointestinal Hx Gastrointestinal Disorders: No - Genitourinary/Gynecological Hx Genitourinary Disorders: No - Psychiatric Hx Psychophysiologic Disorder: Yes Hx Depression: Yes Hx Schizophrenia: Yes Hx Substance Use: No - Surgical History Other/Comment: colonoscopy - Anesthesia Hx Anesthesia: No <Devin Caceres - Last Filed: 11/24/17 16:51> Family/Social History - Physician Review Nursing Documentation Reviewed: Yes Family/Social History: Unknown Family HX Smoking Status: Never Smoked Hx Alcohol Use: No Hx Substance Use: No Hx Substance Use Treatment: No <Devin Caceres - Last Filed: 11/24/17 16:51> Allergies/Home Meds <Devin Caceres - Last Filed: 11/24/17 16:51> <Alfie Hawthorne - Last Filed: 11/26/17 15:37> Allergies/Adverse Reactions: Allergies No Known Allergies Allergy (Verified 11/22/17 19:47) Review of Systems - Review of Systems Systems not reviewed;Unavailable: Uncooperative <Devin Caceres - Last Filed: 11/24/17 16:51> Physical Exam - Physical Exam Physical Exam Limitations: Psychotic, Uncooperative Temperature: Afebrile Blood Pressure: Normal Pulse: Tachycardic Respiratory Rate: Tachypneic Appearance: Positive for: Uncomfortable Mental Status: Positive for: Agitated Finger Stick Blood Glucose: 167 - Systems Exam Head: Present: Atraumatic, Normocephalic Pupils: Present: PERRL, Other (dilated pupils but reactive) Conjunctiva: Present: Normal Nose (External): Present: Atraumatic Respiratory/Chest: Present: Clear to Auscultation Cardiovascular: Present: Tachycardic Upper Extremity: Present: Normal Inspection Lower Extremity: Present: Normal Inspection Psychiatric: Present: Agitated <Devin Caceres - Last Filed: 11/24/17 16:51> <MarineViktorlive - Last Filed: 11/26/17 15:37> Vital Signs Temp Pulse Resp BP Pulse Ox 11/22/17 23:30 98.6 F 98 H 17 121/72 99 11/22/17 23:14 88 18 96 11/22/17 21:59 88 18 121/72 95 11/22/17 19:45 99.0 F 100 H 24 112/67 96 Medical Decision Making <Devin Caceres - Last Filed: 11/24/17 16:51> <Alfie Hawthorne - Last Filed: 11/26/17 15:37> ED Course and Treatment: Impression: 67 year old Female with PMH of schizophrenia presents with withdrawn affect. Assessment: Schizophrenia with negative affect, Increased CPK Rule out drug abuse, electrolyte abnormalities Plan: IV NS 0.9% 500 mL CBC CMP Urinalysis/urine culture Urine drug screen: Chest X-ray: Head CT: No acute findings. Diffuse cerebral volume loss and chronic microvascular white matter changes. EKG: Normal sinus rhythm POC glucose: 167 (Devin Caceres) 11/22/17 20:47 Patient's history obtained from [facility] report. Patient reportedly expressed increased agitation, has not been eating and communicating well for past 2-3 days. Patient on exam follows some simple commands but does not answer questions verbally. Patient appears mildly tremulous and tachycardic. Plan is to obtain labs, hydrate, perform CT of head and reassess. In agreement with resident note, which includes further HPI details. Patient was seen and evaluated with resident, came up with plan and treatment together. 11/22/17 23:17 On re-exam, heart rate improved to 90. Regular. She will follow commands but will stare at interviewer and not verbalize any answers. No acute trauma noted. No stridor or respiratory distress noted. She is afebrile. Blood pressure stable. No muscle edema noted. CPK elevated, will iv hydrate. Patient's case d/w Dr. Thompson, will admit medically for serial neuro exams, hydration, monitoring. She is not hypoxia. No calf pain or swelling noted. She does not express any respiratory distress. (Alfie Hawthorne) - Lab Interpretations Lab Results: 11/22/17 21:23 11/22/17 21:23 Lab Results 11/22/17 21:23: Sodium 143, Potassium 4.1, Chloride 103, Carbon Dioxide 29, Anion Gap 15, BUN 22 H, Creatinine 0.7, Est GFR ( Amer) > 60, Est GFR ( Non-Af Amer) > 60, Random Glucose 131 H, Calcium 9.2, Total Bilirubin 0.4, AST 27, ALT 20, Alkaline Phosphatase 70, Lactate Dehydrogenase 574, Total Creatine Kinase 386 H, CK-MB (CK-2) 3.5, CK-MB (CK-2) % Cancelled, Troponin I < 0.01, Total Protein 7.3, Albumin 3.8, Globulin 3.4, Albumin/Globulin Ratio 1.1 11/22/17 21:23: WBC 8.3, RBC 4.25, Hgb 12.4, Hct 35.9 L, MCV 84.5, MCH 29.2, MCHC 34.5, RDW 14.6 H, Plt Count 318, MPV 10.5, Gran % 46.8 L, Lymph % (Auto) 43.3 H, [place] % (Auto) 7.0 H, Eos % (Auto) 2.8, Baso % (Auto) 0.1, Gran # 3.90, Lymph # (Auto) 3.6 H, [place] # (Auto) 0.6, Eos # (Auto) 0.2, Baso # (Auto) 0.01 - RAD Interpretation Radiology Orders: 11/22/17 20:03 CHEST PORTABLE [RAD] Stat 11/22/17 20:14 HEAD W/O CONTRAST [CT] Stat - Medication Orders Current Medication Orders: Armodafinil (Nuvigil 150 Mg Tab) 150 mg PO DAILY [facility] Atorvastatin Calcium (Lipitor) 20 mg PO DAILY [facility] Last Admin: 11/26/17 10:02 Dose: 20 mg Carbidopa/Levodopa (Sinemet) 1 tab PO TID [facility] Fluoxetine HCl (Prozac) 40 mg PO DAILY [facility] Last Admin: 11/26/17 09:59 Dose: 40 mg Glimepiride (Amaryl) 2 mg PO ACBD [facility] Last Admin: 11/26/17 10:00 Dose: 2 mg Sodium Chloride (Sodium Chloride 0.9%) 1,000 mls @ 100 mls/hr IV .Q10H [facility] Last Admin: 11/26/17 10:13 Dose: 100 mls/hr eMAR Start Stop Document 11/26/17 10:13 VS (Rec: 11/26/17 10:14 VS [id number]) Intravenous Solution Start Date 11/26/17 Start Time 10:13 End Date 11/26/17 Insulin Human Regular (Humulin R Low) 0 units SC [facility] PRN Reason: Protocol Last Admin: 11/26/17 13:08 Dose: Not Given Non-Admin Reason: Patient Refused Lorazepam (Ativan) 1 mg PO TID [facility] PRN Reason: Protocol Last Admin: 11/26/17 10:05 Dose: 1 mg Behavioural Document 11/26/17 10:05 VS (Rec: 11/26/17 10:05 VS [id number]) Maintenance Maintenance Dose Yes Re-Assess: Reassess Psych Meds Document 11/26/17 11:05 VS (Rec: 11/26/17 13:09 VS [id number]) Reassess Psych Med Ineffective-LIP notifed Metformin HCl (Glucophage) 500 mg PO BID [facility] Last Admin: 11/26/17 10:00 Dose: 500 mg Metoprolol Tartrate (Lopressor) 25 mg PO BID [facility] Last Admin: 11/26/17 10:02 Dose: 25 mg MAR Pulse and Blood Pressure Document 11/26/17 10:02 VS (Rec: 11/26/17 10:04 VS [id number]) Pulse Pulse Rate (60-90) 100 Blood Pressure Blood Pressure (100/60-150/90) 126/86 Polyethylene Glycol (Miralax) 17 gm PO DAILY [facility] Last Admin: 11/26/17 10:05 Dose: 17 gm Quetiapine Fumarate (Seroquel) 150 mg PO HS [facility] PRN Reason: Protocol Last Admin: 11/25/17 21:30 Dose: 150 mg Behavioural Document 11/25/17 21:30 SG (Rec: 11/25/17 21:30 SG [email or web address] Maintenance Maintenance Dose Yes Nonmedicinal Nonmedicinal Interventions Redirect Re-Assess: Reassess Psych Meds Document 11/25/17 22:30 SG (Rec: 11/25/17 23:41 SG [email or web address] Reassess Psych Med Effective Quetiapine Fumarate (Seroquel) 50 mg PO BID [facility] PRN Reason: Protocol Last Admin: 11/26/17 10:05 Dose: 50 mg Behavioural Document 11/26/17 10:05 VS (Rec: 11/26/17 10:06 VS [id number]) Maintenance Maintenance Dose Yes Re-Assess: Reassess Psych Meds Document 11/26/17 11:05 VS (Rec: 11/26/17 13:10 VS [id number]) Reassess Psych Med Ineffective-LIP notifed Discontinued Medications Sodium Chloride (Sodium Chloride 0.9%) 500 mls @ 999 mls/hr IV .Q31M STA Stop: 11/22/17 20:59 Last Admin: 11/22/17 21:29 Dose: 999 mls/hr eMAR Start Stop Document 11/22/17 21:29 HI (Rec: 11/22/17 21:30 HI [id number] Intravenous Solution Start Date 11/22/17 Start Time 21:29 Lorazepam (Ativan) 2 mg IVP ONCE ONE PRN Reason: Protocol Stop: 11/23/17 05:24 Last Admin: 11/23/17 05:35 Dose: 2 mg IVP Administration Document 11/23/17 05:35 RM (Rec: 11/23/17 05:35 RM [facility] Charges for Administration # of IVP Administrations 1 Behavioural Document 11/23/17 05:35 RM (Rec: 11/23/17 05:35 RM [email or web address]) Maintenance Maintenance Dose No Nonmedicinal Nonmedicinal Interventions Redirect Therapeutic Communication Behavior Behavior for Medication: Anxiety Dangers to self/others Hallucinations/paranoid/ delusions/extreme fear Pulling IV lines/tubes/ catheter Re-Assess: Reassess Psych Meds Document 11/23/17 06:05 RM (Rec: 11/23/17 06:31 RM [id number]) Reassess Psych Med Effective Lorazepam (Ativan) 1 mg IVP ONCE ONE PRN Reason: Protocol Stop: 11/23/17 13:14 Last Admin: 11/23/17 13:20 Dose: 1 mg IVP Administration Document 11/23/17 13:20 SOUSV (Rec: 11/23/17 13:21 SOUSV [email or web address] Charges for Administration # of IVP Administrations 1 Behavioural Document 11/23/17 13:20 SOUSV (Rec: 11/23/17 13:21 S[facility]SV [email or web address] Maintenance Maintenance Dose No Nonmedicinal Nonmedicinal Interventions Redirect Therapeutic Communication Behavior Behavior for Medication: Continuous pacing/restlessness Behavior Comment Restless/legs between siderails Re-Assess: Reassess Psych Meds Document 11/23/17 13:50 SOUSV (Rec: 11/23/17 14:03 SOUSV [email or web address]) Reassess Psych Med Effective Lorazepam (Ativan) 1 mg PO Q6H [facility] PRN Reason: Protocol Last Admin: 11/25/17 15:36 Dose: 1 mg Behavioural Document 11/25/17 15:36 VS (Rec: 11/25/17 15:36 VS [id number]) Maintenance Maintenance Dose Yes Re-Assess: Reassess Psych Meds Document 11/25/17 16:36 VS (Rec: 11/25/17 17:12 VS [id number]) Reassess Psych Med Ineffective-LIP notifed Lorazepam (Ativan) 1 mg IVP ONCE ONE PRN Reason: Protocol Stop: 11/25/17 09:06 Last Admin: 11/25/17 09:30 Dose: 1 mg IVP Administration Document 11/25/17 09:30 VS (Rec: 11/25/17 10:49 VS [id number]) Charges for Administration # of IVP Administrations 1 Behavioural Document 11/25/17 09:30 VS (Rec: 11/25/17 10:49 VS [id number]) Maintenance Maintenance Dose No Nonmedicinal Nonmedicinal Interventions See nurse's notes Behavior Behavior for Medication: Continuous pacing/restlessness Re-Assess: Reassess Psych Meds Document 11/25/17 10:00 VS (Rec: 11/25/17 17:12 VS [id number]) Reassess Psych Med Ineffective-LIP notifed Quetiapine Fumarate (Seroquel) 100 mg PO HS [facility] PRN Reason: Protocol Last Admin: 11/24/17 21:42 Dose: 100 mg Behavioural Document 11/24/17 21:42 SG (Rec: 11/24/17 21:42 SG [id number]) Maintenance Maintenance Dose Yes Re-Assess: Reassess Psych Meds Document 11/24/17 22:42 SG (Rec: 11/25/17 00:03 SG [id number]) Reassess Psych Med Effective Quetiapine Fumarate (Seroquel) 25 mg PO Q12 [facility] PRN Reason: Protocol Last Admin: 11/25/17 11:56 Dose: 25 mg Behavioural Document 11/25/17 11:56 VS (Rec: 11/25/17 11:56 VS [id number]) Maintenance Maintenance Dose Yes Re-Assess: Reassess Psych Meds Document 11/25/17 12:56 VS (Rec: 11/25/17 15:46 VS [id number]) Reassess Psych Med Ineffective-LIP notifed - PA / MOTOR VEHICLE LICENCE EXAMINER / Resident Statement MD/DO has reviewed & agrees with the documentation as recorded. MD/DO has examined the patient and agrees with the treatment plan. <Devin Caceres - Last Filed: 11/24/17 16:51> - PA / MOTOR VEHICLE LICENCE EXAMINER / Resident Statement /DO has reviewed & agrees with the documentation as recorded. MD/DO has examined the patient and agrees with the treatment plan. - Scribe Statement The provider has reviewed the documentation as recorded by the Scribe <Alfie Hawthorne - Last Filed: 11/26/17 15:37> - Scribe Statement Katarina Her. All medical record entries made by the Scribe were at my direction and personally dictated by me. I have reviewed the chart and agree that the record accurately reflects my personal performance of the history, physical exam, medical decision making, and the department course for this patient. I have also personally directed, reviewed, and agree with the discharge instructions and disposition. (Alfie Hawthorne) Disposition/Present on Arrival - Present on Arrival Any Indicators Present on Arrival: No History of DVT/PE: No History of Uncontrolled Diabetes: No Urinary Catheter: No History of Decub. Ulcer: No History Surgical Site Infection Following: None - Disposition Have Diagnosis and Disposition been Completed?: Yes Disposition Time: 20:38 <Devin Caceres - Last Filed: 11/24/17 16:51> - Disposition Patient Plan: Admission, Telemetry <Alfie Hawthorne - Last Filed: 11/26/17 15:37> - Disposition Diagnosis: Altered mental status, Elevated CPK, Tachycardia Disposition: HOSPITALIZED Patient Problems: Current Active Problems Problem Status Onset Altered mental status, unspecified Acute Elevated CPK Acute Tachycardia Acute Condition: FAIR
[2017-11-22] MEDS ORDERED: Sodium Chloride 0.9% 500 ML IV STA (20:29)
[2017-11-22 21:40] LABS: BASO # 0.01 K/mm3 (0.0-2.0); BASO % 0.1 % (0.0-3.0); EOS # 0.2 (0.0-0.7); EOS % 2.8 % (1.5-5.0); GRAN # 3.9 (1.4-6.5); GRAN % 46.8 % (50.0-68.0); HEMOGLOBIN 12.4 g/dL (12.0-16.0); LYMPH # 3.6 (1.2-3.4); LYMPH % 43.3 % (22.0-35.0); MEAN CELL VOLUME 84.5 fl (80.0-105.0); MEAN CORPUSCULAR HEMOGLOBIN 29.2 pg (25.0-35.0); MEAN CORPUSCULAR HGB CONC 34.5 g/dl (31.0-37.0); MEAN PLATELET VOLUME 10.5 fl (7.0-11.0); MONO # 0.6 (0.1-0.6); RBC 4.25 10^6/uL (3.5-6.1); RED CELL DISTRIBUTION WIDTH 14.6 % (11.5-14.5); WHITE BLOOD COUNT 8.3 10^3/ul (4.5-11.0)
[2017-11-22 21:53] LABS: ALB/GLOB RATIO 1.1 (1.1-1.8); ALBUMIN 3.8 g/dL (3.0-4.8); ALT/SGPT 20 U/L (7-56); AST/SGOT 27 U/L (14-36); BLOOD UREA NITROGEN 22 mg/dL (7-21); CALCIUM 9.2 mg/dL (8.4-10.5); GFR AFRICAN-AMERICAN > 60; GFR NON-AFRICAN AMERICAN > 60
[2017-11-22 21:57] LABS: TROPONIN I < 0.01 ng/mL
[2017-11-22 22:02] LABS: CK-MB 3.5 ng/mL (0.0-3.6)
[2017-11-22] MEDS: Sodium Chloride 0.9% 1,000 ML IV SCH (23:26)
[2017-11-23 07:35] LABS: CK-MB 3.6 ng/mL (0.0-3.6)
[2017-11-23] MEDS: Insulin Reg-LOW-Coverage SC SCH ×4 (08:24→21:53)
--- NOTE | 2017-11-23 08:40 | RAD ---
Date of service: 11/22/2017 HISTORY: r/o infiltrate COMPARISON: No prior. FINDINGS: LUNGS: No active pulmonary disease. PLEURA: No significant pleural effusion identified, no pneumothorax apparent. CARDIOVASCULAR: Normal. OSSEOUS STRUCTURES: No significant abnormalities. VISUALIZED UPPER ABDOMEN: Normal. OTHER FINDINGS: None. IMPRESSION: No active disease.
--- NOTE | 2017-11-23 09:18 | CT ---
Date of service: 11/22/2017 PROCEDURE: CT HEAD WITHOUT CONTRAST. HISTORY: ams COMPARISON: 11/08/2017 TECHNIQUE: Axial computed tomography images were obtained through the head/brain without intravenous contrast. Radiation dose: Total exam DLP = 856 mGy-cm. This CT exam was performed using one or more of the following dose reduction techniques: Automated exposure control, adjustment of the mA and/or kV according to patient size, and/or use of iterative reconstruction technique. FINDINGS: HEMORRHAGE: No intracranial hemorrhage. BRAIN: No mass effect or edema. No atrophy or chronic microvascular ischemic changes. VENTRICLES: Unremarkable. No hydrocephalus. CALVARIUM: Unremarkable. PARANASAL SINUSES: Unremarkable as visualized. No significant inflammatory changes. MASTOID AIR CELLS: Unremarkable as visualized. No inflammatory changes. OTHER FINDINGS: None. IMPRESSION: No acute findings
--- NOTE | 2017-11-23 10:04 | CARD ---
APPROVED REPORT Date of service: 11/22/2017 EKG Measurement Heart [id number] MI 130P-22 [id number] <Conclusion> Normal sinus rhythm Septal infarct, age undetermined Prolonged QT Abnormal ECG
[2017-11-23] MEDS: POLYETHYLENE GLYCOL 3350 17 GM/Dose PACKET PO SCH ×2 (10:29→10:36)
[2017-11-23] MEDS: Sodium Chloride 0.9% 1,000 ML IV SCH ×2 (10:34→19:52)
[2017-11-24] MEDS: Insulin Reg-LOW-Coverage SC SCH ×4 (08:21→21:45)
[2017-11-24] MEDS: POLYETHYLENE GLYCOL 3350 17 GM/Dose PACKET PO SCH (09:58)
[2017-11-24] MEDS: Sodium Chloride 0.9% 1,000 ML IV SCH ×2 (09:58→17:14)
--- NOTE | 2017-11-24 15:18 | CON ---
DATE: 11/24/2017 CARDIOLOGY CONSULTATION: (With Dr. Willard). HISTORY OF PRESENT ILLNESS: The patient is a 67-year-old woman with a history of psychologic disorders, who was found to have an increased heart rate. She was brought to the emergency room. PAST MEDICAL HISTORY: The patient's past medical history is from her past medical records. At that time, it is noted that patient has diabetes mellitus treated with metformin and glyburide and suffers from hypercholesterolemia. SOCIAL HISTORY AND REVIEW OF SYSTEMS: Unavailable. PHYSICAL EXAMINATION: GENERAL: On physical exam, the patient is quiet in bed, in no acute distress. VITAL SIGNS: Blood pressure 128/76, heart rate is sinus tachycardia at 100-110. NECK: Negative JVD. LUNGS: Without rales. HEART: S1, S2. EXTREMITIES: Without edema. LABORATORY DATA: EKG is sinus tachycardia. Troponins are negative x1. Glucose is 131. BUN and creatinine are unremarkable. The hemoglobin is 12.4. IMPRESSION: 1. Sinus tachycardia without obvious source. 2. No evidence for anemia. 3. No dyspneic symptoms are noted. 4. Diabetes mellitus. 5. Hypercholesterolemia. 6. History of schizophrenia. Given these findings, I agree with beta blockers at this time. We will order an echocardiogram as well as thyroid function tests. Brett Robertson MD
--- NOTE | 2017-11-25 00:51 | CON ---
DATE: 11/24/2017 HISTORY OF PRESENT ILLNESS: This is a 67-year-old female with past medical history of schizophrenia and presented with a withdrawn affect and patient stopped talking and follows directions and came to hospital. Patient was given Ativan 1 mg, does not improve. CPK level was high, 239 and called to evaluate the patient. PAST MEDICAL HISTORY: Schizophrenia, depression, diabetes type 2. ALLERGIES: NO KNOWN DRUG ALLERGIES. REVIEW OF SYSTEMS: Ten-point review of systems withdrawn and uncooperative. PHYSICAL EXAMINATION: VITAL SIGNS: Blood pressure 112/67. HEENT: Normocephalic, atraumatic. NECK: Supple. NEUROLOGIC: Pupils reactive and masked facies and spontaneous movement of the extremities noted. Deep tendon reflexes 1+. Cerebellar gait deferred. LABORATORY DATA: WBC 8.3, hemoglobin 12.4, hematocrit 35.9, platelets 318. Sodium 143, potassium 4.1, chloride 103, CO2 of 29, glucose 131, BUN 22, creatinine 0.7. CAT scan of the head was done, which was reported negative and patient having echo, workup is in progress. IMPRESSION: A 67-year-old female with past medical history of schizophrenia, diabetes and admitted with withdrawal affect. PLAN: We will follow up. Steve Gardner MD
[2017-11-25] MEDS: Sodium Chloride 0.9% 1,000 ML IV SCH ×3 (02:13→23:43)
--- NOTE | 2017-11-25 05:20 | CON ---
DATE: 11/24/2017 HISTORY OF PRESENT ILLNESS: The patient is a 67-year-old single female with history of schizophrenia, at least 2 prior admissions to Psychiatric Unit, who was recently admitted on the medical site due to increased negative symptoms and minimal communication and inability to follow directions. The patient reports that she was not compliant with medications and this is very consistent with her two prior presentations to the Psychiatric Unit. I am very familiar with the patient, from her admissions to the Psychiatric floor and I met her again at bedside this morning. She does appear to be withdrawn, exhibiting negative symptoms and she can translate to facilitate translation in Burmese. She does exhibit some blocking and latency with her responses. She appears very preoccupied and though she denies having hallucinations, her thought process is disorganized. The patient does indicate that she did not take her medications as prescribed when she was discharged from the Psychiatric Unit. She reports that she is depressed, she denies any suicidal thoughts, but she does feel focused and she appears to be apathetic, withdrawn and depressed with constricted almost catatonic affect. The patient was at baseline, has a restricted range and reactivity; however, she does present usually better than the baseline. She has been in control on the medical floor, but not entirely cooperative with medical team request. She is disengaged and superficial during my interview. Her insight and judgment are poor. Labs and vitals were reviewed by this provider. MEDICATIONS: Relevant psychiatric medications include Prozac 40 mg daily, Seroquel 100 mg at bedtime as well as Ativan 1 mg p.o. every 6 hours. IMPRESSION: Schizophrenia decompensation secondary to noncompliance as per patient (patient is not a reliable historian; however, her presentation at this time is very consistent with her prior presentations in which she was noncompliant). RECOMMENDATIONS: We will continue Prozac at 40 mg daily. Ativan 1 mg q6, Seroquel 100 mg HS. Psychiatry will continue to follow up, monitor her progress and tolerance to the medications, titrate seroquel and make other medication changes accordingly. Bubba Tripp MD [facility]
[2017-11-25 07:31] LABS: HEMOGLOBIN 13.1 g/dL (12.0-16.0); MEAN CELL VOLUME 84.6 fl (80.0-105.0); MEAN CORPUSCULAR HEMOGLOBIN 28.4 pg (25.0-35.0); MEAN CORPUSCULAR HGB CONC 33.6 g/dl (31.0-37.0); RBC 4.61 10^6/uL (3.5-6.1); RED CELL DISTRIBUTION WIDTH 14.4 % (11.5-14.5); WHITE BLOOD COUNT 6.7 10^3/ul (4.5-11.0)
[2017-11-25 07:58] LABS: IRON 64 ug/dL (45-180)
[2017-11-25] MEDS: Insulin Reg-LOW-Coverage SC SCH ×4 (08:10→21:31)
[2017-11-25 08:11] LABS: % IRON SATURATION 20 % (20-55); TOTAL IRON BINDING CAPACITY 317 ug/dL (265-497)
[2017-11-25 08:17] LABS: T4 7.3 ug/dL (5.5-11.0)
[2017-11-25 08:22] LABS: BLOOD UREA NITROGEN 9 mg/dL (7-21); CALCIUM 9.2 mg/dL (8.4-10.5); GFR AFRICAN-AMERICAN > 60; GFR NON-AFRICAN AMERICAN > 60; HDL CHOLESTEROL 50 mg/dL (29-60)
[2017-11-25 08:27] LABS: LDL CHOLESTEROL 39 mg/dL (0-129)
[2017-11-25] MEDS: POLYETHYLENE GLYCOL 3350 17 GM/Dose PACKET PO SCH (10:47)
[2017-11-25 13:02] LABS: FOLATE > 20.0 ng/mL
--- NOTE | 2017-11-25 21:59 | CON ---
DATE: 11/25/2017 HISTORY OF PRESENT ILLNESS: The patient is a 67-year-old single female with a history of schizophrenia, with two prior admissions to the psychiatric unit this year, who was presumably admitted to the medical side due to increased negative symptoms and minimal communication and inability to follow directions. I am familiar with the patient from her multiple hospitalizations as well as followup as consultant intern yesterday and met with the patient at bedside this morning. I utilized Speak and Translate olu for optimal communication and language of Swazi. The patient does know Tajik well enough to have a conversation when she is at baseline; however, at this time, she is in the baseline. She continues to be withdrawn, exhibiting negative symptoms as well as thought blocking and speech latency with responses. She shows a little bit of improved brightness and . She appears flat and does not respond verbally to most of my questions. She reports that she remains depressed. She denies suicidal thoughts. Denies hallucinations or " ." She has been unpredictable on the unit, though compliant with medications. She tried multiple times to get out of bed this morning, even I had to redirect her during my visit with her and she cannot respond as to why she is trying to climb out of bed. The patient apparently required p.r.n. dose of Ativan. She remains disengaged, superficial and unpredictable on the medical floor with poor insight and judgment. Relevant psychiatric medications include Prozac 40 mg daily, Seroquel 100 at bedtime and Ativan 1 mg every 6 hours. Labs and vitals were reviewed by this provider. IMPRESSION: Schizophrenia, decompensation secondary to likely noncompliance. RECOMMENDATIONS: We will continue with Prozac and Ativan at current doses and increase Seroquel to 250 mg at bedtime to help clear thought process. Psychiatry will continue to follow up with the patient. Next followup will be by Dr. Shaffer on 11/26/2017. Bubba Tripp MD
--- NOTE | 2017-11-26 08:05 | CP.PCM.PN ---
Subjective - Date & Time of Evaluation Date of Evaluation: 11/26/17 Time of Evaluation: 06:15 - Subjective Subjective: Sleeping but easily awaken, no distress, denies chest pain or shortness of breath Reason for consultation and follow up: Cardiac evaluation for tachycardia, history of schizophenia, diabetes mellitus,hypercholesterolemia Seen and examined by me and Dr. Willard Objective - Vital Signs/Intake and Output Vital Signs (last 24 hours): Temp Pulse Resp BP Pulse Ox 98.2 F 76 20 121/77 98 11/25/17 16:25 11/26/17 06:00 11/25/17 16:25 11/25/17 17:11 11/25/17 16:25 Intake and Output: 11/26/17 11/26/17 06:59 18:59 Intake Total 240 Balance 240 - Medications Medications: Current Medications Atorvastatin Calcium (Lipitor) 20 mg PO DAILY [facility] Last Admin: 11/25/17 10:50 Dose: 20 mg Fluoxetine HCl (Prozac) 40 mg PO DAILY [facility] Last Admin: 11/25/17 10:50 Dose: 40 mg Glimepiride (Amaryl) 2 mg PO ACBD [facility] Last Admin: 11/25/17 17:11 Dose: 2 mg Sodium Chloride (Sodium Chloride 0.9%) 1,000 mls @ 100 mls/hr IV .Q10H [facility] Last Admin: 11/25/17 23:43 Dose: Not Given Insulin Human Regular (Humulin R Low) 0 units SC ACHS [facility] PRN Reason: Protocol Last Admin: 11/25/17 21:31 Dose: Not Given Lorazepam (Ativan) 1 mg PO TID [facility] PRN Reason: Protocol Last Admin: 11/25/17 18:46 Dose: 1 mg Metformin HCl (Glucophage) 500 mg PO BID [facility] Last Admin: 11/25/17 17:10 Dose: 500 mg Metoprolol Tartrate (Lopressor) 25 mg PO BID [facility] Last Admin: 11/25/17 17:11 Dose: 25 mg Polyethylene Glycol (Miralax) 17 gm PO DAILY [facility] Last Admin: 11/25/17 10:47 Dose: 17 gm Quetiapine Fumarate (Seroquel) 150 mg PO HS [facility] PRN Reason: Protocol Last Admin: 11/25/17 21:30 Dose: 150 mg Quetiapine Fumarate (Seroquel) 50 mg PO BID [facility] PRN Reason: Protocol Last Admin: 11/25/17 17:11 Dose: 50 mg - Labs Labs: 11/25/17 06:30 11/25/17 06:30 - Constitutional Appears: No Acute Distress - Eye Exam Eye Exam: Normal appearance - ENT Exam ENT Exam: Mucous Membranes Moist - Respiratory Exam Respiratory Exam: Decreased Breath Sounds, Clear to Ausculation Bilateral, NORMAL BREATHING PATTERN - Cardiovascular Exam Cardiovascular Exam: +S1, +S2 Additional comments: telemetry NSR- 70's - GI/Abdominal Exam GI & Abdominal Exam: Soft, Normal Bowel Sounds - Extremities Exam Extremities Exam: Normal Capillary Refill - Neurological Exam Neurological Exam: Alert - Psychiatric Exam Psychiatric exam: Flat Affect - Skin Skin Exam: Dry, Warm Assessment and Plan - Assessment and Plan (Free Text) Assessment: A 67 year old female who came to the ER due to change in behaviour,does not follow directions. Patient has history of schizophrenia Non- compliant with medications. history of diabetes mellitus, hypercholesterolemia. Consult was called due to tachycardia controlled with betablocker. No previous cardiac work up at [facility]. Plan: Heart rate controlled right now- NSR 70's/min On Lopressor ECHO done will follow final result No previous cardiac work up at [facility] Stress test if able or as out patient Continue current treatment Continue current medications Will follow up Plan and treatment discussed with Dr. Willard.
--- NOTE | 2017-11-26 08:30 | HP ---
DATE OF SERVICE: 11/23/2017. CHIEF COMPLAINT: Restless, abnormal labs. HISTORY OF PRESENT ILLNESS: Ms. Paula Delvalle is a 67 year-old female with past medical history of schizophrenia with catastrophic symptomatic with [id number] effects. Reportedly, she had been like day before admission and the patient minimally talks, but followed direction, yesterday she stopped taking and stopped following directions completely. These symptoms have been continued until today. She was given Ativan 1 mg one dose at bedtime to relax. Her CPK level was high, found to be 239. On presentation, it looks like the patient is withdrawn, do not reciprocate. Eye contacts were not reported when I talked to her and was not cooperative with exam. PAST MEDICAL HISTORY: Hypertension, diabetes mellitus, depression, had multiple admissions in psych department. FAMILY HISTORY: Father and mother noncontributory. HABITS: Smoking, never. Drug and alcohol, never. Substance abuse never. ALLERGIES: PATIENT IS ALLERGIC WITH NOTHING. REVIEW OF SYSTEMS: No fever. No chills. Positive for agitation, positive for uncomfortable, positive for tachycardia, afebrile. PHYSICAL EXAMINATION: VITAL SIGNS: Temperature 98, pulse 100, respiratory rate 18, blood pressure 112/67, pulse oximetry 96%. HEENT: Head normocephalic, atraumatic. Eyes PERRLA. Extraocular muscles intact. Conjunctivae clear. Nose patent. NECK: Supple. No carotid bruit, JVD or thyromegaly. CHEST: Bilaterally symmetrical. HEART: S1 and S2 positive. LUNGS: Clear to auscultation. ABDOMEN: Soft. Bowel sounds present. No organomegaly. EXTREMITIES: No edema. No cyanosis. NEUROLOGIC: Patient is awake and alert. Moving all four extremities. No focal deficit. MEDICATIONS: noted LABORATORY DATA: Hematocrit 12.4, hematocrit 39.3. BUN 22, creatinine 0.7, glucose 131. ASSESSMENT AND PLAN: Ms. Paula Delvalle is a 67-year-old lady who came with elevated creatine phosphokinase, tachycardia, altered mental status, history of coronary artery disease, chronic pain syndrome, history of multiple time cirrhosis. Repeat labs. We will follow up. Terri Thompson MD MTDD
--- NOTE | 2017-11-26 08:33 | PN ---
DATE: 11/25/2017 SUBJECTIVE: The patient is 67 years old female. The patient was seen and examined on the bedside on 11/25/2017. The patient was anxious, stat dose of Ativan given. No nausea, vomiting, diarrhea. No hematuria or hematochezia. No headache. No dizziness. No chest pain. No palpitation. Actually, the patient is a very poor historian. PHYSICAL EXAMINATION: VITAL SIGNS: Temperature 98.2, pulse 85, blood pressure 120/77, respiratory rate 20. HEENT: Head normocephalic, atraumatic. Eyes PERRLA. Extraocular muscles intact. Conjunctivae clear. Nose patent. Mucous membrane moist. NECK: Supple. No carotid bruit. No JVD or thyromegaly. CHEST: Bilaterally symmetrical. HEART: S1 and S2 positive. LUNGS: Clear to auscultation. ABDOMEN: Soft. Bowel sounds positive. No organomegaly. EXTREMITIES: No edema. No cyanosis. NEUROLOGICAL: The patient is awake, alert. Moving all 4 extremities. No focal deficits. MEDICATIONS: Amaryl, Ativan, Glucophage, insulin, Lipitor, Lopressor, MiraLax, Prozac, Seroquel, NS. LABORATORY DATA: White blood cells 6.4, hemoglobin 13.1, hematocrit 39, platelets 329. Glucose 164, 135, 127. Hemoglobin A1c 9.3. ASSESSMENT AND PLAN: Ms. Paula Delvalle, 67-year-old lady with diabetes mellitus, uncontrolled, hemoglobin A1c is high; history of schizophrenia; depression. According to neurologist, the patient has withdrawal effects, but the patient is not on something to be withdrawal. Ativan is given. Neurologist is on the case. Psychiatrist is on the case. The patient has tachycardia. Cardiology consult called. The patient was in rehab and was getting all her medications. According to psychiatrist, we will continue Prozac, Ativan. Medically, the patient is stable. Plan is to transfer to the Psych if neurologist will clear. CAT scan of the head done. History of hypercholesterolemia. GI, deep venous thrombosis prophylaxis. Repeat labs. We will follow up. Terri Thompson MD [facility] # [id number]
--- NOTE | 2017-11-26 08:35 | PN ---
DATE: 11/24/2017 SUBJECTIVE: The patient is a 67-year-old female. The patient was seen and examined on the bedside on 11/24/2017, looking relaxed, but still is anxious, has tachycardia. No fever, no chills. The patient is a very poor historian. No headache, no dizziness, no chest pain, no palpitation. PHYSICAL EXAMINATION: VITAL SIGNS: Temperature 98.6, blood pressure 120/76, heart rate sinus tachycardia at 100 to 110, respiratory rate 18. HEENT: Head normocephalic, atraumatic. Eyes, PERRLA. Extraocular muscles intact. Conjunctivae clear. Nose, patent. Mucosus membranes moist. NECK: Supple. No carotid bruit, JVD, or thyromegaly. CHEST: Bilaterally symmetrical. HEART: S1 and S2 positive. LUNGS: Clear to auscultation. ABDOMEN: Soft. Bowel sounds present. No organomegaly. EXTREMITIES: No edema, no cyanosis. NEUROLOGICAL: The patient is awake, alert, moving all 4 extremities, no focal deficits. MEDICATIONS: Amaryl, Ativan, Glucophage, insulin, Lipitor, Lopressor, MiraLax, Prozac, Seroquel, NS. LABORATORY DATA: White blood cell is 8.3, hemoglobin 12.5, hematocrit 35.9, platelets 318. Glucose 151, 155, 150, 148 ASSESSMENT AND PLAN: Ms. Paula Delvalle is a 67-year-old lady with hypercholesterolemia, hypertension, constipation, depression, diabetes mellitus, has sinus tachycardia without obvious source, no evidence for anemia, history of schizophrenia. Beta-blockers are given as per jewelsmith. Ordered echocardiography and thyroid function test. Psych is on the case. CAT scan of the head is done. Neurology consult called. Gastric and deep venous thrombosis prophylaxis given. Repeat labs. We will follow up. Terri Thompson MD [email or web address]
[2017-11-26] MEDS: Insulin Reg-LOW-Coverage SC SCH ×4 (09:04→23:01)
[2017-11-26] MEDS: POLYETHYLENE GLYCOL 3350 17 GM/Dose PACKET PO SCH (10:05)
[2017-11-26] MEDS: Sodium Chloride 0.9% 1,000 ML IV SCH (10:13)
--- NOTE | 2017-11-26 11:37 | HP ---
Patient was seen and examined at the bedside on 11/23/2017. CHIEF COMPLAINT: Anxiety. HISTORY OF PRESENT ILLNESS: Ms. Paula Delvalle is a 67-year-old female with a past medical history of schizophrenia with catatonic symptoms, came with anxiety. She had episodes like these before as per notes. Patient is minimally talkative, but follow directions. Patient was given Ativan in the rehab, but not improved. Her CPK level was found to be 239. Patient looks like confused, not cooperative for history. No fever. No chills. PAST MEDICAL HISTORY: Hypertension, diabetes mellitus type 2, depression, schizophrenia. FAMILY HISTORY: Father and mother, noncontributory. HABITS: Never smoked. No drug. No ethanol. ALLERGIES: PATIENT IS NOT ALLERGIC WITH ANY MEDICATION. REVIEW OF SYSTEMS: Patient was seen and examined on the bedside on 11/23/2017, looking comfortable, but very anxious. No fever. No chills. No nausea, vomiting, or diarrhea. No hematuria or hematochezia. No headache. No dizziness. No chest pain. No palpitation. PHYSICAL EXAMINATION: VITAL SIGNS: Temperature 98.6, pulse 98, respiratory rate 17, blood pressure 120/72, pulse oximetry 99%. HEENT: Head: Normocephalic and atraumatic. Eyes: PERRLA. Extraocular muscles intact. Conjunctivae clear. Nose patent. Mucous membrane moist. NECK: Supple. No carotid bruit. No JVD or thyromegaly. CHEST: Bilaterally symmetrical. HEART: S1 and S2 positive. LUNGS: Clear to auscultation. ABDOMEN: Soft. Bowel sounds present. No organomegaly. EXTREMITIES: No edema. No cyanosis. NEUROLOGIC: Patient is awake and alert. Moving all 4 extremities. No focal deficits. LABORATORY DATA: White blood cells 8.3, hemoglobin 12.4, hematocrit 35.9, platelets 318. Sodium 143, potassium 4.1, BUN 22, creatinine 0.7, glucose 131. ASSESSMENT AND PLAN: Ms. Paula Delvalle is a 67-year-old lady with a history of schizophrenia, diabetes mellitus, came with altered mental status, elevated CPK, tachycardia. Cardiology consult called. CAT scan of the head done. Reviewed by me. Chest x-ray done. Electrocardiography done. Gastrointestinal and deep vein thrombosis prophylaxis given. Psych, Neurology, and Cardiology called. We will follow up. Terri Thompson MD
--- NOTE | 2017-11-26 15:41 | CON ---
DATE: 11/23/2017 HISTORY OF PRESENT ILLNESS: In short, the patient is a 67-year-old female with history of possible schizoaffective disorder with catatonia. The patient had multiple psychiatric hospitalizations in the past. Most recently, the patient was diagnosed with Parkinson while being in psychiatric inpatient unit on 10/20. The patient was discharged on 11/13 to subacute rehab. The patient was readmitted to the medical side for catatonia and not able to talk. CPK level was elevated. This conventional mortgage underwriter is very familiar with this patient from the previous admission to the psychiatric inpatient unit, which took place here in [place] and the patient stayed in the hospital for almost a month. At the time of discharge, the patient was able to walk. The patient was able to express herself. The patient was able to even dance. At the moment of interview now, the patient stares at this conventional mortgage underwriter, appears to be catatonic, not able to provide any history in this presentation similar to the previous hospitalization. Vital signs reviewed. Temperature 98.4, pulse is 103, blood pressure 141/90, respirations 19, oxygen saturation is 96. Medications reviewed. Prozac was resumed by Dr. Thompson 40 mg Ativan. This conventional mortgage underwriter resumed Seroquel 50 mg twice a day. Labs reviewed. MENTAL STATUS EXAMINATION: As this conventional mortgage underwriter described above, the patient is in catatonic stage, not able to participate in interview, just stares at this conventional mortgage underwriter. IMPRESSION: Most likely catatonia is due to general medical condition. The patient has history of diabetes, Parkinson's. The patient was not resumed with levodopa/carbidopa. This conventional mortgage underwriter suggested Neurology consultation. The patient also has history of schizoaffective disorder, possible late onset of schizophrenia with catatonia. PLAN: Neurology consultation. Antipsychotic medications were started 100 mg at the nighttime, Prozac was started by medical team, benzodiazepines will improve catatonia. Collateral information should be obtained from the subacute rehab and find out what was causing patient presentation. This conventional mortgage underwriter will follow up and advise accordingly. Over the weekend, Dr. Tripp will see that patient. Thank you very much for letting me participate in care of your patient. Sade Shaffer MD [facility] # [id number] GEMA
--- NOTE | 2017-11-26 17:18 | CARD ---
APPROVED REPORT Date of service: 11/24/2017 EXAM: Two-dimensional and M-mode echocardiogram with Doppler and color Doppler. INDICATION Sinus tachycardia 2D DIMENSIONS Left Atrium (2D)2.5 (1.6-4.0cm)IVSd0.7 (0.7-1.1cm) Aortic Root (2D)3.1 (2.0-3.7cm)LVDd3.6 (3.9-5.9cm) PWd1.0 (0.7-1.1cm)LVDs2.7 (2.5-4.0cm) FS (%) 26.0 %LVEF (%)52.0 (>50%) M-Mode DIMENSIONS Aortic Cusp Exc.1.80 (1.5-2.0cm) Mitral Valve MV E Svfsgtdw35.8cm/sMV A Cpndcgqy94.5cm/sE/A ratio0.8 TDI Lateral E' Peak V7.51cm/sMedial E' Peak V4.09cm/sE/Lateral E'8.0 E/Medial E'14.6 Pulmonary Valve PV Peak Cpmsmpic80.0cm/sPV Peak Grad.2mmHg Tricuspid Valve TR Peak Vmtcvmdo457rr/sRAP [id number] Peak Gr.14mmHg [id number] LEFT VENTRICLE The left ventricle is normal size. There is normal left ventricular wall thickness. The left ventricular function is normal.EF-55-60% There is normal LV segmental wall motion. The left ventricular diastolic function is normal. No left ventricle thrombus noted on this study. There is no ventricular septal defect visualized. There is no left ventricular aneurysm. There is no mass noted in the left ventricle. RIGHT VENTRICLE The right ventricle is normal size. There is normal right ventricular wall thickness. The right ventricular systolic function is normal. ATRIA The left atrium size is normal. The right atrium size is normal. The interatrial septum is intact with no evidence for an atrial septal defect. AORTIC VALVE The aortic valve is normal in structure. No aortic regurgitation is present. There is no aortic valvular stenosis. There is no aortic valvular vegetation. MITRAL VALVE The mitral valve is normal in structure. Mitral regurgitation is trace. There is no mitral valve stenosis. There is no evidence of mitral valve prolapse. TRICUSPID VALVE The tricuspid valve is normal in structure. There is trace tricuspid regurgitation. There is no tricuspid valve stenosis. There is no tricuspid valve prolapse or vegetation. GREAT VESSELS The aortic root is normal in size. The ascending aorta is normal in size. The pulmonary artery is normal. The IVC is normal in size and collapses >50% with inspiration. PERICARDIAL EFFUSION There is no pleural effusion. There is no pericardial effusion. <Conclusion> normal Chamber Size. Ef-55-60% Trace MR/TR RVSP-24 mmof Hg. no vegetation or thrombus noted.
--- NOTE | 2017-11-26 19:12 | PN ---
DATE: 11/26/2017 NEUROLOGY FOLLOWUP CHIEF COMPLAINT: Mask like features of her parkinsonism as well as history of catatonia. SUBJECTIVE: Patient seen and examined at beside, mildly catatonic, but it is too much better than her initial presentation. She has baseline jerky movements, but not parkinsonism-type features. She was on Sinemet prior. We will reorder Sinemet today. She has very flat affect. Discussed case with Psychiatry at bedside. PAST MEDICAL HISTORY: History of schizophrenia, history of parkinsonism, noncompliant with medications. REVIEW OF SYSTEMS: Fourteen-point review of systems is negative except as per the HPI. ALLERGIES: NO KNOWN DRUG ALLERGIES. MEDICATIONS: Reviewed by nurse's reconciliation sheet. FAMILY HISTORY: Noncontributory. SOCIAL HISTORY: No illicit drug use, smoking or EtOH abuse. PHYSICAL EXAMINATION: VITAL SIGNS: Temperature 98.4, pulse rate 91, blood pressure 126/85, respiratory rate 18, oxygen saturation 96% by room air. GENERAL: Patient is sitting up in bed, in no acute distress. HEENT: Atraumatic, normocephalic. PERRLA. Extraocular muscles intact. HEART: S1 and S2. Normal rate and rhythm. No murmurs, rubs or gallops. LUNGS: Clear to auscultation. No adventitious sounds. ABDOMEN: Soft, nontender and nondistended. Bowel sounds are present. NEUROLOGIC: Patient has very flat affect. Poor cognitive judgment. Recall after 5 minutes is 0/3. Poor attention span. Slow thought process. Cranial nerves II through XII are intact. Motor exam: Moves all extremities equally. Has increased tone throughout. Has cogwheel rigidity at the wrists. Sensory: Decreased light touch and pinprick up to the calves bilaterally. Decreased vibration of the toes. DTRs are 2+ throughout, 1 at both knees and also at the ankles. Coordination: Gait deferred for now. LABORATORY DATA: Today's blood sugar is 154, hemoglobin A1c 9.3. ASSESSMENT AND PLAN: This is a 67-year-old woman with past medical history of hypertension, type 2 diabetes mellitus, hemoglobin A1c of 9.3 indicating poorly controlled diabetes, schizophrenia catatonic type, noncompliant with medication, parkinsonism. She was admitted for acute catatonic and decompensated schizophrenic parkinsonism. Her parkinsonism is present superimposed on underlying catatonic state. Recommend, 1. Monitor electrolytes and correct accordingly. 2. Keep her blood sugar between 140-180. 3. We will restart her Sinemet 25/100 p.o. t.i.d. 4. Continue with Seroquel 50 mg p.o. b.i.d. and 150 mg at bedtime for schizophrenic and follow with Psychiatry. 5. She will need also physical therapy for her underlying diabetic gait. Thank you for this consult. William Gardner MD
--- NOTE | 2017-11-26 20:24 | PN ---
DATE: 11/26/2017 REASON FOR CONSULTATION AND FOLLOWUP: Restless, abnormal labs, sinus tachycardia, cardiac evaluation. BRIEF HISTORY: This is a 67-year-old female with past history of diabetes, hypertension, hyperlipidemia, psychiatric disorder, admitted with altered mental status, probably acute sinus tachycardia. Cardiology consult called. Patient denies any chest pain, shortness of breath, or any palpitations. OBJECTIVE: GENERAL: Not in apparent distress. Lying flat in the bed. VITAL SIGNS: Temperature afebrile, heart rate 100, blood pressure 126/88. HEENT: PERRLA. Extraocular muscles intact. NECK: Supple. No carotid bruits or thyromegaly. CHEST: Clear to auscultation. HEART: S1 and S2. Regular. ABDOMEN: Soft. EXTREMITIES: Clubbing and cyanosis negative. LABORATORY DATA: Blood workup as follows: WBC 6.3, hemoglobin 13, hematocrit 39, platelet count 329. Chemistry shows sodium 144, potassium 3.7, chloride 106, carbon dioxide 27, anion gap 14, BUN 9, creatinine 0.6. TSH 1.36. IMPRESSION: Unexplained sinus tachycardia. TSH within normal limits. heart disease. RECOMMENDATIONS: Continue beta-adri, echo to assess left ventricular function. We will follow with you. Consider Psych evaluation. Thank you, Dr. Thompson, for providing us the opportunity in taking care of the patient, Paula Delvalle. Rao Willard MD
--- NOTE | 2017-11-26 20:26 | PN ---
DATE: 11/26/2017 FOLLOWUP NOTE SUBJECTIVE: The patient was followed up today. The patient presented to be in catatonic stage at the same time. The patient has some mild improvement with her presentation. The patient was more talkative, but at the same time, the patient appears to be confused. Did not know where she is. The patient was repeated that she is in different state. At the same time, the patient reported that she is hearing voices and it is a lot. Vital signs are stable, but the patient is tachycardic, 100 beats per minute today, temperature 98, blood pressure 126/86, respirations 18, oxygen saturation is 96. Medications reviewed. This contract technical writer will increase the dose of Ativan to 2 mg twice a day. The patient was seen by Dr. Gardner and discussed with him in details. Sinemet was resumed. This contract technical writer reviewed the previous notes from Dr. Tripp. Seroquel was increased over the weekend. The patient was seen by physical therapist as well. MENTAL STATUS EXAMINATION: The patient presented to be alert, but disorganized, catatonic, one-word answer only. Mood described not good. Affect was flat. The patient does not know where she is. Thought process disorganized. Thought content, the patient reported that she hears voices. Appears to be internally preoccupied. Insight and judgment seems to be impaired right now. Impulses are well controlled. IMPRESSION: Most likely, schizoaffective disorder with catatonia. The patient also has Parkinson's disease, multiple medical issues. PLAN: This contract technical writer increased the dose of Ativan. The patient was seen by neurologist for followup and advise accordingly. As of now, the patient does not have capacity to sign in because the patient does not even know where she is. Thank you very much for letting me participate in the care of your patient. Should you have any questions, give me a call back. Sade Shaffer MD
--- NOTE | 2017-11-27 05:59 | CP.PCM.PN ---
Subjective - Date & Time of Evaluation Date of Evaluation: 11/27/17 Time of Evaluation: 06:10 - Subjective Subjective: Awake, no distress, denies chest pain,denies shortness of breath,responsive Reason for consultation and follow up: Cardiac evaluation for tachycardia, history of schizophrenia, diabetes mellitus,hypercholesterolemia Seen and examined by me and Dr. Willard Objective - Vital Signs/Intake and Output Vital Signs (last 24 hours): Temp Pulse Resp BP Pulse Ox 98.4 F 66 20 136/68 96 11/26/17 18:00 11/26/17 18:05 11/26/17 18:00 11/26/17 18:05 11/26/17 18:00 Intake and Output: 11/26/17 11/27/17 18:59 06:59 Intake Total 480 240 Output Total 2 Balance 480 238 - Medications Medications: Current Medications Armodafinil (Nuvigil 150 Mg Tab) 150 mg PO DAILY [facility] Last Admin: 11/26/17 16:00 Dose: 150 mg Atorvastatin Calcium (Lipitor) 20 mg PO DAILY [facility] Last Admin: 11/26/17 10:02 Dose: 20 mg Carbidopa/Levodopa (Sinemet) 1 tab PO TID [facility] Last Admin: 11/26/17 18:06 Dose: 1 tab Fluoxetine HCl (Prozac) 40 mg PO DAILY [facility] Last Admin: 11/26/17 09:59 Dose: 40 mg Glimepiride (Amaryl) 2 mg PO ACBD [facility] Last Admin: 11/26/17 18:05 Dose: Not Given Insulin Human Regular (Humulin R Low) 0 units SC ACHS [facility] PRN Reason: Protocol Last Admin: 11/26/17 23:01 Dose: Not Given Lorazepam (Ativan) 2 mg PO BID [facility] PRN Reason: Protocol Last Admin: 11/26/17 18:06 Dose: 2 mg Metformin HCl (Glucophage) 500 mg PO BID [facility] Last Admin: 11/26/17 18:06 Dose: Not Given Metoprolol Tartrate (Lopressor) 25 mg PO BID [facility] Last Admin: 11/26/17 18:05 Dose: 25 mg Polyethylene Glycol (Miralax) 17 gm PO DAILY [facility] Last Admin: 11/26/17 10:05 Dose: 17 gm Quetiapine Fumarate (Seroquel) 150 mg PO HS [facility] PRN Reason: Protocol Last Admin: 11/26/17 23:11 Dose: 150 mg Quetiapine Fumarate (Seroquel) 50 mg PO BID [facility] PRN Reason: Protocol Last Admin: 11/26/17 18:08 Dose: 50 mg - Labs Labs: 11/25/17 06:30 11/25/17 06:30 - Constitutional Appears: No Acute Distress - Eye Exam Eye Exam: Normal appearance - ENT Exam ENT Exam: Mucous Membranes Moist - Respiratory Exam Respiratory Exam: Clear to Ausculation Bilateral, NORMAL BREATHING PATTERN - Cardiovascular Exam Cardiovascular Exam: +S1, +S2 Additional comments: NSR 70-80's/min - GI/Abdominal Exam GI & Abdominal Exam: Soft, Normal Bowel Sounds - Extremities Exam Extremities Exam: Normal Capillary Refill - Neurological Exam Neurological Exam: Alert, Awake - Psychiatric Exam Psychiatric exam: Normal Affect - Skin Skin Exam: Dry, Warm Assessment and Plan - Assessment and Plan (Free Text) Assessment: A 67 year old female who came to the ER due to change in behaviour,does not follow directions. Patient has history of schizophrenia Non- compliant with medications. history of diabetes mellitus, hypercholesterolemia. Consult was called due to tachycardia controlled with betablocker. No previous cardiac work up at [facility]. Plan: ECHO result LVEF 55-60%, Trace MR/TR, no vegetation Cardiac status stable Heart rate controlled right now- NSR 70's-80's Continue Lopressor 25 mg BID Controlled blood pressure No previous cardiac work up at [facility] Stress test if able or as out patient Continue current treatment Continue current medications Will follow up Plan and treatment discussed with Dr. Willard.
[2017-11-27] MEDS: Insulin Reg-LOW-Coverage SC SCH ×4 (08:07→22:03)
--- NOTE | 2017-11-27 09:46 | PN ---
DATE: 11/26/2017 SUBJECTIVE: The patient was seen and examined on the bedside on 11/26/2017. Looking comfortable. No nausea, vomiting, diarrhea. No hematuria or hematochezia. No headache. No chest pain. No dizziness. Mildly catatonic, but improving very slowly. The patient has baseline jerky movements, but not Parkinson's type features as per neurologist. She was on Sinemet prior. We will reorder Sinemet today as per Neurologist. The patient has very flat affect. Discussion done with the patient's nurse, Malika. Seen by neurologist and psychiatrist. PHYSICAL EXAMINATION: VITAL SIGNS: Temperature 98.4, pulse 91, blood pressure 126/85, respiratory rate 18, pulse oximetry 96% on room air. HEENT: Head normocephalic, atraumatic. Eyes PERRLA. Extraocular muscles intact. Conjunctivae clear. Nose patent. Mucous membrane moist. NECK: Supple. No carotid bruit. No JVD or thyromegaly. CHEST: Bilaterally symmetrical. HEART: S1 and S2 positive. LUNGS: Clear to auscultation. ABDOMEN: Soft. Bowel sounds positive. No organomegaly. EXTREMITIES: No edema. No cyanosis. NEUROLOGICAL: The patient is awake, alert. Moving all 4 extremities. No focal deficits. The patient has very flat affect. Poor cognitive judgment. Recall after 5 minutes is 0/3. Poor attention span. LABORATORY DATA: We do not have recent labs today, but I reviewed old labs. Blood sugar is 154, hemoglobin A1c is 9.3. ASSESSMENT AND PLAN: Ms. Paula Delvalle, 67-year-old female, was getting rehab in the [facility]. Has past medical history of hypertension; diabetes mellitus type 2, uncontrolled, hemoglobin A1c of 9.3; schizophrenia, catatonic type, noncompliant with medication; parkinsonism; was having acute catatonic and decompensated schizophrenia. CPK was high. Her parkinsonism is present superimposed on underlying catatonic state. Recommended monitor electrolytes and correct accordingly, keep blood pressure between 140-180. Dr. William Gardner restarted Sinemet 25/100 p.o. t.i.d. Continue Seroquel 50 mg p.o. b.i.d. and 150 at bedtime for schizophrenia as per psychiatrist. We will give physical therapy. Gastrointestinal, deep venous thrombosis prophylaxis. Appreciated Neurology and Psychiatry input. The patient should be transferred to the Psychiatry because getting stabilized on medical site. We will follow up. Terri Thompson MD
[2017-11-27] MEDS: POLYETHYLENE GLYCOL 3350 17 GM/Dose PACKET PO SCH (10:00)
[2017-11-27 10:43] LABS: CK-MB 2.3 ng/mL (0.0-3.6)
--- NOTE | 2017-11-27 16:10 | PN ---
DATE: 11/27/2017 FOLLOWUP NOTE SUBJECTIVE: The patient was followed up today. No changes with the patient's presentation. The patient stares at this narrative writer, minimal talkative. We will increase the dose of Ativan as well as Seroquel because the patient was not making any sense, was keep moving as well as appears to be confused. This narrative writer discussed case with the nursing staff. As per nursing staff, the patient does not make any sense, but follow direction and not talkative. The patient was not able to eat, was needed to have redirection when she is eating. OBJECTIVE: VITAL SIGNS: Seem to be unstable because the patient had episodes of tachycardia. MEDICATIONS: In regards of the medication, this narrative writer will increase the dose of Ativan to 2 mg three times a day as well as Seroquel was increased to 200 mg at the nighttime. The patient was also started on Sinemet by Dr. Gardner. LABORATORY DATA: Reviewed. Most recent was from . MENTAL STATUS EXAMINATION: As this narrative writer described above, the patient stares at this narrative writer, like in catatonic stage. Not able to talk, express herself. Patient has episodes of restless behavior and not following directions. Mood was not able to assess. Thought process disorganized. Insight and judgment seem to be impaired. Impulses are not predictable. IMPRESSION: As per history, schizoaffective disorder and catatonia which is related to the medical issues. PLAN: Continue current management. Continue current medication. Ativan was increased. Seroquel was increased. Neurology resumed Sinemet. We will follow up and advise accordingly. As of now, the patient lacks capacity to sign herself into the psychiatric inpatient unit. Thank you very much for letting me participate in care of your patient. Sade Shaffer MD
[2017-11-27] MEDS ORDERED: Magnesium Hydroxide Susp 30 ml UD PO PRN (17:46)
[2017-11-27] MEDS ORDERED: Sodium Chloride 0.9% 1,000 ML IV SCH (18:30)
[2017-11-28 00:51] LABS: CK-MB 1.6 ng/mL (0.0-3.6)
--- NOTE | 2017-11-28 04:51 | PN ---
DATE: 11/27/2017 SUBJECTIVE: The patient was seen and examined on the bedside, looking comfortable. No nausea, vomiting, diarrhea. No hematuria or hematochezia. No swelling of the legs. No chest pain. No palpitation. No headache or dizziness. The patient is a very poor historian . PHYSICAL EXAMINATION: VITAL SIGNS: Temperature 98.4, pulse 94, blood pressure 120/80 . respiratory rate 20. HEENT: Head normocephalic, atraumatic. Eyes PERRLA. Extraocular muscles intact. Conjunctivae clear. Nose patent. Mucous membrane moist. NECK: Supple. No carotid bruit, JVD or thyromegaly. CHEST: Bilaterally symmetrical. HEART: S1 and S2 positive. LUNGS: Clear to auscultation. ABDOMEN: Soft. Bowel sounds positive. No organomegaly. EXTREMITIES: No edema. No cyanosis. NEUROLOGICAL: The patient is awake, alert. Moving all 4 extremities. No focal deficits. MEDICATIONS: Amaryl, Ativan, Glucophage, insulin, Lipitor, Lopressor, milk of magnesia, MiraLax, Nuvigil, Prozac, Seroquel, Sinemet. LABORATORY DATA: We do not have recent labs today, but I reviewed old labs. ASSESSMENT AND PLAN: Ms. Paula Delvalle, 67-year-old lady with diabetes mellitus; increased creatine kinase, we will give some hydration; history of hypertension; diabetes uncontrolled, hemoglobin A1c 9.3; schizophrenia, catatonic type, noncompliant with medication; parkinsonism; decompensated schizophrenia; monitoring electrolytes, we will give some hydration. Started Sinemet by Dr. Gardner. Continue Seroquel at bedtime and 150 mg every day. Physical therapy. Gastrointestinal, deep venous thrombosis prophylaxes. Psychiatrist and neurologist on the case. Repeat labs. We will follow up. Terri Thompson MD MTDD
[2017-11-28] MEDS: Sodium Chloride 0.9% 1,000 ML IV SCH ×2 (05:01→12:42)
--- NOTE | 2017-11-28 06:43 | CP.PCM.PN ---
Subjective - Date & Time of Evaluation Date of Evaluation: 11/28/17 Time of Evaluation: 06:10 - Subjective Subjective: Awake, no distress, denies chest pain,denies shortness of breath,responsive Reason for consultation and follow up: Cardiac evaluation for tachycardia, history of schizophrenia, diabetes mellitus,hypercholesterolemia Seen and examined by me and Dr. Willard Objective - Vital Signs/Intake and Output Vital Signs (last 24 hours): Temp Pulse Resp BP Pulse Ox 98.4 F 94 H 20 118/76 93 L 11/27/17 16:54 11/27/17 17:40 11/27/17 16:54 11/27/17 17:40 11/27/17 16:54 Intake and Output: 11/27/17 11/28/17 18:59 06:59 Intake Total 360 240 Balance 360 240 - Medications Medications: Current Medications Armodafinil (Nuvigil 150 Mg Tab) 150 mg PO DAILY [facility] Last Admin: 11/27/17 09:56 Dose: 150 mg Atorvastatin Calcium (Lipitor) 20 mg PO DAILY [facility] Last Admin: 11/27/17 09:57 Dose: 20 mg Carbidopa/Levodopa (Sinemet) 1 tab PO TID [facility] Last Admin: 11/27/17 17:40 Dose: 1 tab Fluoxetine HCl (Prozac) 40 mg PO DAILY [facility] Last Admin: 11/27/17 09:57 Dose: 40 mg Glimepiride (Amaryl) 2 mg PO ACBD [facility] Last Admin: 11/27/17 16:07 Dose: Not Given Sodium Chloride (Sodium Chloride 0.9%) 1,000 mls @ 100 mls/hr IV .Q10H [facility] Last Admin: 11/28/17 05:01 Dose: 100 mls/hr Insulin Human Regular (Humulin R Low) 0 units SC ACHS [facility] PRN Reason: Protocol Last Admin: 11/27/17 22:03 Dose: Not Given Lorazepam (Ativan) 2 mg PO BID [facility] PRN Reason: Protocol Last Admin: 11/27/17 17:40 Dose: 2 mg Lorazepam (Ativan) 2 mg PO HS [facility] PRN Reason: Protocol Last Admin: 11/27/17 22:02 Dose: 2 mg Magnesium Hydroxide (Milk Of Magnesia) 30 ml PO DAILY [facility] PRN Reason: Constipation Last Admin: 11/27/17 18:14 Dose: 30 ml Metformin HCl (Glucophage) 500 mg PO BID [facility] Last Admin: 11/27/17 17:40 Dose: 500 mg Metoprolol Tartrate (Lopressor) 25 mg PO BID [facility] Last Admin: 11/27/17 17:40 Dose: 25 mg Polyethylene Glycol (Miralax) 17 gm PO DAILY [facility] Last Admin: 11/27/17 10:00 Dose: 17 gm Quetiapine Fumarate (Seroquel) 50 mg PO BID [facility] PRN Reason: Protocol Last Admin: 11/27/17 17:40 Dose: 50 mg Quetiapine Fumarate (Seroquel) 200 mg PO HS [facility] PRN Reason: Protocol Last Admin: 11/27/17 22:01 Dose: 200 mg - Labs Labs: 11/25/17 06:30 11/25/17 06:30 - Constitutional Appears: No Acute Distress - Eye Exam Eye Exam: Normal appearance - ENT Exam ENT Exam: Mucous Membranes Moist - Respiratory Exam Respiratory Exam: Clear to Ausculation Bilateral, NORMAL BREATHING PATTERN - Cardiovascular Exam Cardiovascular Exam: +S1, +S2 - GI/Abdominal Exam GI & Abdominal Exam: Soft, Normal Bowel Sounds - Extremities Exam Extremities Exam: Normal Capillary Refill - Neurological Exam Neurological Exam: Alert, Awake - Psychiatric Exam Psychiatric exam: Flat Affect - Skin Skin Exam: Dry, Warm Assessment and Plan - Assessment and Plan (Free Text) Assessment: A 67 year old female who came to the ER due to change in behaviour,does not follow directions. Patient has history of schizophrenia Non- compliant with medications. history of diabetes mellitus, hypercholesterolemia. Consult was called due to tachycardia controlled with betablocker. No previous cardiac [facility] [place] [facility] LVEF 55-60%, Trace MR/TR, no vegetation Plan: Heart rate stable Cardiac status stable Continue Lopressor 25 mg BID Controlled blood pressure Stress test if able or as out patient Continue current treatment Continue current medications Neuro and Psych on consult Discharge planning Will follow up Plan and treatment discussed with Dr. Willard.
[2017-11-28 07:21] LABS: HEMOGLOBIN 14.3 g/dL (12.0-16.0); MEAN CELL VOLUME 84.9 fl (80.0-105.0); MEAN CORPUSCULAR HEMOGLOBIN 28.8 pg (25.0-35.0); MEAN CORPUSCULAR HGB CONC 33.9 g/dl (31.0-37.0); MEAN PLATELET VOLUME 10.5 fl (7.0-11.0); RBC 4.97 10^6/uL (3.5-6.1); RED CELL DISTRIBUTION WIDTH 14.6 % (11.5-14.5); WHITE BLOOD COUNT 6.5 10^3/ul (4.5-11.0)
[2017-11-28 07:39] LABS: BLOOD UREA NITROGEN 12 mg/dL (7-21); CALCIUM 9.1 mg/dL (8.4-10.5); GFR AFRICAN-AMERICAN > 60; GFR NON-AFRICAN AMERICAN > 60
[2017-11-28] MEDS: Insulin Reg-LOW-Coverage SC SCH ×3 (08:49→16:47)
[2017-11-28] MEDS: POLYETHYLENE GLYCOL 3350 17 GM/Dose PACKET PO SCH (09:47)
--- NOTE | 2017-11-28 15:30 | PN ---
DATE: 11/28/2017 FOLLOWUP SUBJECTIVE: The patient was followed up today. The patient still has catatonia. The patient is confused, at times restless, trying to climb off the bed. The patient was not able to participate in interview. The patient was keep repeating [place] and [place]. Vital signs seems to be stable. Temperature 97, pulse is 91, blood pressure is 116/79, respirations 20, oxygen saturation is 95. Medications reviewed. The patient is on Nuvigil, Lipitor, Sinemet, Prozac, Amaryl, Humulin, Ativan 2 mg three times a day, Glucophage, Lopressor, MiraLax, Seroquel 50 mg twice a day and 200 mg at the nighttime, sodium chloride. Labs reviewed. Chemistry reviewed. MENTAL STATUS EXAMINATION: As this brief writer described above, the patient is confused, catatonic, stares at this brief writer, repeating [place] and [place]. Insight and judgment seems to be impaired. Impulses are unpredictable. IMPRESSION: The patient has history of schizoaffective disorder, history of catatonia, history of Parkinson's. PLAN: This brief writer increased the dose of Ativan yesterday. Seroquel was also increased yesterday. The patient is on Sinemet. The patient lacks capacity to sign herself in because the patient is confused and does not know what is going on and not able to even participate in interview. We will follow up on the patient and advise accordingly. Thank you very much for letting me participate in the care of your patient. Sade Shaffer MD
--- NOTE | 2017-11-28 15:37 | PN ---
DATE: 11/28/2017 TYPE OF DICTATION: Addendum to the initial progress note dictated this morning by nurse practitioner. REASON FOR ADDENDUM: We will signoff the case and follow p.r.n. Since the patient is stable and no active cardiac issue, we will signoff and glad to follow p.r.n. Thank you, Dr. Thompson, for providing us the opportunity in taking care of the patient, Paula Delvalle. We will follow p.r.n. Rao Willard MD
[2017-11-29 07:52] VITALS: RESP 20
--- NOTE | 2017-11-29 08:09 | PN ---
DATE: 11/28/2017 SUBJECTIVE: Patient was seen and examined at the bedside on 11/28/2017, looking comfortable, still in catatonic state, but getting better; still having tremors, but less. Denies shortness of breath . No hematuria, no hematochezia. No swelling of the legs. No chest pain, no palpitation. No headache, no dizziness. Patient is a poor historian. PHYSICAL EXAMINATION: VITAL SIGNS: Temperature 98, pulse 94, respiratory rate 20, blood pressure 118/76. HEENT: Head normocephalic, atraumatic. Eyes PERRLA. Extraocular muscles intact. Conjunctivae clear. Nose patent. Mucous membrane moist. NECK: Supple. No carotid bruit. No JVD or thyromegaly. CHEST: Bilaterally symmetrical. HEART: S1 and S2 positive. LUNGS: Clear to auscultation. ABDOMEN: Soft. Bowel sounds present. No organomegaly. EXTREMITIES: No edema. No cyanosis. NEUROLOGICAL: The patient is awake, alert. Moving all 4 extremities. No focal deficits. MEDICATIONS: Nuvigil, Lipitor, Sinemet, Prozac, Amaryl, NS, insulin, Ativan, metformin, metoprolol, Seroquel. LABORATORY DATA: White blood cells 6.7, hemoglobin 13.1, hematocrit 39.2, platelet 329. Sodium 144, potassium 3.4, BUN 6, creatinine 0.7, glucose 95. ASSESSMENT AND PLAN: a 67-year-old female, came to the emergency room with behavioral problem, has history of schizophrenia, noncompliant with medications, diabetes mellitus, hypercholesterolemia, tachycardia that is controlled with beta-blockers, seen by the transaction coordinator. Ejection fraction 50% to 60%. Cardiac status is stable with Lopressor 25 b.i.d. Control blood pressure. Stress test if able or as outpatient, per Cardiology. Neurology and Psychiatry is on the case. Planning to discharge patient to the psychiatric department. Seen by Dr. Sade Shaffer, psychiatrist. Patient has history of parkinsonism, catatonic schizophrenia, getting treatment. Repeat labs. We will follow up. Terri Thompson MD [facility] # [id number] MTDD
[2017-11-29] MEDS: Insulin Reg-LOW-Coverage SC SCH ×4 (08:18→21:39)
[2017-11-29] MEDS: POLYETHYLENE GLYCOL 3350 17 GM/Dose PACKET PO SCH (09:02)
[2017-11-29] MEDS: Sodium Chloride 0.9% 1,000 ML IV SCH (13:22)
--- NOTE | 2017-11-29 15:30 | PN ---
DATE: 11/29/2017 SUBJECTIVE: The patient is 67-year-old female with long history of mental illness plus patient has multiple medical issues including poorly controlled diabetes. The patient was transferred from the [facility] for evaluation of catatonia. The patient was not able to walk. The patient was not able to talk. Psych consult was called for patient's presentation. This magnetic tape typewriter operator would like to emphasize the fact that the patient had recent admission for the psychiatric and the patient then was discharged from the prolonged hospitalization at the psych unit on 11/13/2017 to subacute rehab. This magnetic tape typewriter operator is not clear what happened in the subacute rehab, but she was taking her medications as prescribed. This magnetic tape typewriter operator gave a call to nurse supervisor roving department at [facility], , extension [phone]. There is no option to leave a message. We will call her back. This magnetic tape typewriter operator also had phone conversation with attending, Dr. Thompson. As per Dr. Thompson, [facility]. At this point, we will not do direct admission. Because of her involuntary status, patient needs to have capacity to sign consent for treatment. She lacks the capacity as of now. The patient does not meet a criteria for screening because patient never rejected a new medication as well as the patient is not agitated; moreover, patient has multiple medical issues. This magnetic tape typewriter operator attempted to speak to the patient today. The patient presented to be in catatonic stage, difficult to express herself. This magnetic tape typewriter operator tried to interview the patient in [place] language, utilizing nurse on the medical side. The patient was not able to participate in the interview at all. This magnetic tape typewriter operator reviewed vital signs. Vital signs seems to be stable. Temperature 98, pulse is 84, blood pressure 123/82, respirations 20, and oxygen saturation 96%. MEDICATIONS: Reviewed. The patient is on Nuvigil, Lipitor, Sinemet, Prozac, Amaryl, Humulin, Ativan 2 mg twice a day and this magnetic tape typewriter operator will increase the dose of Ativan 3 mg at nighttime before the patient was stabilized on 9 mg of benzodiazepines. The patient is on Milk of Magnesia. The patient is on metformin, Lopressor, MiraLax, Seroquel 200 mg at nighttime and 100 mg at the morning time, and sodium chloride. LABORATORY DATA: Reviewed, most recent was from 11/28/2017. MENTAL STATUS EXAMINATION: The patient is in catatonic state, she was not able to express herself, look at this magnetic tape typewriter operator. The patient at times moving, trying to climb over the bed. The patient reports at times she hears voices, was not able to tell anything more than that. Insight and judgment seems to be lacking. Impulses are unpredictable. IMPRESSION: Most likely, patient is in delirium stage and patient also seems to be in catatonic stage, usually catatonia related to the medical issues. The patient also has history of questionable schizophrenia with catatonia, treatment resistant. PLAN: This magnetic tape typewriter operator reviewed Physical Therapy notes. We will recommend subacute rehab. Presently, patient lacks capacity to sign consent for treatment. The patient does not have power of divorce attorney. The patient's family requested [facility] transfer, but at this point, we do not have enough ground to transfer her. We have the same services here in [place], but patient lacks capacity to sign in. Previous admission, patient was more talkative, was able to sign consent, but at present time, patient is not talking at all. Family involved, just talked with Dr. Thompson . Plan is possible subacute rehab for gait disturbances and Parkinson, also this magnetic tape typewriter operator will recommend follow up with psychiatrist in subacute rehab. After medical stabilization, patient might be discharged back to home because family wants to take her back home. If patient is willing to have psychiatric services at [facility], they could bring patient there. I hope patient will keep improving. Should you have any questions, give me a call back. This magnetic tape typewriter operator also gave a call to nursing supervisor roving department at [facility], , extension [phone], but there is no option to leave a message. We will follow up and advise accordingly. The patient should be continuing on Seroquel, Ativan, Prozac. It took more than 45 minutes of this magnetic tape typewriter operator's time. Thank you very much for letting me to participate in the care of your patient. Sade Shaffer MD [facility] # [id number]
--- NOTE | 2017-11-29 16:50 | CP.PCM.PCO ---
Addendum Addendum: 11/29/17 16:45 medical team cleared pt from the medical stand point pt's family does not want pt to be transferred to [facility] which recommended by PT pt's family insisting for psychiatric admission, pt does not have POA pt is not able to participate in interview, pt is catatonic, not able to talk pt is not agitated or aggressive pt does not have a capacity to sign into the voluntary unit because pt does not talk and not able to participate in interview medical team suggesting Screening by [facility] staff advised to call [facility] screening services 11/29/17 16:49
[2017-11-29 18:32] LABS: URINE BILIRUBIN NEGATIVE (NEGATIVE); URINE BLOOD NEGATIVE (NEGATIVE); URINE GLUCOSE (UA) NEGATIVE (NEGATIVE); URINE LEUKOCYTE ESTERASE SMALL Leu/uL (NEGATIVE); URINE PROTEIN NEGATIVE mg/dL (<30 mg/dL); URINE UROBILINOGEN 0.2 E.U./dL (<1 E.U./dL)
[2017-11-29 18:39] LABS: URINE COLOR STRAW (YELLOW)
[2017-11-29 18:40] LABS: URINE APPEARANCE CLEAR (CLEAR)
[2017-11-29 18:52] LABS: URINE BACTERIA TRACE (NEG); URINE EPITHELIAL CELLS 0 - 2 /hpf (0-5); URINE RBC NEGATIVE /hpf (0-2)
[2017-11-29 18:54] LABS: BENZODIAZEPINES, UR NEGATIVE (NEGATIVE)
[2017-11-29 18:55] LABS: BARBITURATES, UR NEGATIVE (NEGATIVE); OPIATES, UR NEGATIVE (NEGATIVE); PHENCYCLIDINE, UR NEGATIVE (NEGATIVE)
[2017-11-30] MEDS: Insulin Reg-LOW-Coverage SC SCH ×3 (07:48→16:23)
--- NOTE | 2017-11-30 08:07 | PN ---
DATE: 11/29/2017 SUBJECTIVE: Patient is a 67-year-old female. Patient is seen and examined on the bedside, looking comfortable. No nausea, vomiting, or diarrhea. No hematuria or hematochezia. No swelling of the leg. No chest pain. No palpitation. No headache. No dizziness. PHYSICAL EXAMINATION: VITAL SIGNS: Temperature 98, pulse 78, blood pressure 123/82, respiratory rate 20. HEENT: Head: Normocephalic, atraumatic. Eyes: PERRLA. Extraocular muscles intact. Conjunctivae clear. Nose patent. Mucous membrane moist. NECK: Supple. No carotid bruit, JVD, or thyromegaly. CHEST: Bilaterally symmetrical. HEART: S1 and S2 positive. LUNGS: Clear to auscultation. ABDOMEN: Soft. Bowel sounds present. No organomegaly. EXTREMITIES: No edema. No cyanosis. NEUROLOGIC: Patient is awake and alert. Moving all four extremities. No focal deficits. MEDICATIONS: Amaryl, Ativan, Bactroban, Glucophage, insulin, Lipitor, metoprolol, Milk of Magnesia, MiraLax, Nuvigil, Prozac, Seroquel, Sinemet. LABORATORY DATA: White blood cells 6.5, hemoglobin 14.3, hematocrit 42.2, platelets 310,000. Glucose of 109, 96, 120. ASSESSMENT AND PLAN: Ms. Paula Delvalle is a 67-year-old lady with uncontrolled diabetes mellitus, drug screening is negative; has parkinsonism, getting Sinemet; constipation, getting MiraLax; hypertension, getting Lopressor; hypercholesterolemia, getting Lipitor; diabetes, getting metformin and glimepiride; has schizophrenia. Psychiatrist, Dr. Sade Shaffer, is on the case. discussed with Dr. Shaffer and nurse practitioner. Medically, patient was cleared to discharge. The patient's family does not want the patient to be transferred to [facility]. Patient admits here for psychiatric admission, do not want to have power of assistant prosecuting attorney. Patient is not able to participate in interview. Patient is catatonic, not able to talk. Patient is not agitated or aggressive, no more one-to-one, does not have capacity to sign off into the voluntary unit because patient does not talk and not able to participate in the interview. Medical team suggested psyche av[facility]from [facility], staff advised to call this center for services. Repeat labs. We will follow up. eTrri Thompson MD GEMA
[2017-11-30] MEDS ORDERED: Mupirocin 2% Ointment 15 GM TUBE TOP SCH (10:00)
[2017-11-30] MEDS: POLYETHYLENE GLYCOL 3350 17 GM/Dose PACKET PO SCH (10:14)
[2017-11-30 16:24] VITALS: BP 110/49; PULSE 92; TEMP 99; O2SAT 95
--- NOTE | 2017-11-30 21:57 | DS ---
CHIEF COMPLAINTS: Restless, abnormal labs. HISTORY OF PRESENT ILLNESS: Ms. Paula Delvalle, 67-year-old female with past medical history of schizophrenia with catastrophic symptomatic situation, was getting rehab in [facility], was very restless according to [facility] record. Before that, the patient was talking, walking, but in the facility when I saw the patient on , the patient was doing minimal talk and not follow directions. Symptom continued. She was given Ativan one dose to relax her. Her CPK level was high, found to be [address] [facility]. The patient looks like may be has withdrawal or exacerbation of schizophrenia. The patient was very poor historian. We brought the patient to [facility]. Neurologist saw the patient, started Sinemet for Parkinson's symptoms. The patient started improving. Psych consult called with Dr. Sade Shaffer, she saw the patient, did changes in the medication. The patient is not able to sign the admission papers. She cannot give consent. The [facility] facility is voluntary, then we called [facility] crisis team, but meanwhile talked to the patient's family, the patient's niece directly. Plan is they want to take the patient to [place] where she has another sister, who will take care of her. Medically, she was stable and catatonic position was improved. Today, she was able to talk, eat and follow simple commands, so we discharged the patient with the family and before that we tried to transfer the patient to [facility] as per the patient's family's request, but could not do that. PAST MEDICAL HISTORY: Hypertension, diabetes mellitus, depression. Has multiple admissions in Psych Department. FAMILY HISTORY: Father and mother, noncontributory. HABITS: Smoking never. Drugs and alcohol never. Substance abuse never. ALLERGIES: THE PATIENT IS NOT ALLERGIC WITH ANY MEDICATION. REVIEW OF SYSTEMS: The patient was seen and examined on the bedside in the presence of social workers, window caser and the patient's niece. The patient was communicative today, follow simple orders, doing better. Discussion done with the nurse practitioner and Dr. Sade Shaffer. No nausea, vomiting, diarrhea. No hematuria or hematochezia. No swelling of the legs. No chest pain. No palpitation. No headache. No dizziness. PHYSICAL EXAMINATION: VITAL SIGNS: Temperature 99, pulse 92, blood pressure 110/49, respiratory rate 20. HEENT: Head normocephalic, atraumatic. Eyes PERRLA. Extraocular muscles intact. Conjunctivae clear. Nose patent. Mucous membrane moist. NECK: Supple. No carotid bruit. No JVD or thyromegaly. CHEST: Bilaterally symmetrical. HEART: S1 and S2 positive. LUNGS: Clear to auscultation. ABDOMEN: Soft. Bowel sounds positive. No organomegaly. EXTREMITIES: No edema. No cyanosis. NEUROLOGICAL: The patient is awake and alert. Moving all 4 extremities. No focal deficits. Obeying simple orders. MEDICATIONS: Amaryl, Ativan, Bactroban ointment, Glucophage, insulin, atorvastatin, Lopressor, milk of magnesia, MiraLax, Nuvigil, Prozac, Seroquel, NS was given. LABORATORY DATA: White blood cells 6.5, hemoglobin 14.3, hematocrit 42.2, platelets 310. Glucose 98, 131, 154. ASSESSMENT AND PLAN: Ms. Paula Delvalle, 67-year-old lady with diabetes mellitus, estrase positive in the urine. Drug screening negative. Has history of schizophrenia, catatonic type. Came with exacerbation of schizophrenia, increased CPK. Has constipation, got MiraLax; has hypertension, getting Lopressor; hypercholesterolemia, Lipitor. Psychiatry, Dr. Stuart is on the case. Length of time discussion done with her, nurse practitioner, social workers. Nurse practitionerAshley discharged the patient with the family. Family will follow up as outpatient with psychiatrist and they are planning to take the patient to [place] for family situation. Terri Thompson MD MTDD
--- NOTE | 2017-12-01 02:12 | PN ---
DATE: 11/30/2017 SUBJECTIVE: The patient was followed up today. No changes with presentation as per medical team. The patient was screened by [facility]. The patient was not accepted. At present moment, social security specialist and medical team is arranging discharge plan. There is no acute agitation or aggression for this patient. Still the patient is not talking, but he is able to walk with assistance. Vital signs seems to be stable, but the patient has episodes of tachycardia. LABORATORY DATA: Reviewed. MEDICATIONS: Reviewed. The patient is on benzodiazepines for catatonia, antipsychotic medications, Prozac. MENTAL STATUS EXAMINATION: As this script writer described above. The patient is in catatonic stage, not able to participate in interview. The patient stares at this script writer. 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 PLAN: Medical team suggested discharge plan [facility]. The patient was screened today by [facility], was not accepted for involuntary commitment. We will follow up and advise accordingly. Should you have any questions, give me a call back. The patient is compliant with medications. No behavioral incident. Sade Shaffer MD
--- NOTE | 2017-12-01 11:23 | CP.PCM.PCO ---
Physician Communication Note - Physician Communication Note Physician Communication Note: PT WAS D/C
== END 2017-11-30 17:22 | disposition home or self-care (01) | DRG 885 ==
LOC: ED 19:14 → ERH 23:14 → 3RNO 11-23 01:27
PROVIDERS: ADMIT Internal Medicine; ATTEND Internal Medicine
DX: F20.2 Catatonic schizophrenia (principal); F32.89 Other specified depressive episodes; G20 Parkinson's disease; E11.65 Type 2 diabetes mellitus with hyperglycemia; E78.00 Pure hypercholesterolemia, unspecified; E78.5 Hyperlipidemia, unspecified; F41.9 Anxiety disorder, unspecified; G89.4 Chronic pain syndrome; I10 Essential (primary) hypertension; I25.10 Atherosclerotic heart disease of native coronary artery without angina pectoris; K59.00 Constipation, unspecified; K74.60 Unspecified cirrhosis of liver; Z79.899 Other long term (current) drug therapy; Z91.14 Patient's other noncompliance with medication regimen; Z91.19 Patient's noncompliance with other medical treatment and regimen; R00.0 Tachycardia, unspecified